=== PATIENT | female | born 1940 | race Caucasian/White ===

== ENCOUNTER 2016-12-11 10:54 | Inpatient (IN) | payer MEDICARE ==
[~2016-12-11] VITALS: Ht 152.4 cm; Wt 74.4 kg
[2016-12-11] VITALS (8 sets, daily range): BP systolic 107–142; BP diastolic 38–112; PULSE 58–72; RESP 15–20; O2SAT 94–97
[~2016-12-11 10:54] MED LIST: ALBU8.5H2 INHALATION; AMLO5TAB2 PO; ATRV10T PO; CLON0.1T14 PO; DONE5TAB30 PO; HYDR-4003 PO; HYG25 PO; LISI-567 PO; MELA5TAB14 PO; MUPI1OIN6 TP; POTA10CA42 PO; QUET25TA73 PO; TORS20TA3 PO; spacer INH
--- NOTE | 2016-12-11 12:03 | ED.REPORT ---
HPI-General Illness Date of Service Dec 11, 2016 ED Provider: Christopher Faye MD Pt is a 76 year old female with a hx of kidney issues, DM and HTN presenting to the ED via EMS complaining of tremors onset in the last couple of days. Associated symptoms include feeling dehydrated, generalized weakness, problems with ambulation, lightheadedness, nausea, and dry heaving. Her symptoms have been constant over the last few days, gradually worsening. Denies SOB, chest pain, fever, abd pain, or urinary decrease or increase. She states that she was constipated for a couple weeks, and then took a supplement and had diarrhea yesterday. She has had changes to her Amitriptyline in the last week. No other known alleviating or exacerbating factors. She denies any seizure-like activity. Family present; no altered mental status. No vertigo, no unilateral weakness, numbness, or tingling, no gait disturbance, no difficulty speaking. Nursing Notes Stated Complaint: Tremors Chief Complaint: General Complaint Nursing Notes Reviewed: Yes Allergies: Coded Allergies: morphine (Verified Allergy, Unknown, 12/11/16) Scheduled Amlodipine (Amlodipine) 5 Mg Tablet 10 MG PO HS Atorvastatin (Lipitor) 10 Mg Tab 10 MG PO DAILY Chlorthalidone (Chlorthalidone) 25 Mg Tablet 25 MG PO DAILY Clonidine (Catapres) 0.1 Mg Tablet 0.1 MG PO BID Donepezil (Donepezil) 5 Mg Tablet 5 MG PO BID Lisinopril (Lisinopril) 20 Mg Tablet 20 MG PO DAILY Lisinopril (Lisinopril) 20 Mg Tablet 20 MG PO DAILY Mupirocin (Mupirocin) 2 % Oin.pf.sandra 1 GM TP 2-3 TIMES PER DAY Potassium Chloride (Potassium Chloride) 10 Meq Capsule.er 10 MEQ PO DAILY TAKE WITH FOOD Torsemide (Torsemide) 20 Mg Tablet 20 MG PO DAILY Scheduled PRN Albuterol HFA (Proair HFA) 8.5 Gm Hfa.aer.ad 2 PUFFS INHALATION Q4H PRN PRN For Shortness of Breath Hydrocodone-Acetaminophen 5-325 mg (Hydrocodone-Acetaminophen 5-325 mg) 1 Each Tablet 1 TABLET PO Q6H PRN PRN For Pain Melatonin (Melatonin) 5 Mg Tablet 5 MG PO HS PRN PRN Insomnia Quetiapine Fumarate (Quetiapine Fumarate) 25 Mg Tablet 25 MG PO HS PRN PRN insomnia, melatonin fail Miscellaneous Medications ([spacer]) 1 UNIT INH General Time Seen by MD: 11:17 Chief Complaint Other (Tremors) Hx Obtained From: Patient Arrived By: Walk-in Sudden in Onset?: No Onset Occurred: 3 days ago Symptom Duration: Constant Severity: Current: No pain currently Recent Healthcare: No recent doctor visit, No recent hospitalization Similar Sx Previous: No Past Medical History Past Medical History Dementia DM 2, hypertension Kidney issues Family History Denies pertinent family history Smoking History Former Smoker Social History Drug Use: Denies drug use Other Social History: Lives alone Ambulatory Status Independent Review of Systems Reports tremors Full Review of Systems Constitutional: Reports: Weakness - generalized, Denies: Fever Eyes: Denies: Diplopia Ears / Nose / Throat: Denies: Nasal congestion Respiratory: Denies: Shortness of breath Cardiovascular: Denies: Chest pain GI: Reports: Constipation, Diarrhea, Nausea, Denies: Abdominal pain Female: Denies: Dysuria, Urination decreased, Urination increased Musculoskeletal: Denies: Back pain Skin: Denies Rash Neurologic: Reports: Lightheaded Psychiatric: Denies: Agitation Complete sys rev & neg: except as marked. Physical Exam Nursing note and vitals reviewed. Constitutional: Well-developed, well-nourished. Not diaphoretic. Head: Normocephalic and atraumatic. Mouth/Throat: Oropharynx is clear and moist. No oropharyngeal exudate. Eyes: EOM are normal. Pupils are equal, round, and reactive to light. Neck: Supple, no tracheal deviation. Cardiovascular: Normal rate, regular rhythm. Equal and intact distal pulses throughout. Pulmonary/Chest: Effort normal and breath sounds normal. No respiratory distress. Abdominal: Soft. No distension. There is no tenderness, rebound, or guarding. Bowel sounds present. Musculoskeletal: Range of motion grossly intact, moving all extremities. No edema or tenderness appreciated. Neurological: AOx3. Grossly nonfocal exam. Strength and sensation intact and equal to bilateral upper and lower extremities. Skin: Warm and dry, no rashes or pallor appreciated. Normal skin turgor. Psychiatric: Appropriate mood and affect. Behavior appears normal. Vital Signs Vital Signs Date Time Temp Pulse Resp B/P Pulse Ox O2 Delivery O2 Flow Rate FiO2 12/11/16 13:13 36.7 72 20 140/38 95 Room Air 12/11/16 11:16 36.4 58 16 138/76 97 Room Air Initial VS: Reviewed Interpretation & Diagnostics Lab Results Interpretation Result Diagram: 12/11/16 1155 12/11/16 1155 Test 12/11/16 11:55 White Blood Count 6.5th/mm3 (3.8-10.1) Red Blood Count 3.39mil/mm3 (3.90-5.20) Hemoglobin 10.2g/dL (12.0-15.6) Hematocrit 28.6% (35.0-46.0) Mean Corpuscular Volume 84.4fL (81-100) Mean Corpuscular Hemoglobin 30.1pg (27.0-35.0) Mean Corpuscular Hemoglobin Concent 35.7% (32.0-37.0) Red Cell Distribution Width 12.2% (12.3-15.4) Platelet Count 199bil/L (150-400) Neutrophils (%) (Auto) 79.8% (40-74) Lymphocytes (%) (Auto) 10.8% (14-46) Monocytes (%) (Auto) 7.2% (4-12) Eosinophils (%) (Auto) 1.8% (0-5) Basophils (%) (Auto) 0.2% (0-3) Sodium Level 120mEq/L (134-144) Potassium Level 4.3mEq/L (3.5-5.2) Chloride Level 80mEq/L (97-108) Carbon Dioxide Level 18mmol/L (18-29) Blood Urea Nitrogen 90mg/dL (8-27) Creatinine 5.31mg/dL (0.57-1.00) Estimat Glomerular Filtration Rate 11mL/min (>59) Glucose Level 154mg/dL (60-99) Lactic Acid Level 0.7mmol/L (0.4-2.0) Calcium Level 7.9mg/dL (8.5-10.1) Magnesium Level 1.6mg/dL (1.6-2.6) Total Bilirubin 0.4mg/dL (0.0-1.2) Aspartate Amino Transf (AST/SGOT) 32U/L (0-50) Alanine Aminotransferase (ALT/SGPT) 19U/L (0-32) Alkaline Phosphatase 141U/L (25-165) Troponin T 0.010ug/L (0.0-0.011) Total Protein 5.9g/dL (6.4-8.4) Albumin 3.6g/dL (3.4-5.0) Alcohols < 10mg/dL (0-10) ECG Interpretation ECG Interpretation: No significant change from previous. Time: 11:43 Interpreted by: ED physician Normal ECG Interpretation: Normal rate (60), Normal sinus rhythm X-Ray Chest Interpretation Chest Xray Interpretation: IMPRESSION: Lordotic positioning, no acute disease considering reduced inspiratory volume. Dictated by: Nitin Rubio M.D. on 12/11/2016 at 13:07 View: Portable, 1 view Interpretation / Wet Read by: Interpret - Radiologist CT Head Interpretation IMPRESSION: 1. No acute intracranial findings. 2. Mild findings likely associated with microvascular ischemia. Dictated by: Cathryn Robles M.D. on 12/11/2016 at 12:58 Study: Head CT no contrast Interpretation / Wet Read by: Interpret - Radiologist Re-Eval/Medical Decision Med Decision/Clinical Course In summary, 76-year-old female with a complex past medical history including diabetes, CKD, and arthritis resigned to the ED for evaluation of a number of different symptoms, most notably some shakiness/tremor, lightheadedness, malaise , generalized weakness, and nausea. She does not have any focal neurologic deficits that would suggest CVA, nor difficulty speaking; acting at baseline per family. No abdominal pain or tenderness. No chest pain or shortness of breath. EKG with no acute ischemic changes. Unclear etiology for the patient' s symptoms at this time, differential is broad. Initial laboratory studies notable for a sodium of 120, BUN of 90, creatinine of 5.31 from 1.77 previously. Anion gap of 22. Lactic acid 0.7. CBC stable from previous. UA, serum osmolarity pending. Chest x-ray and head CT negative for acute abnormality, including no evidence of pneumonia or acute intracranial bleed. She appears to be euvolemic at this time, no history of seizures or altered mental status recently. Made nothing by mouth and fluid restricted here in the ED; discussed with Dr. Cortez as per below. We will hold off on hypertonic saline at this time given stable, however may need this shortly pending results and progression. Given the above, plan admission for further evaluation and management of this critically ill patient. Time of Eval: 13:16 Patient Status: Condition improved Re-Evaluation/Progress Note: Discussed plan for admission. Pt understands and agrees with plan. Consultation #1: Consulted With: Hospitalist Cyber Incident Handler: Will see patient, Agrees with plan, Accepts admit Consultation #2: Referral / Consult Name: Afshin Cortez DO Consulted With: Nephrology Call Returned at: 13:29 Cyber Incident Handler: Will see patient Note: He will come see the patient. Counseled Regarding: Diagnosis, Lab results, Need for admission Discharge & Departure Primary Impression: Hyponatremia Additional Impressions: Azotemia Acute kidney injury Disposition: ADMITTED TO HOSPITAL Discharge Condition All VS Reviewed: Yes Condition: Critical Referrals: Jon Moran DO (PCP) Afshin Cortez DO Crit Care Except Billable Proc Time Spent: 30-74 minutes Services Performed: Patient management by me, Time spent at bedside, Reviewing test results, Reviewing imaging, Discussing patient care, Documentation in record, Time with fam/surrogate Scribe Attestation Portions of this note were transcribed by Savanna Spenec. I, Dr. Faye personally performed the history, physical exam and medical decision-making; I reviewed and confirmed the accuracy of the information in the transcribed note. Signed by: Serg Lopez, 12/11/2016 at [Time]. copies to: Jon Moran DO; Afshin Cortez William B MD Dec 11, 2016 12:03 SAVANNA SPENCE Dec 11, 2016 12:23
[2016-12-11 12:08] LABS: BASOPHILS % (AUTO) 0.2 % (0-3); EOSINOPHILS % (AUTO) 1.8 % (0-5); MONOCYTES % (AUTO) 7.2 % (4-12); Mean Corpuscular Hemoglobin 30.1 pg (27.0-35.0); Mean Corpuscular Volume 84.4 fL (81-100); NEUTROPHILS % (AUTO) 79.8 % (40-74); Platelet Count 199 bil/L (150-400)
[2016-12-11 12:43] LABS: Magnesium 1.6 mg/dL (1.6-2.6)
--- NOTE | 2016-12-11 13:09 | DRSVH ---
PROCEDURE: X-RAY CHEST ONE VIEW, PORTABLE ([id number]) INDICATIONS: dizzy, lightheaded TECHNIQUE: One view of the chest was acquired. COMPARISON: [facility], CR, XR CHEST 1VW (PORTABLE), 11/02/2016, 15:51. [facility], CR, CHEST 1VW (PORTABLE), 01/28/2014, 13:13. FINDINGS: Surgical changes and devices: None. Lungs and pleura: No pleural effusions or pneumothorax. Lungs are clear considering lordotic positi oning and reduced inspiration. Mediastinum: Mediastinal contours appear normal. Heart size is normal. Bones and chest wall: No suspicious bony lesions. Overlying soft tissues appear unremarkable. IMPRESSION: Lordotic positioning, no acute disease considering reduced inspiratory volume. Dictated by: Nitin Rubio M.D. on 12/11/2016 at 13:07 Approved by: Nitin Rubio M.D. on 12/11/2016 at 13:08
--- NOTE | 2016-12-11 13:11 | DRSVH ---
PROCEDURE: CT BRAIN WITHOUT CONTRAST ([id number]) INDICATIONS: dizziness, near syncope TECHNIQUE: Noncontrast 4.5 mm thick angled axial sections acquired from the foramen magnum to the vertex, with c oronal reformats. COMPARISON: [facility], CT, CT BRAIN WO CON, 11/02/2016, 17:06. FINDINGS: Image quality: Excellent. CSF spaces: Basal cisterns are patent. No extra-axial fluid collections. The ventricles are symmet felisha in size and shape. Brain: No intracranial bleeds or masses. There is cerebral volume loss for age, with resultant vent ricular and sulcal prominence. There are periventricular and deep white matter chronic small vessel ischemic changes. There is intracranial internal carotid artery atherosclerosis. Skull and face: Calvarium and visualized facial bones appear intact, without suspicious lesions. Sinuses: Visualized sinuses and mastoids are clear. IMPRESSION: 1. No acute intracranial findings. 2. Mild findings likely associated with microvascular ischemia. Dictated by: Cathryn Robles M.D. on 12/11/2016 at 12:58 Approved by: Cathryn Robles M.D. on 12/11/2016 at 13:09
[2016-12-11] MEDS ORDERED: 0.9% Sodium Chloride 500 ML IV ONE (14:20)
[2016-12-11] MEDS ORDERED: Polyethylene Glycol (PEG) 17 Gm Powder PO PRN (14:55)
[2016-12-11] MEDS ORDERED: Alum-Mag Hydrox-Simeth 30 mL Suspension PO PRN (14:55)
[2016-12-11] MEDS ORDERED: LOPE-147 PO (15:05)
[2016-12-11] MEDS ORDERED: AMIT75TA2 PO (15:05)
[2016-12-11 15:12] LABS: Mean Corpuscular Volume 84.2 fL (81-100)
--- NOTE | 2016-12-11 16:12 | DRSVH ---
PROCEDURE: US RENAL SONOGRAM INDICATIONS: [place], eval for obstruction, hydro etc TECHNIQUE: Real-time scanning was performed of the kidneys and bladder, with image documentation. COMPARISON: [facility], US, US RENAL, 09/28/2016, 10:17. FINDINGS: Kidneys: Kidneys are normal in size. Right kidney measures 9.9 cm long; left kidney measures 9.6 cm long. Right renal cortical thickness is 1.3 cm; left renal cortical thickness is 1.2 cm. Renal cor tical echotexture is normal. No hydronephrosis or nephrolithiasis. No suspicious solid mass lesions . Bladder: Pre-void bladder volume is 83.5 mL. Post-void residual is 118.4 mL. Pre-void images demon strate no intraluminal masses or stones. On pre-void images, neither ureteral jets are noted with co benji Doppler interrogation. (Of note, ureteral jets may not be detectable in up to 25% of cases due t o insufficient differences in specific gravity between ureteral and bladder urine). Patient was unab le to voluntarily void. Miscellaneous: No free pelvic fluid. IMPRESSION: No hydronephrosis or nephrolithiasis found. Bladder volume at beginning of study is 83.5 cc and the patient was unable to void voluntarily. Therefore at the termination of study the bladde r volume was 118.4 cc. Dictated by: Nitin Rubio M.D. on 12/11/2016 at 16:10 Approved by: Nitin Rubio M.D. on 12/11/2016 at 16:11
--- NOTE | 2016-12-11 16:30 | CONS ---
[address] [address] CONSULTATION REPORT PATIENT: MCKENZIE CÁRDENAS : 1940 MR#: [id number] ADMIT: 12/11/2016 JOB ID: [id number] DATE OF SERVICE: 12/11/2016 HISTORY: The patient is a very pleasant, 76-year-old, white female who is well known to me from previous evaluations about a month ago. She was brought into [facility] for tremor, weakness and upon further investigation has developed an acute on chronic kidney injury with a creatinine of 5.31. Renal consultation is being sought for further evaluation of her renal dysfunction. She was admitted to [facility] on November 02 for acute on chronic kidney injury secondary to multiple falls and dehydration. Her renal function improved with hydration. At time of discharge on November 05, her creatinine was back to her baseline of 1.77 mg/dL. For several weeks following discharge, she states that she had been doing well, but for the last week or two has had marked decrease in her oral intake, nausea, and intermittent episodes of diarrhea. About a week ago, she began to have problems with insomnia and problems of resting and intention tremor. She denies any pruritus, chest pain, shortness of breath, rashes, or arthralgias. She has not taken any new medications, [id number] medications, or nonsteroidal anti-inflammatories. She states that she feels generally weak, and this is one of the factors that brought her into the hospital. PAST MEDICAL HISTORY: Significant for mild chronic kidney disease, stage 3, secondary to diabetes and hypertensive renal disease. 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 Although she has a reported history of diabetes, she is currently not taking any medication. There is also a history of hyperlipidemia and migraine cephalgia. PAST SURGICAL HISTORY: Remarkable for hysterectomy, tonsillectomy, cholecystectomy, and cataract excision. ALLERGY: She is allergic to MORPHINE. SOCIAL HISTORY: There is a remote history of alcohol and tobacco use and currently does not use either substance. She lives by herself and has had increasing difficulties in providing for her basic activities of daily living. MEDICATIONS: At time of my evaluation include amlodipine, benazepril, lisinopril, torsemide, and atorvastatin. FAMILY HISTORY: Unremarkable. REVIEW OF SYSTEMS: As detailed above. Otherwise is unremarkable for any fever, chills, cough, wheezing, shortness of breath, or rashes. PHYSICAL EXAMINATION: Revealed a frail, somewhat obese-appearing, 76-year-old, white female, who was alert and oriented x3 and did recognize me from previous consultations. Her blood pressure was 138/76 with a heart rate of 58. HEENT examination is remarkable for pale sclerae and slightly dry mucous membranes. Cornea, conjunctivae, pupils and extraocular muscles were unremarkable. Neck is supple without adenopathy, thyromegaly or jugular venous distention. Lungs are clear to auscultation though somewhat diminished. Heart was regular and rhythmical with a soft systolic murmur. Abdomen is soft, without any tenderness, rebound, guarding, masses or hepatosplenomegaly. There is some mild distention and there was some increased tympany noted throughout the abdomen. Extremities did not show any evidence of any clubbing, cyanosis, edema, or half and half nails. Skin turgor was slightly diminished, and there is no evidence of any rashes. LABORATORY EXAMINATION: As noted above, her sodium is 120, potassium 4.3, chloride of 80, bicarbonate 18, BUN and creatinine were 90 and 5.3. Her glucose is 154. Liver function studies were normal. Alcohol was undetectable. Her white count was 6.5, hemoglobin 10.2 with hematocrit 28.6, red cell indices, platelet count and differential were unremarkable. Her chest x-ray was within normal limits. IMPRESSION: 1. Dehydration secondary to nausea, diarrhea, and decreased oral intake. 2. Acute on chronic kidney injury secondary to #1. 3. Hyponatremia. 4. Increased anion gap metabolic acidosis. 5. Normocytic normochromic anemia. RECOMMENDATION: 1. I would like to get a stat CK level, although I doubt she has rhabdomyolysis. 2. I have discussed the case with Dr. Faye in the emergency department, and I would like to get a stat renal ultrasound to make sure we are not missing an obstructive component. 3. I would like to give her a 500 mL bolus of normal saline and then start her at 125 an hour, and we need to continue to follow her lab and intake and output. 4. Obviously, we need to hold her antihypertensive medications and her diuretics. Once again, I would like to thank you for allowing me to participate in the care of this most pleasant and interesting patient. I will be following her closely with you.
[2016-12-11] MEDS: Heparin 5,000 Unit/mL Inj SUBQ SCH (17:35)
[2016-12-11 17:41] LABS: APPEARANCE,URINE CLEAR (CLEAR,HAZY); COLOR,URINE STRAW (YELLOW); OCCULT BLOOD,URINE NEGATIVE (NEGATIVE); UROBILINOGEN,URINE NORMAL (NORMAL)
--- NOTE | 2016-12-11 18:01 | NUR ---
Admit Pt admitted to [facility] from ER at 1700. A&Ox3, vitals stable, no c/o pain, BG 109. Oriented to room and call light. Admit completed here, med rec completed in ER. All belongings brought with. 's rounding now. Pt resting comfortably in bed. Tele placed, NSR 60's 1st degree.
[2016-12-11 18:12] LABS: OSMOLALITY, URINE 263 mOs/kH2O (250-1200)
[2016-12-11] MEDS: Ondansetron 2 mg/mL 2 mL Inj IVPUSH PRN ×2 (19:49→22:35)
--- NOTE | 2016-12-11 21:04 | PCM.HPMED ---
Subjective Date of Service Dec 11, 2016 Primary Provider: Admitting Physician: Jamil Cobb MD Primary Care Physician: Afshin Cortez DO Attending Physician: Jamil Cobb MD Chief Complaint: Weakness, tremor. History of Present Illness: Ms. Shelbi Claudio is a 76 year old lady with a history Diabetes mellitus, hypertension, and recent kidney injury presenting to the [facility] Emergency Department via EMS with reports of 2 weeks progressive weakness, diarrhea, and muscle cramps 1 week of increased thirst and 3 days of unrelenting intention and resting tremors bilaterally. She states that she was constipated for a couple weeks, and then took a supplement and had diarrhea yesterday. She reports discontinuing her lorazepam 1mg nightly last week and restarted her Amitriptyline for sleep. Associated symptoms include feeling dehydrated, generalized weakness, problems with ambulation, lightheadedness, nausea, and dry heaving. Denies fever, chills, shortness of breath, chest pain, abdominal pain, constipation. She reports mild dry cough, decreased appetite, increased thirst, chills, weakness, nausea, diarrhea, polyuria, mild numbness in her distal upper extremities. She denies Vertigo, change in vision, seizure- like activity, loss of consciousness, asymmetric extreme weakness. Of note; She has a history of falls, dehydration, and kidney injury. In the ED her vitals are as follows: T-36.4, HR-56, RR-16, BP 138/76, 97% on RA. Sodium 120, BUN 90, Cre 5.31, In the ED she received 500 ml bolus NS. Review of Systems: A comprehensive review of systems was conducted with the patient and found to be negative except as above in the History of Present Illness. Allergies Coded Allergies: morphine (Verified Allergy, Unknown, 12/11/16) Uncoded Allergies: unknown sleep medicine (Allergy, Intermediate, "leg cramps", 12/11/16) Home Medications Amitriptyline 150 mg HS Amlodipine 10 mg HS Atorvastatin 10 mg Daily Chlorthalidone 25 mg Daily Clonidine 0.1 MG PO BID Hydrocodone-APAP 5/325 1 tab PO Q6H Lisinopril 20 mg Daily Loperamide 2 MG PO BID Prn Potassium cl 10 Meq po Daily Quetiapine Fumarate 25 mg HS PRN insomnia Torsemide 20 mg Daily PMH Dementia DM 2, hypertension Kidney issues Surgical History None. 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 ) Hx Substance Use: No Hx Tobacco Use: Yes Smoking Status: Former Smoker Living Arrangement: Alone (+[address] apartment ) Exam Vital Signs Vital Sign - Last Date Time Temp Pulse Resp B/P Pulse Ox O2 Delivery O2 Flow Rate FiO2 12/11/16 20:01 36.4 63 16 115/76 95 Room Air Exam General: No acute distress, well-developed, well-nourished, appropriately interactive HEENT: Normocephalic, atraumatic. External ears without defect. Pupils equal, round, and reactive to light and accommodation. Anicteric sclerae, moist conjunctivae, and no lid lag. Oropharynx free of erythema and cobble stoning with moist mucosa. Neck: Supple with full range of motion. No jugular venous distension. No bruits. No lymphadenopathy or thyromegaly. Cardiovascular: Regular rate and rhythm with no murmurs, rubs, or gallops appreciated Pulmonary: Clear to auscultation bilaterally with no crackles, wheezes, or rhonchi. Normal respiratory effort with no use of accessory muscles. Abdomen: Bowel tones present. Soft, nontender, nondistended. No hepatosplenomegaly or masses appreciated. Extremities: No clubbing, cyanosis, edema, or lymphadenopathy appreciated. Skin: Normal temperature, turgor, and texture; no rash, ulcers, or subcutaneous nodules appreciated. Neurological: Cranial nerves grossly intact. Normal muscle strength, tone, and bulk. Reflexes, coordination, and sensory function within normal limits. Patient has a history of falls with front wheeled walker. Tremors of the upper extremities bilaterally with intention and at rest. Psychiatric: Normal mood and affect. Alert and oriented to person, place, and time. Lab and Diagnostics Result Diagram: 12/11/16 1500 12/11/16 1155 X-Rays, CTs and MRIs CT BRAIN WITHOUT CONTRAST IMPRESSION: 1. No acute intracranial findings. 2. Mild findings likely associated with microvascular ischemia. Approved by: Cathryn Robles M.D. on 12/11/2016 at 13:09 Additional Diagnostics: US RENAL SONOGRAM Kidneys: Kidneys are normal in size. Right kidney measures 9.9 cm long; left kidney measures 9.6 cm long. Right renal cortical thickness is 1.3 cm; left renal cortical thickness is 1.2 cm. Renal cortical echotexture is normal. No hydronephrosis or nephrolithiasis. No suspicious solid mass lesions. Bladder: Pre-void bladder volume is 83.5 mL. Post-void residual is 118.4 mL. Pre-void images demonstrate no intraluminal masses or stones. On pre-void images, neither ureteral jets are noted with color Doppler interrogation. (Of note, ureteral jets may not be detectable in up to 25% of cases due to insufficient differences in specific gravity between ureteral and bladder urine) . Patient was unable to voluntarily void. Miscellaneous: No free pelvic fluid. IMPRESSION: No hydronephrosis or nephrolithiasis found. Bladder volume at beginning of study is 83.5 cc and the patient was unable to void voluntarily. Therefore at the termination of study the bladder volume was 118.4 cc. Approved by: Nitin Rubio M.D. on 12/11/2016 at 16:11 Assessment & Plan Ms. Shelbi Claudio is a 76 year old lady here due to 2 weeks progressive weakness , diarrhea, and muscle cramps 1 week of polydipsia and polyuria and 3 days of unrelenting intention and resting tremors bilaterally. She states that she was constipated for a couple weeks, and then took a supplement and had diarrhea yesterday. Being treated for symptomatic hyponatremia and acute renal injury. Acute Symptomatic Hyponatremia, present on admission. Active. - Her story is a bit convoluted; On physical exam she appears euvolemic, she is Normotensive, has moist mucus membranes, and normal jugular venous distention. However, She reports a history of polyuria, diarrhea, decreased intake of solid foods and lightheadedness and presents with acute renal injury. She is also on chlorthalidone and recently restarted her Amitriptyline (has reports of associated hyponatremia). Her labs show Na of 120 (baseline of roughly mid 130's ), - Holding Chlorthalidone, and other anti-hypertensives for now. - Serum osmol 282. Urine osmol 263. - FENa 3.92. leaning more towards renal losses. - 500 ml bolus NS given in the ED, 1L of NS @ 125ml / hour. - Follow BMPs Q6H. - Sodium goal 130 by late afternoon 12/12/16. - Nephrology consulted, recommendations and expertise appreciated. Acute Kidney Injury, present on admission. Active. - Cr 5.31, BUN 90, - Continue IV fluids as above. - RAYMOND - as above. Acute Tremors, resting and intention, acute, Active. - Likely 2nd to hyponatremia, possibly related to kidney injury and uremia or polypharmacy. - Follow treatment as above, monitor for improvement. - ETOH negative. - CT Brain as above. Reported Diarrhea, present on admission. Active. - Stool cx ordered. Chronic conditions HTN - Holding home meds. DM - previously on glipizide, currently not taking meds. Acetaminophen for mild pain when necessary. Bowel regimen Senna and MiraLAX scheduled and PRN. Zofran when necessary for nausea and vomiting. SubQ heparin for now. SCDs in place. DNR/DNI - Will update POLST form. Social: lives at home alone in a senior apartment complex here in [facility]. Patient Status: Patient is admitted under inpatient status with expected length of stay greater than 2 midnights due to severity of presenting symptoms, risk of adverse event, and complexity of treatment plan. Pain Evaluation: Adequate Pain Control Resuscitation Status: DNR/DNI:Do Not Resuscitate/Intubate Time spent 70 minutes Attending Statement I interviewed and examined the patient on admission. Constitutional symptoms due to uremia with symptomatic hyponatremia. I agree with the assessment and plan as stated above. KEO ECHEVERRIA DO Dec 11, 2016 20:32 Jamil Cobb MD Dec 12, 2016 07:19
[2016-12-11] MEDS: 0.9% Sodium Chloride 1,000 ML IV SCH (22:00)
[2016-12-12] VITALS (8 sets, daily range): BP systolic 106–150; BP diastolic 42–76; PULSE 62–79; RESP 15–18; O2SAT 93–97
[2016-12-12] MEDS ORDERED: MetoCLOpramide 5 mg/mL 2 mL Inj IVPUSH PRN (01:00)
[2016-12-12] MEDS: Heparin 5,000 Unit/mL Inj SUBQ SCH ×3 (01:11→16:52)
[2016-12-12] MEDS: 0.9% Sodium Chloride 1,000 ML IV SCH ×4 (03:51→21:35)
[2016-12-12 04:27] LABS: Phosphorus 6.9 mg/dL (2.5-4.9)
[2016-12-12 06:41] LABS: BASOPHILS % (AUTO) 0.2 % (0-3); MONOCYTES % (AUTO) 8.7 % (4-12); Mean Corpuscular Hemoglobin 29.8 pg (27.0-35.0); Mean Corpuscular Volume 86.1 fL (81-100); NEUTROPHILS % (AUTO) 63.7 % (40-74); Platelet Count 195 bil/L (150-400)
--- NOTE | 2016-12-12 06:46 | NUR ---
Nausea/Insomnia Assumed care @ 1930. A/O, receiving IV fluids @ 125 mL/hr. Intermittent nausea throughout night, 8mg Zofran and 5mg Reglan given. Awake and alert most of shift, order for Ambien received and pt. indicated no effect stating inability to rest and headache (650mg Tylenol given). Report given to on coming RN.
--- NOTE | 2016-12-12 10:48 | NUR ---
Palliative Care Palliative Care received verbal order from Dr Cobb 12/12/16 to assist with goals of care. Patient admitted 12/11/16. She lives at home alone. Alexsandra (daughter) [phone] Palliative Care to follow. Mayda Cruz
[2016-12-12] MEDS ORDERED: Lactulose 10 Gm/15 mL 473 mL Solution PO ONE (11:35)
--- NOTE | 2016-12-12 11:35 | PCM.PNNEPH ---
Subjective Date of Service Dec 12, 2016 Subjective Patient's renal function is beginning to improve as is her urine output with IV fluids. Her systolic blood pressures have been in the low 100 range. She denies any headache, chest pain, does have some diminished appetite and abdominal distention. In the last 8 hours she has had 1169 in and 900 out. This morning her hemoglobin is 9.9, sodium 121, potassium 4.7, chloride of 84, bicarbonate 19, BUN and creatinine were 84 and 4.75 which are improved. Renal ultrasound was unremarkable. Exam Vital Signs Vital Sign - Last Date Time Temp Pulse Resp B/P Pulse Ox O2 Delivery O2 Flow Rate FiO2 12/12/16 10:13 70 12/12/16 08:54 36.6 16 128/50 95 Room Air Intake and Output 12/11/16 12/11/16 12/12/16 Cumulative From/Thru 15:00 23:00 07:00 12/11/16 11:16 - 12/12/16 06:49 Intake Total 200 ml 1169 ml 1369 ml Output Total 900 ml 900 ml Balance 200 ml 269 ml 469 ml Intake Oral 200 ml 400 ml 600 ml IV Total 769 ml 769 ml Output Urine Total 900 ml 900 ml Exam Neck is supple without adenopathy, thyromegaly, or jugular venous distention. Lungs are clear to auscultation. Heart is regular and rhythmical with a soft systolic murmur. Abdomen is somewhat distended with diminished bowel sounds noted. There was diffuse tympany to percussion, no tenderness or rebound guarding masses or hepatosplenomegaly. Patient states that she is unsure as to her last bowel movement. Extremities did not show any evidence of any clubbing cyanosis or edema. Skin turgor is fair. Lab and Diagnostics Result Diagram: 12/12/16 0330 12/12/16 0840 X-Rays, CTs and MRIs CT BRAIN WITHOUT CONTRAST IMPRESSION: 1. No acute intracranial findings. 2. Mild findings likely associated with microvascular ischemia. Approved by: Cathryn Robles M.D. on 12/11/2016 at 13:09 Additional Diagnostics US RENAL SONOGRAM Kidneys: Kidneys are normal in size. Right kidney measures 9.9 cm long; left kidney measures 9.6 cm long. Right renal cortical thickness is 1.3 cm; left renal cortical thickness is 1.2 cm. Renal cortical echotexture is normal. No hydronephrosis or nephrolithiasis. No suspicious solid mass lesions. Bladder: Pre-void bladder volume is 83.5 mL. Post-void residual is 118.4 mL. Pre-void images demonstrate no intraluminal masses or stones. On pre-void images, neither ureteral jets are noted with color Doppler interrogation. (Of note, ureteral jets may not be detectable in up to 25% of cases due to insufficient differences in specific gravity between ureteral and bladder urine) . Patient was unable to voluntarily void. Miscellaneous: No free pelvic fluid. IMPRESSION: No hydronephrosis or nephrolithiasis found. Bladder volume at beginning of study is 83.5 cc and the patient was unable to void voluntarily. Therefore at the termination of study the bladder volume was 118.4 cc. Approved by: Nitin Rubio M.D. on 12/11/2016 at 16:11 Plan Impression Impression #1 dehydration which is slowly improving #2 acute kidney injury secondary to #1 which is also improving #3 hyponatremia which is improving number for distended abdomen Recommendations #1 her to continue her IV fluids but I would like to reduce weight 200 now. I would also like to give her a dose of lactulose to see if we can stimulate a bowel movement and reduce the ileus she appears to have. We will continue to follow her lab and intake and output. Afshin Cortez DO Dec 12, 2016 11:35
--- NOTE | 2016-12-12 12:24 | PCM.CONPAL ---
Date of Service Dec 12, 2016 Date of Hospital Admission: Dec 11, 2016 at 15:38 Date of Palliative Consult: Dec 12, 2016 Requesting Provider: KEO ECHEVERRIA DO Reason Palliative Care Consult: Goals of Care Discussion, Other (POLST completion) Hospital Unit @time of consult: Progressive Care Palliative Care Recommendation Ms. Shelbi Claudio is a 76 year old lady with a history Diabetes mellitus, hypertension, and recent kidney injury presenting to the [facility] Emergency Department via EMS with reports of 2 weeks progressive weakness, diarrhea, and muscle cramps 1 week of increased thirst and 3 days of unrelenting intention and resting tremors bilaterally. This is her second admission in 2 months for acute kidney injury, the last was related. perhaps due to dehydration. Palliative Care is asked to assist in confirming her goals of care, completing a POLST form and offering a guided discussion re: her understanding of her illness and the implications for her future care and quality of life. Summary of palliative recommendations: -Symptom management (Pain/other) 1. PAIN: mostly chronic headache pain, using Vicodan at home. Consider this with medical team. 2. Sleep: pt uses amitriptyline 150 mg HS at home; consider reorder this with medical team. -DPOA/Advanced Directives/POLST 1. Pt reports she had one at home but is happy to have an updated version done here --DNR --No Intubation --Yes to antibiotics to prolong life --No to feeding tubes. 2. DPOA-HC: Patient does not have living will or POA completed. Would like to name her daughter as DPOA-HC --will supply information and forms. 3. Future medical decisions: The patient is appreciative of the opportunity to talk about her kidney injury/disease, to better understand how it is related to her diabetes and hypertension. She now understands that the chronic nature of this disease might make her a candidate for dialysis in the future and she has questions about how this will affect her lifestyle. She is undecided about whether this will be something she is interested in but would probably at least "give it a try". -Family/emotional support: Call to daughter Alexsandra Vargas [phone]; patient has ok'd us to update her on POLST and health status. -Spiritual support Patient Goals: 1. Patient wants to be told the truth about his/her illness, even if it is unpleasant. 2. Patient would like to be told prognosis when it can be predicted, to better guide treatment decisions. 3. Patient would choose quality of life over quantity of life, and defines quality as being able to stay as independent as possible. 4. Patient would request that comfort care take priority over cognitive/mental confusion. Additional Medical Diagnoses with primary management by Hospitalist team include : Acute Symptomatic Hyponatremia, present on admission. Active. Hyponatremia. Her labs show Na of 120 (baseline of roughly mid 130's), She is on chlorthalidone and recently restarted her Amitriptyline - Holding Chlorthalidone, and other anti-hypertensives for now. - Serum osmol 282. Urine osmol 263. - FENa 3.92. leaning more towards renal losses. - 500 ml bolus NS given in the ED, 1L of NS @ 125ml / hour. - Follow BMPs Q6H. - Sodium goal 130 by late afternoon 12/12/16. - Nephrology consulted, recommendations and expertise appreciated. Acute Kidney Injury, present on admission. Active. - Cr 5.31, BUN 90, - Continue IV fluids as above. - RAYMOND - as above. Acute Tremors, resting and intention, acute, Active. - Likely 2nd to hyponatremia, possibly related to kidney injury and uremia or polypharmacy. - Follow treatment as above, monitor for improvement. - ETOH negative. - CT Brain as above. Reported Diarrhea, present on admission. Active. - Stool cx ordered. Chronic conditions HTN - Holding home meds. DM - previously on glipizide, currently not taking meds. Acetaminophen for mild pain when necessary. Bowel regimen Senna and MiraLAX scheduled and PRN. Zofran when necessary for nausea and vomiting. SubQ heparin for now. SCDs in place. Problems: (1) Goals of care, counseling/discussion Assessment & Plan: PAtient with limited understanding of acute on chronic kidney disease and implications for future. In need of counseling regarding present and future decisions (eg dialysis) and discussion of what would help her achieve her goals of maintaining independence. Onset Date: ~ 12/12/2016 Status: Acute ICD Code: Z71.89 (2) Palliative care by specialist Assessment & Plan: Discussion of goals with options for medical care in light of progressive illness. Advance Care planning, information about DPOA-HC and risks /benefits of future care decisions. Onset Date: ~ 12/2016 Status: Acute ICD Code: Z51.5 Disposition plans to return to independent living. Resuscitation Status Resuscitation Status: DNR/DNI:Do Not Resuscitate/Intubate POLST Updates/Changes Previous POLST?: Yes Antibiotics: Use ABX if can Prolong Life Artificially Admin Nutrition: No Artifical Nutrition by Tube POLST Discussed with: Patient POLST Review Outcome: New Form Completed . Advanced Care Planning Address: POLST Pain: Moderate Symptom management: Drowsiness/sleepiness, Pain Pt History History of Present Illness Palliative Care is asked to see Ms. Claudio during this second of two hospitalizations this summer for kidney injury. Dr. Cobb feels this is a good time to address the patient's wishes regarding other types of interventions , like dialysis, that may be necessary in the future. She has expressed her wishes to be DNR and have no intubation and PC will assist her in completing a POLST form to this effect. Ms. Claudio is a 76 yr old woman who [facility] [place]. She states she "is doing ok" living on her own, though she admits to increasing falls in the last year and states this has meant that she is no longer allowed to use the [facility] bus for transportation for her shopping and errands. She then adds that she "hasn't been falling as much" since her last discharge in October. As noted in Dr. Echeverria's note, she had increasing thirst and fluid intake but more weakness and bothersome tremors which were causing her to pitch forward with her walker; she had increasing fear of falling. From H&P by Dr. Echeverria: "Ms. Shelbi Claudio is a 76 year old lady with a history Diabetes mellitus, hypertension, and recent kidney injury presenting to the [facility] Emergency Department via EMS with reports of 2 weeks progressive weakness, diarrhea, and muscle cramps 1 week of increased thirst and 3 days of unrelenting intention and resting tremors bilaterally. She states that she was constipated for a couple weeks, and then took a supplement and had diarrhea yesterday. She reports discontinuing her lorazepam 1mg nightly last week and restarted her Amitriptyline for sleep. Associated symptoms include feeling dehydrated, generalized weakness, problems with ambulation, lightheadedness, nausea, and dry heaving. Denies fever, chills, shortness of breath, chest pain, abdominal pain, constipation. She reports mild dry cough, decreased appetite, increased thirst, chills, weakness, nausea, diarrhea, polyuria, mild numbness in her distal upper extremities. She denies Vertigo, change in vision, seizure- like activity, loss of consciousness, asymmetric extreme weakness. Of note; She has a history of falls, dehydration, and kidney injury. In the ED her vitals are as follows: T-36.4, HR-56, RR-16, BP 138/76, 97% on RA. Sodium 120, BUN 90, Cre 5.31, In the ED she received 500 ml bolus NS." Past Medical History Significant PMH Noted: PMH Dementia DM 2, hypertension Kidney issues Surgical History None. 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 Living Situation: senior apartment in [place] close to [facility] Spiritual Support Spiritual Support denies any scientology affiliation Responsive Patient Symptoms Pain (current): Moderate (chronic headaches, rates these 4-6/10) Pain (minimum): Mild Pain (maximium): Moderate (see above) Tiredness/Fatigue: Mild Anorexia: Mild Palliative Performance Scale PPS Patient Status: Baseline PPS Ambulation: Mainly Sit/Lie PPS Activity: Unable to do any work PPS Self-Care: Occasional assistance necessary PPS Intake: Normal or reduced PPS Conscious Level: Full or confusion Performance Scale: 50% ADLs ADL Patient Status: Baseline ADL Ambulation: Mainly Sit/Lie ADL Dressing: Occasional assistance necessary ADL Feeding: Occasional assistance necessary ADL Hygene/bathing: Considerable assistance required ADL Transfers: Occasional assistance necessary POLST at Time of Admission Previous POLST?: Yes Cardiopulmonary Resuscitation: DNR: Do Not Attempt Resuscitation Medical Interventions: Limited Additional Interventions Antibiotics: Use ABX if can Prolong Life Artificially Admin Nutrition: No Artifical Nutrition by Tube POLST Discussed with: Patient POLST Status: See plan Allergy Allergies Reviewed: Yes Medications Current Medications: Current Medications Heparin Sodium (Porcine) 5,000 unit Q8 SUBQ Last administered on 12/12/16 08:50 ; Admin Dose 5,000 UNIT; Start 12/11/16 at 16:30 Al Hydrox/Mg Hydrox/Simethicone 30 ml Q6H PRN PO; Start 12/11/16 at 14:55 Ondansetron HCl 4 to 8 mg Q4H PRN IVPUSH Last administered on 12/11/16 22:35; Admin Dose 4 MG; Start 12/11/16 at 14:55 Senna 17.2 mg BID PRN PO; Start 12/11/16 at 14:55 Polyethylene Glycol 17 gm 17 gm DAILY PRN PO; Start 12/11/16 at 14:55 Sodium Chloride 1,000 ml @ 125 mls/hr Q8H IV Last administered on 12/11/16 22: 00; Admin Dose 125 MLS/HR; Start 12/11/16 at 20:20; Stop 12/12/16 at 04:20; Status DC Melatonin 1 mg HS PRN PO; Start 12/11/16 at 22:40 Metoclopramide HCl 5 mg Q6H PRN IVPUSH Last administered on 12/12/16 01:12; Admin Dose 5 MG; Start 12/12/16 at 01:00 Acetaminophen 650 mg 650 mg Q6H PRN PO; Start 12/12/16 at 06:25 Sodium Chloride 1,000 ml @ 100 mls/hr Q10H IV; Start 12/12/16 at 11:35; Status UNV Scheduled Amitriptyline (Amitriptyline) 75 Mg Tablet 150 MG PO HS Amlodipine (Amlodipine) 5 Mg Tablet 10 MG PO HS Atorvastatin (Lipitor) 10 Mg Tab 10 MG PO DAILY Chlorthalidone (Chlorthalidone) 25 Mg Tablet 25 MG PO DAILY Clonidine (Catapres) 0.1 Mg Tablet 0.1 MG PO BID Donepezil (Donepezil) 5 Mg Tablet 5 MG PO BID Lisinopril (Lisinopril) 20 Mg Tablet 20 MG PO DAILY Potassium Chloride (Potassium Chloride) 10 Meq Capsule.er 10 MEQ PO DAILY TAKE WITH FOOD Torsemide (Torsemide) 20 Mg Tablet 20 MG PO DAILY Scheduled PRN Hydrocodone-Acetaminophen 5-325 mg (Hydrocodone-Acetaminophen 5-325 mg) 1 Each Tablet 1 TABLET PO Q6H PRN PRN For Pain Loperamide HCl (Imodium A-D) 2 Mg Capsule 2 MG PO BID PRN PRN For Diarrhea or Loose Stool Quetiapine Fumarate (Quetiapine Fumarate) 25 Mg Tablet 25 MG PO HS PRN PRN insomnia, melatonin fail Objective Findings Exam Vital Sign - Last Date Time Temp Pulse Resp B/P Pulse Ox O2 Delivery O2 Flow Rate FiO2 12/12/16 10:13 70 12/12/16 08:54 36.6 16 128/50 95 Room Air Intake and Output 12/11/16 12/11/16 12/12/16 Cumulative From/Thru 15:00 23:00 07:00 12/11/16 11:16 - 12/12/16 06:49 Intake Total 200 ml 1169 ml 1369 ml Output Total 900 ml 900 ml Balance 200 ml 269 ml 469 ml Intake Oral 200 ml 400 ml 600 ml IV Total 769 ml 769 ml Output Urine Total 900 ml 900 ml General: Alert/Oriented x3 HEENT: Atraumatic, PERRLA, EOMI, Scleral Anicteric Heart: Exam Unremarkable Lungs: Clear to Auscultation Abdomen: Bowel Tones x4 Neuro: Arousable Extremities: Pulses Palpable x4, Warm Lab/Diagnostics Lab and Imaging results reviewed in detail in EMR. Patient/Family Conference Members Present Family Members Present met with patient in her room in morning, later met with daughter and patient in room Medical Team Members Present? Tomy OVIEDO Discussion/Goals of Care Discussion FAMILY UNDERSTANDING OF DISEASE: Pt asks "why is there trouble with my kidneys? " She does not have any insight about her diabetes and hypertension as health problems. Her answers about her health history are incomplete and inconsistent , reflecting the degree to which her memory loss is making her an unreliable source. DISEASE PROGRESSION/EVIDENCE OF DECLINE/SYMPTOM BURDEN: two hospitalizations for acute kidney injury in 2 months. Significant hyponatremia with tremors. Unknown if patient report of falls, water intake, medications are accurate. Dtr is aware of the increasing problems with memory and how this is leading to increased risk. GOALS: [Pt states goal of remaining independent. Dtr states goal is to increase safety by getting patient into assisted living. She has medicaid and has viewed possible placements in the past; she has "not liked"/refused the options given her so far. HOPES/WORRIES: [Dtr. worries that patient will fall and have no help, that hospitalizations will increase, that the burden of care will increase to unsafe levels. Pt worries she won't be allowed to go home. FAMILY WISHES/VALUES: Family wants help getting patient to accept more care. Patient wants to maintain her current situation but is likely already unable to fully grasp her situation. She does report that she wants minimal machine-based intervention but is not ready to say that she would not do dialysis. Daughter feels HD would be too rough on her. Palliative Care counselled: information given to patient and daughter re DPOA and living will, POLST completed. Time spent Total time 40 minutes; >50% face to face with patient and/or family, providing counselling regarding plans and recommendations, and in care coordination with his/her medical teams. I also spent an additional 30 minutes counseling for advanced care planning with the patient/the patients family/the surrogate decision maker. copies to: Jon Moran DO; Afshin Cortez DO; Afshin Clark DO; KEO ECHEVERRIA DO; Jamil Cobb MD, Sharmon M. ARNP Dec 12, 2016 12:24
[2016-12-12] MEDS ORDERED: Lactulose 20 Gm/30 mL 30 mL Syrup PO ONE (12:25)
--- NOTE | 2016-12-12 12:57 | NUR ---
Headache Pt c/o of headache for 2 days now. Tylenol did not seem to help last night. Tramadol given now. Pt stated she usually takes Vicodin but willing to give Tramadol a try. Will continue to monitor.
[2016-12-12] MEDS ORDERED: Ondansetron 2 mg/mL 2 mL Inj IVPUSH PRN (14:30)
[2016-12-12] MEDS ORDERED: 0.9% Sodium Chloride 1,000 ML IV SCH (15:30)
--- NOTE | 2016-12-12 18:04 | PCM.PNMED ---
Subjective Date of Service Dec 12, 2016 Subjective Ms. Shelbi Claudio is a 76 year old lady with a history Diabetes mellitus, hypertension, and recent kidney injury presenting to the [facility] Emergency Department via EMS with reports of 2 weeks progressive weakness, diarrhea, and muscle cramps 1 week of increased thirst and 3 days of unrelenting intention and resting tremors bilaterally. She states that she was constipated for a couple weeks, and then took a supplement and had diarrhea yesterday. She reports discontinuing her lorazepam 1mg nightly last week and restarted her Amitriptyline for sleep. Associated symptoms include feeling dehydrated, generalized weakness, problems with ambulation, lightheadedness, nausea, and dry heaving. Denies fever, chills, shortness of breath, chest pain, abdominal pain, constipation. She reports mild dry cough, decreased appetite, increased thirst, chills, weakness, nausea, diarrhea, polyuria, mild numbness in her distal upper extremities. She denies Vertigo, change in vision, seizure- like activity, loss of consciousness, asymmetric extreme weakness. Of note; She has a history of falls, dehydration, and kidney injury. Overnight events: None. Today she is feeling much better. She reports less tremors. she is tolerating PO intake and passing bowels and emptying bladder without difficulty. She is no longer experiencing chills. We discussed Home health today with the patient and the patients daughter Liya. Ms. Claudio did not wish to have help at home and we would think about it for now. Exam Vital Signs Vital Sign - Last Date Time Temp Pulse Resp B/P Pulse Ox O2 Delivery O2 Flow Rate FiO2 12/12/16 03:35 36.8 66 16 106/62 94 Room Air Intake and Output 12/11/16 12/11/16 12/12/16 Cumulative From/Thru 15:00 23:00 07:00 12/11/16 11:16 - 12/12/16 06:49 Intake Total 200 ml 1169 ml 1369 ml Output Total 900 ml 900 ml Balance 200 ml 269 ml 469 ml Intake Oral 200 ml 400 ml 600 ml IV Total 769 ml 769 ml Output Urine Total 900 ml 900 ml Exam General: No acute distress, well-developed, well-nourished, appropriately interactive HEENT: Normocephalic, atraumatic. External ears without defect. Pupils equal, round, and reactive to light and accommodation. Anicteric sclerae, moist conjunctivae, and no lid lag. Oropharynx free of erythema and cobble stoning with moist mucosa. Neck: Supple with full range of motion. No jugular venous distension. No bruits. No lymphadenopathy or thyromegaly. Cardiovascular: Regular rate and rhythm with no murmurs, rubs, or gallops appreciated Pulmonary: Clear to auscultation bilaterally with no crackles, wheezes, or rhonchi. Normal respiratory effort with no use of accessory muscles. Abdomen: Bowel tones present. Soft, nontender, nondistended. No hepatosplenomegaly or masses appreciated. Extremities: No clubbing, cyanosis, edema, or lymphadenopathy appreciated. Skin: Normal temperature, turgor, and texture; no rash, ulcers, or subcutaneous nodules appreciated. Neurological: Cranial nerves grossly intact. Normal muscle strength, tone, and bulk. Reflexes, coordination, and sensory function within normal limits. Patient has a history of falls with front wheeled walker. Tremors of the upper extremities bilaterally with intention and at rest much improved from day before. Psychiatric: Normal mood and affect. Alert and oriented to person, place, and time. IVs and Medications Medications Reviewed: Medications were reviewed in detail Lab and Diagnostics Result Diagram: 12/12/16 03312/12/16 033 X-Rays, CTs and MRIs CT BRAIN WITHOUT CONTRAST IMPRESSION: 1. No acute intracranial findings. 2. Mild findings likely associated with microvascular ischemia. Approved by: Cathryn Robles M.D. on 12/11/2016 at 13:09 Additional Diagnostics US RENAL SONOGRAM Kidneys: Kidneys are normal in size. Right kidney measures 9.9 cm long; left kidney measures 9.6 cm long. Right renal cortical thickness is 1.3 cm; left renal cortical thickness is 1.2 cm. Renal cortical echotexture is normal. No hydronephrosis or nephrolithiasis. No suspicious solid mass lesions. Bladder: Pre-void bladder volume is 83.5 mL. Post-void residual is 118.4 mL. Pre-void images demonstrate no intraluminal masses or stones. On pre-void images, neither ureteral jets are noted with color Doppler interrogation. (Of note, ureteral jets may not be detectable in up to 25% of cases due to insufficient differences in specific gravity between ureteral and bladder urine) . Patient was unable to voluntarily void. Miscellaneous: No free pelvic fluid. IMPRESSION: No hydronephrosis or nephrolithiasis found. Bladder volume at beginning of study is 83.5 cc and the patient was unable to void voluntarily. Therefore at the termination of study the bladder volume was 118.4 cc. Approved by: Nitin Rubio M.D. on 12/11/2016 at 16:11 Assessment & Plan Ms. Shelbi Claudio is a 76 year old lady here due to 2 weeks progressive weakness , diarrhea, and muscle cramps 1 week of polydipsia and polyuria and 3 days of unrelenting intention and resting tremors bilaterally. She states that she was constipated for a couple weeks, and then took a supplement and had diarrhea yesterday. Being treated for symptomatic hyponatremia and acute renal injury. Acute Symptomatic Hyponatremia, present on admission. Improving and Active. - Her story is a bit convoluted; On physical exam she appears euvolemic, she is Normotensive, has moist mucus membranes, and normal jugular venous distention. However, She reports a history of polyuria, diarrhea, decreased intake of solid foods and lightheadedness and presents with acute renal injury. She is also on chlorthalidone and recently restarted her Amitriptyline (has reports of associated hyponatremia). Her labs showed Na of 120 (baseline of roughly mid 130 's), - Holding Chlorthalidone, and other anti-hypertensives for now. - Serum osmol today 296 Urine osmol 263. - FENa 3.92. on admission, leaning more towards renal losses. - 500 ml bolus NS given in the ED, 1L of NS @ 125ml / hour. - Follow BMPs Q6H. - Sodium goal 130 by late afternoon 12/12/16. Currently 126. - Nephrology consulted, recommendations and expertise appreciated. Acute Kidney Injury, present on admission. Improving Active. - Cr 5.31, BUN 90 on admission. Currently Cr 4.91. with good Urine output - Continue IV fluids as above. - RAYMOND - as above. Acute Tremors, resting and intention, acute, Improving and active. - Likely 2nd to hyponatremia, possibly related to kidney injury and uremia or polypharmacy. - Follow treatment as above, monitor for improvement. - ETOH negative. - CT Brain as above. Reported Diarrhea, present on admission. Active. - Stool cx ordered. Chronic conditions HTN - Holding home meds. DM - previously on glipizide, currently not taking meds. Acetaminophen for mild pain when necessary. Bowel regimen Senna and MiraLAX scheduled and PRN. Zofran when necessary for nausea and vomiting. SubQ heparin for now. SCDs in place. DNR/DNI - Will update POLST form. Discussion/Goals of Care Discussion FAMILY UNDERSTANDING OF DISEASE: Pt asks "why is there trouble with my kidneys? " She does not have any insight about her diabetes and hypertension as health problems. Her answers about her health history are incomplete and inconsistent , reflecting the degree to which her memory loss is making her an unreliable source. DISEASE PROGRESSION/EVIDENCE OF DECLINE/SYMPTOM BURDEN: two hospitalizations for acute kidney injury in 2 months. Significant hyponatremia with tremors. Unknown if patient report of falls, water intake, medications are accurate. Dtr is aware of the increasing problems with memory and how this is leading to increased risk. GOALS: [Pt states goal of remaining independent. Dtr states goal is to increase safety by getting patient into assisted living. She has medicaid and has viewed possible placements in the past; she has "not liked"/refused the options given her so far. HOPES/WORRIES: [Dtr. worries that patient will fall and have no help, that hospitalizations will increase, that the burden of care will increase to unsafe levels. Pt worries she won't be allowed to go home. FAMILY WISHES/VALUES: Family wants help getting patient to accept more care. Patient wants to maintain her current situation but is likely already unable to fully grasp her situation. She does report that she wants minimal machine-based intervention but is not ready to say that she would not do dialysis. Daughter feels HD would be too rough on her. Palliative Care counselled: information given to patient and daughter re DPOA and living will, POLST completed. Social: lives at home alone in a senior apartment complex here in [facility]. Patient Status: Patient is admitted under inpatient status with expected length of stay greater than 2 midnights due to severity of presenting symptoms, risk of adverse event, and complexity of treatment plan. Pain Evaluation: Adequate Pain Control Resuscitation Status: DNR/DNI:Do Not Resuscitate/Intubate Time spent 35 minutes Attending Statement I interviewed and examined the patient on rounds today. Plan for free water restriction and supplement sodium. I agree with the assessment and plan as stated above. KEO ECHEVERRIA DO Dec 12, 2016 08:23 Jamil Cobb MD Dec 13, 2016 07:11
[2016-12-12 20:13] LABS: OSMOLALITY, URINE 304 mOs/kH2O (250-1200)
[2016-12-13] VITALS (7 sets, daily range): BP systolic 117–157; BP diastolic 53–77; PULSE 64–80; RESP 16–20; O2SAT 94–95
[2016-12-13] MEDS: Heparin 5,000 Unit/mL Inj SUBQ SCH ×3 (00:39→17:52)
--- NOTE | 2016-12-13 01:07 | NUR ---
Insomnia Pt upset because she cannot have her Amitriptyline. However, when spoken with provider, provider stated that she cannot have her medication d/t her sodium levels. Pt upset, stating that the one time dose of Ambien is not effective. She states she has been on Amitriptyline for 20 years and is dependent on it for sleep. This is her second night awake.
[2016-12-13] MEDS: 0.9% Sodium Chloride 1,000 ML IV SCH ×2 (07:35→20:26)
--- NOTE | 2016-12-13 10:52 | NUR ---
Palliative care note D/A: Case discussed this am in PC rounds. Provider spoke to pt dtr yesterday in regards to her function. It is noted that pt has some cognitive decline that is impacting her ability to functions. There have been concerns about her ability to manage her meds, PCP aware. Mediset was ordered, dtr set up and went over with pt. Pt later could not figure out what device was and returned it. She is also not able to keep track of her diet/fluid intake as well as medications which is thought to be a component in her readmission. Phone call to izabella Hanks who is covering [facility] and [facility]. She will alert [facility] STUDENT SERVICES REPRESENTATIVE as well. P: Palliative care to follow. Christy MÉNDEZ, CCM
--- NOTE | 2016-12-13 12:27 | DRSVH ---
PROCEDURE: X-RAY CHEST, TWO VIEWS ([id number]) INDICATIONS: wheezing TECHNIQUE: 2 views of the chest were acquired. COMPARISON: [facility], CR, XR CHEST 1VW (PORTABLE), 11/02/2016, 15:51. [facility], CR, XR CHEST 1VW (PORTABLE), 12/11/2016, 12:18. [facility], CR, CHEST 2VW, 2013, 14:48. FINDINGS: Surgical changes and devices: Cholecystectomy clips. Lungs and pleura: No pleural effusions or pneumothorax. Lungs are clear. Mediastinum: Mediastinal contours are normal. Heart size is enlarged. Bones and chest wall: No suspicious bony abnormalities. Soft tissues appear unremarkable. IMPRESSION: Cardiomegaly and no definite acute cardiopulmonary process identified. Dictated by: Hal ARANA Interpreted: Bear Walker MD on 12/13/2016 at 11:51 Approved by: Shaquille Walker M.D. on 12/13/2016 at 12:22
--- NOTE | 2016-12-13 13:27 | PCM.PNNEPH ---
ELO HERNÁNDEZ DO 12/13/16 1327: Subjective Date of Service Dec 13, 2016 Subjective Miss Claudio is a 76-year-old female admitted for worsening tremors in her upper extremity's bilaterally, weakness, nausea and intermittent diarrhea for one week. Overnight she reports having a good night's sleep. She requested an inhaler for her new onset of wheezing. Yesterday had 1 loose bowel movement after 1 dose of lactulose. Vital signs remained also stable throughout the night with one episode of hypertension. Today she denies any headache, chest pain, shortness of breath or abdominal pain. Urinary output approximately 1700 mL in the last 24 hours. Sodium continues to trend up today's value 129, BUN and creatinine trending down 69/ 4.25 from 73/4.64. Chest x-ray today showed cardiomegaly with no acute artery upon her process identified Exam Vital Signs Vital Sign - Last Date Time Temp Pulse Resp B/P Pulse Ox O2 Delivery O2 Flow Rate FiO2 12/13/16 08:21 36.7 78 20 117/55 94 Room Air Intake and Output 12/12/16 12/12/16 12/13/16 Cumulative From/Thru 15:00 23:00 07:00 12/11/16 11:16 - 12/13/16 06:39 Intake Total 1179 ml 1577 ml 4125 ml Output Total 800 ml 1700 ml Balance 379 ml 1577 ml 2425 ml Intake Oral 550 ml 550 ml 1700 ml IV Total 629 ml 1027 ml 2425 ml Output Urine Total 800 ml 1700 ml # Voids 2 2 4 # Bowel Movements 1 1 Exam General: Awake and alert laying in hospital bed in no acute distress, well- developed, well-nourished, appropriately interactive HEENT: Normocephalic, atraumatic. External ears without defect. Moist mucosa Neck: Supple with full range of motion. No jugular venous distension. Cardiovascular: Regular rate and rhythm with no murmurs Pulmonary: Bilateral expiratory wheezes heard best in the upper anterior lung gonzalez. Abdomen: Bowel tones present. Soft, nontender, decrease in distention from yesterday Extremities: No clubbing, cyanosis, edema, resting tremor improved from yesterday Skin: Normal temperature, turgor, and texture Neurological: Cranial nerves grossly intact. Psychiatric: Normal mood and affect. Alert and oriented to person, place, and time. Lab and Diagnostics Result Diagram: 12/12/1632912/13/16 8968 X-Rays, CTs and MRIs CT BRAIN WITHOUT CONTRAST IMPRESSION: 1. No acute intracranial findings. 2. Mild findings likely associated with microvascular ischemia. Approved by: Cathryn Robles M.D. on 12/11/2016 at 13:09 Additional Diagnostics US RENAL SONOGRAM Kidneys: Kidneys are normal in size. Right kidney measures 9.9 cm long; left kidney measures 9.6 cm long. Right renal cortical thickness is 1.3 cm; left renal cortical thickness is 1.2 cm. Renal cortical echotexture is normal. No hydronephrosis or nephrolithiasis. No suspicious solid mass lesions. Bladder: Pre-void bladder volume is 83.5 mL. Post-void residual is 118.4 mL. Pre-void images demonstrate no intraluminal masses or stones. On pre-void images, neither ureteral jets are noted with color Doppler interrogation. (Of note, ureteral jets may not be detectable in up to 25% of cases due to insufficient differences in specific gravity between ureteral and bladder urine) . Patient was unable to voluntarily void. Miscellaneous: No free pelvic fluid. IMPRESSION: No hydronephrosis or nephrolithiasis found. Bladder volume at beginning of study is 83.5 cc and the patient was unable to void voluntarily. Therefore at the termination of study the bladder volume was 118.4 cc. Approved by: Nitin Rubio M.D. on 12/11/2016 at 16:11 Plan Impression Assessment and plan: 1. Dehydration secondary to diarrhea and decreased oral intake - Continue IV normal saline, decrease rate to 60 mL per hour - Continue to monitor I's and O's, CBC and BMP 2. Acute kidney injury, improving -BUN and creatinine continues to trend down -Urinary output 1.7 L continue monitor -Continue to monitor 3. Hyponatremia - Serum sodium continues to trend upward - Continue to monitor 4. Respiratory distress -Symptoms include new onset of wheezing -chest x-ray shows no acute cardiopulmonary process -DuoNeb when necessary Afshin Cortez DO 12/13/16 6065: Exam Lab and Diagnostics Result Diagram: 12/12/16 03312/13/16 5557 Plan Plan: Nephrology attending: Patient was seen and examined along with Dr. Hernández and I agree with the above findings. I would like to start her on DuoNeb therapy every 6 hours and I also feel we need to get the patient more mobilized and enhance the patient's pulmonary toilet. We will also start to cut back on her IV fluids. ELO HERNÁNDEZ DO Dec 13, 2016 13:27 Afshin Cortez DO Dec 13, 2016 13:45
[2016-12-13] MEDS: Albuterol-Ipratropium 3 mL Inhalation Solution NEB SCH ×2 (14:43→21:11)
--- NOTE | 2016-12-13 14:57 | NUR ---
spiritual care: palliative referral Visited with pt and oriented her to the presence of spiritual care. Spiritual care will continue to follow as needed.
--- NOTE | 2016-12-13 15:31 | PCM.PALLBR ---
Palliative Care Recommendation Date of Service: Dec 13, 2016: Ms. Shelbi Claudio is a 76 year old lady with a history Diabetes mellitus, hypertension, and recent kidney injury presenting to the [facility] Emergency Department via EMS with reports of 2 weeks progressive weakness, diarrhea, and muscle cramps 1 week of increased thirst and 3 days of unrelenting intention and resting tremors bilaterally. This is her second admission in 2 months for acute kidney injury, the last was related. perhaps due to dehydration. Palliative Care is asked to assist in confirming her goals of care, completing a POLST form and offering a guided discussion re: her understanding of her illness and the implications for her future care and quality of life. Summary of palliative recommendations: -Symptom management (Pain/other) 1. PAIN: mostly chronic headache pain, tramadol effective. 2. Sleep: Ambien effective. -DPOA/Advanced Directives/POLST 1. Pt reports she had one at home but is happy to have an updated version done here --DNR --No Intubation --Yes to antibiotics to prolong life --No to feeding tubes. 2. DPOA-HC: Living will DPOA completed. Has named daughter as DPOA-HC --copies made 3. Future medical decisions: The patient is appreciative of the opportunity to talk about her kidney injury/disease, to better understand how it is related to her diabetes and hypertension. She now understands that the chronic nature of this disease might make her a candidate for dialysis in the future and she has questions about how this will affect her lifestyle. She is undecided about whether this will be something she is interested in but would probably at least "give it a try". -Family/emotional support: Offer support to daughter Alexsandra Vargas [phone]; patient has ok' d us to update her on POLST and health status. -Disposition: independent living no longer safe, her senior center has advised that she not return to her apt. Family agrees to pursuing alternate setting with increased assist. Patient Goals: 1. Patient wants to be told the truth about his/her illness, even if it is unpleasant. 2. Patient would like to be told prognosis when it can be predicted, to better guide treatment decisions. 3. Patient would choose quality of life over quantity of life, and defines quality as being able to stay as independent as possible. 4. Patient would request that comfort care take priority over cognitive/mental confusion. Additional Medical Diagnoses with primary management by Hospitalist team include : Acute Symptomatic Hyponatremia, present on admission. Active. Hyponatremia. Her labs show Na of 120 (baseline of roughly mid 130's), She is on chlorthalidone and recently restarted her Amitriptyline - Holding Chlorthalidone, and other anti-hypertensives for now. - Serum osmol 282. Urine osmol 263. - FENa 3.92. leaning more towards renal losses. - 500 ml bolus NS given in the ED, 1L of NS @ 125ml / hour. - Follow BMPs Q6H. - Sodium goal 130 by late afternoon 12/12/16. - Nephrology consulted, recommendations and expertise appreciated. Acute Kidney Injury, present on admission. Active. - Cr 5.31, BUN 90, - Continue IV fluids as above. - RAYMOND - as above. Acute Tremors, resting and intention, acute, Active. - Likely 2nd to hyponatremia, possibly related to kidney injury and uremia or polypharmacy. - Follow treatment as above, monitor for improvement. - ETOH negative. - CT Brain as above. Reported Diarrhea, present on admission. Active. - Stool cx ordered. Chronic conditions HTN - Holding home meds. DM - previously on glipizide, currently not taking meds. Acetaminophen for mild pain when necessary. Bowel regimen Senna and MiraLAX scheduled and PRN. Zofran when necessary for nausea and vomiting. SubQ heparin for now. SCDs in place. Problems: (1) Goals of care, counseling/discussion Assessment & Plan: PAtient with limited understanding of acute on chronic kidney disease and implications for future. In need of counseling regarding present and future decisions (eg dialysis) and discussion of what would help her achieve her goals of maintaining independence. Onset Date: ~ 12/12/2016 Status: Acute ICD Code: Z71.89 (2) Palliative care by specialist Assessment & Plan: Discussion of goals with options for medical care in light of progressive illness. Advance Care planning, information about DPOA-HC and risks /benefits of future care decisions. Onset Date: ~ 12/13/2016 Status: Acute ICD Code: Z51.5 End of Life Preferences not ready to talk about this today. Goals of Care not sure as pt is not fully accepting of how her disease is likely to affect her life; she would like to continue living pretty much as she has been, as independently as possible. Disposition plans to return to independent living. Resuscitation Status Resuscitation Status: DNR/DNI:Do Not Resuscitate/Intubate POLST Updates/Changes Previous POLST?: Yes Antibiotics: Use ABX if can Prolong Life Artificially Admin Nutrition: No Artifical Nutrition by Tube POLST Discussed with: Patient POLST Review Outcome: New Form Completed . Advanced Care Planning Address: POLST Pain: Mild Symptom management: Anxiety, Drowsiness/sleepiness, Dyspnea Total time 30 minutes; >50% face to face with patient and/or family, providing counselling regarding plans and recommendations, and in care coordination with his/her medical teams. I also spent an additional 30 minutes counseling for advanced care planning with the patient/the patients family/the surrogate decision maker. copies to: Jon Moran DO; Afshin Cortez DO; Afshin Clark DO Palliative Brief Note Date of Service Dec 13, 2016 . Pt reports she slept better last night on Ambien. She is also having good relief of headaches on tramadol. Plan per medical team is 1-2 more days in hospital. Her confusion and memory loss continue TC from director of her senior residential setting--they can no longer have her living there on her own due to increased falling and memory loss issues. Medical team and CM informed. Dtr is aware and the director of the complex plans to call the patient later today to inform her. The daughter reports that the patient had previously been at [facility] [place] and they would like her to go back there, for rehab initially if she qualifies, and then to stay for assisted/long-term care. HC directive and DPOA-HC completed/notarized; copies made and added to PC chart. Tomy Dixon Dec 13, 2016 11:40
--- NOTE | 2016-12-13 18:21 | NUR ---
BP/Insomnia meds Denies CP/pressure/discomfort. Tele DC'd this AM, HR 78, distal pulses strong and palpable. BP within normal limits this AM, 150s systolic this afternoon. Reports mild SOB at rest, worsens with activity. SPO2 on RA 94%. Reports rare non productive cough. No reports of n/v/d/c or abdominal pain. Tolerating PO intake well. Voiding without complication. Alert and oriented x3, [place], reports full sensation. Patient reports frequent falls, somewhat unsteady gait, mild/moderate decrease r/t fatigue. Showered this afternoon and tolerated well. Discussed insomnia issues with MD, amitriptyline restarted for HS.
--- NOTE | 2016-12-13 19:41 | PCM.PNMED ---
Subjective Date of Service Dec 13, 2016 Subjective Ms. Shelbi Claudio is a 76 year old lady with a history Diabetes mellitus, hypertension, and recent kidney injury presenting to the [facility] Emergency Department via EMS with reports of 2 weeks progressive weakness, diarrhea, and muscle cramps 1 week of increased thirst and 3 days of unrelenting intention and resting tremors bilaterally. She states that she was constipated for a couple weeks, and then took a supplement and had diarrhea yesterday. She reports discontinuing her lorazepam 1mg nightly last week and restarted her Amitriptyline for sleep. Associated symptoms include feeling dehydrated, generalized weakness, problems with ambulation, lightheadedness, nausea, and dry heaving. Denies fever, chills, shortness of breath, chest pain, abdominal pain, constipation. She reports mild dry cough, decreased appetite, increased thirst, chills, weakness, nausea, diarrhea, polyuria, mild numbness in her distal upper extremities. She denies Vertigo, change in vision, seizure- like activity, loss of consciousness, asymmetric extreme weakness. Of note; She has a history of falls, dehydration, and kidney injury. Overnight events: NONE. Today she feels well. She reports less tremors. She is tolerating PO intake and passing bowels and emptying bladder without difficulty. She is no longer experiencing chills. We discussed Home health today with the patient and the patients daughter Liya. Ms. Claudio did not wish to have help at home and we would think about it for now. Patient requesting Duo-neb treatments. Exam Vital Signs Vital Sign - Last Date Time Temp Pulse Resp B/P Pulse Ox O2 Delivery O2 Flow Rate FiO2 12/13/16 08:21 36.7 78 20 117/55 94 Room Air Intake and Output 12/12/16 12/12/16 12/13/16 Cumulative From/Thru 15:00 23:00 07:00 12/11/16 11:16 - 12/13/16 06:39 Intake Total 1179 ml 1577 ml 4125 ml Output Total 800 ml 1700 ml Balance 379 ml 1577 ml 2425 ml Intake Oral 550 ml 550 ml 1700 ml IV Total 629 ml 1027 ml 2425 ml Output Urine Total 800 ml 1700 ml # Voids 2 2 4 # Bowel Movements 1 1 Exam General: No acute distress, well-developed, well-nourished, appropriately interactive HEENT: Normocephalic, atraumatic. External ears without defect. Pupils equal, round, and reactive to light and accommodation. Anicteric sclerae, moist conjunctivae, and no lid lag. Oropharynx free of erythema and cobble stoning with moist mucosa. Neck: Supple with full range of motion. No jugular venous distension. No bruits. No lymphadenopathy or thyromegaly. Cardiovascular: Regular rate and rhythm with no murmurs, rubs, or gallops appreciated Pulmonary: Clear to auscultation bilaterally with no crackles, wheezes, or rhonchi. Normal respiratory effort with no use of accessory muscles. Abdomen: Bowel tones present. Soft, nontender, nondistended. No hepatosplenomegaly or masses appreciated. Extremities: No clubbing, cyanosis, edema, or lymphadenopathy appreciated. Skin: Normal temperature, turgor, and texture; no rash, ulcers, or subcutaneous nodules appreciated. Neurological: Cranial nerves grossly intact. Normal muscle strength, tone, and bulk. Reflexes, coordination, and sensory function within normal limits. Patient has a history of falls with front wheeled walker. Tremors of the upper extremities bilaterally with intention and at rest much improved from day before. Psychiatric: Normal mood and affect. Alert and oriented to person, place, and time. IVs and Medications Medications Reviewed: Medications were reviewed in detail Lab and Diagnostics Result Diagram: 12/12/16 0330 12/13/16 0415 X-Rays, CTs and MRIs CT BRAIN WITHOUT CONTRAST IMPRESSION: 1. No acute intracranial findings. 2. Mild findings likely associated with microvascular ischemia. Approved by: Cathryn Robles M.D. on 12/11/2016 at 13:09 Additional Diagnostics US RENAL SONOGRAM Kidneys: Kidneys are normal in size. Right kidney measures 9.9 cm long; left kidney measures 9.6 cm long. Right renal cortical thickness is 1.3 cm; left renal cortical thickness is 1.2 cm. Renal cortical echotexture is normal. No hydronephrosis or nephrolithiasis. No suspicious solid mass lesions. Bladder: Pre-void bladder volume is 83.5 mL. Post-void residual is 118.4 mL. Pre-void images demonstrate no intraluminal masses or stones. On pre-void images, neither ureteral jets are noted with color Doppler interrogation. (Of note, ureteral jets may not be detectable in up to 25% of cases due to insufficient differences in specific gravity between ureteral and bladder urine) . Patient was unable to voluntarily void. Miscellaneous: No free pelvic fluid. IMPRESSION: No hydronephrosis or nephrolithiasis found. Bladder volume at beginning of study is 83.5 cc and the patient was unable to void voluntarily. Therefore at the termination of study the bladder volume was 118.4 cc. Approved by: Nitin Rubio M.D. on 12/11/2016 at 16:11 Assessment & Plan Ms. Shelbi Claudio is a 76 year old lady here due to 2 weeks progressive weakness , diarrhea, and muscle cramps 1 week of polydipsia and polyuria and 3 days of unrelenting intention and resting tremors bilaterally. She states that she was constipated for a couple weeks, and then took a supplement and had diarrhea yesterday. Being treated for symptomatic hyponatremia and acute renal injury. Acute Symptomatic Hyponatremia, present on admission. Resolved. - Her story is a bit convoluted; On physical exam she appears euvolemic, she is Normotensive, has moist mucus membranes, and normal jugular venous distention. However, She reports a history of polyuria, diarrhea, decreased intake of solid foods and lightheadedness and presents with acute renal injury. She is also on chlorthalidone and recently restarted her Amitriptyline (has reports of associated hyponatremia). Her labs showed Na of 120 (baseline of roughly mid 130 's), - Holding Chlorthalidone, and other anti-hypertensives for now. - Serum osmol today 296 Urine osmol 263. - FENa 3.92. on admission, leaning more towards renal losses. - 500 ml bolus NS given in the ED, 1L of NS @ 125ml / hour. - Follow BMPs Q6H. - Nephrology consulted, recommendations and expertise appreciated. Acute Kidney Injury, present on admission. Improving Active. - Cr 5.31, BUN 90 on admission. Currently Cr 4.91. with good Urine output - Continue IV fluids as above. - RAYMOND - as above. Acute Tremors, resting and intention, acute, Improving and active. - Likely 2nd to hyponatremia, possibly related to kidney injury and uremia or polypharmacy. - Follow treatment as above, monitor for improvement. - ETOH negative. - CT Brain as above. Reported Diarrhea, present on admission. Active. - Stool cx ordered. Chronic conditions HTN - Holding home meds. DM - previously on glipizide, currently not taking meds. Acetaminophen for mild pain when necessary. Bowel regimen Senna and MiraLAX scheduled and PRN. Zofran when necessary for nausea and vomiting. SubQ heparin for now. SCDs in place. DNR/DNI - Will update POLST form. Discussion/Goals of Care FAMILY UNDERSTANDING OF DISEASE: Pt asks "why is there trouble with my kidneys? " She does not have any insight about her diabetes and hypertension as health problems. Her answers about her health history are incomplete and inconsistent , reflecting the degree to which her memory loss is making her an unreliable source. DISEASE PROGRESSION/EVIDENCE OF DECLINE/SYMPTOM BURDEN: two hospitalizations for acute kidney injury in 2 months. Significant hyponatremia with tremors. Unknown if patient report of falls, water intake, medications are accurate. Dtr is aware of the increasing problems with memory and how this is leading to increased risk. GOALS: [Pt states goal of remaining independent. Dtr states goal is to increase safety by getting patient into assisted living. She has medicaid and has viewed possible placements in the past; she has "not liked"/refused the options given her so far. HOPES/WORRIES: [Dtr. worries that patient will fall and have no help, that hospitalizations will increase, that the burden of care will increase to unsafe levels. Pt worries she won't be allowed to go home. FAMILY WISHES/VALUES: Family wants help getting patient to accept more care. Patient wants to maintain her current situation but is likely already unable to fully grasp her situation. She does report that she wants minimal machine-based intervention but is not ready to say that she would not do dialysis. Daughter feels HD would be too rough on her. Palliative Care counselled: information given to patient and daughter re DPOA and living will, POLST completed. Social: lives at home alone in a senior apartment complex here in [facility], who recently contacted social work and stated they no longer feel she can live at this particular complex. Will need placement to SNF or assisted living facility. Patient Status: Patient is admitted under inpatient status with expected length of stay greater than 2 midnights due to severity of presenting symptoms, risk of adverse event, and complexity of treatment plan. Pain Evaluation: Adequate Pain Control Resuscitation Status: DNR/DNI:Do Not Resuscitate/Intubate Attending Statement I interviewed and examined the patient at the time of admission. I agree with the assessment and plan as stated above. KEO ECHEVERRIA DO Dec 13, 2016 11:50 Jamil Cobb MD Dec 21, 2016 07:08
[2016-12-13] MEDS ORDERED: LORazepam 0.5 mg Tablet PO ONE (21:55)
--- NOTE | 2016-12-13 22:05 | NUR ---
ANXIETY Pt received news over the phone that she was not allowed back at her assisted center due to her falls. Pt was understandably extremely distraught. Pt was reassured and educated on what assisted living was. Pt received PO ativan for her acute anxiety.
[2016-12-14] VITALS (8 sets, daily range): BP systolic 138–162; BP diastolic 50–67; PULSE 65–82; RESP 16–20; O2SAT 92–96
[2016-12-14] MEDS: Heparin 5,000 Unit/mL Inj SUBQ SCH ×3 (00:04→16:21)
[2016-12-14] MEDS: Albuterol-Ipratropium 3 mL Inhalation Solution NEB SCH ×5 (03:42→22:08)
[2016-12-14 03:47] LABS: BASOPHILS % (AUTO) 0.4 % (0-3); EOSINOPHILS % (AUTO) 3.7 % (0-5); MONOCYTES % (AUTO) 11.4 % (4-12); Mean Corpuscular Hemoglobin 29.6 pg (27.0-35.0); Mean Corpuscular Volume 89.1 fL (81-100); NEUTROPHILS % (AUTO) 60.8 % (40-74); Platelet Count 162 bil/L (150-400)
--- NOTE | 2016-12-14 10:31 | PCM.PALLBR ---
Palliative Care Recommendation Ms. Shelbi Claudio is a 76 year old lady with a history Diabetes mellitus, hypertension, and recent kidney injury presenting to the [facility] Emergency Department via EMS with reports of 2 weeks progressive weakness, diarrhea, and muscle cramps 1 week of increased thirst and 3 days of unrelenting intention and resting tremors bilaterally. This is her second admission in 2 months for acute kidney injury, the last was related. perhaps due to dehydration. Palliative Care is asked to assist in confirming her goals of care, completing a POLST form and offering a guided discussion re: her understanding of her illness and the implications for her future care and quality of life. Today the patient expresses her disappointment in being told she cannot return to her independent living status. She does state she "understands where they are coming from, with all my falls and such". She knows that efforts are being made to see if it is possible for her to go to [facility] where she has been before. Summary of palliative recommendations: -Symptom management (Pain/other) 1. PAIN: mostly chronic headache pain, tramadol effective. 2. Sleep: Ambien effective. 3. Anxiety: Lorazepam 0.25-0.5mg PO q6hrs PRN for Anxiety. Hold for somnolence, respiratory depression. -DPOA/Advanced Directives/POLST 1. Pt reports she had one at home but is happy to have an updated version done here --DNR --No Intubation --Yes to antibiotics to prolong life --No to feeding tubes. 2. DPOA-HC: Living will DPOA completed. Has named daughter as DPOA-HC --copies made 3. Future medical decisions: The patient is appreciative of the opportunity to talk about her kidney injury/disease, to better understand how it is related to her diabetes and hypertension. She now understands that the chronic nature of this disease might make her a candidate for dialysis in the future and she has questions about how this will affect her lifestyle. She is undecided about whether this will be something she is interested in but would probably at least "give it a try". -Mental Status: Today the patient underwent a Mini-mental status exam, performed by Dr. Mickey Braxton, in which she scored 28/30 points. Her memory loss does not appear to be so severe that it would account for the inconsistencies encountered here. --Pt mental capacity is sufficient to allow her to benefit from rehab for strengthening, diet training, safety. -Family/emotional support: Offer support to daughter Alexsandra Vargas [phone]; patient has ok' d us to update her on POLST and health status. Liya is a proponent of the plan for patient to transfer to higher level of care. Liya agrees to duties of DPOA as indicated by patient. -Disposition: independent living no longer safe, her senior center has advised that she not return to her apt. Family agrees to pursuing alternate setting with increased assist. Patient to be assessed if appropriate for Group Home Care at [facility] for rehabilitation to address her recurring falls, and additional assistance in being reminded to take her medications on time. Patient Goals: 1. Patient wants to be told the truth about his/her illness, even if it is unpleasant. 2. Patient would like to be told prognosis when it can be predicted, to better guide treatment decisions. 3. Patient would choose quality of life over quantity of life, and defines quality as being able to stay as independent as possible. 4. Patient would request that comfort care take priority over cognitive/mental confusion. Additional Medical Diagnoses with primary management by Hospitalist team include : Acute Symptomatic Hyponatremia, present on admission. Active. Hyponatremia. Her labs show Na of 120 (baseline of roughly mid 130's), She is on chlorthalidone and recently restarted her Amitriptyline - Holding Chlorthalidone, and other anti-hypertensives for now. - Serum osmol 282. Urine osmol 263. - FENa 3.92. leaning more towards renal losses. - 500 ml bolus NS given in the ED, 1L of NS @ 125ml / hour. - Follow BMPs Q6H. - Sodium goal 130 by late afternoon 12/12/16. - Nephrology consulted, recommendations and expertise appreciated. Acute Kidney Injury, present on admission. Active. - Cr 5.31, BUN 90, - Continue IV fluids as above. - RAYMOND - as above. Acute Tremors, resting and intention, acute, Active. - Likely 2nd to hyponatremia, possibly related to kidney injury and uremia or polypharmacy. - Follow treatment as above, monitor for improvement. - ETOH negative. - CT Brain as above. Reported Diarrhea, present on admission. Active. - Stool cx ordered. Chronic conditions HTN - Holding home meds. DM - previously on glipizide, currently not taking meds. Acetaminophen for mild pain when necessary. Bowel regimen Senna and MiraLAX scheduled and PRN. Zofran when necessary for nausea and vomiting. SubQ heparin for now. SCDs in place. Problems: (1) Goals of care, counseling/discussion Assessment & Plan: PAtient with limited understanding of acute on chronic kidney disease and implications for future. In need of counseling regarding present and future decisions (eg dialysis) and discussion of what would help her achieve her goals of maintaining independence. Onset Date: ~ 12/12/2016 Status: Acute ICD Code: Z71.89 (2) Palliative care by specialist Assessment & Plan: Discussion of goals with options for medical care in light of progressive illness. Advance Care planning, information about DPOA-HC and risks /benefits of future care decisions. Onset Date: ~ 12/13/2016 Status: Acute ICD Code: Z51.5 Disposition plans to return to independent living. Resuscitation Status Resuscitation Status: DNR/DNI:Do Not Resuscitate/Intubate POLST Updates/Changes Previous POLST?: Yes Antibiotics: Use ABX if can Prolong Life Artificially Admin Nutrition: No Artifical Nutrition by Tube POLST Discussed with: Patient POLST Review Outcome: New Form Completed . Pain: Mild Symptom management: Anxiety Total time 40 minutes; >50% face to face with patient and/or family, providing counselling regarding plans and recommendations, and in care coordination with his/her medical teams. I Attending Statement The patient was seen and examined together with Dr. Braxton on December 14, 2016 and I agree with the history, exam and plan as outlined in the note above. Added information about MMSE into plan. copies to: Jon Moran DO; Afshin Cortez DO; Afshin Clark DO Palliative Brief Note Date of Service Dec 14, 2016 . Dec 14, 2016 Pt reports having a difficult time over night after receiving the news that she would not be able to return to her assisted living facility. She needed Ativan after staff described her as tremulous and unable to sleep. She reports adequate relief from Ativan. Support given Plan per medical team is 1-2 more days in hospital, with anticipated discharge to [facility] for rehabilitative therapy to address her recurrent falls. PATENT CLERK to evaluate what patient qualifies for. MMSE was performed today, scored 28/30. This was done to assess patient's cognition with concern for beginnings of dementia. She denies any somatic complaints. Mickey Braxton DO Dec 14, 2016 10:31 Tomy Dixon Dec 14, 2016 15:29
--- NOTE | 2016-12-14 12:12 | NUR ---
Social Work: Initial Assessment Data: Pt is a 76 y/o female admitted for hyponatremia, [place], azotermia. Pt's PCP is Dr Cortez, pt's insurance is [facility] Medicare Complete HMO. EMR reviewed. Readmit score is 4, high. MOLD STAMPER AND REPAIRER spoke with pt's daughter regarding pt as MOLD STAMPER AND REPAIRER had attempted to speak with pt and some of the information was not correct in relation to the record. Role explained. Pt's daughter states that pt lives in [place] at the [facility] independently. There are no stairs, pt does not drive, pt has no hx of HH, hx at SNF at [facility], pt does not have LTC or VA benefits, and is not a caregiver. SNF has been ordered by . MOLD STAMPER AND REPAIRER discussed options for SNF with pt's daughter. First choice is [facility], second choice is [facility]. UR specialist requested to refer pt to these locations. MOLD STAMPER AND REPAIRER will continue to follow, PT assessment is pending. Assessment: Pt who is independent at baseline, falls risk, likely not capable of all self care at this time. Plan: Pt will possibly d/c to SNF pending referral to [facility] and [facility]. MOLD STAMPER AND REPAIRER will continue to follow, PT assessment pending. GALINA Grant Addendum: 12/14/16 at 1221 by MANUELA WEEKS Amended: Links added.
--- NOTE | 2016-12-14 12:19 | NUR ---
Gave access and faxed facesheet to Darlin garg MSW
--- NOTE | 2016-12-14 13:45 | NUR ---
Evaluation completed. Please go to "Notes" then click on "Assessments and Notes" (bottom left corner of screen). Then select appropriate discipline tab on top of screen.
--- NOTE | 2016-12-14 16:04 | PCM.PNNEPH ---
Subjective Date of Service Dec 14, 2016 Subjective Patient's renal function continues to improve. The last 24 hours she has had 2044 in and 1500 out with an additional 800 mL solid since midnight. She denies any headache, chest pain, nausea or vomiting. This morning her sodium is 134, potassium 4.9, chloride of 99, bicarbonate 20, BUN and creatinine were 55 and 3.46. Exam Vital Signs Vital Sign - Last Date Time Temp Pulse Resp B/P Pulse Ox O2 Delivery O2 Flow Rate FiO2 12/14/16 08:58 36.7 72 20 143/51 95 Room Air Intake and Output 12/13/16 12/13/16 12/14/16 Cumulative From/Thru 15:00 23:00 07:00 12/11/16 11:16 - 12/14/16 06:22 Intake Total 467 ml 640 ml 5232 ml Output Total 1525 ml 800 ml 4025 ml Balance -1058 ml -160 ml 1207 ml Intake Oral 467 ml 400 ml 2567 ml IV Total 240 ml 2665 ml Output Urine Total 1525 ml 800 ml 4025 ml # Voids 4 # Bowel Movements 1 Exam Neck is supple without adenopathy, thyromegaly, or jugular venous distention. Lungs are clear but breath sounds are diminished. Heart was regular and rhythmical/systolic murmur. Abdomen soft without any tenderness rebound guarding masses or hepatosplenomegaly. Extremities do not show any evidence of any clubbing, cyanosis, but some very slight edema is noted.. Turgor is good. Lab and Diagnostics Result Diagram: 12/14/16 0330 12/14/16 0330 X-Rays, CTs and MRIs CT BRAIN WITHOUT CONTRAST IMPRESSION: 1. No acute intracranial findings. 2. Mild findings likely associated with microvascular ischemia. Approved by: Cathryn Robles M.D. on 12/11/2016 at 13:09 Additional Diagnostics US RENAL SONOGRAM Kidneys: Kidneys are normal in size. Right kidney measures 9.9 cm long; left kidney measures 9.6 cm long. Right renal cortical thickness is 1.3 cm; left renal cortical thickness is 1.2 cm. Renal cortical echotexture is normal. No hydronephrosis or nephrolithiasis. No suspicious solid mass lesions. Bladder: Pre-void bladder volume is 83.5 mL. Post-void residual is 118.4 mL. Pre-void images demonstrate no intraluminal masses or stones. On pre-void images, neither ureteral jets are noted with color Doppler interrogation. (Of note, ureteral jets may not be detectable in up to 25% of cases due to insufficient differences in specific gravity between ureteral and bladder urine) . Patient was unable to voluntarily void. Miscellaneous: No free pelvic fluid. IMPRESSION: No hydronephrosis or nephrolithiasis found. Bladder volume at beginning of study is 83.5 cc and the patient was unable to void voluntarily. Therefore at the termination of study the bladder volume was 118.4 cc. Approved by: Nitin Rubio M.D. on 12/11/2016 at 16:11 Plan Impression Impression #1 resolving acute kidney injury secondary to dehydration Recommendations #1 tablet to continue her cautious hydration and continue to closely follow her lab, intake and output. Afshin Cortez DO Dec 14, 2016 16:04
--- NOTE | 2016-12-14 16:06 | PCM.PNNEPH ---
Subjective Date of Service Dec 14, 2016 Subjective Miss Claudio is a 76-year-old female admitted for worsening tremors in her upper extremity's bilaterally, weakness, nausea and intermittent diarrhea for one week. Overnight: Patient received a phone call from her SNF informing her she was no longer able to be resident there secondary to frequent falls, this caused her anxiety for which she was given Ativan with effect. She had a restless night's sleep was given amitriptyline with effect . Today: Patient states headache was given tramadol just prior to interview. Still feels anxious and requesting more Ativan. She feels her tremors have worsened from yesterday which she attributes to her recent anxiety. Urine creatinine continue to trend down, sodium normalized at 134. Exam Vital Signs Vital Sign - Last Date Time Temp Pulse Resp B/P Pulse Ox O2 Delivery O2 Flow Rate FiO2 12/14/16 08:58 36.7 72 20 143/51 95 Room Air Intake and Output 12/13/16 12/13/16 12/14/16 Cumulative From/Thru 15:00 23:00 07:00 12/11/16 11:16 - 12/14/16 06:22 Intake Total 467 ml 640 ml 5232 ml Output Total 1525 ml 800 ml 4025 ml Balance -1058 ml -160 ml 1207 ml Intake Oral 467 ml 400 ml 2567 ml IV Total 240 ml 2665 ml Output Urine Total 1525 ml 800 ml 4025 ml # Voids 4 # Bowel Movements 1 Exam General: Awake and alert laying in hospital bed in mild distress. Tremulous upper extremity HEENT: Normocephalic, atraumatic. External ears without defect. Moist mucosa Neck: Supple with full range of motion. No jugular venous distension. Cardiovascular: Regular rate and rhythm with no murmurs Pulmonary: Clear to auscultation bilaterally upper anterior lung gonzalez no evidence of wheezing heard yesterday Abdomen: Soft, nontender, remains distended Extremities: No clubbing, cyanosis, no pitting edema edema, resting tremor continues. Right foot appears slightly swollen when compared to the left, no pain to palpation to the area as nonerythematous not warm to palpation Skin: Normal temperature, turgor, and texture Neurological: Cranial nerves grossly intact. Psychiatric: Normal mood and affect. Alert and oriented to person, place, and time. IVs and Medications Medications Reviewed: Medications were reviewed in detail Lab and Diagnostics Result Diagram: 12/14/16 0330 12/14/16 0330 X-Rays, CTs and MRIs CT BRAIN WITHOUT CONTRAST IMPRESSION: 1. No acute intracranial findings. 2. Mild findings likely associated with microvascular ischemia. Approved by: Cathryn Robles M.D. on 12/11/2016 at 13:09 Additional Diagnostics US RENAL SONOGRAM Kidneys: Kidneys are normal in size. Right kidney measures 9.9 cm long; left kidney measures 9.6 cm long. Right renal cortical thickness is 1.3 cm; left renal cortical thickness is 1.2 cm. Renal cortical echotexture is normal. No hydronephrosis or nephrolithiasis. No suspicious solid mass lesions. Bladder: Pre-void bladder volume is 83.5 mL. Post-void residual is 118.4 mL. Pre-void images demonstrate no intraluminal masses or stones. On pre-void images, neither ureteral jets are noted with color Doppler interrogation. (Of note, ureteral jets may not be detectable in up to 25% of cases due to insufficient differences in specific gravity between ureteral and bladder urine) . Patient was unable to voluntarily void. Miscellaneous: No free pelvic fluid. IMPRESSION: No hydronephrosis or nephrolithiasis found. Bladder volume at beginning of study is 83.5 cc and the patient was unable to void voluntarily. Therefore at the termination of study the bladder volume was 118.4 cc. Approved by: Nitin Rubio M.D. on 12/11/2016 at 16:11 X-RAY CHEST, TWO VIEWS IMPRESSION: Cardiomegaly and no definite acute cardiopulmonary process identified. Dictated by: Hal Pierson [facility] Interpreted: Bear Walker MD Additional Diagnostics US RENAL SONOGRAM Kidneys: Kidneys are normal in size. Right kidney measures 9.9 cm long; left kidney measures 9.6 cm long. Right renal cortical thickness is 1.3 cm; left renal cortical thickness is 1.2 cm. Renal cortical echotexture is normal. No hydronephrosis or nephrolithiasis. No suspicious solid mass lesions. Bladder: Pre-void bladder volume is 83.5 mL. Post-void residual is 118.4 mL. Pre-void images demonstrate no intraluminal masses or stones. On pre-void images, neither ureteral jets are noted with color Doppler interrogation. (Of note, ureteral jets may not be detectable in up to 25% of cases due to insufficient differences in specific gravity between ureteral and bladder urine) . Patient was unable to voluntarily void. Miscellaneous: No free pelvic fluid. IMPRESSION: No hydronephrosis or nephrolithiasis found. Bladder volume at beginning of study is 83.5 cc and the patient was unable to void voluntarily. Therefore at the termination of study the bladder volume was 118.4 cc. Approved by: Nitin Rubio M.D. on 12/11/2016 at 16:11 Plan Impression Assessment and plan: 1. Dehydration secondary to diarrhea and decreased oral intake - Continue IV normal saline, continue rate of 60 mL per hour - Continue to monitor I's and O's, CBC and BMP 2. Acute kidney injury, improving -BUN and creatinine continues to trend down -Urinary output 1.5 L over the last 24 hours, continue monitor -Continue to monitor 3. Hyponatremia - Serum sodium has normalized - Continue to monitor 4. Respiratory distress -Symptoms include new onset of wheezing -chest x-ray shows no acute cardiopulmonary process -DuoNeb every 6 ELO CHEUNG DO Dec 14, 2016 16:06
[2016-12-14] MEDS: LORazepam 0.5 mg Tablet PO PRN ×2 (16:21→22:55)
[2016-12-14] MEDS: 0.9% Sodium Chloride 1,000 ML IV SCH ×2 (16:21→22:05)
--- NOTE | 2016-12-14 18:02 | PCM.PNMED ---
Subjective Date of Service Dec 14, 2016 Subjective Ms. Shelbi Claudio is a 76 year old lady with a history Diabetes mellitus, hypertension, and recent kidney injury presenting to the [facility] Emergency Department via EMS with reports of 2 weeks progressive weakness, diarrhea, and muscle cramps 1 week of increased thirst and 3 days of unrelenting intention and resting tremors bilaterally. She states that she was constipated for a couple weeks, and then took a supplement and had diarrhea yesterday. She reports discontinuing her lorazepam 1mg nightly last week and restarted her Amitriptyline for sleep. Associated symptoms include feeling dehydrated, generalized weakness, problems with ambulation, lightheadedness, nausea, and dry heaving. Denies fever, chills, shortness of breath, chest pain, abdominal pain, constipation. She reports mild dry cough, decreased appetite, increased thirst, chills, weakness, nausea, diarrhea, polyuria, mild numbness in her distal upper extremities. She denies Vertigo, change in vision, seizure- like activity, loss of consciousness, asymmetric extreme weakness. Of note; She has a history of falls, dehydration, and kidney injury. Overnight events: NONE. Today patient was upset regarding the news that she may not be allowed back to her senior apartment building. She is in no acute distress. The patient reports feeling better than the day prior. She denies headache, dizziness, sore throat, cough, chest pain, shortness of breath, abdominal pain, nausea, vomiting, constipation, and diarrhea. The patient is voiding and eliminating without difficulty and ambulating without difficulty. Exam Vital Signs Vital Sign - Last Date Time Temp Pulse Resp B/P Pulse Ox O2 Delivery O2 Flow Rate FiO2 12/14/16 03:42 65 16 92 Room Air 12/13/16 23:30 36.9 131/77 Intake and Output 12/13/16 12/13/16 12/14/16 Cumulative From/Thru 15:00 23:00 07:00 12/11/16 11:16 - 12/14/16 06:22 Intake Total 467 ml 640 ml 5232 ml Output Total 1525 ml 800 ml 4025 ml Balance -1058 ml -160 ml 1207 ml Intake Oral 467 ml 400 ml 2567 ml IV Total 240 ml 2665 ml Output Urine Total 1525 ml 800 ml 4025 ml # Voids 4 # Bowel Movements 1 Exam General: No acute distress, well-developed, well-nourished, appropriately interactive HEENT: Normocephalic, atraumatic. External ears without defect. Pupils equal, round, and reactive to light and accommodation. Anicteric sclerae, moist conjunctivae, and no lid lag. Oropharynx free of erythema and cobble stoning with moist mucosa. Neck: Supple with full range of motion. No jugular venous distension. No bruits. No lymphadenopathy or thyromegaly. Cardiovascular: Regular rate and rhythm with no murmurs, rubs, or gallops appreciated Pulmonary: Clear to auscultation bilaterally with no crackles, wheezes, or rhonchi. Normal respiratory effort with no use of accessory muscles. Abdomen: Bowel tones present. Soft, nontender, nondistended. No hepatosplenomegaly or masses appreciated. Extremities: No clubbing, cyanosis, with trace lower extremity edema, or lymphadenopathy appreciated. Skin: Normal temperature, turgor, and texture; no rash, ulcers, or subcutaneous nodules appreciated. Neurological: Cranial nerves grossly intact. Normal muscle strength, tone, and bulk. Reflexes, coordination, and sensory function within normal limits. Patient has a history of falls with front wheeled walker. Tremors of the upper extremities bilaterally with intention and at rest much improved from day before. Psychiatric: Normal mood and affect. Alert and oriented to person, place, and time. IVs and Medications Medications Reviewed: Medications were reviewed in detail Lab and Diagnostics Result Diagram: 12/14/16 0330 12/14/16 0330 X-Rays, CTs and MRIs CT BRAIN WITHOUT CONTRAST IMPRESSION: 1. No acute intracranial findings. 2. Mild findings likely associated with microvascular ischemia. Approved by: Cathryn Robles M.D. on 12/11/2016 at 13:09 Additional Diagnostics US RENAL SONOGRAM Kidneys: Kidneys are normal in size. Right kidney measures 9.9 cm long; left kidney measures 9.6 cm long. Right renal cortical thickness is 1.3 cm; left renal cortical thickness is 1.2 cm. Renal cortical echotexture is normal. No hydronephrosis or nephrolithiasis. No suspicious solid mass lesions. Bladder: Pre-void bladder volume is 83.5 mL. Post-void residual is 118.4 mL. Pre-void images demonstrate no intraluminal masses or stones. On pre-void images, neither ureteral jets are noted with color Doppler interrogation. (Of note, ureteral jets may not be detectable in up to 25% of cases due to insufficient differences in specific gravity between ureteral and bladder urine) . Patient was unable to voluntarily void. Miscellaneous: No free pelvic fluid. IMPRESSION: No hydronephrosis or nephrolithiasis found. Bladder volume at beginning of study is 83.5 cc and the patient was unable to void voluntarily. Therefore at the termination of study the bladder volume was 118.4 cc. Approved by: Nitin Rubio M.D. on 12/11/2016 at 16:11 Assessment & Plan Ms. Shelbi Claudio is a 76 year old lady here due to 2 weeks progressive weakness , diarrhea, and muscle cramps 1 week of polydipsia and polyuria and 3 days of unrelenting intention and resting tremors bilaterally. She states that she was constipated for a couple weeks, and then took a supplement and had diarrhea yesterday. Being treated for symptomatic hyponatremia and acute renal injury. Acute Kidney Injury, present on admission. Improving Active. - Cr 5.31, BUN 90 on admission. Currently Cr 3.46. with good Urine output. Likely pre-renal intravascular depletion. - Continue IV fluids as above. - RAYMOND - as above. Acute Tremors, resting and intention, acute, Resolved. - Likely 2nd to hyponatremia, possibly related to kidney injury and uremia or polypharmacy. - Follow treatment as above, monitor for improvement. - ETOH negative. - CT Brain as above. Acute Symptomatic Hyponatremia, present on admission. Resolved. - Her story is a bit convoluted; On physical exam she appears euvolemic, she is Normotensive, has moist mucus membranes, and normal jugular venous distention. However, She reports a history of polyuria, diarrhea, decreased intake of solid foods and lightheadedness and presents with acute renal injury. She is also on chlorthalidone and recently restarted her Amitriptyline (has reports of associated hyponatremia). Her labs showed Na of 120 (baseline of roughly mid 130 's), - Holding Chlorthalidone, and other anti-hypertensives for now. - Nephrology consulted, recommendations and expertise appreciated. Reported Diarrhea, present on admission. Active. - Stool cx ordered. Chronic conditions HTN - Holding home meds. DM - previously on glipizide, currently not taking meds. Acetaminophen for mild pain when necessary. Bowel regimen Senna and MiraLAX scheduled and PRN. Zofran when necessary for nausea and vomiting. SubQ heparin for now. SCDs in place. DNR/DNI - Will update POLST form. Discussion/Goals of Care FAMILY UNDERSTANDING OF DISEASE: Pt asks "why is there trouble with my kidneys? " She does not have any insight about her diabetes and hypertension as health problems. Her answers about her health history are incomplete and inconsistent , reflecting the degree to which her memory loss is making her an unreliable source. DISEASE PROGRESSION/EVIDENCE OF DECLINE/SYMPTOM BURDEN: two hospitalizations for acute kidney injury in 2 months. Significant hyponatremia with tremors. Unknown if patient report of falls, water intake, medications are accurate. Dtr is aware of the increasing problems with memory and how this is leading to increased risk. GOALS: [Pt states goal of remaining independent. Dtr states goal is to increase safety by getting patient into assisted living. She has medicaid and has viewed possible placements in the past; she has "not liked"/refused the options given her so far. HOPES/WORRIES: [Dtr. worries that patient will fall and have no help, that hospitalizations will increase, that the burden of care will increase to unsafe levels. Pt worries she won't be allowed to go home. FAMILY WISHES/VALUES: Family wants help getting patient to accept more care. Patient wants to maintain her current situation but is likely already unable to fully grasp her situation. She does report that she wants minimal machine-based intervention but is not ready to say that she would not do dialysis. Daughter feels HD would be too rough on her. Palliative Care counselled: information given to patient and daughter re DPOA and living will, POLST completed. Social: lives at home alone in a senior apartment complex here in [facility], who recently contacted social work and stated they no longer feel she can live at this particular complex. Will need placement to SNF or assisted living facility. Patient Status: Patient is admitted under inpatient status with expected length of stay greater than 2 midnights due to severity of presenting symptoms, risk of adverse event, and complexity of treatment plan. Pain Evaluation: Adequate Pain Control Resuscitation Status: DNR/DNI:Do Not Resuscitate/Intubate Attending Statement The patient was seen and examined together with Dr. Echeverria on 12/14/2016 and I agree with the history, exam findings, and plan as outlined in the note above. I did participate in all aspects of the services provided today, including documentation and the plan of care. The patient will continue to have gentle fluid repletion with normal saline and will follow as her renal function continues to improve. Discharge planning will continue which will likely involve custodial facility placement for rehabilitation stay. KEO ECHEVERRIA DO Dec 14, 2016 08:23 Charlie Anderson MD Dec 17, 2016 15:19
--- NOTE | 2016-12-14 18:39 | NUR ---
Headache/Anxiety Denies CP/pressure/discomfort. No tele HR 70s-80s, distal pulses strong and palpable. Systolic BP 140s this AM. Reports mild SOB at rest, worsens with activity. SPO2 on RA 95%. Reports rare non productive cough. Scheduled nebs ordered. No reports of n/v/d/c or abdominal pain. Tolerating PO intake well. Voiding without complication via BR. Alert and oriented x3, S[place], reports full sensation. Patient reports frequent falls, somewhat unsteady gait, mild/moderate decrease r/t fatigue. Anxious and very upset last night, somewhat ongoing this afternoon over living situation. Discussed with MD who ordered PO Ativan Q6, administered once in addition to Ultram x2 for SCHMITT, patient reported relief.
[2016-12-15] MEDS: Heparin 5,000 Unit/mL Inj SUBQ SCH ×2 (00:06→08:45)
[2016-12-15 00:07] VITALS: BP 148/63; PULSE 83; RESP 22; O2SAT 93
[2016-12-15 04:19] LABS: BASOPHILS % (AUTO) 0.4 % (0-3); EOSINOPHILS % (AUTO) 5.2 % (0-5); MONOCYTES % (AUTO) 9.2 % (4-12); Mean Corpuscular Hemoglobin 29.6 pg (27.0-35.0); Mean Corpuscular Volume 89.8 fL (81-100); NEUTROPHILS % (AUTO) 57.9 % (40-74); Platelet Count 167 bil/L (150-400)
[2016-12-15 05:02] VITALS: BP 152/66; PULSE 79; RESP 18; O2SAT 96
--- NOTE | 2016-12-15 05:36 | NUR ---
Pain Pt reported 8/ SCHMITT at [facility], states "I've had headaches my whole life, this is a normal thing for me." Tylenol administered with relief in pain to 09/20. No further c/o pain this shift. Nebulizers administered as per patient request. No acute anxiety noted this shift, though pt requested sleep aids to get some rest. Refused melatonin, and stated "Melatonin gives me nightmares, I can't take that." Ativan administered without effect; Seroquel administered after Ativan and patient able to rest throughout rest of shift. VSS with some hypertension. No telemetry.
[2016-12-15 05:46] VITALS: PULSE 82; RESP 16; O2SAT 96
[2016-12-15] MEDS: Albuterol-Ipratropium 3 mL Inhalation Solution NEB SCH ×2 (05:46→09:45)
[2016-12-15 08:00] VITALS: BP 165/65; PULSE 88; RESP 18; O2SAT 92
[2016-12-15 09:47] VITALS: PULSE 85; RESP 16; O2SAT 92
--- NOTE | 2016-12-15 11:04 | NUR ---
LONG TERM TRANSFER: Spoke with Filomena at [facility] and let her know patient will be ready for transfer today.
--- NOTE | 2016-12-15 11:55 | PCM.PNNEPH ---
Subjective Date of Service Dec 15, 2016 Subjective Miss Claudio is a 76-year-old female admitted for worsening tremors in her upper extremity's bilaterally, weakness, nausea and intermittent diarrhea for one week. Overnight: Patient complaining of 10 headache that was relieved with Tylenol. She also requested a sleep aid was able to rest after 1 dose of Seroquel. Scheduled nebs were ordered which provided relief for her shortness of breath. Ativan given for acute anxiety due to recent news about not being able to return to her assisted living facility. Today: She still feels a bit anxious. States increase in her lower extremity swelling. She still reports no bowel movement 3 days. Denies headache, shortness breath, chest pain, abdominal pain. Sodium level has normalized and her creatinine continues to trend down. Urinary output approximately 2 L over the last 24 hours, 1.7 L so far today Exam Vital Signs Vital Sign - Last Date Time Temp Pulse Resp B/P Pulse Ox O2 Delivery O2 Flow Rate FiO2 12/15/16 09:47 85 16 92 Room Air 12/15/16 05:02 36.7 152/66 Intake and Output 12/14/16 12/14/16 12/15/16 Cumulative From/Thru 15:00 23:00 07:00 12/11/16 11:16 - 12/15/16 05:43 Intake Total 990 ml 556 ml 6778 ml Output Total 1275 ml 5300 ml Balance -285 ml 556 ml 1478 ml Intake Oral 487 ml 3054 ml IV Total 503 ml 556 ml 3724 ml Output Urine Total 1275 ml 5300 ml # Voids 4 # Bowel Movements 1 Exam General: Awake and alert laying in hospital bed eating breakfast in no acute distress. Tremulous upper extremity HEENT: Normocephalic, atraumatic. External ears without defect. Moist mucosa Neck: Supple with full range of motion. No jugular venous distension. Cardiovascular: Regular rate and rhythm with no murmurs Pulmonary: Clear to auscultation bilaterally upper anterior lung gonzalez Abdomen: Soft, nontender, remains distended. Bowel sounds present Extremities: Bilateral pitting edema 1+ in lower extremities extending to ankles. Upper extremity tremors bilaterally Skin: Normal temperature, turgor, and texture Neurological: Cranial nerves grossly intact. Psychiatric: Anxious Lab and Diagnostics Result Diagram: 8/4/17 0400 8/4/17 0400 X-Rays, CTs and MRIs CT BRAIN WITHOUT CONTRAST IMPRESSION: 1. No acute intracranial findings. 2. Mild findings likely associated with microvascular ischemia. Approved by: Cathryn Robles M.D. on 12/11/2016 at 13:09 Additional Diagnostics US RENAL SONOGRAM Kidneys: Kidneys are normal in size. Right kidney measures 9.9 cm long; left kidney measures 9.6 cm long. Right renal cortical thickness is 1.3 cm; left renal cortical thickness is 1.2 cm. Renal cortical echotexture is normal. No hydronephrosis or nephrolithiasis. No suspicious solid mass lesions. Bladder: Pre-void bladder volume is 83.5 mL. Post-void residual is 118.4 mL. Pre-void images demonstrate no intraluminal masses or stones. On pre-void images, neither ureteral jets are noted with color Doppler interrogation. (Of note, ureteral jets may not be detectable in up to 25% of cases due to insufficient differences in specific gravity between ureteral and bladder urine) . Patient was unable to voluntarily void. Miscellaneous: No free pelvic fluid. IMPRESSION: No hydronephrosis or nephrolithiasis found. Bladder volume at beginning of study is 83.5 cc and the patient was unable to void voluntarily. Therefore at the termination of study the bladder volume was 118.4 cc. Approved by: Nitin Rubio M.D. on 12/11/2016 at 16:11 Plan Impression Assessment and plan: 1. Dehydration secondary to diarrhea and decreased oral intake - Stop IV fluids - Encourage oral intake - Continue to monitor I's and O's, CBC and BMP 2. Acute kidney injury, improving -BUN and creatinine continues to trend down -Urinary output ~ 2 L over the last 24 hours, continue monitor -Continue to monitor 3. Hyponatremia. Resolved - Serum sodium remains within normal limits today 136 - Continue to monitor 4. Respiratory distress. Improvement -Symptoms include new onset of wheezing -chest x-ray shows no acute cardiopulmonary process -DuoNeb every 6 Nephrology will most likely sign off pending continuation of lab values returned to baseline ELO CHEUNG DO Dec 15, 2016 11:55
[2016-12-15 12:00] VITALS: BP 158/67; PULSE 86; RESP 18; O2SAT 94
--- NOTE | 2016-12-15 13:43 | PCM.DIMED ---
KEO ECHEVERRIA DO 12/15/16 1338: Discharge Instructions Date of Service Dec 15, 2016 Dates of Hospitalization Dec 11, 2016 at 15:38 Discharge Diagnosis Discharge Diagnosis Acute Kidney Injury, present on admission. Resolved. Acute Tremors, resting and intention, acute, Greatly improved. Acute Symptomatic Hyponatremia, present on admission. Resolved. Reported Diarrhea, present on admission. Resolved. Diet Discharge Diet: Heart Healthy Activity Discharge Activity: Home Health Phyical Therapy, Outpatient Physical Therapy Call your provider Call your provider for: Fever or Chills, Shortness of breath, Bleeding, Vomitting, Excessive diarrhea Patient Instructions Follow-up plan Follow up with the physicians at [facility] regarding acute kidney injury 2nd to intervascular depletion, new onset tremors, and weakness. Provider: Afshin Cortez DO Follow-up in: 2 weeks (2-3 weeks. ) Charlie Anderson MD 12/17/16 0754: Discharge Instructions Attending's Statement The patient was seen and examined together with on 12/15/2016 and I agree with the history, exam findings, and plan as outlined in the note above. I did participate in all aspects of the services provided today, including documentation and the plan of care. The patient will be discharged to [facility]. We will continue to monitor her closely for volume status including adequate by mouth intake with close follow-up and reevaluation of creatinine and electrolytes. KEO ECHEVERRIA DO Dec 15, 2016 13:38 Charlie Anderson MD Dec 17, 2016 07:54
--- NOTE | 2016-12-15 13:54 | PCM.DC.MED ---
Discharge Summary Date of Service Dec 15, 2016 Dates of Hospitalization Date of Hospital Admission Dec 11, 2016 at 15:38 Date of Discharge: Dec 15, 2016 Providers: Admitting Physician: Jamil Cobb MD Primary Care Physician: Afshin Cortez DO Attending Physician: Charlie Anderson MD Diagnosis at Time of Discharge Diagnosis at Time of Discharge Acute Kidney Injury, present on admission. Resolved. Acute Tremors, resting and intention, acute, Greatly improved. Acute Symptomatic Hyponatremia, present on admission. Resolved. Reported Diarrhea, present on admission. Resolved. Procedures XRay, CTs & MRIs CT BRAIN WITHOUT CONTRAST IMPRESSION: 1. No acute intracranial findings. 2. Mild findings likely associated with microvascular ischemia. Approved by: Cathryn Robles M.D. on 12/11/2016 at 13:09 Other Diagnostics US RENAL SONOGRAM Kidneys: Kidneys are normal in size. Right kidney measures 9.9 cm long; left kidney measures 9.6 cm long. Right renal cortical thickness is 1.3 cm; left renal cortical thickness is 1.2 cm. Renal cortical echotexture is normal. No hydronephrosis or nephrolithiasis. No suspicious solid mass lesions. Bladder: Pre-void bladder volume is 83.5 mL. Post-void residual is 118.4 mL. Pre-void images demonstrate no intraluminal masses or stones. On pre-void images, neither ureteral jets are noted with color Doppler interrogation. (Of note, ureteral jets may not be detectable in up to 25% of cases due to insufficient differences in specific gravity between ureteral and bladder urine) . Patient was unable to voluntarily void. Miscellaneous: No free pelvic fluid. IMPRESSION: No hydronephrosis or nephrolithiasis found. Bladder volume at beginning of study is 83.5 cc and the patient was unable to void voluntarily. Therefore at the termination of study the bladder volume was 118.4 cc. Approved by: Nitin Rubio M.D. on 12/11/2016 at 16:11 Brief History Ms. Shelbi Claudio is a 76 year old lady with a history Diabetes mellitus, hypertension, and recent kidney injury presenting to the [facility] Emergency Department via EMS with reports of 2 weeks progressive weakness, diarrhea, and muscle cramps 1 week of increased thirst and 3 days of unrelenting intention and resting tremors bilaterally. She states that she was constipated for a couple weeks, and then took a supplement and had diarrhea yesterday. She reports discontinuing her lorazepam 1mg nightly last week and restarted her Amitriptyline for sleep. Associated symptoms include feeling dehydrated, generalized weakness, problems with ambulation, lightheadedness, nausea, and dry heaving. Denies fever, chills, shortness of breath, chest pain, abdominal pain, constipation. She reports mild dry cough, decreased appetite, increased thirst, chills, weakness, nausea, diarrhea, polyuria, mild numbness in her distal upper extremities. She denies Vertigo, change in vision, seizure- like activity, loss of consciousness, asymmetric extreme weakness. Of note; She has a history of falls, dehydration, and kidney injury. Palliative Care was asked to see Ms. Claudio during this second of two hospitalizations this summer for kidney injury. Dr. Cobb feels this is a good time to address the patient's wishes regarding other types of interventions , like dialysis, that may be necessary in the future. She has expressed her wishes to be DNR and have no intubation and PC will assist her in completing a POLST form to this effect. Ms. Claudio is a 76 yr old woman who lives independently in a senior apartment complex in [place]. She states she "is doing ok" living on her own, though she admits to increasing falls in the last year and states this has meant that she is no longer allowed to use the [facility] bus for transportation for her shopping and errands. She then adds that she "hasn't been falling as much" since her last discharge in October. She had increasing thirst and fluid intake but more weakness and bothersome tremors which were causing her to pitch forward with her walker; she had increasing fear of falling. Her [facility] apartment has expressed concern that she is no longer safe at their complex and requests that she live elsewhere. During her hospital stay Her medical conditions have nearly all resolved with careful IV fluid resuscitation and medication management. This includes somnolence, altered mental status, hyponatremia, acute kidney injury and severe tremors. The tremors are still present however they are down to roughly 5-10 % from admission, that is that they've improved 90-95%. She has been accepted to [facility]. Hospital Course Ms. Shelbi Claudio is a 76 year old lady here due to 2 weeks progressive weakness , diarrhea, and muscle cramps 1 week of polydipsia and polyuria and 3 days of unrelenting intention and resting tremors bilaterally. She states that she was constipated for a couple weeks, and then took a supplement and had diarrhea yesterday. Being treated for symptomatic hyponatremia and acute renal injury. Acute Kidney Injury, present on admission. Resolved. Acute Tremors, resting and intention, acute, Resolved. Acute Symptomatic Hyponatremia, present on admission. Resolved. Reported Diarrhea, present on admission. Resolved. Discussion/Goals of Care FAMILY UNDERSTANDING OF DISEASE: Pt asks "why is there trouble with my kidneys? " She does not have any insight about her diabetes and hypertension as health problems. Her answers about her health history are incomplete and inconsistent , reflecting the degree to which her memory loss is making her an unreliable source. DISEASE PROGRESSION/EVIDENCE OF DECLINE/SYMPTOM BURDEN: two hospitalizations for acute kidney injury in 2 months. Significant hyponatremia with tremors. Unknown if patient report of falls, water intake, medications are accurate. Dtr is aware of the increasing problems with memory and how this is leading to increased risk. GOALS: [Pt states goal of remaining independent. Dtr states goal is to increase safety by getting patient into assisted living. She has medicaid and has viewed possible placements in the past; she has "not liked"/refused the options given her so far. HOPES/WORRIES: [Dtr. worries that patient will fall and have no help, that hospitalizations will increase, that the burden of care will increase to unsafe levels. Pt worries she won't be allowed to go home. FAMILY WISHES/VALUES: Family wants help getting patient to accept more care. Patient wants to maintain her current situation but is likely already unable to fully grasp her situation. She does report that she wants minimal machine-based intervention but is not ready to say that she would not do dialysis. Daughter feels HD would be too rough on her. Palliative Care counselled: information given to patient and daughter re DPOA and living will, POLST completed. Social: lives at home alone in a senior apartment complex here in [facility], who recently contacted social work and stated they no longer feel she can live at this particular complex. Will need placement to SNF or assisted living facility. Patient Status: Patient is admitted under inpatient status with expected length of stay greater than 2 midnights due to severity of presenting symptoms, risk of adverse event, and complexity of treatment plan. Exam Vital Signs (Last) Date Time Temp Pulse Resp B/P Pulse Ox O2 Delivery O2 Flow Rate FiO2 12/15/16 12:00 36.8 86 18 158/67 94 Room Air Exam General: No acute distress, well-developed, well-nourished, appropriately interactive HEENT: Normocephalic, atraumatic. External ears without defect. Pupils equal, round, and reactive to light and accommodation. Anicteric sclerae, moist conjunctivae, and no lid lag. Oropharynx free of erythema and cobble stoning with moist mucosa. Neck: Supple with full range of motion. No jugular venous distension. No bruits. No lymphadenopathy or thyromegaly. Cardiovascular: Regular rate and rhythm with no murmurs, rubs, or gallops appreciated Pulmonary: Clear to auscultation bilaterally with no crackles, wheezes, or rhonchi. Normal respiratory effort with no use of accessory muscles. Abdomen: Bowel tones present. Soft, nontender, nondistended. No hepatosplenomegaly or masses appreciated. Extremities: No clubbing, cyanosis, with trace lower extremity edema, or lymphadenopathy appreciated. Skin: Normal temperature, turgor, and texture; no rash, ulcers, or subcutaneous nodules appreciated. Neurological: Cranial nerves grossly intact. Normal muscle strength, tone, and bulk. Reflexes, coordination, and sensory function within normal limits. Patient has a history of falls with front wheeled walker. Tremors of the upper extremities bilaterally with intention and at rest much improved since admission. . Psychiatric: Normal mood and affect. Alert and oriented to person, place, and time. Test 12/11/16 11:55 12/11/16 17:25 12/11/16 23:13 12/11/16 23:49 Lactic Acid Level 0.7mmol/L (0.4-2.0) Magnesium Level 1.6mg/dL (1.6-2.6) Total Creatine Kinase 200U/L (21-215) Troponin T 0.010ug/L (0.0-0.011) Alcohols < 10mg/dL (0-10) Urine Color Straw (YELLOW) Urine Appearance Clear (CLEAR,HAZY) Urine pH 5.0 (5.0-8.0) Urine Specific [place] 1.015 (1.003-1.035) Urine Protein Negativemg/dL (NEG,TRACE) Urine Glucose (UA) Negativemg/dL (NEGATIVE) Urine Ketones Negativemg/dL (NEGATIVE) Urine Occult Blood Negative (NEGATIVE) Urine Nitrite Negative (NEGATIVE) Urine Bilirubin Negative (NEGATIVE) Urine Urobilinogen Normalmg/dL (NORMAL) Urine Leukocyte Esterase Negative (NEGATIVE) Urine RBC 0-2/hpf (0-2) Urine WBC 0-5/hpf (0-5) Urine Epithelial Cells None/hpf (NONE-MOD) Urine Crystals None seen (NONE SEEN) Urine Bacteria Few/hpf (NONE-FEW) Urine Hyaline Casts None/lpf (NONE) Urine Granular Casts None seen (NONE SEEN) Urine Waxy Casts None seen (NONE SEEN) Urine Red Blood Cell Casts None seen (NONE SEEN) Urine White Blood Cell Casts None seen (NONE SEEN) Urine Mucus None seen (None Seen) Urine Trichomonas None seen (NONE SEEN) Urine Yeast None (NONE SEEN) Urinalysis Comment None Urine Culture Reflexed Not indicated Urine Random Creatinine 52mg/dL (15-278) Uric Acid 14.2mg/dL (2.6-7.2) Hold Urine Received (Received) Test 12/12/16 03:30 12/12/16 19:50 12/15/16 04:00 Osmolality 296 (275-300) Phosphorus Level 6.9mg/dL (2.5-4.9) Urine Osmolality 304mOs/kH2O (250-1200) Urine Random Sodium 34mEq/L White Blood Count 5.6th/mm3 (3.8-10.1) Red Blood Count 3.14mil/mm3 (3.90-5.20) Hemoglobin 9.3g/dL (12.0-15.6) Hematocrit 28.2% (35.0-46.0) Mean Corpuscular Volume 89.8fL (81-100) Mean Corpuscular Hemoglobin 29.6pg (27.0-35.0) Mean Corpuscular Hemoglobin Concent 33.0% (32.0-37.0) Red Cell Distribution Width 13.6% (12.3-15.4) Platelet Count 167bil/L (150-400) Neutrophils (%) (Auto) 57.9% (40-74) Lymphocytes (%) (Auto) 26.8% (14-46) Monocytes (%) (Auto) 9.2% (4-12) Eosinophils (%) (Auto) 5.2% (0-5) Basophils (%) (Auto) 0.4% (0-3) Sodium Level 136mEq/L (134-144) Potassium Level 5.0mEq/L (3.5-5.2) Chloride Level 101mEq/L (97-108) Carbon Dioxide Level 21mmol/L (18-29) Blood Urea Nitrogen 43mg/dL (8-27) Creatinine 2.65mg/dL (0.57-1.00) Estimat Glomerular Filtration Rate 25mL/min (>59) Glucose Level 126mg/dL (60-99) Calcium Level 8.8mg/dL (8.5-10.1) Total Bilirubin 0.2mg/dL (0.0-1.2) Aspartate Amino Transf (AST/SGOT) 21U/L (0-50) Alanine Aminotransferase (ALT/SGPT) 13U/L (0-32) Alkaline Phosphatase 118U/L (25-165) Total Protein 6.1g/dL (6.4-8.4) Albumin 3.6g/dL (3.4-5.0) Discharge Medications Discharge Medications Amitriptyline (Amitriptyline) 75 Mg Tablet 150 MG PO HS Prescribed by: KEO ECHEVERRIA DO Amlodipine (Amlodipine) 5 Mg Tablet 10 MG PO HS Prescribed by: NIK LUDWIG MD Atorvastatin (Lipitor) 10 Mg Tab 10 MG PO DAILY (Reported) Chlorthalidone (Chlorthalidone) 25 Mg Tablet 25 MG PO DAILY Prescribed by: NIK LUDWIG MD Donepezil (Donepezil) 5 Mg Tablet 5 MG PO BID (Reported) Lisinopril (Lisinopril) 20 Mg Tablet 20 MG PO DAILY (Reported) Potassium Chloride (Potassium Chloride) 10 Meq Capsule.er 10 MEQ PO DAILY TAKE WITH FOOD Prescribed by: NIK LUDWIG MD Torsemide (Torsemide) 20 Mg Tablet 20 MG PO DAILY Prescribed by: NIK LUDWIG MD As needed Hydrocodone-Acetaminophen 5-325 mg (Hydrocodone-Acetaminophen 5-325 mg) 1 Each Tablet 1 TABLET PO Q6H PRN PRN For Pain Prescribed by: KEO ECHEVERRIA DO Loperamide HCl (Imodium A-D) 2 Mg Capsule 2 MG PO BID PRN PRN For Diarrhea or Loose Stool (Reported) Quetiapine Fumarate (Quetiapine Fumarate) 25 Mg Tablet 25 MG PO HS PRN PRN insomnia, melatonin fail Prescribed by: KEO ECHEVERRIA DO Followup Plan Disposition: [facility] for physical rehab. Follow-up plan Follow up with the physicians at [facility] regarding acute kidney injury 2nd to intervascular depletion, new onset tremors, and weakness. Discharge Diet: Heart Healthy Discharge Activity: Other ([facility] physical therapy and RN) Provider: Afshin Cortez DO Follow-up in: 2 weeks (2-3 weeks. ) Time spent >35 mins. Attending Statement The patient was seen and examined together with Dr. Dr. Echeverria on [December 15] and I agree with the history, exam findings, and plan as outlined in the note above. I did participate in all aspects of the services provided today, including documentation and the plan of care. She will be discharged to [facility]. She will have close medical management there and scrutiny of her volume balance. copies to: Afshin Cortez COREY P DO Dec 15, 2016 13:53 Charlie Anderson MD Dec 16, 2016 17:03 Quetiapine Fumarate (Quetiapine Fumarate) 25 Mg Tablet 25 MG PO HS PRN PRN insomnia, melatonin fail Prescribed by: NIK LUDWIG MD Followup Plan Follow-up plan Follow up with the physicians at [facility] regarding acute kidney injury 2nd to intervascular depletion, new onset tremors, and weakness. Discharge Diet: Heart Healthy Discharge Activity: Home Health Phyical Therapy, Outpatient Physical Therapy Provider: Afshin Cortez DO Follow-up in: 2 weeks (2-3 weeks. ) KEO ECHEVERRIA DO Dec 15, 2016 13:53
[2016-12-15] MEDS ORDERED: AMIT75TA2 PO (15:17)
[2016-12-15] MEDS ORDERED: HYDR-4003 PO (15:17)
[2016-12-15] MEDS ORDERED: QUET25TA73 PO (15:17)
--- NOTE | 2016-12-15 15:20 | NUR ---
Discharge note Patient a/o x 4, c/o pain x 1, Ultram given with good effect. Patient oob amb and showered indep in room, steady gait. Right LE drsg changed post shower. Patient sob with activity, lungs with wheezes bilat. Patient taking diet well. IV SL removed intact. POLST form returned to patient. Patient states she has meds here at hosp. no paperwork in chart, pharmacist called and checked and no meds in pharmacy. Patient called and left message with daughter to see if she took her meds home. Patient transported via cabulance with all belongings. Report called to [facility], message left for admit RN to call [facility] for report.
--- NOTE | 2016-12-15 16:15 | NUR ---
Social Work Note: Discharge Data& Assessment: EMR reviewed. Per MD pt is medically ready to discharge to [facility] ([facility]) via wheelchair van provided by [facility]. Shelbi Claudio is a 76 year old female admitted on 12/11/2016 for hyponatremia, [place] and azotermia. Per MD pt is medically stable and ready to discharge to [facility] to begin rehab stay. Insurance authorization obtained. Packet faxed to [facility], original sent with pt, copy placed on chart. RN updated and agreeable to plan. Pt updated and agreeable to plan. Pt denies any other needs. No other discharge needs identified. No other MD orders identified. All updated and agreeable to plan. Plan: Per pt is medically ready to discharge to [facility] ([facility]) via wheelchair van provided by [facility]. No other MD orders identified. No other pt needs identified. All updated and agreeable to plan. GALINA Owen
== END 2016-12-15 15:26 | DRG 683 ==
LOC: SED 10:54 → EDBD 10:54 → PCC 15:38
PROVIDERS: ADMIT Internal Medicine; ATTEND Hospitalist
DX: N17.9 Acute kidney failure, unspecified (principal); E87.1 Hypo-osmolality and hyponatremia; E87.2 Acidosis; E86.0 Dehydration; E11.22 Type 2 diabetes mellitus with diabetic chronic kidney disease; I12.9 Hypertensive chronic kidney disease with stage 1 through stage 4 chronic kidney disease, or unspecified chronic kidney disease; N18.3 Chronic kidney disease, stage 3 (moderate); F01.50 Vascular dementia, unspecified severity, without behavioral disturbance, psychotic disturbance, mood disturbance, and anxiety; E66.9 Obesity, unspecified; R63.1 Polydipsia; R35.8 Other polyuria; Z66 Do not resuscitate; D64.9 Anemia, unspecified; R19.7 Diarrhea, unspecified; R06.00 Dyspnea, unspecified; Z79.51 Long term (current) use of inhaled steroids; Z91.81 History of falling; Z68.31 Body mass index [BMI] 31.0-31.9, adult

== ENCOUNTER 2016-12-30 02:09 | Inpatient (IN) | payer MEDICARE ==
[~2016-12-30] VITALS: Ht 152.4 cm; Wt 81.6 kg
[2016-12-30] VITALS (22 sets, daily range): BP systolic 50–150; BP diastolic 24–98; PULSE 68–105; RESP 18–28; O2SAT 89–99
[~2016-12-30 02:09] MED LIST changes: -ALBU8.5H2 INHALATION; +AMIT75TA2 PO; -CLON0.1T14 PO; +LOPE-147 PO; -MELA5TAB14 PO; -MUPI1OIN6 TP; -spacer INH
--- NOTE | 2016-12-30 02:13 | ED.REPORT ---
HPI-Fever Date of Service Dec 30, 2016 ED Provider: Jerome Abdulalhi MD The pt is a 76 y/o female w/ a hx of dementia, type 2 diabetes, chronic kidney disease, and HTN presenting to the ED via EMS due to a fever. She also reports back pain, and SOB. Denies dysuria. The pt was transported from [facility]. EMS reports the pt having a recent UTI and being on antibiotics, and giving 500 ml NS en route. The pt was last hospitalized 20 days ago for hyponatremia. Nursing Notes Stated Complaint: ALTERED LOC, FEVER Chief Complaint: Fever Nursing Notes Reviewed: Yes Allergies: Coded Allergies: morphine (Verified Allergy, Unknown, 12/30/16) pentazocine (Verified Allergy, Unknown, 12/30/16) Uncoded Allergies: unknown sleep medicine (Allergy, Intermediate, "leg cramps", 12/11/16) Scheduled Amitriptyline (Amitriptyline) 75 Mg Tablet 150 MG PO HS Amlodipine (Amlodipine) 5 Mg Tablet 10 MG PO HS Atorvastatin (Lipitor) 10 Mg Tab 10 MG PO DAILY Chlorthalidone (Chlorthalidone) 25 Mg Tablet 25 MG PO DAILY Donepezil (Donepezil) 5 Mg Tablet 5 MG PO BID Lisinopril (Lisinopril) 20 Mg Tablet 20 MG PO DAILY Potassium Chloride (Potassium Chloride) 10 Meq Capsule.er 10 MEQ PO DAILY TAKE WITH FOOD Torsemide (Torsemide) 20 Mg Tablet 20 MG PO DAILY Scheduled PRN Hydrocodone-Acetaminophen 5-325 mg (Hydrocodone-Acetaminophen 5-325 mg) 1 Each Tablet 1 TABLET PO Q6H PRN PRN For Pain Loperamide HCl (Imodium A-D) 2 Mg Capsule 2 MG PO BID PRN PRN For Diarrhea or Loose Stool Quetiapine Fumarate (Quetiapine Fumarate) 25 Mg Tablet 25 MG PO HS PRN PRN insomnia, melatonin fail General Time Seen by MD: 02:13 [facility] Chief Complaint Fever currently Hx Obtained From: Patient, EMS Arrived By: Ambulance Onset Occurred: Just prior to arrival Symptom Duration: Since onset Recent Healthcare: Recent doctor visit, Recent hospitalization Past Medical History Past Medical History Dementia DM 2, hypertension Chronic kidney disease Family History Denies pertinent family history Smoking History Former Smoker Social History Drug Use: Denies drug use Other Social History: Lives in senior living Ambulatory Status Independent Review of Systems Constitutional: Reports: Fever Respiratory: Reports: Shortness of breath Female: Denies: Dysuria Complete sys rev & neg: except as marked. Musculoskeletal: Reports: Back pain Physical Exam Initial Vital Signs Vital Signs (First) Date Time Temp Pulse Resp B/P Pulse Ox O2 Delivery O2 Flow Rate FiO2 12/30/16 02:13 39.5 97 28 150/35 95 Nasal Cannula 3 Initial VS: Reviewed, Vital signs abnormal Head / Eyes: Atraumatic, Normocephalic, PERRL ENT: Mucous membranes moist, Conjunctiva normal, No scleral icterus Extremities: Vascular intact, Neuro intact, No swelling, No tenderness General/Constitutional: Awake, Alert Neck: Atraumatic, Supple, Full range of motion Respiratory / Chest: Atraumatic, Breath sounds NL, Breath sounds = bilat Cardiovascular: Regular rhythm, Heart sounds NL Heart Rate / Rhythm: Positive: Tachycardia Skin: Color NL, No rash, Warm, Dry, Intact Neurologic: No motor deficits Interpretation & Diagnostics Lab Results Interpretation Result Diagram: 12/30/16 0220 12/30/16 0220 Test 12/30/16 02:20 12/30/16 02:40 White Blood Count 16.8th/mm3 (3.8-10.1) Red Blood Count 3.41mil/mm3 (3.90-5.20) Hemoglobin 10.2g/dL (12.0-15.6) Hematocrit 30.5% (35.0-46.0) Mean Corpuscular Volume 89.4fL (81-100) Mean Corpuscular Hemoglobin 29.9pg (27.0-35.0) Mean Corpuscular Hemoglobin Concent 33.4% (32.0-37.0) Red Cell Distribution Width 13.7% (12.3-15.4) Platelet Count 284bil/L (150-400) Neutrophils (%) (Auto) 83.9% (40-74) Lymphocytes (%) (Auto) 6.0% (14-46) Monocytes (%) (Auto) 9.1% (4-12) Eosinophils (%) (Auto) 0.1% (0-5) Basophils (%) (Auto) 0.1% (0-3) Sodium Level 127mEq/L (134-144) Potassium Level 5.7mEq/L (3.5-5.2) Chloride Level 89mEq/L (97-108) Carbon Dioxide Level 20mmol/L (18-29) Blood Urea Nitrogen 45mg/dL (8-27) Creatinine 2.77mg/dL (0.57-1.00) Estimat Glomerular Filtration Rate 24mL/min (>59) Glucose Level 166mg/dL (60-99) Lactic Acid Level 1.6mmol/L (0.4-2.0) Calcium Level 9.1mg/dL (8.5-10.1) Magnesium Level 1.6mg/dL (1.6-2.6) Total Bilirubin 0.6mg/dL (0.0-1.2) Aspartate Amino Transf (AST/SGOT) 30U/L (0-50) Alanine Aminotransferase (ALT/SGPT) 16U/L (0-32) Alkaline Phosphatase 123U/L (25-165) Troponin T < 0.010ug/L (0.0-0.011) Total Protein 7.3g/dL (6.4-8.4) Albumin 3.7g/dL (3.4-5.0) Procalcitonin 1.67ng/mL (0.00-0.08) Urine Color Yellow (YELLOW) Urine Appearance Clear (CLEAR,HAZY) Urine pH 7.0 (5.0-8.0) Urine Specific [place] 1.010 (1.003-1.035) Urine Protein Tracemg/dL (NEG,TRACE) Urine Glucose (UA) Negativemg/dL (NEGATIVE) Urine Ketones Negativemg/dL (NEGATIVE) Urine Occult Blood Negative (NEGATIVE) Urine Nitrite Negative (NEGATIVE) Urine Bilirubin Negative (NEGATIVE) Urine Urobilinogen Normalmg/dL (NORMAL) Urine Leukocyte Esterase Negative (NEGATIVE) Urine RBC 0-2/hpf (0-2) Urine WBC 0-5/hpf (0-5) Urine Epithelial Cells Occasional/hpf (NONE-MOD) Urine Crystals None seen (NONE SEEN) Urine Bacteria Few/hpf (NONE-FEW) Urine Hyaline Casts None/lpf (NONE) Urine Granular Casts None seen (NONE SEEN) Urine Waxy Casts None seen (NONE SEEN) Urine Red Blood Cell Casts None seen (NONE SEEN) Urine White Blood Cell Casts None seen (NONE SEEN) Urine Mucus None seen (None Seen) Urine Trichomonas None seen (NONE SEEN) Urine Yeast None (NONE SEEN) Urinalysis Comment None Urine Culture Reflexed Not indicated Lab Results Interpretation: Elderly white blood count, hyponatremia, hyperkalemia, CKI ECG Interpretation ECG Interpretation: Rate 96 NSR Nonspecific intraventricular conduction delay Time: 02:25 Interpreted by: ED physician X-Ray Chest Interpretation Chest Xray Interpretation: Impression: No acute findings View: Portable, 1 view Interpretation / Wet Read by: Interpret - Radiologist Re-Eval/Medical Decision Med Decision/Clinical Course 36-year-old female with a recent urinary tract infection presents with fever, sepsis, hyponatremia, hyperkalemia but no obvious source. She was cultured and treated with antibiotics, and admitted to the hospitalist service. Source of Hx: Old records Re-Evaluation/Progress : Time of Eval: 04:08 Re-Evaluation/Progress Note: Pt rechecked. Informed pt of need for admission. Pt understands and agrees with plan for admission. All questions addressed. Consultation : Referral / Consult Name: Michelle Osei DO Consulted With: Hospitalist Call Returned at: 04:15 Substance Abuse Clinician: Will see patient, Agrees with eval, Agrees with plan, Accepts admit Counseled Regarding: Diagnosis, Lab results, Need for admission Discharge & Departure Impression: Primary Impression: Fever Fever type: unspecified Qualified Code: R50.9 - Fever, unspecified Additional Impression: Hyponatremia Disposition: ADMITTED TO HOSPITAL Discharge Condition All VS Reviewed: Yes Condition: Stable Referrals: Afshin Cortez DO (PCP) Scribe Attestation Portions of this note were transcribed by Sharath Gomez. I, Dr. Cano personally performed the history, physical exam and medical decision-making; I reviewed and confirmed the accuracy of the information in the transcribed note. copies to: Afshin Cortez Howard L MD Dec 30, 2016 02:13 Sharath Gomez Dec 30, 2016 03:12
[2016-12-30] MEDS ORDERED: 0.9% Sodium Chloride 1,000 ML IV ONE (02:14)
[2016-12-30] MEDS ORDERED: cefTRIAXone Inj 2,000 MG in Dextrose 5% Minibag Plus 50 ML IV ONE (02:15)
[2016-12-30 02:28] LABS: BASOPHILS % (AUTO) 0.1 % (0-3); EOSINOPHILS % (AUTO) 0.1 % (0-5); MONOCYTES % (AUTO) 9.1 % (4-12); Mean Corpuscular Hemoglobin 29.9 pg (27.0-35.0); Mean Corpuscular Volume 89.4 fL (81-100); NEUTROPHILS % (AUTO) 83.9 % (40-74); Platelet Count 284 bil/L (150-400)
[2016-12-30 02:56] LABS: APPEARANCE,URINE CLEAR (CLEAR,HAZY); COLOR,URINE YELLOW (YELLOW); OCCULT BLOOD,URINE NEGATIVE (NEGATIVE); UROBILINOGEN,URINE NORMAL (NORMAL)
[2016-12-30 03:12] LABS: Magnesium 1.6 mg/dL (1.6-2.6)
[2016-12-30 03:13] LABS: TROPONIN T < 0.010 ug/L (0.0-0.011)
[2016-12-30] MEDS ORDERED: 0.9% Sodium Chloride 500 ML IV ONE (04:45)
[2016-12-30] MEDS ORDERED: Piperacillin-Tazo 3.375 Gm Inj 3.375 GM in Dextrose 5% Minibag Plus 50 ML IV ONE (04:45)
[2016-12-30] MEDS ORDERED: Vancomycin Inj 1,000 MG in IV Premix 1 EACH IV ONE (05:10)
[2016-12-30] MEDS ORDERED: Polyethylene Glycol (PEG) 17 Gm Powder PO PRN (05:25)
[2016-12-30] MEDS ORDERED: Ondansetron 2 mg/mL 2 mL Inj IVPUSH PRN (05:25)
[2016-12-30] MEDS ORDERED: Alum-Mag Hydrox-Simeth 30 mL Suspension PO PRN (05:25)
--- NOTE | 2016-12-30 07:11 | NUR ---
Admit to CCU Pt admitted to CCU from ED in stable condition. A&O x 3 most of times but very forgetful and repeats requests and questions despite them being answered several times. Impulsive. Reports severe 8/10 back pain and moves around in bed. Only pain med ordered is morphone, but pt does have allergy. Moderate temp. Tele SR 90s. Difficult to get O2 sat d/t restlessness. Attempted to get pt on bedpan, but pt was so fidgety she climbed correction out of bed while still on bedpan screaming out in pain and also for a glass of water. Also difficult to get BP d/t pt hyperactivity and BP cuff falling off arm. paged. Orders for placement of Anaya received and implememted. Attempted IV start x 1, but pt was restless and fidgety and IV infiltrated. Denies CP, worsening SOB, n/v/d or diarrhea. Oriented pt to room, floor, and call light. Bed alarm placed on pt Care ongoing
[2016-12-30] MEDS ORDERED: HYDR-4003 PO (07:31)
[2016-12-30] MEDS ORDERED: ACET325T51 PO (07:31)
[2016-12-30] MEDS ORDERED: nortriptyline PO (07:31)
[2016-12-30] MEDS ORDERED: GLIP2.5T2 PO (07:31)
[2016-12-30] MEDS ORDERED: Vancomycin Dose per Pharmacist XX ONE (08:30)
--- NOTE | 2016-12-30 08:46 | DRSVH ---
PROCEDURE: X-RAY CHEST ONE VIEW, PORTABLE ([id number]) INDICATIONS: sepsis TECHNIQUE: One view of the chest was acquired. COMPARISON: [facility], CR, XR CHEST 2VW, 12/13/2016, 11:50. [facility], CR, XR CHEST 1VW (PORTABLE), 12/11/2016, 12:18. FINDINGS: Surgical changes and devices: None. Lungs and pleura: No pleural effusions or pneumothorax. Lungs are clear. Mediastinum: Mediastinal contours appear normal. Heart size is normal. Bones and chest wall: No suspicious bony lesions. Overlying soft tissues appear unremarkable. IMPRESSION: Normal for age, no sign of pneumonia or ARDS. Dictated by: Nitin Rubio M.D. on 12/30/2016 at 8:45 Approved by: Nitin Rubio M.D. on 12/30/2016 at 8:45
[2016-12-30] MEDS: HYDROcodone-APAP 5-325 mg Tablet PO PRN (09:12)
[2016-12-30 09:40] LABS: Mean Corpuscular Hemoglobin 29.6 pg (27.0-35.0); Mean Corpuscular Volume 91.2 fL (81-100)
--- NOTE | 2016-12-30 10:40 | ABG ---
DateTimeAnalyzed 10:31:56 -_ pH ____7.337 - 7.350 7.450 pCO2 ___31.1__ -mmHg 35.0 45.0 pO2 ___50.0__ -mmHg 69.0 116 HCO3- ___16.6__ -mmol/L 22.0 26.0 ABE ___-8.4__ -mmol/L -2.0 2.0 tHb ____9.2__ -g/dL 12.0 18.0 O2Hb ___84.6__ -% COHb ____1.9__ -% 0.0 1.5 MetHb ____0.0__ -% 0.4 1.5 sO2 ___86.2__ -% FIO2 ___28.0__ -% Drawn By as - Date/Time Notified____ 10:40:00 -_ Liter_Flow ____2.00_ -L/min Oxygen Device 1 __CANNULA - Notified By ams - Notified Whom dr hermila - K+ ____5.0__ -mmol/L 3.5 5.0 tO2 ___11.0__ -Vol% Charlie test _Positive -
[2016-12-30] MEDS: SODIUM CHLORIDE 0.9% IV SCH ×2 (11:58→20:06)
[2016-12-30] MEDS: SODIUM ACETATE IV SCH ×2 (11:58→20:06)
--- NOTE | 2016-12-30 12:56 | CONS ---
[address] [address] CONSULTATION REPORT PATIENT: MCKENZIE CÁRDENAS : 1940 MR#: [id number] ADMIT: 12/30/2016 JOB ID: [id number] DATE OF SERVICE: 12/30/2016 REQUESTING PHYSICIAN: Chandler Blank MD REASON FOR CONSULTATION: Management of acute kidney injury and hyperkalemia. CHIEF COMPLAINT: Fever. HISTORY OF PRESENT ILLNESS: This is a 76-year-old lady with a history of chronic kidney disease, type 2 diabetes, hypertension, dementia who was brought to the emergency department via the ambulance due to fever. The patient was recently admitted to [facility] between December 11 and December 15 due to acute kidney injury, hyponatremia and acute tremors. She is a patient of Dr. Afshin Cortez. Her baseline serum creatinine has ranged between 1.7-1.8. Last hospitalization she was found to have [place] with a BUN and creatinine of 90 and 5.31, respectively. She was also found to have hyponatremia. On the day of discharge her BUN and creatinine were 43 and 2.65, respectively. During my visit the patient seems to be very drowsy. I cannot obtain a meaningful history from her. Moreover this morning the patient was found unresponsive, with hypotensive episode. She received IV fluid bolus. Her current blood pressure is 79/39. The patient became awake after IV fluid given. The patient is able to answer simple questions including time, place, and person. At the moment she has no chest pain, no shortness of breath, no abdominal pain. According to the nurse she pulled out her Anaya catheter. Per nurse the patient consumed at least 1.5 L of water overnight. Her initial BMP showed sodium of 137, potassium of 5.7, chloride of 89, BUN of 45, and creatinine 2.77. A repeat BMP today showed sodium of 125, potassium of 5.4, BUN of 44, creatinine of 3.07. Chest x-ray did not show any acute infiltrates. Her urine was clean; no pyuria or hematuria. Blood culture is pending. Her temperature T-max last night was 39.5 degrees Celsius. PAST MEDICAL HISTORY: 1. Chronic kidney disease stage 3. 2. Type 2 diabetes with renal manifestation. 3. Hypertension with hypertensive nephrosclerosis. 4. Dementia. 5. Dyslipidemia. PAST SURGICAL HISTORY: 1. Status post hysterectomy. 2. Tonsillectomy. 3. Cholecystectomy. 4. Cataract surgery. [facility] HISTORY[facility] is a former smoker. Denies current use of alcohol, tobacco, or illicit drugs. FAMILY HISTORY: Noncontributory. ALLERGIES: 1. MORPHINE. 2. PENTAZOCINE. 3. UNKNOWN SLEEPING MEDICATION. MEDICATIONS: 1. Amitriptyline. 2. Norvasc. 3. Lipitor. 4. Chlorthalidone. 5. Donepezil. 6. Glipizide ER. 7. Hydrocodone as needed. 8. Lisinopril. 9. Imodium. 10. Potassium chloride. 11. Torsemide. 12. Quetiapine. PHYSICAL EXAMINATION: Vitals: T-max 39.5, pulse 76, respiratory 22, blood pressure 79/39. General appearance: Drowsy but oriented x3 to time, place, and person. In Trendelenburg position. HEENT: Atraumatic. Dry mucous membranes. Mild pallor. No JVD. No lymphadenopathy. No thyroid enlargement. Heart: Regular rhythm. Normal S1, S2. No murmurs, rubs, or gallops. Lungs: Clear to auscultation bilaterally. No wheezing. No rhonchi. Abdomen: Soft, nontender, nondistended. No hepatosplenomegaly. Extremities: Trace edema in the lower extremity. Scab noted on the lower extremity. LABORATORY: WBC 12.9, hemoglobin 9.8. Sodium 125, potassium 5.4, chloride 88, bicarb 16, BUN 44, creatinine 3.07. Serum osmolality 277. Calcium 8.6. UA: Specific gravity 1.010, RBCs 0-2, WBCs 0-5. Urine osmolality 321. IMPRESSION: 1. Acute kidney injury superimposed chronic kidney disease: The etiology of acute kidney injury is rather multifactorial including sepsis, acute tubular necrosis, and RAST blockade that can interfere with renal auto regulation. 2. Hyperkalemia secondary to acute kidney injury, CIPRIANO blockade, metabolic acidosis, and poor renal perfusion. 3. Hyponatremia secondary to chlorthalidone and increased free water consumption. 4. Sepsis, unclear source. 5. Hypotension secondary to sepsis and intravascular volume depletion. 6. History of type 2 diabetes. PLAN: 1. Per renal standpoint the patient will receive broad-spectrum IV antibiotics. I will recommend to avoid vancomycin since it is a nephrotoxin. 2. Pending for finalized culture. 3. Recommend to start sodium acetate drip. 4. Repeat the BMP within 4-6 hours. 5. Continue to monitor for now. No urgent dialysis indicated. 6. Renally dose medication and avoid nephrotoxins. 7. Repeat postvoid residual. May need to reinsert a Anaya catheter if urine volume over 400 mL. Thank you, Dr. Blank, for allowing me to participate in the care of your patient.
[2016-12-30] MEDS: Norepineph 8,000 mCg/250 mL NS 8,000 MCG in IV Premix 1 EACH IV SCH (14:30)
--- NOTE | 2016-12-30 16:05 | NUR ---
Hypotension/Transfer to CCU Patient a/o x 3, c/o right lower back pain 7-9/10 and urinary urgency. paged and up to assess pt. Patient oob to chair with sba, kraig fair. Cantu cath d/c'd per MD orders. Bladder scan 0 ml approx 2 hrs post cantu removal. Patient HNV since cantu d/c'd. Pain meds given at approx 0915, patient dozing in chair and pain 0/10 at 1000. 1015 paged RN to room, because patient unresponsive. Patient placed back in bed. SBP 50-70's DBP 20-40's. NS 1 Liter given and ABG'S drawn. Patient slowly became more responsive but remained drowsy. Post fluid bolus patient nuero's returned to baseline, a/o x 3, c/o back pain, but B/P remains low (see VS). notified and pt transferred to CCU. Report given to Jenni VICTORIA.
--- NOTE | 2016-12-30 16:45 | DRSVH ---
PROCEDURE: X-RAY PICC LINE PLACEMENT BY NURSE ([id number]) INDICATIONS: need for norepi COMPARISON: None. FINDINGS: PICC was placed by the intravenous therapy team from the left side. Fluoroscopic spot keenan m demonstrates tip of PICC in the distal SVC. IMPRESSION: Tip of PICC lies within the distal SVC. Dictated by: Nitin Rubio M.D. on 12/30/2016 at 16:42 Approved by: Nitin Rubio M.D. on 12/30/2016 at 16:43
[2016-12-30] MEDS ORDERED: Lidocaine Topical 5% Patch TOPICAL PRN (17:05)
--- NOTE | 2016-12-30 17:19 | NUR ---
Cardiac/pain/respiratory Pressure stable, MAP > 65. Sodium acetate gtt infusing per orders. PICC line placed. Pt restless, complaining of lower back discomfort and headache. Rating pain 8/10. Ice pack in place to aid in comfort. PRN tylenol refused when offered. Incontinent of stool, sample sent to lab for analysis. Anaya removed earlier in shift, no urine output since removal. Bladder scan showing 0cc in bladder. Lungs diminished with audible wheezes. Sp02 >92% on 2.5L [address] Duff contacted and updated on pt status, awaiting new orders.
[2016-12-30] MEDS ORDERED: Albuterol 1.25 mg/3 mL Inhalation Solution NEB ONE (17:25)
--- NOTE | 2016-12-30 18:17 | PCM.HPMED ---
Subjective Date of Service Dec 30, 2016 Primary Provider: Admitting Physician: Michelle Osei DO Primary Care Physician: Afshin Cortez DO Attending Physician: Chandler Blank MD Admit Status: From the Emergency Department Chief Complaint: Fever with associated back pain and shortness of breath History of Present Illness: 76-year-old female with past medical history of minor dementia, type II diabetes , chronic kidney disease, hypertension who presents emergency department via EMS from [facility] for fever with associated back pain and shortness of breath. Patient describes 12 hour history of increased back pain associated with fever, shortness of breath, and diarrhea without abdominal pain. Patient describes pain in the right lower back dull 10/10 which does not radiate. Pain is relieved with [place]. Pain is aggravated by lying flat. She states that the pain woke her up from sleep. She reports previous episodes of chronic back pain however has not experienced these symptoms previously. Patient was breathing fast and states that she feels thirsty. Patient denies headache, chest pain, nausea, vomiting, dysuria, urinary frequency, increased swelling in arms or legs, constipation. Patient was admitted recently to the hospital on December 11 for [place] and hyponatremia, creatinine upon leaving the hospital at that time was 2.6. On arrival to the emergency department the patient appeared septic, but with no obvious source. The patient received 500 mL bolus NS in route to the hospital and received another 1.5 L in the emergency room. Urinalysis was negative for infection, troponins negative, chest x-ray negative, stool cultures and PCR obtained (pending), blood cultures 2 obtained (pending). BMP showed sodium 125 , potassium 5.7, chloride 89, carbon dioxide 20, BUN 45, creatinine 2.77, glucose 166, pro calcitonin 1.6. White blood cells 16.8, hemoglobin 10.2. Patient had a temperature of 39.5 on arrival which slowly resolved with Tylenol use, blood pressures initially 109/36 (60) with respiratory rate of 24, pulse 88 , pO2 99 on 2 L nasal cannula Patient was stabilized and brought up to the medical floor where she continued to have rigors not associated with chills or cold intolerance, and continued to have increased thirst. She consumed approximately 1 L of water by mouth. Pressures were seen to be normal at this time however the patient was still complaining of increased back pain. Her home dose of [place] was given, and the patient's blood pressures dropped into the low 70s with patient showing an altered level of consciousness. At this point she was given another liter of IV normal saline and regained her previous alertness. Nephrology was consulted and is following this patient. Review of Systems: Negative except as mentioned in history of present illness Allergies Coded Allergies: morphine (Verified Allergy, Unknown, 12/30/16) pentazocine (Verified Allergy, Unknown, 12/30/16) Uncoded Allergies: unknown sleep medicine (Allergy, Intermediate, "leg cramps", 12/11/16) Home Medications Tylenol 395 mg when necessary Amitriptyline 150 mg at bedtime Amlodipine 10 mg at bedtime Atorvastatin 10 mg daily Chlorthalidone 25 mg daily Donepezil 5 mg twice a day Glipizide 2.5 mg daily Hydrocodone 5-325 every 24 when necessary Lisinopril 20 mg daily Loperamide 2 mg twice a day when necessary Potassium chloride 10 mEq daily Type pain 25 mg at bedtime when necessary Torsemide 20 mg daily PMH Dementia DM 2, hypertension Chronic kidney disease Family History Denies pertinent family history Social History Hx Alcohol Use: Yes (she is an ex alcoholic, 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 ) Hx Substance Use: No Hx Tobacco Use: Yes Smoking Status: Former Smoker Exam Vital Signs Vital Sign - Last Date Time Temp Pulse Resp B/P Pulse Ox O2 Delivery O2 Flow Rate FiO2 12/30/16 17:12 92 21 102/64 91 Nasal Cannula 2.50 12/30/16 15:17 37.1 Intake and Output 12/29/16 12/29/16 12/30/16 Cumulative From/Thru 15:00 23:00 07:00 12/30/16 02:13 - 12/30/16 06:06 Intake Total 1000 ml 1000 ml Balance 1000 ml 1000 ml Intake IV Total 1000 ml 1000 ml Exam General: Moderate distress, high amplitude rigors, well-developed, well- nourished Head: Normocephalic, atraumatic. External ears without defect. Eyes: Pupils equal, round, and reactive to light and accommodation. Anicteric sclerae, moist conjunctivae. Neck: Normal range of motion, no lymphadenopathy noted Cardiovascular: Regular rate and rhythm with no murmurs, rubs, or gallops appreciated Pulmonary: Clear to auscultation bilaterally with no crackles, wheezes, or rhonchi. Normal respiratory effort with no use of accessory muscles. Abdomen: Bowel tones present. Soft, nontender, nondistended. Extremities: No clubbing, cyanosis, edema Skin: Normal temperature, turgor, and texture; no rash, ulcers, or subcutaneous nodules appreciated. Neurological: Cranial nerves grossly intact. Reflexes, coordination, and sensory function within normal limits. Normal muscle strength, tone, and bulk. Psychiatric: Decreased affect. Alert and oriented to person, place, and time Lab and Diagnostics Result Diagram: 12/30/16 1648 12/30/16 0911 Microbiology Blood cultures 2 pending X-Rays, CTs and MRIs X-RAY CHEST ONE VIEW, PORTABLE IMPRESSION: Normal for age, no sign of pneumonia or ARDS. Dictated by: Nitin Rubio M.D. on 12/30/2016 at 8:45 Approved by: Nitin Rubio M.D. on 12/30/2016 at 8:45 X-RAY PICC LINE PLACEMENT BY NURSE IMPRESSION: Tip of PICC lies within the distal SVC. Dictated by: Nitin Rubio M.D. on 12/30/2016 at 16:42 Approved by: Nitin Rubio M.D. on 12/30/2016 at 16:43 Assessment & Plan 76-year-old female with past medical history of minor dementia, type II diabetes , chronic kidney disease, hypertension who presents emergency department via EMS from [facility] for fever with associated back pain and shortness of breath. Septic shock, present on admission, active Increased WBC, borderline tachycardia, hyperventilation, hypotension, increased temp, no lactic acidosis, other than increased creatinine no evidence of end organ damage. Currently no known source of infection, UA negative, chest x-ray negative -Patient ICU status, PICC line placed norepi on hold as patient is currently perfusing well, continue to monitor closely -Blood cultures pending 2 -Stool PCR pending -Patient received a one-time dose of vancomycin, Zosyn, ceftriaxone in the emergency department. -Patient started on ceftriaxone 1 g twice a day - MRSA screen pending - Lactic acid initially negative continue to monitor Acute Respiratory distress, present on admission, active Increased respirations, wheezing -Patient states that she was previously on albuterol however after her previous admission her inhalers were never reordered. -Dual nebs ordered every 4 when necessary Increased anion gap metabolic acidosis, present on admission, active -Likely secondary to infection possibly in addition to uremia secondary to [place] -Nephrology consulted -Continue to monitor Acute on chronic kidney injury, present on admission, worsening Patient of Dr. Cortez, baseline creatinine 1.7-1.8, last admission on discharge patient's creatinine was 2.6. On admission creatinine 2.7 -Despite increased IV fluids and oral intake patient's creatinine continues to climb. 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 -Nephrology consulting, recommendations appreciated -Serum osmolality within normal limits Electrolyte imbalance, present on admission, active -Likely due to ongoing metabolic acidosis, possibly secondary to [place] -No interventions necessary at this time -Continue to monitor Leukocytosis, present on admission, active -Unclear etiology at this point -Trending down since admission to the ED -Continue to monitor Hypertension, present on admission, active -All home antihypertensive medications held at this time due to low blood pressure Normocytic anemia, present on admission, active Likely dilutional due to increased fluid on board in combination with polydipsia - Hemoglobin 10.2 on admission, slowly downtrending since that time - Consider transfusion if hemoglobin <7.0 - Continue to monitor Hyperlipidemia, chronic -Continue home atorvastatin Type II diabetes, active - Glucose 166 on arrival - Hemoglobin A1c 6.2 on 11/02/16 - Medium dose correctional - Home glipizide held Dementia, stable - Continue home Quetiapine . Disposition: Patient admitted under inpatient status with expected length of stay > 2 midnights for severity of present symptoms, complexities of treatment plan and risk for adverse event VTE Prophylaxis: Sub-Q Heparin (Unfractionated) Resuscitation Status: DNR/DNI:Do Not Resuscitate/Intubate Attending Statement The patient was seen and examined together with Dr. Duff on 12/30/2016 and I agree with the history, exam and plan as outlined in the note above. . Rai Duff DO Dec 30, 2016 18:17 Chandler Blank MD Dec 31, 2016 07:31
[2016-12-30] MEDS: Albuterol-Ipratropium 3 mL Inhalation Solution NEB SCH (18:24)
[2016-12-30] MEDS ORDERED: Glucose 40% Oral Gel 15 Gm Tube PO PRN (19:20)
[2016-12-30] MEDS ORDERED: Dextrose 10% 250 ML IV PRN (19:30)
[2016-12-30] MEDS: Heparin 5,000 Unit/mL Inj SUBQ SCH (20:06)
[2016-12-30] MEDS: cefTRIAXone Inj 1,000 MG in Dextrose 5% Minibag Plus 50 ML IV SCH (20:07)
[2016-12-30] MEDS: Insulin LISPRO 300 Unit/3 mL Inj SUBQ SCH (20:10)
--- NOTE | 2016-12-30 21:30 | NUR ---
Agitation/Restlessness/Cantu Pt has excessive thirst for water/ice. Gets extremely upset when nursing staff tries to limit PO water/ice intake d/t hyponatremia. Pt has also not voided since removal of cantu despite multiple bowel movements and being 3L positive. Bladder scanner shows 145, but pt feels extreme urge to void. Attempted to get pt up to BSC to void but nothing came out. She got severely SOB with RR in 30s and in obvious distress. After getting pt back in bed she immediately felt like she had to pee again and became distressed. Placed on bedpan and unable to void once again. Pt was unable to hold still on bedpan as she felt incredible pain in back and lower pelvis. Convinced pt to allow cantu catheter placement. Cantu placed using sterile technique.
[2016-12-30 21:52] LABS: Mean Corpuscular Hemoglobin 29.5 pg (27.0-35.0); Mean Corpuscular Volume 91.3 fL (81-100)
[2016-12-30 22:08] LABS: APPEARANCE,URINE CLOUDY (CLEAR,HAZY); COLOR,URINE YELLOW (YELLOW); OCCULT BLOOD,URINE SMALL (NEGATIVE); UROBILINOGEN,URINE NORMAL (NORMAL)
--- NOTE | 2016-12-30 22:10 | DRSVH ---
PROCEDURE: CT ABDOMEN AND PELVIS WITHOUT CONTRAST ([id number]) INDICATIONS: ABDOMINAL PAIN TECHNIQUE: Noncontrast 5 mm thick sections acquired from the diaphragms to the symphysis. 5 mm coronal and sagi ttal reformats were then performed. For radiation dose reduction, the following was used: automated exposure control, adjustment of mA and/or kV according to patient size. COMPARISON: None. FINDINGS: Image quality: Limited evaluation due to absence of both oral and intravenous contrast. ABDOMEN: Lung bases: Lung bases are clear on the left but there is dense pneumonia at the posterior right low er lobe. Heart size is normal. Solid organs: Liver and spleen are normal in size. Gallbladder has been previously resected. Pancr eas is normal in contours. No adrenal nodules. Kidneys are normal in size, without hydronephrosis o r nephrolithiasis. Peritoneum and bowel: Unenhanced bowel loops demonstrate normal wall thickness and caliber. No free fluid or air. Nodes and vessels: No retroperitoneal or mesenteric adenopathy by size criteria. Aorta and inferior vena cava are normal in caliber. Miscellaneous: No ventral hernias. PELVIS: Genitourinary: Bladder wall thickness is normal. Miscellaneous: No inguinal hernias or adenopathy. Subcutaneous edema is present focally on the left at the anterior inferior iliac spine axial level, seen on series 2 image 59, likely an injection sit e. Bones: No suspicious bony lesions. No vertebral body compression fractures. IMPRESSION: Dense pneumonia right lower lobe posteriorly, quality of visualization through the abdom en and pelvis is limited by absence of both oral and intravenous contrast. Prior cholecystectomy. N o definite additional acute disease. Dictated by: Nitin Rubio M.D. on 12/30/2016 at 22:07 Approved by: Nitin Rubio M.D. on 12/30/2016 at 22:09
[2016-12-30 22:25] LABS: TROPONIN T 0.01 ug/L (0.0-0.011)
--- NOTE | 2016-12-30 23:36 | NUR ---
Abdomen/Pain/Agitation Upon assessment, pt abdomen appears distended and slightly tender to touch. Pt also reporting severe pain in back. MD notified. Labs ordered and stat CT ordered and charisma back negative. Labs show increasing WBC, UA that inicated cx, and xtremely high LA at 4.9. MD notified again. Order to give NS 250 bolus x 1 and recheck LA at midnight. Care ongoing
[2016-12-31] VITALS (11 sets, daily range): BP systolic 112–157; BP diastolic 52–92; PULSE 97–108; RESP 20–33; O2SAT 90–97
[2016-12-31] MEDS: Albuterol-Ipratropium 3 mL Inhalation Solution NEB SCH ×6 (00:31→19:51)
[2016-12-31 04:03] LABS: Mean Corpuscular Hemoglobin 29.8 pg (27.0-35.0); Mean Corpuscular Volume 89.5 fL (81-100); Platelet Count 249 bil/L (150-400)
[2016-12-31 04:19] LABS: INR 1.19 ratio
[2016-12-31 04:25] LABS: BASOPHILS % (AUTO) 0 % (0-3); EOSINOPHILS % (AUTO) 0 % (0-5); MONOCYTES % (AUTO) 6 % (4-12); NEUTROPHILS % (AUTO) 88 % (40-74)
[2016-12-31] MEDS: Heparin 5,000 Unit/mL Inj SUBQ SCH ×3 (04:39→20:23)
[2016-12-31 05:38] LABS: TROPONIN T 0.01 ug/L (0.0-0.011)
[2016-12-31 05:49] LABS: Magnesium 1.4 mg/dL (1.6-2.6); Phosphorus 4.4 mg/dL (2.5-4.9)
[2016-12-31] MEDS: SODIUM ACETATE IV SCH (06:43)
[2016-12-31] MEDS: cefTRIAXone Inj 1,000 MG in Dextrose 5% Minibag Plus 50 ML IV SCH (06:43)
[2016-12-31] MEDS: SODIUM CHLORIDE 0.9% IV SCH (06:43)
[2016-12-31] MEDS ORDERED: Mag Sulf 2 Gm/50mL IV Premix(Mag < 1.6 & Creat > 2) IV ONE (07:10)
[2016-12-31] MEDS: Insulin LISPRO 300 Unit/3 mL Inj SUBQ SCH ×4 (08:00→20:35)
[2016-12-31] MEDS ORDERED: levoFLOXacin Inj 750 MG in IV Premix 1 EACH IV ONE (08:30)
[2016-12-31] MEDS ORDERED: Vancomycin Dose per Pharmacist XX SCH (08:30)
--- NOTE | 2016-12-31 12:46 | PCM.PNNEPH ---
Subjective Date of Service Dec 31, 2016 Subjective Pt responded well with IVF. Vasopressors was not started. Na,K and cr have improved. CT showed PNA. She is more awake and alert, stated that she has been coughing for a while. She c/o wheezing and SOB. Exam Vital Signs Vital Sign - Last Date Time Temp Pulse Resp B/P Pulse Ox O2 Delivery O2 Flow Rate FiO2 12/31/16 08:30 Supplement Oxygen 12/31/16 08:30 37.0 101 20 140/65 90 3.00 Intake and Output 12/30/16 12/30/16 12/31/16 Cumulative From/Thru 15:00 23:00 07:00 12/30/16 02:13 - 12/31/16 06:36 Intake Total 3547 ml 2156 ml 6703 ml Output Total 400 ml 650 ml 1050 ml Balance 3147 ml 1506 ml 5653 ml Intake Oral 1600 ml 550 ml 2150 ml IV Total 1947 ml 1606 ml 4553 ml Output Urine Total 400 ml 650 ml 1050 ml # Bowel Movements 7 1 8 Exam General appearance: AAOX3, tachypnic, HEENT: Atraumatic. Dry mucous membranes. Mild pallor. No JVD. No lymphadenopathy. No thyroid enlargement. Heart: Regular rhythm. Normal S1, S2. No murmurs, rubs, or gallops. Lungs: wheezing B/L. Abdomen: Soft, nontender, nondistended. No hepatosplenomegaly. Extremities: Trace edema in the lower extremity. Scab noted on the lower extremity. Lab and Diagnostics Result Diagram: 12/31/16 0345 12/31/16 0345 Microbiology Blood cultures 2 pending X-Rays, CTs and MRIs X-RAY CHEST ONE VIEW, PORTABLE IMPRESSION: Normal for age, no sign of pneumonia or ARDS. Dictated by: Nitin Rubio M.D. on 12/30/2016 at 8:45 Approved by: Nitin Rubio M.D. on 12/30/2016 at 8:45 X-RAY PICC LINE PLACEMENT BY NURSE IMPRESSION: Tip of PICC lies within the distal SVC. Dictated by: Nitin Rubio M.D. on 12/30/2016 at 16:42 Approved by: Nitin Rubio M.D. on 12/30/2016 at 16:43 Plan Impression IMPRESSION: 1. Acute kidney injury superimposed chronic kidney disease: The etiology of acute kidney injury is rather multifactorial including sepsis, acute tubular necrosis, and CIPRIANO blockade that can interfere with renal auto regulation. 2. Hyperkalemia secondary to acute kidney injury, CIPRIANO blockade, metabolic acidosis, and poor renal perfusion. 3. Hyponatremia secondary to chlorthalidone and increased free water consumption. 4. Sepsis secondary to healthcare associated pneumonia. 5. Hypotension secondary to sepsis and intravascular volume depletion, resolved. 6. History of type 2 diabetes. PLAN: 1. d/c sodium acetate. 2. Give IV lasix 40 mg x 1. 3. Continue to monitor for now. No urgent dialysis indicated. 4. Renally dose medication and avoid nephrotoxins. Clarke Pickens MD Dec 31, 2016 12:46
[2016-12-31] MEDS ORDERED: Furosemide 10 mg/mL 4 mL Inj IVPUSH ONE (12:50)
--- NOTE | 2016-12-31 13:36 | DRSVH ---
PROCEDURE: X-RAY CHEST ONE VIEW, PORTABLE ([id number]) INDICATIONS: Pneumonia TECHNIQUE: One view of the chest was acquired. COMPARISON: [facility], CT, CT ABD PELVIS WO CON, 12/30/2016, 21:47. [facility], CR, XR CHEST 1VW (PORTABLE), 12/30/2016, 2:13. [facility], CR, XR CHEST 2VW, 12/14/19 17, 11:50. FINDINGS: Surgical changes and devices: None. Lungs and pleura: Lung volumes are low. Streaky opacities are present at the bilateral lung bases. No focal consolidation is present. Mediastinum: Mediastinal contours appear normal. Heart size is normal. Bones and chest wall: No suspicious bony lesions. Overlying soft tissues appear unremarkable. IMPRESSION: 1. No focal consolidation is visualized at the right lung base to correspond with the dense radiopaci ties visualized on the CT dated 12/30/16. Lateral view may be helpful to further characterize findings . 2. Low lung volumes and basilar atelectasis. Dictated by: Cathryn Robles M.D. on 12/31/2016 at 13:31 Approved by: Cathryn Robles M.D. on 12/31/2016 at 13:34
--- NOTE | 2016-12-31 13:43 | NUR ---
SOB Pt having increased SOB with wheezing. Lasix ordered. Neb treatment providing less discomfort.
[2016-12-31] MEDS: Norepineph 8,000 mCg/250 mL NS 8,000 MCG in IV Premix 1 EACH IV SCH (14:06)
--- NOTE | 2016-12-31 15:00 | PCM.PNMED ---
Subjective Date of Service Dec 31, 2016 Subjective Patient was awake and alert and shivering with no blankets upon examination, states she was hot and did not want blankets. She does not recall the events leading to admission very well, but states that she is feeling ill without any specific complaints. Was quite surprised when informed that she had pneumonia. Overnight the patient had acute abdominal pain and a lactic acid of 4.9, both resolved with IVF. Comprehensive ROS negative except as listed above. Exam Vital Signs Vital Sign - Last Date Time Temp Pulse Resp B/P Pulse Ox O2 Delivery O2 Flow Rate FiO2 12/31/16 13:28 100 12/31/16 12:30 37.0 20 117/92 90 Nasal Cannula 3.00 Intake and Output 12/30/16 12/30/16 12/31/16 Cumulative From/Thru 15:00 23:00 07:00 12/30/16 02:13 - 12/31/16 06:36 Intake Total 3547 ml 2156 ml 6703 ml Output Total 400 ml 650 ml 1050 ml Balance 3147 ml 1506 ml 5653 ml Intake Oral 1600 ml 550 ml 2150 ml IV Total 1947 ml 1606 ml 4553 ml Output Urine Total 400 ml 650 ml 1050 ml # Bowel Movements 7 1 8 Exam Gen: A/O x3 pleasant elderly woman with fine tremor resting in bed, mild acute distress secondary to feeling hot and confused about the events leading to admission Neck: Supple, non tender, no JVD HEENT: PERRL, EOMI, no scleral icterus, no conjunctival pallor CV: RRR, no murmurs rubs or gallops Resp: Lungs with coarse rhonchi in right base, otherwise diffuse expiratory wheezing Abd: Soft, no rebound masses guarding or tenderness Extr: no clubbing cyanosis or edema Neuro: CN 2-12 grossly intact, no focal neurologic deficit Psych: Somewhat confused about recent events, pleasant and appropriate mood and affect. IVs and Medications Medications Reviewed: Medications were reviewed in detail Lab and Diagnostics Item Value Date Time Red Blood Count 2.75 mil/mm3 L 12/31/16344 Mean Corpuscular Volume 89.5 fL 12/31/16344 Mean Corpuscular Hemoglobin 29.8 pg 12/31/16344 Mean Corpuscular Hemoglobin Concent 33.3 % 12/31/16344 Red Cell Distribution Width 13.9 % 12/31/16344 Neutrophils (%) (Auto) 88 % H 12/31/16344 Lymphocytes (%) (Auto) 1 % L 12/31/16344 Monocytes (%) (Auto) 6 % 12/31/16344 Eosinophils (%) (Auto) 0 % 12/31/16344 Basophils (%) (Auto) 0 % 12/31/16344 Band Neutrophils % 5 % 12/31/16344 Estimat Glomerular Filtration Rate 24 mL/min 12/31/16344 Calcium Level 7.7 mg/dL L 12/31/16344 Phosphorus Level 4.4 mg/dL 12/31/16344 Magnesium Level 1.4 mg/dL L 12/31/16344 Total Bilirubin 0.3 mg/dL 12/31/16344 Aspartate Amino Transf (AST/SGOT) 54 U/L H 12/31/16344 Alkaline Phosphatase 62 U/L 12/31/16344 Alanine Aminotransferase (ALT/SGPT) 17 U/L 12/31/16344 Troponin T 0.010 ug/L 12/31/16344 Total Protein 5.6 g/dL L 12/31/16344 Albumin 2.9 g/dL L 12/31/16344 Procalcitonin 38.34 ng/mL H 12/31/16344 Thyroid Stimulating Hormone (TSH) 0.970 uIU/mL 12/31/16344 Result Diagram: 12/31/1634412/31/16344 Microbiology Blood cultures 2 pending X-Rays, CTs and MRIs X-RAY CHEST ONE VIEW, PORTABLE 1. No focal consolidation is visualized at the right lung base to correspond with the dense radiopacities visualized on the CT dated 12/30/16. Lateral view may be helpful to further characterize findings. 2. Low lung volumes and basilar atelectasis. Dictated by: Cathryn Robles M.D. on 12/31/2016 at 13:31 Approved by: Cathryn Robles M.D. on 12/31/2016 at 13:34 CT ABDOMEN AND PELVIS WITHOUT CONTRAST IMPRESSION: Dense pneumonia right lower lobe posteriorly, quality of visualization through the abdomen and pelvis is limited by absence of both oral and intravenous contrast. Prior cholecystectomy. No definite additional acute disease. Dictated by: Nitin Rubio M.D. on 12/30/2016 at 22:07 Approved by: Nitin Rubio M.D. on 12/30/2016 at 22:09 . Assessment & Plan 76-year-old female with past medical history of minor dementia, type II diabetes , chronic kidney disease, hypertension who presents emergency department via EMS from [facility] for fever with associated back pain and shortness of breath. Septic shock, present on admission, active Increased WBC, borderline tachycardia, hyperventilation, hypotension, increased temp,lactic acidosis, other than increased creatinine no evidence of end organ damage. -Likely secondary to RLL pneumonia -Blood cultures x2 negative to date -Stool PCR negative -Patient received a one-time dose of vancomycin, Zosyn, ceftriaxone in the emergency department. -Started Zosyn and Levo for severe pneumonia - MRSA screen pending -Lactic acid peaked and then resolved overnight -Procalc increased markedly from presentation to repeat value Acute Respiratory distress, present on admission, Improving Increased respirations, wheezing -Patient states that she was previously on albuterol however after her previous admission her inhalers were never reordered. -Duo nebs ordered every 4 when necessary Increased anion gap metabolic acidosis, present on admission, Improving -Likely secondary to infection possibly in addition to uremia secondary to [place] -Nephrology consulted -Continue to monitor Acute on chronic kidney injury, present on admission, worsening Patient of Dr. Cortez, baseline creatinine 1.7-1.8, last admission on discharge patient's creatinine was 2.6. On admission creatinine 2.7 -Despite increased IV fluids and oral intake patient's creatinine continues to climb. 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 -Nephrology consulting, recommendations appreciated -Serum osmolality within normal limits Electrolyte imbalance, present on admission, active -Likely due to ongoing metabolic acidosis, possibly secondary to [place] -No interventions necessary at this time -Continue to monitor Leukocytosis, present on admission, active -Likely secondary to RLL pneumonia -Trending down since admission -Continue to monitor Hypertension, present on admission, active -All home antihypertensive medications held at this time due to low blood pressure Normocytic anemia, present on admission, active Likely dilutional due to increased fluid on board in combination with polydipsia - Hemoglobin 10.2 on admission, slowly downtrending since that time - Consider transfusion if hemoglobin <7.0 - Continue to monitor Hyperlipidemia, chronic -Continue home atorvastatin Type II diabetes, active - Glucose 166 on arrival - Hemoglobin A1c 6.2 on 11/02/16 - Medium dose correctional - Home glipizide held Dementia, stable - Continue home Quetiapine . Disposition: Patient will likely require 2-3 more days of IV antibiotics with further course and DC to be determined by clinical course, likely 3-5 more days. Pain Evaluation: Adequate Pain Control VTE Prophylaxis: Sub-Q Heparin (Unfractionated) Resuscitation Status: DNR/DNI:Do Not Resuscitate/Intubate Attending Statement The patient was seen and examined together with Dr. Javed on 12/31/2016 and I agree with the history, exam and plan as outlined in the note above. . Quincy Javed DO Dec 31, 2016 15:00 Chandler Blank MD Dec 31, 2016 15:34
--- NOTE | 2016-12-31 15:22 | NUR ---
Social Work- Initial Assessment Data: See Initial Assessment for additional information. Pt is a 76 year old female admitted for 12/30/16 for fever, hyponatremia per H&P. Pt's insurance is [employer] by [facility] [employer]. Pt's PCP is Jon Moran, but pt is working to find a new PCP. Pt's readmit risk score is 4. Pt is a readmit, d/c to [facility] last admission. Pt discussed in multidisciplinary rounds. Pt is not medically ready for d/c, anticipate 2-3 more days. Pt is likely to return to [facility] to complete rehab stay, then transition to LTC. SW met with pt at bedside regarding d/c planning. Pt alert and oriented x3. Pt was admitted from [facility] where she was a rehab patient. Pt resides in [place] at [facility], but pt reports that she is not able to return as she is unsafe there and is a fall risk. Pt reports that Stacy Espinoza, director, has informed her of this. Pt reports that her daughter and [facility] have been working to transition her to an assisted living facility. Could not provide any more information. Pt has no HH history. Pt has history of [facility]. Pt has no LTC or VA benefits. Pt uses a walker at baseline. Pt does not drive. Discharge planning checklist provided to pt at bedside, phone number and plan written on whiteboard. Pt is likely to return to [facility] to complete rehab stay after this admission. T/C to Darius, weekend admissions at [facility], who confirms that pt has been at [facility] for PT. [facility] is agreeable to pt's return after this admission. Darius also states that pt is BRENDA status now and [facility] d/c planners are working to assist pt with the transition to assisted living. T/C to pt's daughter Alexsandra regarding d/c planning, left message requesting return call. Assessment: Pt for whom SNF is medically necessary Plan: Pt to return to [facility] to complete rehab stay, then transition to assisted living with the assistance of [facility] d/c planners. SW will continue to follow. GALINA Sepulveda Addendum: 12/31/16 at 1529 by JUAN A CASTILLO SS Amended: Links added.
[2016-12-31] MEDS: Piperacillin-Tazo 3.375 Gm Inj 3.375 GM in Dextrose 5% Minibag Plus 50 ML IV SCH (16:38)
[2017-01-01] VITALS (16 sets, daily range): BP systolic 118–146; BP diastolic 41–70; PULSE 90–102; RESP 12–21; O2SAT 90–97
[2017-01-01] MEDS: Albuterol-Ipratropium 3 mL Inhalation Solution NEB SCH ×6 (00:23→20:13)
[2017-01-01] MEDS: Heparin 5,000 Unit/mL Inj SUBQ SCH ×3 (04:12→20:48)
[2017-01-01] MEDS: Piperacillin-Tazo 3.375 Gm Inj 3.375 GM in Dextrose 5% Minibag Plus 50 ML IV SCH ×2 (04:37→17:27)
[2017-01-01] MEDS: Sodium Chloride LOK Flush 10 mL Syringe IVFLUSH PRN (04:38)
[2017-01-01] MEDS ORDERED: 0.9% Sodium Chloride 100 ML ONE (04:50)
[2017-01-01 05:56] LABS: BASOPHILS % (AUTO) 0.1 % (0-3); EOSINOPHILS % (AUTO) 0.5 % (0-5); Mean Corpuscular Hemoglobin 29.4 pg (27.0-35.0); Mean Corpuscular Volume 88.6 fL (81-100); NEUTROPHILS % (AUTO) 87.3 % (40-74); Platelet Count 262 bil/L (150-400)
[2017-01-01 06:08] LABS: INR 1.04 ratio
[2017-01-01 06:08] LABS: Hemoglobin A1C 7.1 % (4.8-5.6)
[2017-01-01 06:23] LABS: Phosphorus 4.6 mg/dL (2.5-4.9)
[2017-01-01] MEDS: Insulin LISPRO 300 Unit/3 mL Inj SUBQ SCH ×4 (08:00→20:50)
[2017-01-01] MEDS: Norepineph 8,000 mCg/250 mL NS 8,000 MCG in IV Premix 1 EACH IV SCH (09:04)
--- NOTE | 2017-01-01 11:26 | PCM.PNNEPH ---
Subjective Date of Service Jan 01, 2017 Subjective She has finished her breakfast. Her BP has been stable. Serum creatinine trended. Increased UOP. Exam Vital Signs Vital Sign - Last Date Time Temp Pulse Resp B/P Pulse Ox O2 Delivery O2 Flow Rate FiO2 01/01/17 10:29 102 01/01/17 09:14 21 94 Nasal Cannula 5.00 01/01/17 08:24 37.4 137/42 Intake and Output 12/31/16 12/31/16 01/01/17 Cumulative From/Thru 15:00 23:00 07:00 12/30/16 02:13 - 01/01/17 05:41 Intake Total 953 ml 411 ml 8067 ml Output Total 750 ml 800 ml 2600 ml Balance 203 ml -389 ml 5467 ml Intake Oral 940 ml 300 ml 3390 ml IV Total 13 ml 111 ml 4677 ml Output Urine Total 750 ml 800 ml 2600 ml # Bowel Movements 8 Exam General appearance: AAOX3, lying in bed comfortably. HEENT: Atraumatic. mild pallor, no icteric sclerae. No JVD. No lymphadenopathy. No thyroid enlargement. Heart: Regular rhythm. Normal S1, S2. No murmurs, rubs, or gallops. Lungs: wheezing B/L. no rhonchi. Abdomen: Soft, nontender, nondistended. No hepatosplenomegaly. Extremities: Trace edema in the lower extremity. Lab and Diagnostics Result Diagram: 01/01/17 1005 01/01/17 0537 Microbiology Blood cultures 2 pending X-Rays, CTs and MRIs X-RAY CHEST ONE VIEW, PORTABLE 1. No focal consolidation is visualized at the right lung base to correspond with the dense radiopacities visualized on the CT dated 12/30/16. Lateral view may be helpful to further characterize findings. 2. Low lung volumes and basilar atelectasis. Dictated by: Cathryn Robles M.D. on 12/31/2016 at 13:31 Approved by: Cathryn Robles M.D. on 12/31/2016 at 13:34 CT ABDOMEN AND PELVIS WITHOUT CONTRAST IMPRESSION: Dense pneumonia right lower lobe posteriorly, quality of visualization through the abdomen and pelvis is limited by absence of both oral and intravenous contrast. Prior cholecystectomy. No definite additional acute disease. Dictated by: Nitin Rubio M.D. on 12/30/2016 at 22:07 Approved by: Nitin Rubio M.D. on 12/30/2016 at 22:09 . Plan Impression 1. Acute kidney injury superimposed chronic kidney disease: The etiology of acute kidney injury is rather multifactorial including sepsis, acute tubular necrosis, and CIPRIANO blockade that can interfere with renal auto regulation. 2. Hyperkalemia, resolved. 3. Hyponatremia secondary to chlorthalidone and increased free water consumption. 4. Sepsis secondary to healthcare associated pneumonia. 5. Hypotension secondary to sepsis and intravascular volume depletion, resolved. 6. History of type 2 diabetes. PLAN: 1. Supportive treatment, hold IVF and diuretic. Monitor I&O, monitor daily BMP. 2. Renally dose medication and avoid nephrotoxins. Clarke Pickens MD Jan 01, 2017 11:26
--- NOTE | 2017-01-01 11:28 | NUR ---
Took over patient care from Emily Buchanan 1045 am
--- NOTE | 2017-01-01 14:39 | PCM.PNMED ---
Subjective Date of Service Jan 01, 2017 Subjective Subjective: Patient was sitting up and eating in her bed on exam she states that she feels much improved however continues to have minimal back pain and minor shakes. Back pain considerably improved with lidocaine patch. Events Overnight: No acute events overnight. ROS: Shortness of breath. Denies fever/chills, nausea/vomiting, headache, weakness, abdominal pain, chest pain, increased swelling in hands or feet. Exam Vital Signs Vital Sign - Last Date Time Temp Pulse Resp B/P Pulse Ox O2 Delivery O2 Flow Rate FiO2 01/01/17 13:03 93 17 94 Nasal Cannula 5.00 01/01/17 12:27 146/47 01/01/17 08:24 37.4 Intake and Output 12/31/16 12/31/16 01/01/17 Cumulative From/Thru 15:00 23:00 07:00 12/30/16 02:13 - 01/01/17 05:41 Intake Total 953 ml 411 ml 8067 ml Output Total 750 ml 800 ml 2600 ml Balance 203 ml -389 ml 5467 ml Intake Oral 940 ml 300 ml 3390 ml IV Total 13 ml 111 ml 4677 ml Output Urine Total 750 ml 800 ml 2600 ml # Bowel Movements 8 Exam General: No acute distress, well-developed, well-nourished Head: Normocephalic, atraumatic. External ears without defect. Eyes: Pupils equal, round, and reactive to light and accommodation. Anicteric sclerae, moist conjunctivae. Neck: Normal range of motion, no lymphadenopathy noted Cardiovascular: Regular rate and rhythm with no murmurs, rubs, or gallops appreciated Pulmonary: Clear to auscultation bilaterally with no crackles, wheezes, or rhonchi. Normal respiratory effort with no use of accessory muscles. Abdomen: Bowel tones present. Soft, nontender, nondistended. Extremities: No clubbing, cyanosis, edema Skin: Normal temperature, turgor, and texture; no rash, ulcers, or subcutaneous nodules appreciated. Neurological: Cranial nerves grossly intact. Reflexes, coordination, and sensory function within normal limits. Normal muscle strength, tone, and bulk. Psychiatric: Normal mood and affect. Alert and oriented to person, place, and time IVs and Medications IV Fluids 50 mL normal saline delivered with IV medications. Medications Reviewed: Medications were reviewed in detail Medications High-risk medications include: Oxycodone Lab and Diagnostics Result Diagram: 01/01/17 1005 01/01/17 0537 Microbiology Blood cultures 2 pending X-Rays, CTs and MRIs X-RAY CHEST ONE VIEW, PORTABLE 1. No focal consolidation is visualized at the right lung base to correspond with the dense radiopacities visualized on the CT dated 12/30/16. Lateral view may be helpful to further characterize findings. 2. Low lung volumes and basilar atelectasis. Dictated by: Cathryn Robles M.D. on 12/31/2016 at 13:31 Approved by: Cathryn Robles M.D. on 12/31/2016 at 13:34 CT ABDOMEN AND PELVIS WITHOUT CONTRAST IMPRESSION: Dense pneumonia right lower lobe posteriorly, quality of visualization through the abdomen and pelvis is limited by absence of both oral and intravenous contrast. Prior cholecystectomy. No definite additional acute disease. Dictated by: Nitin Rubio M.D. on 12/30/2016 at 22:07 Approved by: Nitin Rubio M.D. on 12/30/2016 at 22:09 X-RAY CHEST ONE VIEW, PORTABLE IMPRESSION: 1. No focal consolidation is visualized at the right lung base to correspond with the dense radiopacities visualized on the CT dated 12/30/16. Lateral view may be helpful to further characterize findings. 2. Low lung volumes and basilar atelectasis. Dictated by: Cathryn Robles M.D. on 12/31/2016 at 13:31 Approved by: Cathryn Robles M.D. on 12/31/2016 at 13:34 . Assessment & Plan 76-year-old female with past medical history of minor dementia, type II diabetes , chronic kidney disease, hypertension who presents emergency department via EMS from [facility] for fever with associated back pain and shortness of breath. Septic shock, present on admission, active Increased WBC, borderline tachycardia, hyperventilation, hypotension, increased temp,lactic acidosis, other than increased creatinine no evidence of end organ damage. -Likely secondary to RLL pneumonia -Blood cultures x2 negative to date -Stool PCR negative -Patient received a one-time dose of vancomycin, Zosyn, ceftriaxone in the emergency department. -Continue Zosyn and Levo for severe pneumonia -Procalc trending down Acute Respiratory distress, present on admission, Improving Increased respirations, wheezing -Currently in 4-5 L nasal cannula, at baseline she does not use oxygen -Patient states that she was previously on albuterol however after her previous admission her inhalers were never reordered. -Duo nebs ordered every 4 when necessary Increased anion gap metabolic acidosis, present on admission, Improving -Likely secondary to infection possibly in addition to uremia secondary to [place] -Nephrology consulted -Continue to monitor Acute on chronic kidney injury, present on admission, resolving Patient of Dr. Cortez, baseline creatinine 1.7-1.8, last admission on discharge patient's creatinine was 2.6. On admission creatinine 2.7 -Creatinine resolving. 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 -Nephrology consulting, recommendations appreciated -Serum osmolality within normal limits Electrolyte imbalance, present on admission, active -Likely due to ongoing metabolic acidosis, possibly secondary to [place] -No interventions necessary at this time -Continue to monitor Leukocytosis, present on admission, active -Likely secondary to RLL pneumonia -Trending down since admission -Continue to monitor Hypertension, present on admission, active -All home antihypertensive medications held at this time due to low blood pressure Normocytic anemia, present on admission, active Likely dilutional due to increased fluid on board in combination with polydipsia - Hemoglobin 10.2 on admission, slowly downtrending, stable at this time - Consider transfusion if hemoglobin <7.0 - Continue to monitor Hyperlipidemia, chronic -Continue home atorvastatin Type II diabetes, active - Glucose 166 on arrival - Hemoglobin A1c 6.2 on 11/02/16 - Medium dose correctional - Home glipizide held Dementia, stable - Continue home Quetiapine . Disposition: Patient will likely require 2-3 more days of IV antibiotics with further course and DC to be determined by clinical course, likely 3-5 more days. VTE Prophylaxis: Sub-Q Heparin (Unfractionated) VTE Mechanical Devices: Intermittant Pneumatic CD Resuscitation Status: DNR/DNI:Do Not Resuscitate/Intubate Time spent 30 minutes Attending Statement I have seen and evaluated patient at bedside in addition to directly supervising care provided by resident physician. Pneumonia continues to appear most likley DX given procalcitonin, increased oxygen demand and radiologic findings. Continue treatment course. I agree with above documentation. Appreciating Nephrology consultation. Rai Duff DO Jan 01, 2017 14:04 Blayne Mccracken DO Jan 01, 2017 15:17
--- NOTE | 2017-01-01 19:11 | NUR ---
Resp/Activity/Anaya Patient a/o x 3, c/o chest and back pain x 2, meds given with good effect. Lungs course bilat with wheezes, neb tx given q 4hr per RTC. Patient having intermittent cough, Tessalon harleen given x 1. Patient oob for all meals kraig well. Héctor discontinued this a.m. patient voided x 1 cloudy angel uop. VSS, tele SR
[2017-01-02] VITALS (15 sets, daily range): BP systolic 103–159; BP diastolic 54–86; PULSE 88–96; RESP 14–24; O2SAT 90–97
[2017-01-02] MEDS: Albuterol-Ipratropium 3 mL Inhalation Solution NEB SCH ×7 (00:21→23:52)
[2017-01-02] MEDS: HYDROmorphone 1 mg/mL Inj IVPUSH PRN ×2 (03:24→03:55)
[2017-01-02] MEDS: Piperacillin-Tazo 3.375 Gm Inj 3.375 GM in Dextrose 5% Minibag Plus 50 ML IV SCH ×2 (04:24→17:45)
[2017-01-02] MEDS: Heparin 5,000 Unit/mL Inj SUBQ SCH ×3 (04:24→20:49)
[2017-01-02 04:57] LABS: Mean Corpuscular Hemoglobin 29.8 pg (27.0-35.0); Mean Corpuscular Volume 89.3 fL (81-100)
[2017-01-02 05:07] LABS: INR 0.95 ratio
[2017-01-02 05:22] LABS: Magnesium 2.1 mg/dL (1.6-2.6); Phosphorus 4.9 mg/dL (2.5-4.9)
--- NOTE | 2017-01-02 06:06 | NUR ---
Pain / Resp Patient began to complain of pain, 10/10 on her right side, moaning, taking shallow breaths and holding her breath intermittently. Patient is restless. O2 needs increase to 15L. Patient given her PO PRN pain medications which are not effective. MD notified, orders received for Dilaudid. Patient continues to rate her pain at 10/10. 0.5mg more is administered to bring pain to 6/10. RT in to give neb. MD updated. CXR ordered. Patient currently on 10L OM with SpO2 of 92%. MD updated.
--- NOTE | 2017-01-02 06:15 | NUR ---
Code status, daughter During shift patient states she wanted everything done for her "to bring her back". I asked patient if she wanted intubation or CPR if needed and she said yes. MD notified and code status is change. Per MD this is to be reviewed again on day shift. Patient also said she did not want any information on her status given to her daughter Liya. Patient stated Liya was currently her DPOA but she had been thinking about changing that.
[2017-01-02] MEDS: Insulin LISPRO 300 Unit/3 mL Inj SUBQ SCH ×4 (08:00→21:36)
[2017-01-02] MEDS ORDERED: Levofloxacin 500 mg/100 mL D5W IV SCH (08:30)
[2017-01-02] MEDS: Lidocaine Topical 5% Patch TOPICAL SCH (09:05)
--- NOTE | 2017-01-02 10:53 | DRSVH ---
PROCEDURE: X-RAY CHEST ONE VIEW, PORTABLE ([id number]) INDICATIONS: increasing o2 needs TECHNIQUE: One view of the chest was acquired. COMPARISON: [facility], CR, XR CHEST 1VW (PORTABLE), 12/30/2016, 2:13. [facility], CR, XR CHEST 1VW (PORTABLE), 12/31/2016, 12:37. FINDINGS: Surgical changes and devices: Stable position right PICC. Cholecystectomy clips. Lungs and pleura: Right hemidiaphragm is elevated. Persistent mid right lung and bibasilar airspace opacities not significantly changed. No pneumothorax. Mediastinum: Mediastinal contours appear normal. Heart size is enlarged. Bones and chest wall: No suspicious bony lesions. Overlying soft tissues appear unremarkable. IMPRESSION: Persistent mid right and bibasilar air space opacities suspicious for aspiration or pneum onia. Dictated by: Hal Pierson A Interpreted: Joel Rinaldi MD on 01/02/2017 at 9:15 Approved by: Joel Rinaldi M.D. on 01/02/2017 at 10:51
[2017-01-02] MEDS ORDERED: MethylprednisoLONE Sodium Succinate 62.5 mg/mL 2 mL Inj IVPUSH ONE (11:55)
--- NOTE | 2017-01-02 12:05 | CONS ---
[address] [address] CONSULTATION REPORT PATIENT: MCKENZIE CÁRDENAS : 1940 MR#: [id number] ADMIT: 12/30/2016 JOB ID: [id number] DATE OF SERVICE: 01/02/[address] Mccracken for this timely consult. REASON FOR CONSULTATION: Extensive right-sided pneumonia in a patient with pleuritic chest pain and multiple underlying medical problems. HISTORY OF PRESENT ILLNESS: The patient is an unfortunate 76-year-old woman with multiple problems including worsening renal insufficiency, diabetes, lwsd-sv-hyyurftl dementia, and chronic back pain. She has had a couple recent admissions to this facility related to hyponatremia, renal dysfunction, and back pain. On this occasion she was admitted on December [address] [facility] because of what was reported to be fever, possible chills, frequent small volume stools, and shortness of breath. She also complained at that time of worsening of her back pain. When interviewed again about this morning. The patient says she cannot remember anything about her transfer here from [place] so she is not of much value as a historian related to what happened back on December 29 and . This morning the patient tells us she no longer has fever or chills. She does report she is somewhat short of breath with a nonproductive cough and severe right pleuritic chest pain which radiates to the back. She denies ongoing diarrhea or abdominal symptomatology at this point. Otherwise her history of present illness is fairly limited, partly by her memory issues. This case was discussed with Dr. Mccracken in person as well as at the bedside with the nursing team. PAST MEDICAL HISTORY: 1. Chronic renal insufficiency. 2. Mild to moderate dementia. 3. Type 2 diabetes. 4. History of intermittent AFib. 5. Chronic low back pain. 6. Hypertension. SOCIAL HISTORY: The patient was a heavy smoker as well as heavy drinker until about 30 years ago when she quit both. She has lived in many areas in the country, having started out in [place] and subsequently lived an [place], [place], [place], and finally [place]. She has been in this area though for about four years straight and [place]. FAMILY HISTORY: Negative for tuberculosis in first degree relatives. REVIEW OF SYSTEMS: Was done. Today, the patient has no headache or acute visual change. She denies sore throat. She says she is wheezing, and she volunteers that herself. She notes she is moderately short of breath and has right pleuritic chest pain, which is quite severe at this point, and was so severe that a cardiac evaluation has been undertaken including an EKG. She did have some degree of substernal chest pain in addition to the primary right pleuritic chest pain as well. No nausea, vomiting at this point. She did have diarrhea when she came in, both by her report as well as our accounting of her stools, but that is completely resolved. She does not have nausea or vomiting at this point. She complains of back pain which seems to be in some way related to right pleuritic chest pain. Her Anaya has been removed. She is not having dysuria or urgency. She has no focal complaints in the extremities. Remainder of the review of systems negative. PHYSICAL EXAMINATION: Reveals an afebrile woman. Temp 37.4, pulse 96, respiratory rate 16, blood pressure 159/57. She is saturating well, but using the OxyMask to do that. She is awake, alert, able to give us some history though as mentioned, she has no recollection of events related to her transfer from [place]. Head is without trauma. No conjunctivitis or scleral icterus. Nose normal. Oral cavity, no thrush or hairy leukoplakia. Mild JVD especially on the left side, no adenopathy in the neck. The patient's lungs are notable for diffuse wheezing and poor air flow throughout. There are rales at both bases, but especially at the right. I do not hear a rub. Cardiac tones are regular with mild tachycardia. The EKG was just done and we reviewed that. It also shows a mild sinus tach. The abdomen is somewhat distended and difficult to examine as she is having some respiratory difficulties. The liver does feel as if it extends below the right costal margin 3 or 4 cm, however this area is nontender. Splenomegaly is not appreciated. There is no evident ascites. She no longer has a Anaya, nor does she have suprapubic fullness. Her extremities are without evidence of krista synovitis. Mild 1 to 2+ peripheral edema is noted on the lower extremities. The extremities are well perfused. There is no evidence of skin rash nor is the synovitis. She can move all of her extremities. LABORATORIES: Include white count which started off at 17,000, it has not really changed. It is currently 15,000 which is not significant. Her diff is relatively normal. There is no significant eosinophilia. She does have low platelets 266,000. Her hematocrit in the mid 20s. Creatinine is 2.5. On prior admissions her creatinine has tended to be around 2 so this is not especially poor renal function for her. LFTs normal except for a slightly increased AST at 65. ALT and alk phos are normal. Procalcitonin 38 at about the time of admission, now down to 21, two days later. Lactic acids negative. Rheumatoid factor, ELTON negative. Micro studies include negative blood cultures from admission. Negative urine. Negative stool PCR including negative PCR for C. diff. Urine culture negative. Studies we have ordered today which are pending include a MRSA PCR of the nose, respiratory viral PCR panel, Legionella and pneumococcal urine antigen, and serum cryptococcal antigen. IMAGING: Includes today's chest x-ray which we reviewed and compared to prior films. It shows right-sided infiltrate that infiltrate on the right base is much more impressive on the CT scan of three days ago, which was actually done to look at her abdomen and pelvis, but ended up showing quite a large right lower lobe infiltrate. IMPRESSION: This is an unfortunate woman with many medical problems which has led to her semi-permanent residence at the [facility] in [place]. She is readmitted on this occasion with fever, diarrhea, shortness of breath, and quite an extensive right-sided pneumonia. Her ongoing right-sided chest pain I think is completely secondary to this extensive pneumonia. The microbiology of this nosocomial or hospital associated pneumonia is not yet understood, and we have ordered additional studies including the viral PCR, crypto antigen, and urine antigen studies to try and elucidate this. In the meantime, I agree with broad-spectrum coverage to cover atypicals as well as more likely aspiration type causes of pneumonia given her right-sided, right lower lobe infiltrate. RECOMMENDATIONS: 1. We have added a respiratory viral PCR as well as MRSA PCR of the nares to her labs. 2. We will go ahead and check urine Legionella and pneumococcal antigens. 3. We are going to add a cryptococcal antigen to her serum studies. 4. I agree with the Zosyn and levofloxacin as dual coverage for what is almost certainly an aspiration type pneumonia acquired at [place]. Note that the patient is not a candidate for intubation at this point and bronchoscopy would likely not be feasible given her mild to moderate respiratory difficulties at this point, so we will treat empirically with broad-spectrum antibiotics while we await additional data.
--- NOTE | 2017-01-02 15:49 | PCM.PNMED ---
Subjective Date of Service Jan 02, 2017 Subjective Subjective: Patient continues to complain of shortness of breath and mild back pain decreased from last night. She was on 11 L of oxygen this morning and still feeling short of breath. Later in the morning she developed chest pain and was given nitroglycerin and worked up for possible cardiac pathology, however EKG was negative and initial troponins were also negative. The patient was started on Solu-Medrol with the idea that this may be related to COPD exacerbation. Hours after the Solu-Medrol patient states that she is feeling much better and oxygen consumption was reduced to 5 L. Events Overnight: Patient experiencing increasing back pain overnight associated with shortness of breath her oxygen requirement increased to 5 L up to 15 L. ROS: Chest pain, shortness of breath. Denies fever/chills, nausea/vomiting, headache, weakness, abdominal pain, increased swelling in hands or feet. Exam Vital Signs Vital Sign - Last Date Time Temp Pulse Resp B/P Pulse Ox O2 Delivery O2 Flow Rate FiO2 01/02/17 12:31 37.0 92 20 103/86 91 Nasal Cannula 6.00 Intake and Output 01/01/17 01/01/17 01/02/17 Cumulative From/Thru 15:00 23:00 07:00 12/30/16 02:13 - 01/02/17 06:25 Intake Total 472 ml 736 ml 9275 ml Output Total 400 ml 600 ml 3600 ml Balance 72 ml 136 ml 5675 ml Intake Oral 336 ml 600 ml 4326 ml IV Total 136 ml 136 ml 4949 ml Output Urine Total 400 ml 600 ml 3600 ml # Voids 0 2 2 # Bowel Movements 8 Exam General: No acute distress, well-developed, well-nourished Head: Normocephalic, atraumatic. External ears without defect. Eyes: Pupils equal, round, and reactive to light and accommodation. Anicteric sclerae, moist conjunctivae. Neck: Normal range of motion, no lymphadenopathy noted MSK: Right lower thoracic spine tender to palpation Cardiovascular: Regular rate and rhythm with no murmurs, rubs, or gallops appreciated Pulmonary: Decreased breath sounds with moderate wheezing, no rhonchi. Abdomen: Bowel tones present. Soft, nontender, nondistended. Extremities: No clubbing, cyanosis, edema Skin: Normal temperature, turgor, and texture; no rash, ulcers, or subcutaneous nodules appreciated. Neurological: Cranial nerves grossly intact. Reflexes, coordination, and sensory function within normal limits. Normal muscle strength, tone, and bulk. Psychiatric: Normal mood and affect. Alert and oriented to person, place, and time IVs and Medications IV Fluids 150 mL normal saline delivered his IV medications Medications Reviewed: Medications were reviewed in detail Medications High-risk medications include: Hydromorphone Lab and Diagnostics Result Diagram: 01/02/17 04201/02/17 042 Microbiology Blood cultures 2 pending X-Rays, CTs and MRIs X-RAY CHEST ONE VIEW, PORTABLE 1. No focal consolidation is visualized at the right lung base to correspond with the dense radiopacities visualized on the CT dated 12/30/16. Lateral view may be helpful to further characterize findings. 2. Low lung volumes and basilar atelectasis. Dictated by: Cathryn Robles M.D. on 12/31/2016 at 13:31 Approved by: Cathryn Robles M.D. on 12/31/2016 at 13:34 CT ABDOMEN AND PELVIS WITHOUT CONTRAST IMPRESSION: Dense pneumonia right lower lobe posteriorly, quality of visualization through the abdomen and pelvis is limited by absence of both oral and intravenous contrast. Prior cholecystectomy. No definite additional acute disease. Dictated by: Nitin Rubio M.D. on 12/30/2016 at 22:07 Approved by: Nitin Rubio M.D. on 12/30/2016 at 22:09 X-RAY CHEST ONE VIEW, PORTABLE IMPRESSION: 1. No focal consolidation is visualized at the right lung base to correspond with the dense radiopacities visualized on the CT dated 12/30/16. Lateral view may be helpful to further characterize findings. 2. Low lung volumes and basilar atelectasis. Dictated by: Cathryn Robles M.D. on 12/31/2016 at 13:31 Approved by: Cathryn Robles M.D. on 12/31/2016 at 13:34 X-RAY CHEST ONE VIEW, PORTABLE IMPRESSION: Persistent mid right and bibasilar air space opacities suspicious for aspiration or pneumonia. Dictated by: Hal Pierson [facility] Interpreted: Joel Rinaldi MD on 01/02/2017 at 9:15 Approved by: Joel Rinaldi M.D. on 01/02/2017 at 10:51 . Assessment & Plan 76-year-old female with past medical history of minor dementia, type II diabetes , chronic kidney disease, hypertension who presents emergency department via EMS from [facility] for fever with associated back pain and shortness of breath. Septic shock, present on admission, Resolved Initially increased WBC, borderline tachycardia, hyperventilation, hypotension, increased temp,lactic acidosis, other than increased creatinine no evidence of end organ damage. -Likely secondary to RLL pneumonia -Blood cultures x2 negative to date -Stool PCR negative -Patient received a one-time dose of vancomycin, Zosyn, ceftriaxone in the emergency department. -Continue Zosyn and Levo for severe pneumonia -Procalc trending down -Blood pressures now appropriate, antihypertensive medications resumed Right lower lobe pneumonia likely bacterial vs possible aspiration, present on admission, active Seen on CT, patients cough is nonproductive and we are unable to obtain culture to differentiate between bacterial versus aspiration pneumonia. Patient has very minor dementia, however this is her only risk factor for aspiration pneumonia. - Continue Zosyn and Levo - Strep urine antigen negative - MRSA PCR screen negative - Viral PCR screen negative Acute onset chest pain, not present on admission, active 01/02 patient began experiencing acute onset chest pain likely associated with respiratory distress however cardiac pathology cannot be ruled out at that time. - Serial troponins are pending - EKG no changes from previous - Nitroglycerin given, patient reports mild improvement in symptoms - Solu-Medrol given IV which appears to have had the greatest impact on her chest pain. Acute Respiratory distress, present on admission, active Increased respirations, wheezing -Required 15 L of oxygen overnight, however she is currently on 4-5 L nasal cannula, at baseline she does not use oxygen -Patient states that she was previously on albuterol however after her previous admission her inhalers were never reordered. -Duo nebs ordered every 4 when necessary Possible COPD exacerbation, not present on admission, active -Duo nebs ordered every 4 when necessary -125 mg Solu-Medrol given today showed great improvement -Initiate 40 mg prednisone PO daily starting 01/03 Increased anion gap metabolic acidosis, present on admission, Improving -Likely secondary to infection possibly in addition to uremia secondary to [place] -Kidney function improving -Nephrology consulted -Continue to monitor Acute on chronic kidney injury, present on admission, resolving Patient of Dr. Cortez, baseline creatinine 1.7-1.8, last admission on discharge patient's creatinine was 2.6. On admission creatinine 2.7 -Creatinine resolving. 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 -Nephrology consulting, recommendations appreciated -Serum osmolality within normal limits Electrolyte imbalance, present on admission, active -Likely due to ongoing metabolic acidosis, possibly secondary to [place] -No interventions necessary at this time -Continue to monitor Leukocytosis, present on admission, active -Likely secondary to RLL pneumonia -Trending down since admission -Continue to monitor Hypertension, present on admission, active -All home antihypertensive medications resumed Normocytic anemia, present on admission, active Likely dilutional due to increased fluid on board in combination with polydipsia - Hemoglobin 10.2 on admission, stable at this time - Consider transfusion if hemoglobin <7.0 - Continue to monitor Hyperlipidemia, chronic -Continue home atorvastatin Type II diabetes, active - Glucose 166 on arrival - Hemoglobin A1c 6.2 on 11/02/16 - Medium dose correctional - Home glipizide held Dementia, stable - Continue home Quetiapine . Disposition: Patient will likely require 2-3 more days of IV antibiotics with further course and DC to be determined by clinical course, likely 3-5 more days. VTE Prophylaxis: Sub-Q Heparin (Unfractionated) VTE Mechanical Devices: Intermittant Pneumatic CD Resuscitation Status: DNR/DNI:Do Not Resuscitate/Intubate Time spent 30 minutes Attending Statement I have seen and evaluated patient at bedside in addition to directly supervising care provided by resident physician Dr Duff on 01/02/2017. I agree with above documentation. Rai Duff DO Jan 02, 2017 15:48 Blayne Mccracken DO Jan 03, 2017 07:37
--- NOTE | 2017-01-02 17:25 | PCM.PNNEPH ---
Subjective Date of Service Jan 02, 2017 Subjective Her creatinine continues to improve tp 2.53 today and her sodium is 129. Mrs. Claudio is well known to me from many previous similar visits. she was admitted for A/CKI and hyponatremia. Today her Hb is 8.1 and she has been chronically anemic and intermittantly on Aranesp. she denies and CP, SOB, N, V, or diarrhea Exam Vital Signs Vital Sign - Last Date Time Temp Pulse Resp B/P Pulse Ox O2 Delivery O2 Flow Rate FiO2 01/02/17 16:29 36.7 91 143/54 97 Nasal Cannula 6.00 01/02/17 16:12 16 Intake and Output 01/01/17 01/01/17 01/02/17 Cumulative From/Thru 15:00 23:00 07:00 12/30/16 02:13 - 01/02/17 06:25 Intake Total 472 ml 736 ml 9275 ml Output Total 400 ml 600 ml 3600 ml Balance 72 ml 136 ml 5675 ml Intake Oral 336 ml 600 ml 4326 ml IV Total 136 ml 136 ml 4949 ml Output Urine Total 400 ml 600 ml 3600 ml # Voids 0 2 2 # Bowel Movements 8 Exam HEENT pale sclera, mosit mucous membranes NEck supple, no nodes, thyromegaly, or JVD Lung clear but diminshed BP in both bases HEart RR w/ INEZ Abdomen soft, decreased BS, no tenderness, rebound or guarding or HSM, Ext no clubbing or cyanosis +half and half nails skin sl decreased turgor no rashes Lab and Diagnostics Result Diagram: 01/02/17 0420 01/02/17 0420 Microbiology Blood cultures 2 pending X-Rays, CTs and MRIs X-RAY CHEST ONE VIEW, PORTABLE 1. No focal consolidation is visualized at the right lung base to correspond with the dense radiopacities visualized on the CT dated 12/30/16. Lateral view may be helpful to further characterize findings. 2. Low lung volumes and basilar atelectasis. Dictated by: Cathryn Robles M.D. on 12/31/2016 at 13:31 Approved by: Cathryn Robles M.D. on 12/31/2016 at 13:34 CT ABDOMEN AND PELVIS WITHOUT CONTRAST IMPRESSION: Dense pneumonia right lower lobe posteriorly, quality of visualization through the abdomen and pelvis is limited by absence of both oral and intravenous contrast. Prior cholecystectomy. No definite additional acute disease. Dictated by: Nitin Rubio M.D. on 12/30/2016 at 22:07 Approved by: Nitin Rubio M.D. on 12/30/2016 at 22:09 X-RAY CHEST ONE VIEW, PORTABLE IMPRESSION: 1. No focal consolidation is visualized at the right lung base to correspond with the dense radiopacities visualized on the CT dated 12/30/16. Lateral view may be helpful to further characterize findings. 2. Low lung volumes and basilar atelectasis. Dictated by: Cathryn Robles M.D. on 12/31/2016 at 13:31 Approved by: Cathryn Robles M.D. on 12/31/2016 at 13:34 X-RAY CHEST ONE VIEW, PORTABLE IMPRESSION: Persistent mid right and bibasilar air space opacities suspicious for aspiration or pneumonia. Dictated by: Hal Pierson RRA Interpreted: Joel Rinaldi MD on 01/02/2017 at 9:15 Approved by: Joel Rinaldi M.D. on 01/02/2017 at 10:51 . Plan Impression 1.A/CKI secondary to dehydration 2. Hyponatremia secondary to #1 3. Anemia, multifactorial 4. HTN with HTN CV disease and HTN nephrosclerosis Rec. Rechekc iron and continue to monitor i7o, BP and lab Afshin Cortez DO Jan 02, 2017 17:25
--- NOTE | 2017-01-02 17:57 | NUR ---
Pain/Resp/Activity Patient a/o x 3, c/o abd tenderness with palpation and right lower back pain, meds given x 1 with good effect. Abd distended semi firm with positive bowel tones, no BM this shift. Lungs course bilat with wheezes, neb tx given q 4hr per RTC. O2 decreased to 6 L nc sat 93-95%. Patient oob for all meals kraig well. Patient only voided x1 cloudy angel uop, sample sent. VSS, tele SR-ST 70-100's.
[2017-01-03] VITALS (11 sets, daily range): BP systolic 105–161; BP diastolic 46–71; PULSE 78–109; RESP 15–24; O2SAT 90–96
[2017-01-03 03:47] LABS: Mean Corpuscular Hemoglobin 29.1 pg (27.0-35.0); Mean Corpuscular Volume 88.5 fL (81-100)
[2017-01-03 03:49] LABS: INR 0.93 ratio
[2017-01-03 04:07] LABS: TROPONIN T 0.01 ug/L (0.0-0.011)
[2017-01-03] MEDS: Heparin 5,000 Unit/mL Inj SUBQ SCH ×3 (05:17→21:43)
[2017-01-03] MEDS: Piperacillin-Tazo 3.375 Gm Inj 3.375 GM in Dextrose 5% Minibag Plus 50 ML IV SCH ×2 (05:17→17:36)
--- NOTE | 2017-01-03 05:38 | NUR ---
Pain/respiratory Patient alert and oriented to self, and place but disoriented to situation and time. She c/o abdominal pain which she reported relief after getting Oxycodone 2.5mg. She remains on 6L O2 via oxy mask, SPO2 89-94%. Pt denies SOB at rest but appears to work harder to breath with activities. HR 80's-110 SR-ST with frequent PAC's and some runs of PSVT. Pt voided 3 times, urine concentrated but not cloudy. She remained awake all shift.
[2017-01-03] MEDS: Albuterol-Ipratropium 3 mL Inhalation Solution NEB SCH ×5 (07:39→19:35)
--- NOTE | 2017-01-03 08:17 | PROG NOTE ---
[address] [address] PROGRESS NOTE PATIENT: MCKENZIE CÁRDENAS : 1940 MR#: [id number] ADMIT: 12/30/2016 JOB ID: [id number] DATE: 01/03/2017 REASON FOR FOLLOWUP: Right lower lobe pneumonia in a intermediate resident. INTERVAL HISTORY: Overnight, the patient has felt improved. She has no fevers, no chills, and diminished or almost completely resolved right pleuritic chest pain. She has a nonproductive cough and is mildly short of breath. She does report some diffuse dysphoria and perhaps myalgias, but it is fairly nonspecific. PHYSICAL EXAMINATION: Reveals a reasonably comfortable woman using face mask oxygen. She has been afebrile now for almost four days. Her temp now 36.8, pulse 99, respiratory rate 16, blood pressure 151/71. She is saturating 91% on a 4 L mask. She is in no acute distress. She looks better than yesterday overall. Oral cavity negative. Lungs posteriorly with decreased breath sounds at the right base and some scattered wheezes. Cardiac tones without new murmur. Abdomen benign. No skin rash noted. LABORATORIES: Include white count dropping to 12,000 at this point. Creatinine 2.77. Procalcitonin has dropped from 22 to 12. Urinalysis without pyuria. Cryptococcal antigen is pending. Urine pneumococcal and Legionella antigens are negative. Respiratory viral PCR panel negative. MRSA screen of the nares negative. Urine culture and C. diff negative and blood cultures negative. IMAGING: From yesterday has previously been reviewed. It shows bibasilar infiltrates as well as a more significant right mid lung infiltrate. IMPRESSION: This elderly woman who resides in a intermediate who was admitted with classic right-sided pneumonia associated with fevers, chills, and shortness of breath. Despite our full use of diagnostic tools, we have no microbiologic etiology at this point. RECOMMENDATIONS: 1. Will continue with Zosyn for at least one to three more days. 2. I will continue levofloxacin for a total course of seven days. 3. Will continue to follow this patient with you.
[2017-01-03] MEDS: predniSONE 20 mg Tablet PO SCH (09:03)
[2017-01-03] MEDS: Lidocaine Topical 5% Patch TOPICAL SCH (09:05)
[2017-01-03] MEDS: Insulin LISPRO 300 Unit/3 mL Inj SUBQ SCH ×4 (09:07→22:00)
[2017-01-03 09:12] LABS: Cryptococcal Ag Negative (Negative)
--- NOTE | 2017-01-03 11:45 | PCM.PNNEPH ---
Subjective Date of Service Jan 03, 2017 Subjective Patient continues to slowly improve. Her blood pressures have been in the 150s and she was less short of breath however she still has some cough. Intake and output last 24 hours shows 1628 and 900 50 on the first 24 hours. This morning her sodium is 127, potassium 3.6, chloride 85, bicarbonate 21, BUN and creatinine were 59 and 2.77 which is improvement. Her hemoglobin today is 8.1. Pro-calcitonin remains elevated at 12 point this is a considerable improvement. Exam Vital Signs Vital Sign - Last Date Time Temp Pulse Resp B/P Pulse Ox O2 Delivery O2 Flow Rate FiO2 01/03/17 09:57 104 01/03/17 08:33 Supplement Oxygen 01/03/17 08:33 36.8 15 144/66 90 6.00 Intake and Output 01/02/17 01/02/17 01/03/17 Cumulative From/Thru 15:00 23:00 07:00 12/30/16 02:13 - 01/03/17 06:51 Intake Total 892 ml 142 ml 02583 ml Output Total 300 ml 3900 ml Balance 592 ml 142 ml 6409 ml Intake Oral 680 ml 5006 ml IV Total 212 ml 142 ml 5303 ml Output Urine Total 300 ml 3900 ml # Voids 2 # Bowel Movements 8 Exam HEENT examination remains consistently. They will sclera. Neck is supple without adenopathy, thyromegaly, or true ileus distention. Lungs showed some right sided posterior basilar rales. She will return rhythm with a soft systolic murmur. Abdomen is soft somewhat diminished bowel sounds. There is no tenderness rebound guarding or masses noted. Extremities did not show any evidence of any clubbing, cyanosis, or edema. Skin turgor remains slightly diminished evidence of any rashes. Lab and Diagnostics Result Diagram: 01/03/17 0243 01/03/17 0243 Microbiology Blood cultures 2 pending X-Rays, CTs and MRIs X-RAY CHEST ONE VIEW, PORTABLE 1. No focal consolidation is visualized at the right lung base to correspond with the dense radiopacities visualized on the CT dated 12/30/16. Lateral view may be helpful to further characterize findings. 2. Low lung volumes and basilar atelectasis. Dictated by: Cathryn Robles M.D. on 12/31/2016 at 13:31 Approved by: Cathryn Robles M.D. on 12/31/2016 at 13:34 CT ABDOMEN AND PELVIS WITHOUT CONTRAST IMPRESSION: Dense pneumonia right lower lobe posteriorly, quality of visualization through the abdomen and pelvis is limited by absence of both oral and intravenous contrast. Prior cholecystectomy. No definite additional acute disease. Dictated by: Nitin Rubio M.D. on 12/30/2016 at 22:07 Approved by: Nitin Rubio M.D. on 12/30/2016 at 22:09 X-RAY CHEST ONE VIEW, PORTABLE IMPRESSION: 1. No focal consolidation is visualized at the right lung base to correspond with the dense radiopacities visualized on the CT dated 12/30/16. Lateral view may be helpful to further characterize findings. 2. Low lung volumes and basilar atelectasis. Dictated by: Cathryn Robles M.D. on 12/31/2016 at 13:31 Approved by: Cathryn Robles M.D. on 12/31/2016 at 13:34 X-RAY CHEST ONE VIEW, PORTABLE IMPRESSION: Persistent mid right and bibasilar air space opacities suspicious for aspiration or pneumonia. Dictated by: Hal Pierson [facility] Interpreted: Joel Rinaldi MD on 01/02/2017 at 9:15 Approved by: Joel Rinaldi M.D. on 01/02/2017 at 10:51 . Plan Impression Impression #1 acute on chronic kidney injury which is resolving #2 hypertension with hypertensive heart disease and hypertensive nephrosclerosis #3 anemia secondary to chronic kidney disease Recommendations #1 I would like to continue her cautious hydration and I would like to add labetalol 100 mg 3 times a day. Afshin Cortez DO Jan 03, 2017 11:45
--- NOTE | 2017-01-03 14:14 | NUR ---
NUTRITION ASSESSMENT: ASSESS: Pt is a 76yo F admitted for fever with associated back pain and shortness of breath. Found to have pneumonia. Nephrology is following for CAROLINA which continues to slowly improve. PO intake has been fair at 25-75% of meals. Last recorded BM was 12/31. She does complain of some abdomen pain. PMHX: Dementia, T2DM, CKD, HTN LABS: Reviewed. 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 Prednisone, insulin GI: BMx1 12/31 SKIN: no major issues CURRENT WTS: 78.1kg, BMI 33.6kg/m2, admit wt 71.8kg IBW: 45.5kg DIET: HH/CC, PO 25-75% EST. NEEDS: BMI/CAROLINA Kcals: 1560-1720kcal/day (20-22kcal/kg) Pro: 55-70g/day (1.2-1.5g/kg IBW) NUTRITION DIAGNOSIS: 1.) Variable PO intake related to age/mentation as evidence by PO 25-75% and pt with history of dementia NUTRITION INTERVENTION: 1.) Will add Glucerna on L tray to help encourage PO intake MONITOR / EVAL: PO, wt, BM, labs, POC, nutrition status. Will continue to monitor per moderate nutrition risk guidelines.
--- NOTE | 2017-01-03 16:40 | NUR ---
Social Work: Continued Discharge Planning/Multidisciplinary rounds D: Pt discussed in multidisciplinary rounds; the patient is not yet medically stable and will likely require several more days of hospitalization. Pt has been accepted at [facility] for rehab once medically stable. Pt states to case management staff that she wishes to return to this facility at discharge. A: pt who will likely require skilled rehab before her transfer to [facility]. P: Anticipate pt to discharge back to [facility] for Skilled rehab pending clinical course; QUALITY ASSURANCE MONITOR CHASSIS to continue to follow to assess for d/c needs. GALINA Cevallos
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
--- NOTE | 2017-01-03 19:44 | PCM.PNMED ---
Subjective Date of Service Jan 03, 2017 Subjective Subjective: Patient states that she is feeling approximately the same as yesterday but much better from the day previous. She continues to be mildly short of breath with minimal back pain well controlled on current medications. States that she has no complaints at this time. Events Overnight: No acute events overnight. ROS: Mild shortness of breath, mild back pain. Denies fever/chills, nausea/ vomiting, headache, weakness, abdominal pain, chest pain, increased swelling in hands or feet. Exam Vital Signs Vital Sign - Last Date Time Temp Pulse Resp B/P Pulse Ox O2 Delivery O2 Flow Rate FiO2 01/03/17 17:16 36.8 99 18 105/68 96 Nasal Cannula 4.50 Intake and Output 01/02/17 01/02/17 01/03/17 Cumulative From/Thru 15:00 23:00 07:00 12/30/16 02:13 - 01/03/17 06:51 Intake Total 892 ml 142 ml 15165 ml Output Total 300 ml 3900 ml Balance 592 ml 142 ml 6409 ml Intake Oral 680 ml 5006 ml IV Total 212 ml 142 ml 5303 ml Output Urine Total 300 ml 3900 ml # Voids 2 # Bowel Movements 8 Exam General: No acute distress, well-developed, well-nourished Head: Normocephalic, atraumatic. External ears without defect. Eyes: Pupils equal, round, and reactive to light and accommodation. Anicteric sclerae, moist conjunctivae. Neck: Normal range of motion, no lymphadenopathy noted MSK: Right lower thoracic spine tender to palpation Cardiovascular: Regular rate and rhythm with no murmurs, rubs, or gallops appreciated Pulmonary: Decreased breath sounds with moderate wheezing, no rhonchi. Abdomen: Bowel tones present. Soft, nontender, nondistended. Extremities: No clubbing, cyanosis, edema Skin: Normal temperature, turgor, and texture; no rash, ulcers, or subcutaneous nodules appreciated. Neurological: Cranial nerves grossly intact. Reflexes, coordination, and sensory function within normal limits. Normal muscle strength, tone, and bulk. Psychiatric: Normal mood and affect. Alert and oriented to person, place, and time IVs and Medications IV Fluids 150 mL normal saline delivered IV medications. Medications Reviewed: Medications were reviewed in detail Lab and Diagnostics Result Diagram: 01/03/17 0243 01/03/17 0243 Microbiology Blood cultures 2 pending X-Rays, CTs and MRIs X-RAY CHEST ONE VIEW, PORTABLE 1. No focal consolidation is visualized at the right lung base to correspond with the dense radiopacities visualized on the CT dated 12/30/16. Lateral view may be helpful to further characterize findings. 2. Low lung volumes and basilar atelectasis. Dictated by: Cathryn Robles M.D. on 12/31/2016 at 13:31 Approved by: Cathryn Robles M.D. on 12/31/2016 at 13:34 CT ABDOMEN AND PELVIS WITHOUT CONTRAST IMPRESSION: Dense pneumonia right lower lobe posteriorly, quality of visualization through the abdomen and pelvis is limited by absence of both oral and intravenous contrast. Prior cholecystectomy. No definite additional acute disease. Dictated by: Nitin Rubio M.D. on 12/30/2016 at 22:07 Approved by: Nitin Rubio M.D. on 12/30/2016 at 22:09 X-RAY CHEST ONE VIEW, PORTABLE IMPRESSION: 1. No focal consolidation is visualized at the right lung base to correspond with the dense radiopacities visualized on the CT dated 12/30/16. Lateral view may be helpful to further characterize findings. 2. Low lung volumes and basilar atelectasis. Dictated by: Cathryn Robles M.D. on 12/31/2016 at 13:31 Approved by: Cathryn Robles M.D. on 12/31/2016 at 13:34 X-RAY CHEST ONE VIEW, PORTABLE IMPRESSION: Persistent mid right and bibasilar air space opacities suspicious for aspiration or pneumonia. Dictated by: Hal Pierson [facility] Interpreted: Joel Rinaldi MD on 01/02/2017 at 9:15 Approved by: Joel Rinaldi M.D. on 01/02/2017 at 10:51 . Assessment & Plan 76-year-old female with past medical history of minor dementia, type II diabetes , chronic kidney disease, hypertension who presents emergency department via EMS from [facility] for fever with associated back pain and shortness of breath. Septic shock, present on admission, Resolved Initially increased WBC, borderline tachycardia, hyperventilation, hypotension, increased temp,lactic acidosis, other than increased creatinine no evidence of end organ damage. -Likely secondary to RLL pneumonia -Blood cultures x2 negative to date -Stool PCR negative -Patient received a one-time dose of vancomycin, Zosyn, ceftriaxone in the emergency department. -Continue Zosyn and Levo for severe pneumonia, ID following -Procalc trending down -Blood pressures now appropriate, antihypertensive medications resumed Right lower lobe pneumonia likely bacterial vs possible aspiration, present on admission, active Seen on CT, patients cough is nonproductive and we are unable to obtain culture to differentiate between bacterial versus aspiration pneumonia. Patient has very minor dementia, however this is her only risk factor for aspiration pneumonia. - Continue Zosyn and Levo - Strep urine antigen negative - MRSA PCR screen negative - Viral PCR screen negative Acute onset chest pain, not present on admission, resolved 01/02 patient began experiencing acute onset chest pain likely associated with respiratory distress however cardiac pathology cannot be ruled out at that time. - Serial troponins negative - EKG no changes from previous - Solu-Medrol given IV on 01/02 appears to have had the greatest impact on her chest pain. Acute Respiratory distress, present on admission, active Increased respirations, wheezing -Required 15 L of oxygen overnight on 01/01, however she is currently on 4-5 L nasal cannula, at baseline she does not use oxygen -Patient states that she was previously on albuterol however after her previous admission her inhalers were never reordered. -Duo nebs ordered every 4 when necessary -Continue prednisone 40 mg daily Possible COPD exacerbation, not present on admission, active -Duo nebs ordered every 4 when necessary -Continue 40 mg prednisone PO daily High anion gap metabolic acidosis, present on admission, Improving -Likely secondary to infection possibly in addition to uremia secondary to CAROLINA -Kidney function improving -Nephrology consulted -Continue to monitor Acute on chronic kidney injury, present on admission, resolving Patient of Dr. Cortez, baseline creatinine 1.7-1.8, last admission on discharge patient's creatinine was 2.6. On admission creatinine 2.7 -Creatinine resolving. 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 Cortez Normocytic anemia, present on admission, active Secondary to chronic kidney disease - Hemoglobin 10.2 on admission, stable at this time - Consider transfusion if hemoglobin <7.0 - Continue to monitor Hyperlipidemia, chronic -Continue home atorvastatin Type II diabetes, active - Glucose 166 on arrival - Hemoglobin A1c 6.2 on 11/02/16 - Medium dose correctional - Home glipizide held Dementia, stable - Continue home Quetiapine . Disposition: Patient will likely require 1-2 more days of IV antibiotics and DC to be determined by clinical course, likely 2-4 more days. Patient to return to long term facility upon discharge. VTE Prophylaxis: Sub-Q Heparin (Unfractionated) VTE Mechanical Devices: Intermittant Pneumatic CD Resuscitation Status: DNR/DNI:Do Not Resuscitate/Intubate Time spent 30 minutes Attending Statement I have seen and evaluated patient at bedside in addition to directly supervising care provided by resident physician Dr Duff on 01/03/2017. I agree with above documentation Rai Duff DO Jan 03, 2017 19:44 Blayne Mccracken DO Jan 04, 2017 07:51
[2017-01-04] VITALS (16 sets, daily range): BP systolic 113–132; BP diastolic 37–59; PULSE 65–95; RESP 12–26; O2SAT 90–97
[2017-01-04] MEDS: Albuterol-Ipratropium 3 mL Inhalation Solution NEB SCH ×6 (00:30→20:41)
[2017-01-04] MEDS: Heparin 5,000 Unit/mL Inj SUBQ SCH ×3 (03:56→19:50)
[2017-01-04 03:59] LABS: Mean Corpuscular Hemoglobin 29.3 pg (27.0-35.0); Mean Corpuscular Volume 87.9 fL (81-100)
[2017-01-04] MEDS: Piperacillin-Tazo 3.375 Gm Inj 3.375 GM in Dextrose 5% Minibag Plus 50 ML IV SCH ×2 (04:01→16:54)
[2017-01-04] MEDS ORDERED: 0.9% Sodium Chloride 100 ML ONE (04:06)
[2017-01-04 04:20] LABS: INR 0.95 ratio
--- NOTE | 2017-01-04 06:22 | NUR ---
Neuro Pt alert and oriented first part of shift, around 0300 UA called per MD's request, pt was taking off mask and moving around the bed. On arrival pt was moving around in bed, unable to state where she was, kept repeating words over . MD assessed eyes and arms movement. Per MD, not concern for stroke since patient was able to speak and move all extremities. Pt continued to repeat words she heard staff mention. She was able to open her eyes and follow commands when asked to keep mask on. Pt remained restless until she fell asleep. All vital signs remained within her baseline and BG 154 at the time. HR 70's to low 100 SR-ST most of the shift. SPO2 drops to mid 80's when she takes of O2 mask but goes back up to 90's when mask is on. She remains on 5-6L O2 through the night.
[2017-01-04] MEDS: Insulin LISPRO 300 Unit/3 mL Inj SUBQ SCH ×4 (08:00→20:54)
[2017-01-04] MEDS ORDERED: diphenhydrAMINE 25 mg Capsule PO ONE (08:10)
[2017-01-04] MEDS: Levofloxacin 500 mg/100 mL D5W IV SCH (08:21)
[2017-01-04] MEDS: predniSONE 20 mg Tablet PO SCH (08:21)
[2017-01-04] MEDS: Lidocaine Topical 5% Patch TOPICAL SCH (08:22)
[2017-01-04] MEDS: 0.9% Sodium Chloride 250 ML IV SCH (08:52)
--- NOTE | 2017-01-04 08:54 | PROG NOTE ---
[address] [address] PROGRESS NOTE PATIENT: MCKENZIE CÁRDENAS : 1940 MR#: [id number] ADMIT: 12/30/2016 JOB ID: [id number] DATE: 01/04/2017 REASON FOR FOLLOWUP: Extensive right lower lobe pneumonia in a fragile host. INTERVAL HISTORY: The patient continues to be somewhat withdrawn and not fully interactive with her care. She works with the incentive spirometer, but does not make a great effort and is also not getting out of bed much or performing much in the way of deep breathing or any activity. She continues to feel sometimes subtly warm and sometimes subtly chilled, which she states as a reason not to fully engage in the respiratory therapy. She continues to have intermittent cough. No nausea, vomiting, diarrhea, and tolerating her antibiotics quite well. PHYSICAL EXAMINATION: Reveals a woman who is afebrile and has been now for five days. Her temp 37.1, her pulse 83, respiratory rate in the teens, blood pressure 124/89. She is saturating well, but still requiring 4-6 L. She is awake, alert. She appears depressed. Oral cavity unremarkable. Lungs with decreased breath sounds right base and a few expiratory wheezes, but overall her lungs are much better than they were yesterday for example. Abdomen slightly distended, soft, nontender. No skin rash. LABORATORIES: Include white count stable at 12,000 with relatively normal diff. Creatinine 2.97 which translates to a creatinine clearance in the low 20s. Liver function tests basically normal except an AST 65. Procalcitonin is coming down smartly it was 38, 29, 21, 13, and today 7. Urinalysis was without pyuria. Urine Legionella and pneumococcal antigens negative. Serum cryptococcal antigen negative. Blood cultures remain negative. Respiratory viral PCR negative and the sputum is growing normal conner. No recent imaging is available. The last chest x-ray showed right-sided infiltrate and that was two days ago. IMPRESSION: This patient is making slow, but steady progress in terms of management of her right-sided pneumonia. Recall this woman who resides in a custodial, and we do not have any positive cultures or serologies and for that reason we are forced to use very broad-spectrum antibiotics. We can see by her reduction by the resolution of her fever as well as the steady drop in her procalcitonin that we are having an effective antibiotic regimen. RECOMMENDATIONS: 1. Will continue with Zosyn at least through tomorrow. 2. Will continue with levofloxacin to complete at least a seven day course. 3. Will continue to follow with you. 4. This case was discussed with Respiratory Therapy, nursing, and the patient at the bedside. We encouraged the patient to be more aggressive in terms of her incentive spirometry and getting out of bed.
[2017-01-04 11:41] LABS: Unsaturated Iron Binding 114.2 ug/dL
--- NOTE | 2017-01-04 14:24 | PCM.PNMED ---
Subjective Date of Service Jan 04, 2017 Subjective Subjective: Patient complains of weakness as well as shortness of breath. Blood counts were low this morning patient was counseled regarding possible transfusion and was agreeable to proceeding. Events Overnight: No acute events overnight. ROS: Weakness, Shortness of breath. Denies fever/chills, nausea/vomiting, headache, weakness, abdominal pain, chest pain, increased swelling in hands or feet. Exam Vital Signs Vital Sign - Last Date Time Temp Pulse Resp B/P Pulse Ox O2 Delivery O2 Flow Rate FiO2 01/04/17 13:13 74 17 93 Nasal Cannula 5.00 01/04/17 12:30 36.9 122/48 Intake and Output 01/03/17 01/03/17 01/04/17 Cumulative From/Thru 15:00 23:00 07:00 12/30/16 02:13 - 01/04/17 06:45 Intake Total 200 ml 480 ml 250 ml 05698 ml Output Total 450 ml 650 ml 300 ml 5300 ml Balance -250 ml -170 ml -50 ml 5939 ml Intake Oral 200 ml 480 ml 100 ml 5786 ml IV Total 150 ml 5453 ml Output Urine Total 450 ml 650 ml 300 ml 5300 ml # Voids 2 # Bowel Movements 8 Exam General: No acute distress, well-developed, well-nourished Head: Normocephalic, atraumatic. External ears without defect. Eyes: Pupils equal, round, and reactive to light and accommodation. Anicteric sclerae, moist conjunctivae. Neck: Normal range of motion, no lymphadenopathy noted MSK: Right lower thoracic spine tender to palpation Cardiovascular: Regular rate and rhythm with no murmurs, rubs, or gallops appreciated Pulmonary: Mild rales best auscultated over the right lower lung gonzalez, moderate wheezing mild rhonchi, . Abdomen: Bowel tones present. Soft, nontender, nondistended. Extremities: No clubbing, cyanosis, edema Skin: Normal temperature, turgor, and texture; no rash, ulcers, or subcutaneous nodules appreciated. Neurological: Cranial nerves grossly intact. Reflexes, coordination, and sensory function within normal limits. Normal muscle strength, tone, and bulk. Psychiatric: Normal mood and affect. Alert and oriented to person, place, and time IVs and Medications IV Fluids 250 mL normal saline delivered with IV medications. Medications Reviewed: Medications were reviewed in detail Lab and Diagnostics Result Diagram: 01/04/17 0330 01/04/17 0330 Microbiology Blood cultures 2 pending X-Rays, CTs and MRIs X-RAY CHEST ONE VIEW, PORTABLE 1. No focal consolidation is visualized at the right lung base to correspond with the dense radiopacities visualized on the CT dated 12/30/16. Lateral view may be helpful to further characterize findings. 2. Low lung volumes and basilar atelectasis. Dictated by: Cathryn Robles M.D. on 12/31/2016 at 13:31 Approved by: Cathryn Robles M.D. on 12/31/2016 at 13:34 CT ABDOMEN AND PELVIS WITHOUT CONTRAST IMPRESSION: Dense pneumonia right lower lobe posteriorly, quality of visualization through the abdomen and pelvis is limited by absence of both oral and intravenous contrast. Prior cholecystectomy. No definite additional acute disease. Dictated by: Nitin Rubio M.D. on 12/30/2016 at 22:07 Approved by: Nitin Rubio M.D. on 12/30/2016 at 22:09 X-RAY CHEST ONE VIEW, PORTABLE IMPRESSION: 1. No focal consolidation is visualized at the right lung base to correspond with the dense radiopacities visualized on the CT dated 12/30/16. Lateral view may be helpful to further characterize findings. 2. Low lung volumes and basilar atelectasis. Dictated by: Cathryn Robles M.D. on 12/31/2016 at 13:31 Approved by: Cathryn Robles M.D. on 12/31/2016 at 13:34 X-RAY CHEST ONE VIEW, PORTABLE IMPRESSION: Persistent mid right and bibasilar air space opacities suspicious for aspiration or pneumonia. Dictated by: Hal Pierson [facility] Interpreted: Joel Rinaldi MD on 01/02/2017 at 9:15 Approved by: Joel Rinaldi M.D. on 01/02/2017 at 10:51 . Assessment & Plan 76-year-old female with past medical history of minor dementia, type II diabetes , chronic kidney disease, hypertension who presents emergency department via EMS from [facility] for fever with associated back pain and shortness of breath. Right lower lobe pneumonia likely bacterial vs possible aspiration, present on admission, active Seen on CT, patients cough is nonproductive and we are unable to obtain culture to differentiate between bacterial versus aspiration pneumonia. Patient has very minor dementia, however this is her only risk factor for aspiration pneumonia. - Per ID recommendations, continue Zosyn and Levo - Strep urine antigen negative - MRSA PCR screen negative - Viral PCR screen negative Acute Respiratory distress, present on admission, active Increased respirations, wheezing, likely due to COPD exacerbation vs acute pneumonia -On 01/01 pt required 15 L of oxygen overnight, however she is currently on 4-5 L nasal cannula, at baseline she does not use oxygen -Per ID recommendations, continue Zosyn and Levo -Duo nebs ordered Q4 -Continue prednisone 40 mg daily Possible COPD exacerbation, not present on admission, active -Duo nebs ordered Q4 -Continue 40 mg prednisone PO daily Normocytic anemia, present on admission, active Secondary to chronic kidney disease - Hemoglobin 10.2 on admission. - 7.5 on 01/04, Patient transfused 1 unit of blood, post-transfusion 8.4 - Continue to monitor High anion gap metabolic acidosis, present on admission, Improving Likely secondary to acute on chronic kidney injury -Kidney function improving -Nephrology consulted -Continue to monitor Chronic Hyponatremia, present on admission, active Patient has a chronic history of hyponatremia, at least in part due to polydipsia -Nephrology consulting, recommendations appreciated -Serum osmolality within normal limits Septic shock, present on admission, Resolved Initially increased WBC, borderline tachycardia, hyperventilation, hypotension, increased temp,lactic acidosis, other than increased creatinine no evidence of end organ damage. -Likely secondary to RLL pneumonia -Blood cultures x2 negative to date -Stool PCR negative -Patient received a one-time dose of vancomycin, Zosyn, ceftriaxone in the emergency department. -Continue Zosyn and Levo for severe pneumonia, ID following -Procalc trending down -Blood pressures now appropriate, antihypertensive medications resumed Acute onset chest pain, not present on admission, resolved 01/02 patient began experiencing acute onset chest pain likely associated with respiratory distress however cardiac pathology cannot be ruled out at that time. - Serial troponins negative - EKG no changes from previous - Solu-Medrol given IV on 01/02 appears to have had the greatest impact on her chest pain. - Continue prednisone 40 mg daily Acute on chronic kidney injury, present on admission, resolving Patient of Dr. Cortez, baseline creatinine 1.7-1.8, last admission on discharge patient's creatinine was 2.6. On admission creatinine 2.7 -Creatinine resolving. -Continue to monitor Electrolyte imbalance, present on admission, active -Likely secondary to acute on chronic kidney injury -No interventions necessary at this time -Continue to monitor Leukocytosis, present on admission, active -Likely secondary to RLL pneumonia -Continue to monitor Chronic Hypertension, present on admission, active -All home antihypertensive medications resumed -100 mg labetalol 3 times a day initiated per recommendations of Dr. Cortez Hyperlipidemia, chronic -Continue home atorvastatin Type II diabetes, active - Glucose 166 on arrival - Hemoglobin A1c 6.2 on 11/02/16 - Medium dose correctional - Home glipizide held Dementia, stable - Continue home Quetiapine . Disposition: Patient will likely require 1-2 more days of IV antibiotics and DC to be determined by clinical course, likely 2-4 more days. [facility]. VTE Prophylaxis: Sub-Q Heparin (Unfractionated) VTE Mechanical Devices: Intermittant Pneumatic CD Resuscitation Status: DNR/DNI:Do Not Resuscitate/Intubate Time spent 30 minutes Attending Statement I have seen and evaluated the patient at bedside in addition to directly supervising care provided by Dr Duff on 01/04/2017. I agree with above documentation. Rai Duff DO Jan 04, 2017 14:23 Blayne Mccracken DO Jan 05, 2017 07:34
--- NOTE | 2017-01-04 14:28 | NUR ---
P: Respiratory Distress I: Alert and oriented. Occasionally asks some odd questions or comments. Taking diet and fluids well. IVF TKO. one unit PRBC's infused without difficulty. SR/ST. Up with PT and ambulated in the barragan and is up in chair. 5L/NC with sats stable. Left PICC patent. VSS. Afebrile. Denies pain or SOB. Productive cough and is using acepella pt refuses to use IS. E: Stable S: Uses call light appropriately. Frequent rounding.
--- NOTE | 2017-01-04 15:25 | PCM.PNNEPH ---
Subjective Date of Service Jan 04, 2017 Subjective Patient continues to slowly improve. She denies any chest pain, shortness of breath, cough or wheezing. Exam Vital Signs Vital Sign - Last Date Time Temp Pulse Resp B/P Pulse Ox O2 Delivery O2 Flow Rate FiO2 01/04/17 13:13 74 17 93 Nasal Cannula 5.00 01/04/17 12:30 36.9 122/48 Intake and Output 01/03/17 01/03/17 01/04/17 Cumulative From/Thru 15:00 23:00 07:00 12/30/16 02:13 - 01/04/17 06:45 Intake Total 200 ml 480 ml 250 ml 92127 ml Output Total 450 ml 650 ml 300 ml 5300 ml Balance -250 ml -170 ml -50 ml 5939 ml Intake Oral 200 ml 480 ml 100 ml 5786 ml IV Total 150 ml 5453 ml Output Urine Total 450 ml 650 ml 300 ml 5300 ml # Voids 2 # Bowel Movements 8 Exam Neck is supple without adenopathy, thyromegaly, or jugular venous distention. Lungs showed some scattered rhonchi and diminished breath sounds. Heart is regular and rhythmical with a soft systolic murmur. Abdomen soft without any tenderness rebound or guarding masses or hepatosplenomegaly. Extremities show any evidence of any clubbing, cyanosis, or edema. Lab and Diagnostics Result Diagram: 01/04/17 1426 01/04/17 0330 Microbiology Blood cultures 2 pending X-Rays, CTs and MRIs X-RAY CHEST ONE VIEW, PORTABLE 1. No focal consolidation is visualized at the right lung base to correspond with the dense radiopacities visualized on the CT dated 12/30/16. Lateral view may be helpful to further characterize findings. 2. Low lung volumes and basilar atelectasis. Dictated by: Cathryn Robles M.D. on 12/31/2016 at 13:31 Approved by: Cathryn Robles M.D. on 12/31/2016 at 13:34 CT ABDOMEN AND PELVIS WITHOUT CONTRAST IMPRESSION: Dense pneumonia right lower lobe posteriorly, quality of visualization through the abdomen and pelvis is limited by absence of both oral and intravenous contrast. Prior cholecystectomy. No definite additional acute disease. Dictated by: Nitin Rubio M.D. on 12/30/2016 at 22:07 Approved by: Nitin Rubio M.D. on 12/30/2016 at 22:09 X-RAY CHEST ONE VIEW, PORTABLE IMPRESSION: 1. No focal consolidation is visualized at the right lung base to correspond with the dense radiopacities visualized on the CT dated 12/30/16. Lateral view may be helpful to further characterize findings. 2. Low lung volumes and basilar atelectasis. Dictated by: Cathryn Robles M.D. on 12/31/2016 at 13:31 Approved by: Cathryn Robles M.D. on 12/31/2016 at 13:34 X-RAY CHEST ONE VIEW, PORTABLE IMPRESSION: Persistent mid right and bibasilar air space opacities suspicious for aspiration or pneumonia. Dictated by: Hal Pierson [facility] Interpreted: Joel Rinaldi MD on 01/02/2017 at 9:15 Approved by: Joel Rinaldi M.D. on 01/02/2017 at 10:51 . Plan Impression Impression #1 acute on chronic kidney injury which is a number to hyponatremia which is resolving #3 anemia which is multifactorial Recommendations #1 with continue to monitor her lab and intake and output. Afshin Cortez DO Jan 04, 2017 15:25
--- NOTE | 2017-01-04 16:47 | NUR ---
Social Work-continued d/c planning: Data:EMR Reviewed. Pt is on day 5 of hospitalization for fever per H&P. Pt is not medically stable anticipate several more days. PT evaluation is pending. Pt came to the hospital from [facility] . SW updated by RN that pt may not want to return to [facility] at discharge. SW attempted to follow up with pt today, but RT in the room. SW to follow up with pt tomorrow. Pt has been accepted to return to [facility]. SW will continue to follow. Assessment:Pt who came from SNF. Plan:SW to follow up with pt tomorrow regarding SNF. Pt came to hospital from [facility], but per RN may not want to return. SW will continue to follow. GALINA Cornelius
[2017-01-05] VITALS (13 sets, daily range): BP systolic 116–142; BP diastolic 38–56; PULSE 66–77; RESP 16–20; O2SAT 93–99
[2017-01-05] MEDS: Albuterol-Ipratropium 3 mL Inhalation Solution NEB SCH ×6 (00:30→20:30)
[2017-01-05] MEDS: Heparin 5,000 Unit/mL Inj SUBQ SCH ×3 (03:53→19:47)
[2017-01-05] MEDS: Piperacillin-Tazo 3.375 Gm Inj 3.375 GM in Dextrose 5% Minibag Plus 50 ML IV SCH (03:53)
[2017-01-05 04:22] LABS: BASOPHILS % (AUTO) 0.2 % (0-3); EOSINOPHILS % (AUTO) 0 % (0-5); Mean Corpuscular Hemoglobin 29.6 pg (27.0-35.0); Mean Corpuscular Volume 86.2 fL (81-100); NEUTROPHILS % (AUTO) 75.5 % (40-74); Platelet Count 242 bil/L (150-400)
[2017-01-05 04:42] LABS: INR 1.01 ratio
--- NOTE | 2017-01-05 06:31 | NUR ---
NOC: Pt A/ox3- occasional forgetful- using call light appropriately. Sp02 maintained 90s on 4-5 L NC- wet non productinve cough noted. Tele SR 60s. Pt denies any pain- sleeping intermittently overnight. care ongoing.
[2017-01-05] MEDS: Insulin LISPRO 300 Unit/3 mL Inj SUBQ SCH ×4 (08:00→22:23)
[2017-01-05] MEDS: 0.9% Sodium Chloride 250 ML IV SCH (08:10)
[2017-01-05] MEDS: predniSONE 20 mg Tablet PO SCH (08:59)
[2017-01-05] MEDS: Lidocaine Topical 5% Patch TOPICAL SCH (09:00)
[2017-01-05] MEDS: HYDROcodone-APAP 5-325 mg Tablet PO PRN (09:00)
--- NOTE | 2017-01-05 09:19 | PROG NOTE ---
[address] [address] PROGRESS NOTE PATIENT: MCKENZIE CÁRDENAS : 1940 MR#: [id number] ADMIT: 12/30/2016 JOB ID: [id number] DATE: 01/05/2017 INFECTIOUS DISEASE FOLLOW UP NOTE: REASON FOR FOLLOWUP: Right-sided pneumonia in a [place] [facility] resident. INTERVAL HISTORY: Overnight, the patient has felt relatively well. Yesterday she was able to get up and walk and this morning she is enjoying a hearty breakfast. She denies fevers, chills or sweats. Still has a bit of productive cough, and perhaps some mild shortness of breath without pleuritic chest pain. No nausea or vomiting. Recall that she did have some significant diarrhea when she came in the hospital and studies were done at that time, including stool PCR that were negative. Her diarrhea then completely resolved and now it started to come back with two loose stools yesterday and that should be followed into the future to make sure there is not a recurrence of her diarrhea. PHYSICAL EXAMINATION: Reveals a comfortable woman sitting up and having breakfast. She has been afebrile now for 5-1/2 days. Temperature 36.6, pulse 72, respiratory rate 17, blood pressure 116/56. She is no distress as mentioned. Oral cavity negative. Lungs: Crackles right greater than left base. Also note some left-sided wheezing. Cardiac tones without new murmur. Abdomen benign. No skin rash. LABORATORIES: Include white count down to 10,000 today essentially normal with a normal differential. Her creatinine 3.63. It has been bouncing around 3, but this is one of the higher measurements in the past days. Her LFTs are normal. Albumin 2.9. Procalcitonin yesterday was 7.[address] down from a peak of 38. Today's value is pending. Serologic studies include the negative cryptoantigen. Micro studies have been entirely negative including sputum culture, nasopharyngeal PCR panel, nasal MRSA screen and the stool studies previously mentioned. Blood cultures also negative. IMAGING: Our last imaging is now three days ago. It shows persistent right bibasilar airspace opacities. IMPRESSION: This patient was admitted with pneumonia which has started in the [facility] facility. We do not have any diagnostic cultures and, therefore, treated very broadly with Zosyn and levofloxacin. At this point, she seems much better as she has been consistently afebrile with a normalizing white count and a dropping procalcitonin. RECOMMENDATIONS: 1. Will continue Zosyn through today and stop. 2. Will continue levo for a couple more days to complete a seven day course on a q.48 hour schedule. 3. Given the absence of any acute ID issues, will go ahead and sign off. Please do not hesitate to call if there are additional questions or problems.
--- NOTE | 2017-01-05 10:38 | NUR ---
DETENTION FOLLOW UP: Patient is still not medically stable for discharge today, updated Filomena Treat logistics operations director at [facility].
[2017-01-05] MEDS: 0.9% Sodium Chloride 1,000 ML IV SCH (11:51)
--- NOTE | 2017-01-05 12:36 | NUR ---
Social Work-Continued D/C Planning Data: EMR Reviewed. Pt is on day 6 of hospitalization for fever per H&P. Pt discussed in multidisciplinary rounds. Pt's kidney function has decreased. Pt is not medically stable at this time. PT evaluated pt, pt was able to ambulate 125 feet, PT still recommending SNF. SW met with pt at bedside regarding discharge plan and pt's concerns related to discharge to assisted living after SNF. Pt's concerns for [facility] were related to lack of air conditioning, uncertainty related to her status on the waiting list, and desire to have a private bathroom at [facility]. Pt denied that she has the funds for a private room at [facility]. Pt acknowledged that she has nowhere else to go after SNF if she does not go to [facility]. Pt was agreeable to d/c to SNF then [facility] by the end of the conversation. Pt agreed to have SW update her daughter by phone. T/T pt's daughter by phone-Pt's forgetfulness is a concern for pt's daughter as pt is not able to explain her plan of care over the phone. SW updated daughter and pt's daughter is on her way to hospital to see pt. Pt has been accepted to return to [facility] updated of discharge timeline. SW will continue to follow. Assessment: Pt who came from SNF. Plan: After conversation at bedside today, pt agreeable to d/c to [facility] rehab and then transition to [facility]. [facility] is following pt. SW will continue to follow. GALINA Sepulveda
--- NOTE | 2017-01-05 13:51 | PCM.PNNEPH ---
Subjective Date of Service Jan 05, 2017 Subjective Some increase in creatinine today, she complains of some diarrhea which may contribute to this. In the past 24 hours her I&O are 970/650 w/700 out in the first 8 hours of today. She has also had some lower BP readings in the past few days which I feel is also aggravating her increased creatinine. Exam Vital Signs Vital Sign - Last Date Time Temp Pulse Resp B/P Pulse Ox O2 Delivery O2 Flow Rate FiO2 01/05/17 12:52 73 17 94 Nasal Cannula 5.00 01/05/17 11:55 37.9 129/52 Intake and Output 01/04/17 01/04/17 01/05/17 Cumulative From/Thru 15:00 23:00 07:00 12/30/16 02:13 - 01/05/17 06:32 Intake Total 380 ml 340 ml 700 ml 12674 ml Output Total 350 ml 700 ml 6350 ml Balance 380 ml -10 ml 0 ml 6309 ml Intake Oral 340 ml 600 ml 6726 ml IV Total 80 ml 100 ml 5633 ml Packed Cells 300 ml 300 ml Output Urine Total 350 ml 300 ml 5950 ml Urine/Stool Mix 400 ml 400 ml # Voids 2 4 # Bowel Movements 1 9 Exam Neck is supple without adenopathy or thyromegaly. There was no JVD noted. Lungs were clear but somewhat diminished and some scattered end expiratory wheezes noted. Heart was regular and rhythmical with a soft systolic murmur. Abdomen soft without any tenderness rebound guarding masses or hepatosplenomegaly. Extremities do not show any evidence of any edema. Skin turgor was slightly diminished. Lab and Diagnostics Result Diagram: 01/05/17 04101/05/17 0410 Microbiology Blood cultures 2 pending X-Rays, CTs and MRIs X-RAY CHEST ONE VIEW, PORTABLE 1. No focal consolidation is visualized at the right lung base to correspond with the dense radiopacities visualized on the CT dated 12/30/16. Lateral view may be helpful to further characterize findings. 2. Low lung volumes and basilar atelectasis. Dictated by: Cathryn Robles M.D. on 12/31/2016 at 13:31 Approved by: Cathryn Robles M.D. on 12/31/2016 at 13:34 CT ABDOMEN AND PELVIS WITHOUT CONTRAST IMPRESSION: Dense pneumonia right lower lobe posteriorly, quality of visualization through the abdomen and pelvis is limited by absence of both oral and intravenous contrast. Prior cholecystectomy. No definite additional acute disease. Dictated by: Nitin Rubio M.D. on 12/30/2016 at 22:07 Approved by: Nitin Rubio M.D. on 12/30/2016 at 22:09 X-RAY CHEST ONE VIEW, PORTABLE IMPRESSION: 1. No focal consolidation is visualized at the right lung base to correspond with the dense radiopacities visualized on the CT dated 12/30/16. Lateral view may be helpful to further characterize findings. 2. Low lung volumes and basilar atelectasis. Dictated by: Cathryn Robles M.D. on 12/31/2016 at 13:31 Approved by: Cathryn Robles M.D. on 12/31/2016 at 13:34 X-RAY CHEST ONE VIEW, PORTABLE IMPRESSION: Persistent mid right and bibasilar air space opacities suspicious for aspiration or pneumonia. Dictated by: Hal Pierson [facility] Interpreted: Joel Rinaldi MD on 01/02/2017 at 9:15 Approved by: Joel Rinaldi M.D. on 01/02/2017 at 10:51 . Plan Impression Impression #1 acute on chronic kidney injury which appears to be worsening. I feel this is probably due to shortness of her blood pressure, stool losses, and mild intravascular volume depletion. #2 hyponatremia which is resolving Recommendations #1 I would like to do some cautious hydration with normal saline at 60 an hour for the next 24 hours. I would also like to start her on DuoNeb treatment and increased pulmonary toilet. We need to continue to follow her intake and output along with her lab. Afshin Cortez DO Jan 05, 2017 13:51
[2017-01-05] MEDS ORDERED: Alteplase (Cathflo) 1 mg/mL 2 mL Inj IVPUSH ONE ×3 (14:05)
--- NOTE | 2017-01-05 17:38 | PCM.PNMED ---
Subjective Date of Service Jan 05, 2017 Subjective Subjective: Patient states feeling better today, states that she continues to have lower back pain which she expects will resolve with oxycodone to be given this morning. She remains optimistic that things are going in the right direction. Events Overnight: No acute events overnight. ROS: Denies fever/chills, nausea/vomiting, headache, weakness, abdominal pain, chest pain, shortness of breath, increased swelling in hands or feet. Exam Vital Signs Vital Sign - Last Date Time Temp Pulse Resp B/P Pulse Ox O2 Delivery O2 Flow Rate FiO2 01/05/17 16:55 36.4 75 20 130/52 99 OxyMask 5.50 Intake and Output 01/04/17 01/04/17 01/05/17 Cumulative From/Thru 15:00 23:00 07:00 12/30/16 02:13 - 01/05/17 06:32 Intake Total 380 ml 340 ml 700 ml 97313 ml Output Total 350 ml 700 ml 6350 ml Balance 380 ml -10 ml 0 ml 6309 ml Intake Oral 340 ml 600 ml 6726 ml IV Total 80 ml 100 ml 5633 ml Packed Cells 300 ml 300 ml Output Urine Total 350 ml 300 ml 5950 ml Urine/Stool Mix 400 ml 400 ml # Voids 2 4 # Bowel Movements 1 9 Exam General: No acute distress, well-developed, well-nourished Head: Normocephalic, atraumatic. External ears without defect. Eyes: Pupils equal, round, and reactive to light and accommodation. Anicteric sclerae, moist conjunctivae. Neck: Normal range of motion, no lymphadenopathy noted MSK: Right lower thoracic spine tender to palpation Cardiovascular: Regular rate and rhythm with no murmurs, rubs, or gallops appreciated Pulmonary: Mild rales best auscultated over the right lower lung gonzalez, mild wheezing no rhonchi, . Abdomen: Bowel tones present. Soft, nontender, nondistended. Extremities: No clubbing, cyanosis, edema Skin: Normal temperature, turgor, and texture; no rash, ulcers, or subcutaneous nodules appreciated. Neurological: Cranial nerves grossly intact. Reflexes, coordination, and sensory function within normal limits. Normal muscle strength, tone, and bulk. Psychiatric: Normal mood and affect. Alert and oriented to person, place, and time IVs and Medications IV Fluids 250 mL normal saline delivered with IV medications. Medications Reviewed: Medications were reviewed in detail Medications High-risk medications include: [place] [facility] Result Diagram: 01/05/1740901/05/17409 Microbiology Blood cultures 2 no growth to date X-Rays, CTs and MRIs X-RAY CHEST ONE VIEW, PORTABLE 1. No focal consolidation is visualized at the right lung base to correspond with the dense radiopacities visualized on the CT dated 12/30/16. Lateral view may be helpful to further characterize findings. 2. Low lung volumes and basilar atelectasis. Dictated by: Cathryn Robles M.D. on 12/31/2016 at 13:31 Approved by: Cathryn Robles M.D. on 12/31/2016 at 13:34 CT ABDOMEN AND PELVIS WITHOUT CONTRAST IMPRESSION: Dense pneumonia right lower lobe posteriorly, quality of visualization through the abdomen and pelvis is limited by absence of both oral and intravenous contrast. Prior cholecystectomy. No definite additional acute disease. Dictated by: Nitin Rubio M.D. on 12/30/2016 at 22:07 Approved by: Nitin Rubio M.D. on 12/30/2016 at 22:09 X-RAY CHEST ONE VIEW, PORTABLE IMPRESSION: 1. No focal consolidation is visualized at the right lung base to correspond with the dense radiopacities visualized on the CT dated 12/30/16. Lateral view may be helpful to further characterize findings. 2. Low lung volumes and basilar atelectasis. Dictated by: Cathryn Robles M.D. on 12/31/2016 at 13:31 Approved by: Cathryn Robles M.D. on 12/31/2016 at 13:34 X-RAY CHEST ONE VIEW, PORTABLE IMPRESSION: Persistent mid right and bibasilar air space opacities suspicious for aspiration or pneumonia. Dictated by: Hal Pierson [facility] Interpreted: Joel Rinaldi MD on 01/02/2017 at 9:15 Approved by: Joel Rinaldi M.D. on 01/02/2017 at 10:51 . Assessment & Plan 76-year-old female with past medical history of minor dementia, type II diabetes , chronic kidney disease, hypertension who presents emergency department via EMS from [facility] for fever with associated back pain and shortness of breath. Right lower lobe pneumonia likely bacterial vs possible aspiration, present on admission, improving Seen on CT, patients cough is nonproductive and we are unable to obtain culture to differentiate between bacterial versus aspiration pneumonia. Patient has very minor dementia, however this is her only risk factor for aspiration pneumonia. - Per ID recommendations, Zosyn discontinued, continue Levo for 48 hours - ID signed off on 01/05 - Strep urine antigen negative - MRSA PCR screen negative - Viral PCR screen negative Acute Respiratory distress, present on admission, stable Increased respirations, wheezing, likely due to COPD exacerbation vs acute pneumonia -Patient is currently tolerating 4-5 L nasal cannula, at baseline she does not use oxygen -Per ID recommendations, continue Levo -Duo nebs ordered Q4 -Continue prednisone 40 mg daily Possible COPD exacerbation, not present on admission, stable -Duo nebs ordered Q4 -Continue 40 mg prednisone PO daily Acute on chronic kidney injury, present on admission, worsening Patient of Dr. Cortez, baseline creatinine 1.7-1.8, last admission on discharge patient's creatinine was 2.6. On admission creatinine 2.7 -Large increasing creatinine 01/05 - IV normal saline initiated at 60 mL/hr - New-onset systolic murmur likely flow murmur due to hydration status, limited echo ordered to rule out CHF, results pending -Continue to monitor Normocytic anemia, present on admission, stable Secondary to chronic kidney disease - Hemoglobin 10.2 on admission. - 7.5 on 01/04, Patient transfused 1 unit of blood, post-transfusion 8.4 - H&H currently stable - Continue to monitor Chronic Hypertension, present on admission, active -All home antihypertensive medications resumed -100 mg labetalol 3 times a day initiated per recommendations of Dr. Cortez - Labetalol held 01/05 due to decreased MAP High anion gap metabolic acidosis, present on admission, Improving Likely secondary to acute on chronic kidney injury -Kidney function worsening 01/05, normal saline initiated at 60 mL/hr -Nephrology consulted, appreciate recommendations -Continue to monitor Chronic Hyponatremia, present on admission, active Patient has a chronic history of hyponatremia, at least in part due to polydipsia -Nephrology consulting, recommendations appreciated -Serum osmolality within normal limits Septic shock, present on admission, Resolved Initially increased WBC, borderline tachycardia, hyperventilation, hypotension, increased temp,lactic acidosis, other than increased creatinine no evidence of end organ damage. -Likely secondary to RLL pneumonia -Blood cultures x2 negative to date -Stool PCR negative -Patient received a one-time dose of vancomycin, Zosyn, ceftriaxone in the emergency department. -Continue Zosyn and Levo for severe pneumonia, ID following -Procalc trending down -Blood pressures now appropriate, antihypertensive medications resumed Acute onset chest pain, not present on admission, resolved 01/02 patient began experiencing acute onset chest pain likely associated with respiratory distress however cardiac pathology cannot be ruled out at that time. - Serial troponins negative - EKG no changes from previous - Solu-Medrol given IV on 01/02 appears to have had the greatest impact on her chest pain. - Continue prednisone 40 mg daily Electrolyte imbalance, present on admission, active -Likely secondary to acute on chronic kidney injury -No interventions necessary at this time -Continue to monitor Leukocytosis, present on admission, active -Likely secondary to RLL pneumonia -White count continues to trend down -Continue to monitor Hyperlipidemia, chronic -Continue home atorvastatin Type II diabetes, active - Glucose 166 on arrival - Hemoglobin A1c 6.2 on 11/02/16 - Medium dose correctional - Home glipizide held Dementia, stable - Continue home Quetiapine . Disposition: DC to be determined by clinical course, likely 2-3 more days. [facility]. VTE Prophylaxis: Sub-Q Heparin (Unfractionated) VTE Mechanical Devices: Intermittant Pneumatic CD Resuscitation Status: DNR/DNI:Do Not Resuscitate/Intubate Time spent 30 minutes Attending Statement I have seen and evaluated the patient at bedside in addition to directly supervising care provided by resident physician. I agree with above documentation. Rai Duff DO Jan 05, 2017 17:38 Blayne Mccracken DO Jan 06, 2017 07:55
[2017-01-05] MEDS: HYDROmorphone 1 mg/mL Inj IVPUSH PRN (17:43)
--- NOTE | 2017-01-05 17:55 | DRSVH ---
[facility] [address] [place] [address] Echocardiogram Report Name: MCKENZIE CÁRDENAS EStshyanney Date : 01/05/2017 Height: 60 in Hospital Exam Location: [facility] Weight: 172 lb Gender: Female BSA: 1.8 m2 : 1940 Age: 76 yrs BP: 129/52 mmHg Reason For Study: Murmur Ordering Physician: Performed By: Remberto Cuevas Referring Physician: ALICIA LOPEZ Interpretation Summary The ejection fraction is estimated to be 60-65%. There is mild mitral regurgitation. Compared to the prior echo study, there has been a decrease in the severity of mitral regurgitation. There is mild aortic regurgitation. Compared to the prior echo study, there has been no change in the severity of aortic regurgitation. There is no other significant valvular heart disease. Procedure: A two-dimensional transthoracic echocardiogram with color flow and Doppler was performed in limited views only. The study quality was technically adequate. Comparison is made with the echocardiogram of 09/28/16. The patient was in normal sinus rhythm during the exam. Left Ventricle: The left ventricle is normal in size, wall thickness, and systolic function without any focal wall motion abnormalities. The ejection fraction is estimated to be 60-65%. Mitral Valve: The mitral valve leaflets are slightly calcified. There is mild mitral annular calcification. There is mild mitral regurgitation. Compared to the prior echo study, there has been a decrease in the severity of mitral regurgitation. Aortic Valve: The aortic valve is trileaflet. The aortic valve opens well. There is mild aortic regurgitation. Compared to the prior echo study, there has been no change in the severity of aortic regurgitation. Tricuspid Valve: The tricuspid valve is not well visualized, but is grossly normal. There is mild tricuspid regurgitation. Pulmonic Valve: The pulmonic valve is not well visualized. There is trace pulmonic regurgitation. There is no other significant valvular heart disease. Doppler Measurements & Calculations Ao V2 max MV E max pierce MV E/A: 1.1 TR max pierce : 189.3 cm/sec : 134.1 cm/sec : 250.1 cm/sec Ao max P.3 mmHgMV A max pierce TR max PG Ao mean P.7 mmH.1 cm/sec : 25.0 mmHg LVOT Max Pierce : 160.2 cm/sec sev ratio: 0.78 MV V2 mean Ao V2 mean LV V1 max PG : 90.9 cm/sec : 130.4 cm/sec MV mean P.7 mmHgAo V2 VTI: 44.2 cm LV V1 VTI MV V2 VTI: 40.3 cm : 34.4 cm MV dec time : 0.19 sec Reading Physician:NIKKY
[2017-01-06] VITALS (13 sets, daily range): BP systolic 121–139; BP diastolic 44–67; PULSE 59–75; RESP 16–20; O2SAT 93–97
[2017-01-06] MEDS: Albuterol-Ipratropium 3 mL Inhalation Solution NEB SCH ×6 (00:06→19:49)
[2017-01-06] MEDS: 0.9% Sodium Chloride 1,000 ML IV SCH ×2 (04:03→23:14)
[2017-01-06] MEDS: Heparin 5,000 Unit/mL Inj SUBQ SCH ×3 (04:03→21:29)
[2017-01-06 04:06] LABS: EOSINOPHILS % (AUTO) 0 % (0-5); Mean Corpuscular Hemoglobin 29.9 pg (27.0-35.0); Mean Corpuscular Volume 85.6 fL (81-100); Platelet Count 255 bil/L (150-400)
[2017-01-06 04:22] LABS: BASOPHILS % (AUTO) 0 % (0-3); MONOCYTES % (AUTO) 2 % (4-12); NEUTROPHILS % (AUTO) 84 % (40-74)
[2017-01-06 04:25] LABS: INR 1.07 ratio
[2017-01-06 05:08] LABS: Vitamin B12 >1999 pg/mL (211-946)
--- NOTE | 2017-01-06 05:54 | NUR ---
pain pt c/o pain in her lower abd and upper legs, a cramping feeling, PO pain medications helping and warm blankets, pt denies any nausea.
[2017-01-06] MEDS: Levofloxacin 500 mg/100 mL D5W IV SCH (08:43)
[2017-01-06] MEDS: HYDROcodone-APAP 5-325 mg Tablet PO PRN ×2 (08:44→13:52)
[2017-01-06] MEDS: Lidocaine Topical 5% Patch TOPICAL SCH (08:44)
[2017-01-06] MEDS: Insulin LISPRO 300 Unit/3 mL Inj SUBQ SCH ×4 (08:45→21:44)
[2017-01-06] MEDS: predniSONE 20 mg Tablet PO SCH (08:45)
--- NOTE | 2017-01-06 11:00 | PCM.PNMED ---
Subjective Date of Service Jan 06, 2017 Subjective Subjective: Patient states that she is feeling fine today, her oxygen requirements have decreased. Today she states that she has begun coughing up minimal amounts blood mixed with mucus. This is been ongoing for approximately the last 24-48 hours although she has not previously mentioned it to nurses or staff. This does not appear to be progressive at this time. Events Overnight: No acute events overnight. ROS: Denies fever/chills, nausea/vomiting, headache, weakness, abdominal pain, chest pain, shortness of breath, increased swelling in hands or feet. Exam Vital Signs Vital Sign - Last Date Time Temp Pulse Resp B/P Pulse Ox O2 Delivery O2 Flow Rate FiO2 01/06/17 10:15 Supplement Oxygen 01/06/17 08:55 65 01/06/17 08:41 36.8 17 126/44 95 4.00 Intake and Output 01/05/17 01/05/17 01/06/17 Cumulative From/Thru 15:00 23:00 07:00 12/30/16 02:13 - 01/06/17 06:23 Intake Total 800 ml 2070 ml 52444 ml Output Total 150 ml 250 ml 6750 ml Balance 650 ml 1820 ml 8779 ml Intake Oral 800 ml 690 ml 8216 ml IV Total 1380 ml 7013 ml Packed Cells 300 ml Output Urine Total 150 ml 250 ml 6350 ml Urine/Stool Mix 400 ml # Voids 1 5 # Bowel Movements 1 1 11 Exam General: No acute distress, well-developed, well-nourished Head: Normocephalic, atraumatic. External ears without defect. Eyes: Pupils equal, round, and reactive to light and accommodation. Anicteric sclerae, moist conjunctivae. Neck: Normal range of motion, no lymphadenopathy noted MSK: Right lower thoracic spine tender to palpation Cardiovascular: Regular rate and rhythm with no murmurs, rubs, or gallops appreciated Pulmonary: Lungs clear to auscultation except for mild rhonchi Abdomen: Bowel tones present. Soft, nontender, nondistended. Extremities: No clubbing, cyanosis, edema Skin: Normal temperature, turgor, and texture; no rash, ulcers, or subcutaneous nodules appreciated. Neurological: Cranial nerves grossly intact. Reflexes, coordination, and sensory function within normal limits. Normal muscle strength, tone, and bulk. Psychiatric: Normal mood and affect. Alert and oriented to person, place, and time IVs and Medications IV Fluids 1300 mL normal saline delivered IV medications. Medications Reviewed: Medications were reviewed in detail Lab and Diagnostics Result Diagram: 01/06/17 0400 01/06/17 0400 Microbiology Blood cultures 2 no growth to date X-Rays, CTs and MRIs X-RAY CHEST ONE VIEW, PORTABLE 1. No focal consolidation is visualized at the right lung base to correspond with the dense radiopacities visualized on the CT dated 12/30/16. Lateral view may be helpful to further characterize findings. 2. Low lung volumes and basilar atelectasis. Dictated by: Cathryn Robles M.D. on 12/31/2016 at 13:31 Approved by: Cathryn Robles M.D. on 12/31/2016 at 13:34 CT ABDOMEN AND PELVIS WITHOUT CONTRAST IMPRESSION: Dense pneumonia right lower lobe posteriorly, quality of visualization through the abdomen and pelvis is limited by absence of both oral and intravenous contrast. Prior cholecystectomy. No definite additional acute disease. Dictated by: Nitin Rubio M.D. on 12/30/2016 at 22:07 Approved by: Nitin Rubio M.D. on 12/30/2016 at 22:09 X-RAY CHEST ONE VIEW, PORTABLE IMPRESSION: 1. No focal consolidation is visualized at the right lung base to correspond with the dense radiopacities visualized on the CT dated 12/30/16. Lateral view may be helpful to further characterize findings. 2. Low lung volumes and basilar atelectasis. Dictated by: Cathryn Robles M.D. on 12/31/2016 at 13:31 Approved by: Cathryn Robles M.D. on 12/31/2016 at 13:34 X-RAY CHEST ONE VIEW, PORTABLE IMPRESSION: Persistent mid right and bibasilar air space opacities suspicious for aspiration or pneumonia. Dictated by: Hal Pierson [facility] Interpreted: Joel Rinaldi MD on 01/02/2017 at 9:15 Approved by: Joel Rinaldi M.D. on 01/02/2017 at 10:51 . Cardiac Echo Impressions Echocardiogram Interpretation Summary The ejection fraction is estimated to be 60-65%. There is mild mitral regurgitation. Compared to the prior echo study, there has been a decrease in the severity of mitral regurgitation. There is mild aortic regurgitation. Compared to the prior echo study, there has been no change in the severity of aortic regurgitation. There is no other significant valvular heart disease. Reading Physician:PM Assessment & Plan 76-year-old female with past medical history of minor dementia, type II diabetes , chronic kidney disease, hypertension who presents emergency department via EMS from [facility] for fever with associated back pain and shortness of breath. Continue to watch blood pressure today hold labetalol unless SBP greater than 140. Continue IV fluids, consider dialysis if BUN/creatinine continues to trend up. Follow-up on stool PCR for possible C. difficile. Continue levo for pneumonia Right lower lobe pneumonia likely bacterial vs possible aspiration, present on admission, improving Seen on CT, patients cough is nonproductive and we are unable to obtain culture to differentiate between bacterial versus aspiration pneumonia. - Per ID recommendations, Zosyn discontinued, continue Levo for 48 hours - ID signed off on 01/05 - Strep urine antigen negative - MRSA PCR screen negative - Viral PCR screen negative - Patient began coughing up blood on 01/06 but in light of recent CT scan I don' t believe further interventions are necessary at this time. We will continue to monitor. Acute Respiratory distress, present on admission, stable Increased respirations, wheezing, likely due to COPD exacerbation vs acute pneumonia -Oxygen requirements slowly decreasing, continue to monitor -Patient is currently tolerating 3-4 L nasal cannula, titrate down when possible. at baseline she does not use oxygen -Per ID recommendations, continue Levo -Duo nebs ordered TID with Q4 PRN -Continue prednisone 40 mg daily Possible COPD exacerbation, not present on admission, stable -Duo nebs ordered TID with Q4 PRN -Continue 40 mg prednisone PO daily Acute on chronic kidney injury, present on admission, worsening Patient of Dr. Cortez, baseline creatinine 1.7-1.8, last admission on discharge patient's creatinine was 2.6. On admission creatinine 2.7 - Increasing creatinine since 01/05, Dr. Cortez aware and following - Continue IV normal saline initiated at 60 mL/hr - Limited echo shows no findings consistant with CHF - Consider dialysis if continues to worsen - Continue to monitor Normocytic anemia, present on admission, stable Secondary to chronic kidney disease - Hemoglobin 10.2 on admission. - 7.5 on 01/04, Patient transfused 1 unit of blood, post-transfusion 8.4 - H&H currently stable - Continue to monitor Chronic Hypertension, present on admission, active -All home antihypertensive medications resumed -100 mg labetalol 3 times a day initiated per recommendations of Dr. Cortez - Labetalol held 01/05 due to decreased MAP, continue to hold unless pressures are above 140 systolic. 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 -Likely secondary to RLL pneumonia -Blood cultures x2 negative to date -Stool PCR negative -Patient received a one-time dose of vancomycin, Zosyn, ceftriaxone in the emergency department. -Continue Zosyn and Levo for severe pneumonia, ID following -Procalc trending down -Blood pressures now appropriate, antihypertensive medications resumed Acute onset chest pain, not present on admission, resolved 01/02 patient began experiencing acute onset chest pain likely associated with respiratory distress however cardiac pathology cannot be ruled out at that time. - Serial troponins negative - EKG no changes from previous - Solu-Medrol given IV on 01/02 appears to have had the greatest impact on her chest pain. - Continue prednisone 40 mg daily Electrolyte imbalance, present on admission, active -Likely secondary to acute on chronic kidney injury -No interventions necessary at this time -Continue to monitor Leukocytosis, present on admission, active -Likely secondary to RLL pneumonia -White count continues to trend down -Continue to monitor Hyperlipidemia, chronic -Continue home atorvastatin Type II diabetes, active - Glucose 166 on arrival - Hemoglobin A1c 6.2 on 11/02/16 - Medium dose correctional - Home glipizide held Dementia, stable - Continue home Quetiapine . Disposition: DC to be determined by clinical course, likely 2-3 more days. Patient to return to [facility] facility upon discharge. VTE Prophylaxis: Sub-Q Heparin (Unfractionated) VTE Mechanical Devices: Intermittant Pneumatic CD Resuscitation Status: DNR/DNI:Do Not Resuscitate/Intubate Time spent 25 minutes Attending Statement I have seen and evaluated patient at bedside in addition to directly supervising care provided by resident physician Dr Duff for care provided on . I agree with above documentation Rai Duff DO Jan 06, 2017 11:00 Blayne Mccracken DO Jan 07, 2017 07:32
--- NOTE | 2017-01-06 11:12 | PCM.PNNEPH ---
Subjective Date of Service Jan 06, 2017 Subjective Patient's renal function continues to worsen. She states that she is having ongoing diarrhea but denies any chest pain or shortness of breath. She denies any nausea or vomiting. As a case at length with the international marketing intern Dr. Duff and I am concerned that she may have C. difficile colitis. Although her initial screening for this was negative for new onset diarrhea and multiple admissions along with multiple antibiotics I feel she is at extremely high risk. Her intake and output for the last 24 hours shows 1500 in and 850 out. This morning her sodium is 131, potassium 4.3, bicarbonate 22, chloride 91, BUN and creatinine were 98 and 4.8 respectively. Exam Vital Signs Vital Sign - Last Date Time Temp Pulse Resp B/P Pulse Ox O2 Delivery O2 Flow Rate FiO2 01/06/17 10:15 Supplement Oxygen 01/06/17 08:55 65 01/06/17 08:41 36.8 17 126/44 95 4.00 Intake and Output 01/05/17 01/05/17 01/06/17 Cumulative From/Thru 15:00 23:00 07:00 12/30/16 02:13 - 01/06/17 06:23 Intake Total 800 ml 2070 ml 18635 ml Output Total 150 ml 250 ml 6750 ml Balance 650 ml 1820 ml 8779 ml Intake Oral 800 ml 690 ml 8216 ml IV Total 1380 ml 7013 ml Packed Cells 300 ml Output Urine Total 150 ml 250 ml 6350 ml Urine/Stool Mix 400 ml # Voids 1 5 # Bowel Movements 1 1 11 Exam Neck is supple without adenopathy, thyromegaly, or jugular venous distention. Lungs are clear to auscultation though somewhat diminished in both spaces. Heart was regular in rhythm with a soft systolic murmur. Abdomen soft without any tenderness rebound or guarding masses or hepatosplenomegaly. Extremities show any evidence of any clubbing, cyanosis, or edema. Skin turgor is slightly diminished. Lab and Diagnostics Result Diagram: 01/06/1739901/06/17 040 Microbiology Blood cultures 2 no growth to date X-Rays, CTs and MRIs X-RAY CHEST ONE VIEW, PORTABLE 1. No focal consolidation is visualized at the right lung base to correspond with the dense radiopacities visualized on the CT dated 12/30/16. Lateral view may be helpful to further characterize findings. 2. Low lung volumes and basilar atelectasis. Dictated by: Cathryn Robles M.D. on 12/31/2016 at 13:31 Approved by: Cathryn Robles M.D. on 12/31/2016 at 13:34 CT ABDOMEN AND PELVIS WITHOUT CONTRAST IMPRESSION: Dense pneumonia right lower lobe posteriorly, quality of visualization through the abdomen and pelvis is limited by absence of both oral and intravenous contrast. Prior cholecystectomy. No definite additional acute disease. Dictated by: Nitin Rubio M.D. on 12/30/2016 at 22:07 Approved by: Nitin Rubio M.D. on 12/30/2016 at 22:09 X-RAY CHEST ONE VIEW, PORTABLE IMPRESSION: 1. No focal consolidation is visualized at the right lung base to correspond with the dense radiopacities visualized on the CT dated 12/30/16. Lateral view may be helpful to further characterize findings. 2. Low lung volumes and basilar atelectasis. Dictated by: Cathryn Robles M.D. on 12/31/2016 at 13:31 Approved by: Cathryn Robles M.D. on 12/31/2016 at 13:34 X-RAY CHEST ONE VIEW, PORTABLE IMPRESSION: Persistent mid right and bibasilar air space opacities suspicious for aspiration or pneumonia. Dictated by: Hal Pierson [facility] Interpreted: Joel Rinaldi MD on 01/02/2017 at 9:15 Approved by: Joel Rinaldi M.D. on 01/02/2017 at 10:51 . Cardiac Echo Impressions Echocardiogram Interpretation Summary The ejection fraction is estimated to be 60-65%. There is mild mitral regurgitation. Compared to the prior echo study, there has been a decrease in the severity of mitral regurgitation. There is mild aortic regurgitation. Compared to the prior echo study, there has been no change in the severity of aortic regurgitation. There is no other significant valvular heart disease. Reading Physician:PM Plan Impression Impression #1 new acute on chronic kidney injury secondary to dehydration from diarrhea and in this in light of her multiple hospitalizations and antibiotics and be concerned about C. difficile colitis. I am also concerned about possibility of acute interstitial nephritis will go ahead and order a urine for eosinophils. Recommendation number 1C above. Afshin Cortez DO Jan 06, 2017 11:12
[2017-01-06] MEDS ORDERED: Albuterol-Ipratropium 3 mL Inhalation Solution NEB SCH (16:30)
--- NOTE | 2017-01-06 17:41 | NUR ---
Pain/O2/Mobility The pt continues to experience lower abdominal pain - MD aware - Q6 Vicodin is adequate with IVP for breakthrough. The pt remains on 4L NC, and is currently unable to go lower than the 4L. The pt was up to a chair twice during the shift with good results, and the pt states "I'm starting to feel stronger". A&Ox3 with VSS. Labetalol held 2x today secondary to lower than parameters.
[2017-01-07] VITALS (12 sets, daily range): BP systolic 98–135; BP diastolic 43–87; PULSE 54–75; RESP 16–20; O2SAT 92–97
[2017-01-07] MEDS: Heparin 5,000 Unit/mL Inj SUBQ SCH ×3 (03:47→22:01)
[2017-01-07] MEDS: HYDROcodone-APAP 5-325 mg Tablet PO PRN ×2 (03:47→13:42)
--- NOTE | 2017-01-07 04:00 | NUR ---
MENTATION/PAIN Pt was shaking and visibly upset upon entering room. Pt was given 1 tab Decker and 1 tab Seroquel with good results. No other issues noted
[2017-01-07 04:02] LABS: Mean Corpuscular Volume 86.9 fL (81-100)
[2017-01-07] MEDS: Albuterol-Ipratropium 3 mL Inhalation Solution NEB SCH ×3 (07:55→19:56)
--- NOTE | 2017-01-07 07:56 | NUR ---
pt continues to have hemoptysis with every cough, 3 to 5 cc each time, red not brown
[2017-01-07] MEDS: predniSONE 20 mg Tablet PO SCH (08:42)
[2017-01-07] MEDS: Lidocaine Topical 5% Patch TOPICAL SCH (08:43)
[2017-01-07] MEDS: Insulin LISPRO 300 Unit/3 mL Inj SUBQ SCH ×4 (08:55→22:00)
--- NOTE | 2017-01-07 11:48 | DRSVH ---
PROCEDURE: US RENAL SONOGRAM INDICATIONS: Increasing Creat TECHNIQUE: Real-time scanning was performed of the kidneys and bladder, with image documentation. COMPARISON: [facility], US, US RENAL, 12/11/2016, 14:32. [facility], US, US RENAL, 09/28/2016, 10:17. Abdomen pelvis CT from 12/30/2016. FINDINGS: Kidneys: Kidneys are normal in size. Right kidney measures 10.5 cm long; left kidney measures 11.1 cm long. Right renal cortical thickness is 1.2 cm; left renal cortical thickness is 1.1 cm. Renal c ortical echotexture is normal. No hydronephrosis or nephrolithiasis. No suspicious solid mass lesio ns. Bladder: The bladder is decompressed. Miscellaneous: No free pelvic fluid. IMPRESSION: 1. The kidneys are sonographically normal. 2. The patient is incontinent which precludes pre-and post void bladder measurements. 3. Small amount of left upper quadrant fluid incidentally noted. This finding was not present on the 12/30/2016 CT Dictated by: Corby Lopez M.D. on 01/07/2017 at 11:44 Approved by: Corby Lopez M.D. on 01/07/2017 at 11:46
--- NOTE | 2017-01-07 12:17 | PCM.PNNEPH ---
Subjective Date of Service Jan 07, 2017 Subjective The patient's renal function continues to worsen. Because of incontinence we really cannot get a good handle on her exact intake and output. She continues to have loose stools. She also complains of some progressive increase in difficulty in breathing, cough productive of mucopurulent points in sputum. She denies any nausea or vomiting. This morning her intake and output was 3289 in and 250+ out. Her sodium is 133, potassium 4.4, chloride 93, bicarbonate 21 , BUN and creatinine are 1055. Ultrasound does not show any acute obstruction. Exam Vital Signs Vital Sign - Last Date Time Temp Pulse Resp B/P Pulse Ox O2 Delivery O2 Flow Rate FiO2 01/07/17 10:32 60 01/07/17 08:34 36.2 16 132/66 95 Nasal Cannula 4.00 Intake and Output 01/06/17 01/06/17 01/07/17 Cumulative From/Thru 15:00 23:00 07:00 12/30/16 02:13 - 01/07/17 06:12 Intake Total 1219 ml 1080 ml 50663 ml Output Total 300 ml 7050 ml Balance 1219 ml 780 ml 16761 ml Intake Oral 500 ml 400 ml 9116 ml IV Total 719 ml 680 ml 8412 ml Packed Cells 300 ml Output Urine Total 300 ml 6650 ml Urine/Stool Mix 400 ml # Voids 2 3 10 # Bowel Movements 2 1 14 Exam Neck is supple without adenopathy, thyromegaly, or jugular venous distention. Lungs show rales about [facility] up bilaterally, end expiratory wheezes, and scattered rhonchi. Heart sounds are distant. Abdomen is somewhat distended without any tenderness or rebound guarding or masses. Extremities show any evidence of any edema. Lab and Diagnostics Result Diagram: 01/07/17 0358 01/07/17 0358 Microbiology Blood cultures 2 no growth to date X-Rays, CTs and MRIs X-RAY CHEST ONE VIEW, PORTABLE 1. No focal consolidation is visualized at the right lung base to correspond with the dense radiopacities visualized on the CT dated 12/30/16. Lateral view may be helpful to further characterize findings. 2. Low lung volumes and basilar atelectasis. Dictated by: Cathryn Robles M.D. on 12/31/2016 at 13:31 Approved by: Cathryn Robles M.D. on 12/31/2016 at 13:34 CT ABDOMEN AND PELVIS WITHOUT CONTRAST IMPRESSION: Dense pneumonia right lower lobe posteriorly, quality of visualization through the abdomen and pelvis is limited by absence of both oral and intravenous contrast. Prior cholecystectomy. No definite additional acute disease. Dictated by: Nitin Rubio M.D. on 12/30/2016 at 22:07 Approved by: Nitin Rubio M.D. on 12/30/2016 at 22:09 X-RAY CHEST ONE VIEW, PORTABLE IMPRESSION: 1. No focal consolidation is visualized at the right lung base to correspond with the dense radiopacities visualized on the CT dated 12/30/16. Lateral view may be helpful to further characterize findings. 2. Low lung volumes and basilar atelectasis. Dictated by: Cathryn Robles M.D. on 12/31/2016 at 13:31 Approved by: Cathryn Robles M.D. on 12/31/2016 at 13:34 X-RAY CHEST ONE VIEW, PORTABLE IMPRESSION: Persistent mid right and bibasilar air space opacities suspicious for aspiration or pneumonia. Dictated by: Hal Pierson [facility] Interpreted: Joel Rinaldi MD on 01/02/2017 at 9:15 Approved by: Joel Rinaldi M.D. on 01/02/2017 at 10:51 . Cardiac Echo Impressions Echocardiogram Interpretation Summary The ejection fraction is estimated to be 60-65%. There is mild mitral regurgitation. Compared to the prior echo study, there has been a decrease in the severity of mitral regurgitation. There is mild aortic regurgitation. Compared to the prior echo study, there has been no change in the severity of aortic regurgitation. There is no other significant valvular heart disease. Reading Physician:PM Plan Impression Impression #1 acute on chronic kidney injury which is worsening number hyponatremia which is resolving pneumonia versus congestive heart failure Recommendations #1 over let us stop IV fluids and give her some large doses of IV diuretics. We also need to aggressively manage her pulmonary toilet. I discussed with both patient and her daughter is not possibility of temporary dialysis in the next few days if we cannot turn her medical condition around. Afshin Cortez DO Jan 07, 2017 12:16
[2017-01-07] MEDS: 0.9% Sodium Chloride 1,000 ML IV SCH (13:10)
[2017-01-07] MEDS: Furosemide 10 mg/mL 10 mL Inj IVPUSH SCH ×2 (13:27→17:32)
--- NOTE | 2017-01-07 15:36 | DRSVH ---
PROCEDURE: CT CHEST WITHOUT CONTRAST ([id number]) INDICATIONS: hemoptysis with rising WBC TECHNIQUE: Noncontrast 5 mm thick sections acquired from the pulmonary apices to the posterior costophrenic angl es. 7 mm thick coronal and sagittal MIP reformats were then acquired. For radiation dose reduction, the following was used: automated exposure control, adjustment of mA and/or kV according to patient size. COMPARISON: None. FINDINGS: Image quality: Excellent. Lungs and pleura: Moderate right pleural effusion with dense right lower lobe consolidation and centr al cavitation. Small left pleural effusion with left basilar atelectasis or infiltrate. Emphysema. Mediastinum: Heart size is enlarged. No pericardial effusion. No mediastinal adenopathy by size cr iteria. Thoracic aorta and central pulmonary arteries are normal in size. Esophagus is normal in ca liber. No hiatal hernia. Left-sided venous catheter with tip in the upper SVC. Bones and chest wall: No suspicious bony lesions. No vertebral body compression fractures. No axil kaela or supraclavicular adenopathy by size criteria. Thyroid gland is present. Abdomen: Visualized upper abdominal solid organs and bowel loops appear normal in the absence of con trast. IMPRESSION: 1. Cavitating right lower lobe infection with moderate associated pleural effusion. 2. Tiny left pleural effusion. 3. Left sided venous catheter tip in the upper SVC. 4. Cardiomegaly. Dictated by: Corby Lopez M.D. on 01/07/2017 at 15:31 Approved by: Corby Lopez M.D. on 01/07/2017 at 15:35
[2017-01-07] MEDS ORDERED: cefTRIAXone Inj 2,000 MG in Dextrose 5% Minibag Plus 50 ML IV SCH (16:35)
--- NOTE | 2017-01-07 18:18 | NUR ---
Pain/Oxygen /Activity: c/o 6/10 lower abdominal pain, [place] 5-325 and Roxycodone 2.5mg PO given this shift. Patient continues to report 6/10 pain. MD notified. No further orders at this time. Oxygen demand has increased to 6N NC with SpO2 low 90's and desats to mid 80's with increased activity and takes about 2-3 minutes to recover. Patient denies SOB at rest. Ambulating to [facility] to void several times a shift. Up to chair for every meal and encouraged to use acapella every hour while awake. Uses call light for needs and assistance getting out of bed. Frequent rounding in place.
--- NOTE | 2017-01-07 18:31 | NUR ---
Urine output/Lasix: Bun 104, creat 5.08. Order for 100mg IV Lasix q8h received this afternoon. Order discussed with Dr Pizano. Administered Lasix 100mg IV at 1330 patient voided 300cc after administration and was bladder scanned post void. Bladder scan = 0. Scheduled dose of Lasix 100mg IVP @ 1430. Discussed second dose of Lasix with Dr Pizano. Second dose of Lasix given as ordered. VSS.
--- NOTE | 2017-01-07 18:32 | CONS ---
[address] [address] CONSULTATION REPORT PATIENT: MCKENZIE CÁRDENAS : 1940 MR#: [id number] ADMIT: 12/30/2016 JOB ID: [id number] REQUESTING CLINICIAN: Estevan Pizano MD DATE OF SERVICE: 01/07/2017 REASON FOR CONSULTATION: Abnormal chest imaging and dyspnea. HISTORY OF ILLNESS: The patient is a very pleasant, morbidly obese, 76-year-old former smoker. She is admitted to this facility on December 30, 2016 from her assisted living facility after complaining of back pain. Initial concern focused on a retroperitoneal or intra-abdominal process. Abdominal imaging in the form of a CT of abdomen and pelvis revealed a possible right lower lobe pneumonia. She was treated with Rocephin, vancomycin, levofloxacin and piperacillin/tazobactam sequentially with each drug being given for anywhere from 1-3 days. She had recently been afebrile and had a substantial decrease in her procalcitonin level from a high of nearly 40 to a recent low of 2.23. Unfortunately, her course has been complicated with acute kidney injury on top of her significant baseline chronic kidney disease. While she has remained afebrile, her white count has risen again today and her creatinine is now at 5.0, the highest since her original admission. Pulmonary critical care consultation is now requested to assist in her evaluation and management. I find the patient lying fully supine in bed. She speaks in full sentences and does not appear to be in any distress. It should be noted that she has a diagnosis of multi-infarct dementia, although she is able to furnish some history and her speech is fluent and her mood seems appropriate. She is cooperative. She continues to complain of some low back pain centered over her right posterior chest. This is worse with deep inspiration and cough. Cough is productive of purulent and bloody sputum which has been present for the last week. She is a former smoker with a greater than 83-[id number]-thoc history who quit approximately six years ago. She has a history of at least one prior pneumonia requiring hospitalization many years ago. She has no prior history of deep vein thrombosis, pulmonary embolism, myocardial infarction. Recent transthoracic echocardiogram documents preserved left ventricular systolic function. She notes a recent change in her voice. Her appetite has been poor. She denies vomiting, aspiration and loss of consciousness. She has been eating in bed recently. PAST MEDICAL HISTORY: 1. Dementia. 2. Type 2 diabetes mellitus. 3. CKD stage IIIB. 4. Hypertension. 5. Morbid obesity. OUTPATIENT MEDICATIONS: 1. Amitriptyline. 2. Amlodipine. 3. Atorvastatin. 4. Chlorthalidone. 5. Donepezil. 6. Glipizide. 7. Hydrocodone. 8. Lisinopril. 9. Loperamide. 10. Potassium. 11. Torsemide. DRUG ALLERGIES: 1. MORPHINE. 2. PENTAZOCINE. 3. LORAZEPAM. SOCIAL HISTORY: She is unmarried. She is a former alcoholic, quitting more than 30 years ago. She no longer drinks or uses recreational drugs. She quit smoking six years ago. She recently relocated from independent living to a senior center where she has received some assistance with meals and other activities. FAMILY HISTORY: Noncontributory. REVIEW OF SYSTEMS: She denies prior history of malignancy, stroke, myocardial infarction, liver disease. Her chronic kidney disease was recently discovered just this year. She denies a history of heart failure, heart murmur, rheumatic fever, PND orthopnea. She does report back pain, dyspnea and hemoptysis with purulent sputum at times. She had rigors and chills upon admission, but these have resolved. She further denies nausea, vomiting, abdominal pain. She has chronic diarrhea that she manages with p.r.n. antimotility agents. She denies any recent weight loss. A 12 system review complete and positives as noted above. PHYSICAL EXAMINATION: This is a somewhat pale, morbidly obese woman who appears comfortable lying fully supine in bed. Her O2 saturation at rest on 4 L is 92% to 94% and she has been afebrile today with a most recent temperature of 36.8, blood pressure is 120/80, heart rate is 60 and regular, respirations are 18, O2 saturation given above. HEENT exam: The visible oropharynx is quite dry without exudate or ulceration. Conjunctivae are pale, noninjected, sclerae anicteric. Gaze is conjugate. Pupils are equal at 5 mm. The trachea is midline. Neck veins are flat. There is no cervical or supraclavicular lymphadenopathy. The chest shows symmetric expansion to inspection and palpation. On auscultation, she has good air movement anteriorly with decreased breath sounds and coarse bronchial breath sounds and crackles are particularly prominent over the right posterior chest extending at least 1/3 to [address] from the diaphragm cephalad. Her abdomen is soft, nontender. Bowel tones are present. There is no mass or organomegaly. I do not appreciate any bruits. Extremities are free of synovitis, clubbing, cyanosis, lower extremities show only trace edema bilaterally. Skin: No purpura, ulcerations, petechiae. DATABASE: Per her electronic medical record. Her CBC shows a hemoglobin of 8.9, hematocrit 25.8, WBC of 16,000 and she has 258,000 platelets. Her noncontrast chest CT from today demonstrates a complex consolidation in the right lower lobe with multiple small cavities which do not contain air-fluid levels. In addition, there are bilateral pleural effusions, right greater than left. Her EKG showed nonspecific intraventricular conduction delay but is otherwise normal. An echocardiogram reportedly showed preserved systolic function with an estimated ejection fraction of 60%. An arterial blood gas obtained on admission, December 30, 2016, showed a pH of 7.33, pCO2 of 31, and a pO2 of 50. This has not been repeated. IMPRESSION: 1. Necrotizing pneumonia, right lower lobe. Given the radiographic appearance and anatomical location, this is likely to represent an aspiration event. Her significant back pain may be referred pleuritic pain suggesting some risk for bacterial translocation into the right pleural effusion. A complicated parapneumonic effusion should be excluded with a diagnostic thoracentesis. Empiric antibiotics should be targeted towards oral anaerobes, ceftriaxone and metronidazole are usually quite effective for this. Cultures are of little value in these situations as results are typically "normal oral conner." Given the clinical impression of aspiration, she should have a formal swallow evaluation with cine esophagography if needed. Pulmonary toilet will be important. While her airway appears to be patent on CT, with her smoking history and hemoptysis, she may come to need bronchoscopy to exclude an obstructing airway lesion causing an obstructive pneumonia which could also explain her necrotizing process. This can be deferred for now as we observe her response to treatment of her infection. 2. Acute kidney injury. She has had progressive acute renal insufficiency since admission. I would estimate her volume status to be slightly hypovolemic given her poor skin turgor, absence of edema and dry mucosa. Despite that she continues to receive high doses of loop diuretic and thiazide while IV fluids have been stopped. Monitoring her fluid balance has been difficult and placement of a Anaya catheter seems reasonable. She is chronically anemic with normal indices and RDW and at this age one should consider a paraproteinemia. If she has not already had a serum protein electrophoresis, one should be submitted along with a urine protein electrophoresis as well. In summary, this is a 76-year-old woman who is admitted with back pain, appears to have a right lower lobe pneumonia and her pain appears to represent referred pain from her right pleural surface. She has a significant right-sided effusion which may represent a complicated parapneumonic process and this needs to have a diagnostic thoracentesis. Empiric antibiotics have been prescribed and she should have a definitive swallow study to exclude chronic aspiration while we take measures to prevent aspiration. Discontinuing her benzonatate is important as this is a topical airway anesthetic which predisposes even completely neurologically intact individuals to aspiration. If her right basilar process does not resolve radiographically she should have bronchoscopy to exclude an obstructing lesion. She appears to be volume depleted at present. I would cautiously hydrate her, hold diuretics and after off antibiotics for 12-24 hours, consider sending urine for routine indices. Serum protein electrophoresis and urine protein electrophoresis should be sent to exclude unrecognized paraproteinemia as a cause for her anemia and chronic kidney disease. RECOMMENDATIONS: 1. Ceftriaxone 2 g IV daily. 2. Metronidazole 500 mg IV q.8 h. 3. Speech therapy eval in a.m. for formal swallowing study with video or cine esophagography. 4. All meals to be taken out of bed and sitting upright. 5. Pulmonary toilet with acapella valve, incentive spirometer and encourage cough and deep breathing. 6. Diagnostic thoracentesis with pleural fluid for pH, cell count, aerobic and anaerobic cultures and routine chemistries. 7. Consider cautious hydration, holding diuretics and checking for paraproteinemia. Anaya catheter placement. 8. Serial metabolics 9. ABG Thank you for requesting pulmonary critical care consultation. We will continue to follow with you while she remains seriously ill. LORENZO
[2017-01-07] MEDS ORDERED: metroNIDAZOLE Inj 500 MG in IV Premix 1 EACH IV SCH (20:30)
--- NOTE | 2017-01-07 21:11 | PCM.PNMED ---
Subjective Date of Service Jan 07, 2017 Subjective overnight: No acute events noted Today: The patient states that she feels like she is getting better. The patient admits to right-sided chest pain and shortness of breath with chest pain being worse with deep inspiration at this time. The patient continues to cough up some blood. The patient states that she has been incontinent but does feel that she is emptying her bladder fully. Exam Vital Signs Vital Sign - Last Date Time Temp Pulse Resp B/P Pulse Ox O2 Delivery O2 Flow Rate FiO2 01/07/17 08:34 36.2 75 16 132/66 95 Nasal Cannula 4.00 Intake and Output 01/06/17 01/06/17 01/07/17 Cumulative From/Thru 15:00 23:00 07:00 12/30/16 02:13 - 01/07/17 06:12 Intake Total 1219 ml 1080 ml 99317 ml Output Total 300 ml 7050 ml Balance 1219 ml 780 ml 93225 ml Intake Oral 500 ml 400 ml 9116 ml IV Total 719 ml 680 ml 8412 ml Packed Cells 300 ml Output Urine Total 300 ml 6650 ml Urine/Stool Mix 400 ml # Voids 2 3 10 # Bowel Movements 2 1 14 Exam General: Senior female lying in no acute distress in bed Eyes: Pupils equal round and reactive to light, extraocular motion intact, anicteric sclera, noninjected conjunctiva HENT: Normocephalic atraumatic, moist mucous membranes without central cyanosis , oropharynx clear without purulent exudate or cobblestoning mucosa Neck: Supple, trachea midline, without thyromegaly, mild JVD Cardiovascular: Regular rate and regular rhythm, S1-S2 present, no S3-S4, without murmurs rubs or gallops noted Lungs: Decreased breath sounds with coarse breath sounds noted in the right lower lung gonzalez, mild wheezing noted globally Abdomen: Soft, nontender, nondistended, tympanic to percussion, normal active bowel sounds, without organomegaly Extremities: No cyanosis clubbing or edema noted, pulses intact bilaterally at dorsalis pedis and radial : No Anaya catheter in place Skin: Warm and dry, mildly diffuse decreased skin turgor noted sternoclavicular junction Neuro: Nonfocal neurologic exam Psych: Normal mood and affect Lab and Diagnostics Result Diagram: 01/07/17 0358 01/07/17 0358 Microbiology Blood cultures 2 no growth to date X-Rays, CTs and MRIs X-RAY CHEST ONE VIEW, PORTABLE 1. No focal consolidation is visualized at the right lung base to correspond with the dense radiopacities visualized on the CT dated 12/30/16. Lateral view may be helpful to further characterize findings. 2. Low lung volumes and basilar atelectasis. Dictated by: Cathryn Robles M.D. on 12/31/2016 at 13:31 Approved by: Cathryn Robles M.D. on 12/31/2016 at 13:34 CT ABDOMEN AND PELVIS WITHOUT CONTRAST IMPRESSION: Dense pneumonia right lower lobe posteriorly, quality of visualization through the abdomen and pelvis is limited by absence of both oral and intravenous contrast. Prior cholecystectomy. No definite additional acute disease. Dictated by: Nitin Rubio M.D. on 12/30/2016 at 22:07 Approved by: Nitin Rubio M.D. on 12/30/2016 at 22:09 X-RAY CHEST ONE VIEW, PORTABLE IMPRESSION: 1. No focal consolidation is visualized at the right lung base to correspond with the dense radiopacities visualized on the CT dated 12/30/16. Lateral view may be helpful to further characterize findings. 2. Low lung volumes and basilar atelectasis. Dictated by: Cathryn Robles M.D. on 12/31/2016 at 13:31 Approved by: Cathryn Robles M.D. on 12/31/2016 at 13:34 X-RAY CHEST ONE VIEW, PORTABLE IMPRESSION: Persistent mid right and bibasilar air space opacities suspicious for aspiration or pneumonia. Dictated by: Hal Pierson RR Interpreted: Joel Rinaldi MD on 01/02/2017 at 9:15 Approved by: Joel Rinaldi M.D. on 01/02/2017 at 10:51 . Cardiac Echo Impressions Echocardiogram Interpretation Summary The ejection fraction is estimated to be 60-65%. There is mild mitral regurgitation. Compared to the prior echo study, there has been a decrease in the severity of mitral regurgitation. There is mild aortic regurgitation. Compared to the prior echo study, there has been no change in the severity of aortic regurgitation. There is no other significant valvular heart disease. Reading Physician:PM Assessment & Plan 76-year-old female with past medical history of minor dementia, type II diabetes , chronic kidney disease, hypertension who presents emergency department via EMS from [facility] for fever with associated back pain and shortness of breath. Right lower lobe necrotic cavitary pneumonia secondary to possible aspiration, present on admission, improving - Seen on CT on 827, patients cough is productive with both hemoptysis and sputum however we have been unable to obtain culture to differentiate between bacterial versus aspiration pneumonia. Strep urine antigen, Legionella urine antigen and MRSA PCR negative. - Per pulmonary recommendations and restart cefepime and metronidazole, patient received Zosyn from January 02 to January 07 as well as Levaquin, increasing white blood cell count is likely secondary to steroid use - Patient began coughing up blood on 01/06 but in light of recent CT scan I don' t believe further interventions are necessary at this time. We will continue to monitor. - Pulmonary toilet with Acapella and incentive spirometry - Swallow study with nursing to insist patient takes meals and chair - Swallow evaluation scheduled for tomorrow - Diagnostic ultrasound-guided thoracentesis to be performed on 01/08/2017 Acute hypoxic Respiratory distress, present on admission, stable Increased respirations, wheezing, likely due to previously undiagnosed COPD vs acute pneumonia -Oxygen requirements slowly decreasing, continue to monitor -Patient is currently tolerating 3-4 L nasal cannula, titrate down when possible. at baseline she does not use oxygen -Treat underlying pneumonia with cefepime and metronidazole -Duo nebs ordered TID with Q4 PRN -Continue prednisone 40 mg daily Possible COPD exacerbation, not present on admission, stable -Duo nebs ordered 4 times a day while awake -Albuterol nebs when necessary -Continue 40 mg prednisone PO daily Acute on chronic kidney injury, present on admission, worsening Patient of Dr. Cortez, baseline creatinine 1.7-1.8, last admission on discharge patient's creatinine was 2.6. On admission creatinine 2.7 - Increasing creatinine since 01/05, nephrology aware and following -Discontinued IV normal saline initiated at 60 mL/hr, initiated high-dose Lasix therapy every 8 - Limited echo shows no findings consistant with CHF, renal ultrasound shows normal-sized kidneys and given patient's incontinence unable to perform postvoid residual volumes - Nephrology may consider dialysis if kidney function continues to worsen - Continue to monitor Normocytic anemia, present on admission, stable Secondary to chronic kidney disease - Hemoglobin 10.2 on admission. - 7.5 on 01/04, Patient transfused 1 unit of blood, post-transfusion 8.4 - H&H currently stable - Continue to monitor Chronic Hypertension, present on admission, active -All home antihypertensive medications resumed -100 mg labetalol 3 times a day initiated per recommendations of Dr. Cortez - Labetalol held 01/05 due to decreased MAP, continue to hold unless pressures are above 140 systolic. 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 -Likely secondary to RLL pneumonia -Blood cultures x2 negative to date -Stool PCR negative -Patient received a one-time dose of vancomycin, Zosyn, ceftriaxone in the emergency department Continue Zosyn for 5 days ending on January 07 and Levo for severe pneumonia, converted to cefepime and metronidazole after repeat CT shows cavitary pneumonia -Procalc trending down -Blood pressures now appropriate, antihypertensive medications resumed Acute onset chest pain, not present on admission, resolved 01/02 patient began experiencing acute onset chest pain likely associated with respiratory distress however cardiac pathology cannot be ruled out at that time. - Serial troponins negative - EKG no changes from previous - Solu-Medrol given IV on 01/02 appears to have had the greatest impact on her chest pain. - Continue prednisone 40 mg daily Electrolyte imbalance, present on admission, active -Likely secondary to acute on chronic kidney injury -No interventions necessary at this time -Continue to monitor Hyperlipidemia, chronic -Continue home atorvastatin Type II diabetes, active - Glucose 166 on arrival - Hemoglobin A1c 6.2 on 11/02/16 - Medium dose correctional - Home glipizide held Dementia, stable - Continue home Quetiapine . Disposition: DC to be determined by clinical course, likely 2-3 more days. [facility]. VTE Prophylaxis: Sub-Q Heparin (Unfractionated) VTE Mechanical Devices: Intermittant Pneumatic CD Resuscitation Status: DNR/DNI:Do Not Resuscitate/Intubate Time spent 25 minutes Attending Statement I have seen and evaluated patient at bedside in addition to directly supervising care provided by resident physician Dr Pizano on 01/07/2017. I agree with above documentation. Progressive renal failure remains significant concern. Additional finding of lung abscess on CT does at least clarify recent hemoptysis and will require extended course of antibiotic to completely address. Luke Pizano DO Jan 07, 2017 10:08 Blayne Mccracken DO Jan 08, 2017 07:39
[2017-01-07] MEDS: Insulin GLARgine 100 Unit/mL Syringe SUBQ SCH (22:23)
[2017-01-08] VITALS (11 sets, daily range): BP systolic 108–181; BP diastolic 42–165; PULSE 58–67; RESP 17–23; O2SAT 85–96
[2017-01-08] MEDS: Sodium Chloride LOK Flush 10 mL Syringe IVFLUSH PRN ×5 (01:07→20:27)
[2017-01-08] MEDS: Furosemide 10 mg/mL 10 mL Inj IVPUSH SCH ×3 (01:07→18:19)
[2017-01-08] MEDS: metroNIDAZOLE Inj 500 MG in IV Premix 1 EACH IV SCH ×3 (01:08→17:01)
[2017-01-08] MEDS ORDERED: 0.9% Sodium Chloride 250 ML ONE (01:09)
[2017-01-08 03:33] LABS: BASOPHILS % (AUTO) 0.1 % (0-3); EOSINOPHILS % (AUTO) 0 % (0-5); MONOCYTES % (AUTO) 4.6 % (4-12); Mean Corpuscular Hemoglobin 29.4 pg (27.0-35.0); Mean Corpuscular Volume 87.8 fL (81-100); NEUTROPHILS % (AUTO) 86.2 % (40-74); Platelet Count 229 bil/L (150-400)
[2017-01-08] MEDS: Heparin 5,000 Unit/mL Inj SUBQ SCH ×3 (04:00→20:27)
[2017-01-08 04:04] LABS: INR 1.1 ratio
[2017-01-08] MEDS: Albuterol-Ipratropium 3 mL Inhalation Solution NEB SCH ×2 (05:14→20:37)
--- NOTE | 2017-01-08 06:03 | NUR ---
SOB At approximately 0530 this morning the patient called staff into the room because she was feeling SOB. RT called to administer a breathing treatment and assess patient. ABG was drawn resulting in pH of 7.185, Co2 60, pO2 76, and HCO3 21.7 Dr. Alcala paged without success, additional numbers dialed and number was not in service. Dr. Camacho informed of patient's condition and she deferred to Dr. Alcala. Fredrick returned call at [phone] and informed of critical abg values. Dr. Alcala aware and wants to address this when he arrives this morning. No new orders at this time.
[2017-01-08] MEDS: Insulin LISPRO 300 Unit/3 mL Inj SUBQ SCH ×4 (08:00→20:31)
--- NOTE | 2017-01-08 10:24 | PROG NOTE ---
[address] [address] PROGRESS NOTE PATIENT: MCKENZIE CÁRDENAS : 1940 MR#: [id number] ADMIT: 12/30/2016 JOB ID: [id number] DATE: 01/08/2017 REASON FOR FOLLOWUP: Right-sided pneumonia with associated pleural effusion. INTERVAL HISTORY: Recall this is a patient we had seen last week for a half-way associated right-sided pneumonia with pleuritic chest pain. She was treated with a combination of Zosyn and levofloxacin for approximately one week and that therapy was discontinued over the weekend. Unfortunately following this antibiotic course she developed hemoptysis over the weekend which led to noncontrast CT scan of the chest, which revealed a cavitating or necrotizing type right-sided pneumonia with pleural effusion. At that point, antibiotics were restarted with ceftriaxone and Flagyl. Also over the weekend, it was noted that the patient's MRSA screen was positive from admission breaking into play the question of a possible MRSA related infection. This morning the patient says she is mildly short of breath and that has not changed since admission. She also says she is having subjective fevers and chills, but denies right pleuritic chest pain today. She said she is not having GI symptoms and she complains bitterly of a insomnia not made better with Seroquel. PHYSICAL EXAMINATION: Reveals an afebrile woman. Temp 36.7, pulse in the 50s, respiratory rate 18 to 20, blood pressure 113/47 without vasopressor agents. She is saturating well, but requiring 6 L. She does not appear any different than she did three days ago when I last saw her. Mental status is clear. Mood appears quite depressed. Oral cavity negative. Lungs with decreased breath sounds and a few crackles at the right base. Cardiac tone without new murmur. Abdomen soft and nontender. No skin rashes noted. LABORATORY STUDIES: White count consistently around 14,000. Note that the patient has been on steroids for COPD making the white count difficult to ensure, but there are no bands present however. Creatinine remains elevated at 5.2. LFTs are normal. Procalcitonin continues its steady decline. It was as high as 38 and that was nine days ago. It is now down to 1.46 and showing a linear decline. Urinalysis has not been repeated. Serologic studies include negative crypto antigen, negative pneumococcal, and Legionella urine antigens. The MRSA screen from admission was positive. Blood cultures were negative. Stool PCR panel negative. Respiratory viral PCR panel was also negative. We reviewed the imaging on the computer. The CT scan that was obtained yesterday shows cavitating right lower lobe pneumonia with associated effusion. IMPRESSION: This is a complicated case of a woman who was admitted from a local half-way with right-sided pneumonia which was felt to be an aspiration pneumonia. This was treated for about one week and according to the recently published guidelines this should be an adequate therapy for aspiration pneumonia. Unfortunately, the patient then developed a worsening hemoptysis, though she has not had any significant recrudescent fevers, nor increased pleuritic chest pain. Also notable is the fact her procalcitonin has been going down in a very linear fashion since admission suggesting that the Zosyn and levo were having a salutary effect. This is a confusing sequence of events and leads me to wonder about noninfectious causes such as pulmonary embolism and infarct or Glenn's or some noninfectious etiology. In terms of infection it is possible this could represent a MRSA necrotizing type pneumonia, but it is hard to explain why the procalcitonin would have got better without any specific MRSA therapy. Likewise Pseudomonas could produce such an effect and certainly that could have been treated partially by the Zosyn and levo. Other possibilities here might include more esoteric possibilities such as Nocardia or actinomycosis. RECOMMENDATIONS: 1. We have ordered a QuantiFERON Gold as well as an ANCA. 2. We agree with the plans for thoracentesis with appropriate cultures and studies today. 3. Nasal Bactroban will be added. 4. I note that the patient was started on ceftriaxone and Flagyl over the weekend. I agree with this, but I would switch the ceftriaxone to ceftaroline which is a fairly small change, but in terms of spectrum will package pick up the MRSA. 5. If possible we should collect additional sputum for Gram stain and culture, though it is unclear to me if the patient can produce any sputum. 6. The patient may require bronchoscopy, but of course, this decision is deferred to the pulmonary information consultant. 7. This case discussed with the renal information consultant as the patient's renal failure continues to slowly worsen.
--- NOTE | 2017-01-08 10:38 | ABG ---
DateTimeAnalyzed 10:30:00 -_ pH ____7.204 - pCO2 ___58.8__ -mmHg pO2 ___90.7__ -mmHg HCO3- ___22.3__ -mmol/L ABE ___-3.5__ -mmol/L -2.0 2.0 tHb ____0.03_ -g/dL FIO2 ___28.0__ -% Drawn By jmw - Date/Time Notified____ 10:37:00 -_ Notified By JMW - Notified Whom DR LLANOS - B 756 -mmHg tO2 ____0.3__ -Vol% Charlie test N/A -
[2017-01-08] MEDS: Lidocaine Topical 5% Patch TOPICAL SCH (10:51)
[2017-01-08] MEDS: predniSONE 20 mg Tablet PO SCH (10:52)
--- NOTE | 2017-01-08 11:33 | NUR ---
NUTRITION FOLLOW UP: ASSESS: 76 yo F admitted for fever, hyponatremia, and pneumonia. Nephrology is following for CAROLINA which appears to be worsening per notes, may require dialysis. PO intake has been fair but variable at 10-100% of meals. Speech therapy eval pending. PMHX: Dementia, T2DM, CKD, HTN LABS: Reviewed. Na 132, BUN 112, Cr 5.21, Glu 154, Ca 8.1 MEDS: Reviewed. Prednisone, insulin, Lasix, Florastor. GI: BM x 4 (01/07) SKIN: no major issues. CURRENT WT: 80.6 kg, BMI 35.1 kg/m2, Admit wt 71.8 kg, IBW: 45.5 kg DIET: Heart Healthy/Consistent Carb, PO intake 10-100% ESTIMATED NEEDS: BMI/CAROLINA Calories: 5412-3946 kcal/day (20-25 kcal/kg BW) Protein: 45-55 g/day (1.0-1.2 g/kg IBW) NUTRITION DIAGNOSIS: 1.) Altered nutrition related lab values related to CAROLINA as evidenced by Cr 5.21, BUN 112. 2.) Chew/swallow difficulty related to unknown etiology as evidenced by need for pending ST eval. NUTRITION INTERVENTION: 1.) Diet advancement per speech therapy. MONITOR/EVALUATE: PO intake, diet tolerance, wt, BM, labs, POC, nutrition status. Follow per moderate nutrition risk guidelines.
[2017-01-08] MEDS: Mupirocin 2% 22 Gm Ointment TOPICAL SCH ×2 (12:01→20:28)
--- NOTE | 2017-01-08 12:09 | DRSVH ---
PROCEDURE: X-RAY CHEST, TWO VIEWS ([id number]) INDICATIONS: ACUTE KIDNEY INJURY TECHNIQUE: 2 views of the chest were acquired. COMPARISON: [facility], CR, XR CHEST 1VW (PORTABLE), 01/02/2017, 5:14. [facility] pital, CT, CT CHEST WO CON, 01/07/2017, 14:27. [facility], CR, XR CHEST 2VW, 12/13/2016, 1 1:50. FINDINGS: Surgical changes and devices: Left PICC present with tube tip projects over the mid superior vena cav a Lungs and pleura: Moderate right pleural effusion present with mid/basilar airspace opacity similar t o prior CT scan. Retrocardiac airspace opacity redemonstrated also similar to prior CT. No pneumoth orax. Mediastinum: Mediastinal contours are normal. Heart size is enlarged. Bones and chest wall: No suspicious bony abnormalities. Soft tissues appear unremarkable. IMPRESSION: 1. Moderate right pleural effusion with mid/basal air space opacity consistent with compressive atele ctasis versus pneumonia. 2. Persistent retrocardiac airspace opacity consistent with atelectasis versus pneumonia. Dictated by: Hal Pierson RRA Interpreted: Micah Shepard MD on 01/08/2017 at 8:51 Approved by: Micah Shepard M.D. on 01/08/2017 at 12:07
[2017-01-08 13:04] LABS: TOTAL PROTEIN,PLEURAL FLUID 2.7 g/dL
[2017-01-08 13:07] LABS: BFWBC 475 /mm3
[2017-01-08 13:08] LABS: MONOCYTES,BODY FLUID 2 %; OTHER CELLS,BODY FLUID 0
--- NOTE | 2017-01-08 16:15 | PCM.PNNEPH ---
Subjective Date of Service Jan 08, 2017 Subjective Patient's renal function is about the same. She has had some mild increase in urine output with aggressive intravenous diuretics. She also underwent a thoracentesis for necrotizing pneumonia and pleural effusion. She does appear to be breathing a bit easier. Exam Vital Signs Vital Sign - Last Date Time Temp Pulse Resp B/P Pulse Ox O2 Delivery O2 Flow Rate FiO2 01/08/17 15:34 36.9 61 18 115/42 95 Nasal Cannula 4.00 01/07/17 20:15 96 Intake and Output 01/07/17 01/07/17 01/08/17 Cumulative From/Thru 15:00 23:00 07:00 12/30/16 02:13 - 01/08/17 06:33 Intake Total 2850 ml 736 ml 12044 ml Output Total 500 ml 700 ml 8250 ml Balance 2350 ml 36 ml 83497 ml Intake Oral 2350 ml 600 ml 45093 ml IV Total 500 ml 136 ml 9048 ml Packed Cells 300 ml Output Urine Total 500 ml 700 ml 7850 ml Urine/Stool Mix 400 ml # Voids 3 3 16 # Bowel Movements 3 17 Exam Neck is supple without adenopathy or thyromegaly there is some jugular venous distention noted. Lungs showed diffuse scattered rhonchi and diminished breath sounds in both bases. Heart was regular and rhythmical with a soft systolic murmur. Abdomen is soft without tenderness rebound guarding masses or hepatosplenomegaly. Extremities do not show any evidence of any clubbing or cyanosis neuro some mild pitting edema. Lab and Diagnostics Result Diagram: 01/08/17 0320 01/08/17 0320 Microbiology Blood cultures 2 no growth to date X-Rays, CTs and MRIs X-RAY CHEST ONE VIEW, PORTABLE 1. No focal consolidation is visualized at the right lung base to correspond with the dense radiopacities visualized on the CT dated 12/30/16. Lateral view may be helpful to further characterize findings. 2. Low lung volumes and basilar atelectasis. Dictated by: Cathryn Robles M.D. on 12/31/2016 at 13:31 Approved by: Cathryn Robles M.D. on 12/31/2016 at 13:34 CT ABDOMEN AND PELVIS WITHOUT CONTRAST IMPRESSION: Dense pneumonia right lower lobe posteriorly, quality of visualization through the abdomen and pelvis is limited by absence of both oral and intravenous contrast. Prior cholecystectomy. No definite additional acute disease. Dictated by: Nitin Rubio M.D. on 12/30/2016 at 22:07 Approved by: Nitin Rubio M.D. on 12/30/2016 at 22:09 X-RAY CHEST ONE VIEW, PORTABLE IMPRESSION: 1. No focal consolidation is visualized at the right lung base to correspond with the dense radiopacities visualized on the CT dated 12/30/16. Lateral view may be helpful to further characterize findings. 2. Low lung volumes and basilar atelectasis. Dictated by: Cathryn Robles M.D. on 12/31/2016 at 13:31 Approved by: Cathryn Robles M.D. on 12/31/2016 at 13:34 X-RAY CHEST ONE VIEW, PORTABLE IMPRESSION: Persistent mid right and bibasilar air space opacities suspicious for aspiration or pneumonia. Dictated by: Hal Pierson RRA Interpreted: Joel Rinaldi MD on 01/02/2017 at 9:15 Approved by: Joel Rinaldi M.D. on 01/02/2017 at 10:51 . Cardiac Echo Impressions Echocardiogram Interpretation Summary The ejection fraction is estimated to be 60-65%. There is mild mitral regurgitation. Compared to the prior echo study, there has been a decrease in the severity of mitral regurgitation. There is mild aortic regurgitation. Compared to the prior echo study, there has been no change in the severity of aortic regurgitation. There is no other significant valvular heart disease. Reading Physician:PM Plan Impression Impression #1 acute on chronic kidney injury which appears to be multifactorial #2 hyponatremia #3 anemia which appears to be multifactorial Recommendations #1 I would like to continue her diuretic therapy. I would like to give her a dose of IV chlorothiazide and attempt to maximize her diuresis. The fact that her renal function has only increased slightly may be limiting the rate of rise and she I hope will start to improve in the next several days. I do not feel she is a good candidate for long-term dialysis. Afshin Cortez DO Jan 08, 2017 16:15
--- NOTE | 2017-01-08 17:37 | NUR ---
Evaluation completed. Please go to "Notes" then click on "Assessments and Notes" (bottom left corner of screen). Then select appropriate discipline tab on top of screen.
--- NOTE | 2017-01-08 18:17 | PCM.PNMED ---
Subjective Date of Service Jan 08, 2017 Subjective Subjective: Patient states that she is feeling relatively well this morning, although she experiences increased shortness of breath. Discussed with the patient's daughter current ongoing care. The daughter states that she feels that her mother exhibits waxing and waning confusion. Events Overnight: No acute events overnight. ROS: Shortness of breath . Denies fever/chills, nausea/vomiting, headache, weakness, abdominal pain, chest pain, increased swelling in hands or feet. Exam Vital Signs Vital Sign - Last Date Time Temp Pulse Resp B/P Pulse Ox O2 Delivery O2 Flow Rate FiO2 01/08/17 15:34 36.9 61 18 115/42 95 Nasal Cannula 4.00 01/07/17 20:15 96 Intake and Output 01/07/17 01/07/17 01/08/17 Cumulative From/Thru 15:00 23:00 07:00 12/30/16 02:13 - 01/08/17 06:33 Intake Total 2850 ml 736 ml 98397 ml Output Total 500 ml 700 ml 8250 ml Balance 2350 ml 36 ml 23718 ml Intake Oral 2350 ml 600 ml 84289 ml IV Total 500 ml 136 ml 9048 ml Packed Cells 300 ml Output Urine Total 500 ml 700 ml 7850 ml Urine/Stool Mix 400 ml # Voids 3 3 16 # Bowel Movements 3 17 Exam General: No acute distress, well-developed, well-nourished Head: Normocephalic, atraumatic. External ears without defect. Eyes: Pupils equal, round, and reactive to light and accommodation. Anicteric sclerae, moist conjunctivae. Neck: Normal range of motion, no lymphadenopathy noted MSK: Right lower thoracic spine tender to palpation Cardiovascular: Regular rate and rhythm with no murmurs, rubs, or gallops appreciated Pulmonary: Lungs clear to auscultation except for mild rhonchi Abdomen: Bowel tones present. Soft, nontender, nondistended. Extremities: No clubbing, cyanosis, trace edema in the lower legs bilaterally Skin: Normal temperature, turgor, and texture; no rash, ulcers, or subcutaneous nodules appreciated. Neurological: Cranial nerves grossly intact. Reflexes, coordination, and sensory function within normal limits. Normal muscle strength, tone, and bulk. Psychiatric: Normal mood and affect. Alert and oriented to person, place, and time IVs and Medications IV Fluids 130 mL normal saline delivered with IV medications. Medications Reviewed: Medications were reviewed in detail Lab and Diagnostics Result Diagram: 01/08/17 0320 01/08/17 0320 Microbiology Blood cultures 2 no growth to date X-Rays, CTs and MRIs X-RAY CHEST ONE VIEW, PORTABLE 1. No focal consolidation is visualized at the right lung base to correspond with the dense radiopacities visualized on the CT dated 12/30/16. Lateral view may be helpful to further characterize findings. 2. Low lung volumes and basilar atelectasis. Dictated by: Cathryn Robles M.D. on 12/31/2016 at 13:31 Approved by: Cathryn Robles M.D. on 12/31/2016 at 13:34 CT ABDOMEN AND PELVIS WITHOUT CONTRAST IMPRESSION: Dense pneumonia right lower lobe posteriorly, quality of visualization through the abdomen and pelvis is limited by absence of both oral and intravenous contrast. Prior cholecystectomy. No definite additional acute disease. Dictated by: Nitin Rubio M.D. on 12/30/2016 at 22:07 Approved by: Nitin Rubio M.D. on 12/30/2016 at 22:09 X-RAY CHEST ONE VIEW, PORTABLE IMPRESSION: 1. No focal consolidation is visualized at the right lung base to correspond with the dense radiopacities visualized on the CT dated 12/30/16. Lateral view may be helpful to further characterize findings. 2. Low lung volumes and basilar atelectasis. Dictated by: Cathryn Robles M.D. on 12/31/2016 at 13:31 Approved by: Catrhyn Robles M.D. on 12/31/2016 at 13:34 X-RAY CHEST ONE VIEW, PORTABLE IMPRESSION: Persistent mid right and bibasilar air space opacities suspicious for aspiration or pneumonia. Dictated by: Hal Pierson [facility] Interpreted: Joel Rinaldi MD on 01/02/2017 at 9:15 Approved by: Joel Rinaldi M.D. on 01/02/2017 at 10:51 . Cardiac Echo Impressions Echocardiogram Interpretation Summary The ejection fraction is estimated to be 60-65%. There is mild mitral regurgitation. Compared to the prior echo study, there has been a decrease in the severity of mitral regurgitation. There is mild aortic regurgitation. Compared to the prior echo study, there has been no change in the severity of aortic regurgitation. There is no other significant valvular heart disease. Reading Physician:PM Assessment & Plan 76-year-old female with past medical history of minor dementia, type II diabetes , chronic kidney disease, hypertension who presents emergency department via EMS from [facility] for fever with associated back pain and shortness of breath. Right lower lobe necrotic cavitary pneumonia secondary to possible aspiration, present on admission, improving - Seen on CT on 01/07, patients cough is productive with both hemoptysis and sputum however we have been unable to obtain culture to differentiate between bacterial versus aspiration pneumonia. Strep urine antigen, Legionella urine antigen and MRSA PCR negative. - Per pulmonary recommendations and restart cefepime and metronidazole, patient received Zosyn from January 02 to January 07 as well as Levaquin, increasing white blood cell count is likely secondary to steroid use - Patient began coughing up blood on 01/06 but in light of recent CT scan I don' t believe further interventions are necessary at this time. We will continue to monitor. - Pulmonary toilet with Acapella and incentive spirometry - Swallow study with nursing to insist patient takes meals in a chair - Swallow eval recommends barium swallow to rule out silent aspiration - Diagnostic ultrasound-guided diagnostic thoracentesis completed on 01/08 cultures pending - ID again following - Pulmonology following Acute hypoxic Respiratory distress, present on admission, stable Increased respirations, wheezing, likely due to previously undiagnosed COPD vs acute pneumonia -Oxygen requirements stable, continue to monitor -Patient is currently tolerating 4-5 L nasal cannula, titrate down when possible. at baseline she does not use oxygen -Treat underlying pneumonia with cefepime and metronidazole -Duo nebs ordered TID with Q4 PRN -Continue prednisone 40 mg daily -Pulmonology following Possible COPD exacerbation, not present on admission, stable -Duo nebs ordered TID with Q4 PRN -Continue 40 mg prednisone PO daily Acute on chronic kidney injury, present on admission, worsening Patient of Dr. Cortez, baseline creatinine 1.7-1.8, last admission on discharge patient's creatinine was 2.6. On admission creatinine 2.7 - Increasing creatinine since 01/05, nephrology aware and following - Discontinued IV normal saline initiated at 60 mL/hr, initiated high-dose Lasix therapy Q8 - Limited echo shows no findings consistant with CHF, renal ultrasound shows normal-sized kidneys and given patient's incontinence unable to perform postvoid residual volumes - Nephrology may consider dialysis if kidney function continues to worsen - Continue to monitor Normocytic anemia, present on admission, stable Secondary to chronic kidney disease - Hemoglobin 10.2 on admission. - 7.5 on 01/04, Patient transfused 1 unit of blood, post-transfusion 8.4 - H&H currently stable - Continue to monitor Chronic Hypertension, present on admission, active -All home antihypertensive medications resumed -100 mg labetalol 3 times a day initiated per recommendations of Dr. Cortez - Labetalol held 01/05 due to decreased MAP, continue to hold unless pressures are above 140 systolic. 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 -Likely secondary to RLL pneumonia -Blood cultures x2 negative to date -Stool PCR negative 2 -Patient received a one-time dose of vancomycin, Zosyn, ceftriaxone in the emergency department Continue Zosyn for 5 days ending on January 07 and Levo for severe pneumonia, converted to cefepime and metronidazole after repeat CT shows cavitary pneumonia - Diagnostic ultrasound-guided diagnostic thoracentesis completed on 01/08 cultures pending -Procalc trending down -Blood pressures now appropriate, antihypertensive medications resumed Acute onset chest pain, not present on admission, resolved 01/02 patient began experiencing acute onset chest pain likely associated with respiratory distress - Serial troponins negative - EKG no changes from previous - Solu-Medrol given IV on 01/02 appears to have had the greatest impact on her chest pain. - Continue prednisone 40 mg daily Electrolyte imbalance, present on admission, active -Likely secondary to acute on chronic kidney injury -No interventions necessary at this time -Continue to monitor Hyperlipidemia, chronic -Continue home atorvastatin Type II diabetes, active - Glucose 166 on arrival - Hemoglobin A1c 6.2 on 11/02/16 - Medium dose correctional - Home glipizide held Dementia, stable - Continue home Quetiapine . Disposition: DC to be determined by clinical course, likely 3-4 more days. Patient to return to retirement facility upon discharge. VTE Prophylaxis: Sub-Q Heparin (Unfractionated) VTE Mechanical Devices: Intermittant Pneumatic CD Resuscitation Status: DNR/DNI:Do Not Resuscitate/Intubate Attending Statement The patient was seen and examined together with Dr. Duff on 01/08/2017 and I agree with the history, exam and plan as outlined in the note above. . Rai Duff DO Jan 08, 2017 18:17 Chandler Blank MD Jan 10, 2017 07:55
--- NOTE | 2017-01-08 18:30 | NUR ---
SOBOE Pt. still has SOBOE. She reported that she didn't think she couldn't walk from bed to door because of her SOB. Continue 4L/min NC O2 for now. No SOB noted while she was at rest.
[2017-01-08] MEDS: Ceftaroline Inj 400 MG in Dextrose 5% 250 ML IV SCH (20:28)
[2017-01-08] MEDS: Insulin GLARgine 100 Unit/mL Syringe SUBQ SCH (20:31)
[2017-01-09] VITALS (11 sets, daily range): BP systolic 84–124; BP diastolic 39–61; PULSE 49–73; RESP 12–22; O2SAT 92–97
[2017-01-09] MEDS: Furosemide 10 mg/mL 10 mL Inj IVPUSH SCH ×3 (00:38→16:46)
[2017-01-09] MEDS: metroNIDAZOLE Inj 500 MG in IV Premix 1 EACH IV SCH ×3 (00:38→16:42)
[2017-01-09] MEDS: Albuterol-Ipratropium 3 mL Inhalation Solution NEB PRN (02:23)
[2017-01-09] MEDS: Heparin 5,000 Unit/mL Inj SUBQ SCH ×3 (04:22→20:14)
[2017-01-09 05:05] LABS: INR 1.14 ratio
--- NOTE | 2017-01-09 05:37 | NUR ---
Insomnia Pt has not been able to sleep for the past two nights for more than a few hours at a time. Pt has transient periods of SOB. Pt irregular with accepting nebulizer treatments. Order obtained for Amitriptaline 150mg PO HS. Pt requested this med, stated that she currently is taking it and it helps her to sleep. Pt also requested Vicodin to help her sleep. Education done regarding the proper use of pain medication. Pt denies pain at this time. No [place] administered.
[2017-01-09 06:49] LABS: BASOPHILS % (AUTO) 0.1 % (0-3); EOSINOPHILS % (AUTO) 0 % (0-5); MONOCYTES % (AUTO) 4.2 % (4-12); Mean Corpuscular Hemoglobin 28.8 pg (27.0-35.0); Mean Corpuscular Volume 86.8 fL (81-100); NEUTROPHILS % (AUTO) 88.3 % (40-74); Platelet Count 223 bil/L (150-400)
[2017-01-09] MEDS: Albuterol-Ipratropium 3 mL Inhalation Solution NEB SCH ×3 (08:25→20:18)
--- NOTE | 2017-01-09 08:47 | DRSVH ---
PROCEDURE: X-RAY CHEST ONE VIEW, PORTABLE ([id number]) INDICATIONS: RLL atelectasis and effusion TECHNIQUE: One view of the chest was acquired. COMPARISON: [facility], CR, XR CHEST 2VW, 01/08/2017, 7:51. FINDINGS: Surgical changes and devices: Left PICC is unchanged. Lungs and pleura: Pleural effusions are layered posteriorly on the semi-upright view of the chest. Th ere is a marked diffuse diffuse interstitial opacities bilaterally. No pneumothorax. Mediastinum: Mediastinal contours appear normal. Heart size is enlarged. Bones and chest wall: No suspicious bony lesions. Overlying soft tissues appear unremarkable. IMPRESSION: 1. Pleural effusions, interstitial opacities, and cardiomegaly consistent with fluid overload. Dictated by: Cathryn Robles M.D. on 01/09/2017 at 8:44 Approved by: Cathryn Robles M.D. on 01/09/2017 at 8:45
--- NOTE | 2017-01-09 10:30 | PCM.PNMED ---
Subjective Date of Service Jan 09, 2017 Exam Vital Signs Vital Sign - Last Date Time Temp Pulse Resp B/P Pulse Ox O2 Delivery O2 Flow Rate FiO2 01/09/17 08:25 66 20 93 Nasal Cannula 4.00 01/09/17 03:02 122/61 01/08/17 15:34 36.9 01/07/17 20:15 96 Intake and Output 01/08/17 01/08/17 01/09/17 Cumulative From/Thru 15:00 23:00 07:00 12/30/16 02:13 - 01/09/17 06:31 Intake Total 556 ml 1116 ml 95316 ml Output Total 200 ml 650 ml 9100 ml Balance 356 ml 466 ml 54650 ml Intake Oral 300 ml 600 ml 32169 ml IV Total 256 ml 516 ml 9820 ml Packed Cells 300 ml Output Urine Total 200 ml 650 ml 8700 ml Urine/Stool Mix 400 ml # Voids 4 20 # Bowel Movements 17 Exam Pale obese chronically ill woman who is lying supine and in no distress Lungs Good air movement anteriorly. Bronchial breath sounds at Rt base 1/2 way up with decreased BS at Lt base. Rare wheezes CV Distant HTs, no m/g/r Ext tr edema Skin Dry IVs and Medications Medications Reviewed: Medications were reviewed in detail Lab and Diagnostics Result Diagram: 01/09/17 0430 01/09/17 0430 Microbiology Blood cultures 2 no growth to date X-Rays, CTs and MRIs X-RAY CHEST ONE VIEW, PORTABLE 1. No focal consolidation is visualized at the right lung base to correspond with the dense radiopacities visualized on the CT dated 12/30/16. Lateral view may be helpful to further characterize findings. 2. Low lung volumes and basilar atelectasis. Dictated by: Cathryn Robles M.D. on 12/31/2016 at 13:31 Approved by: Cathryn Robles M.D. on 12/31/2016 at 13:34 CT ABDOMEN AND PELVIS WITHOUT CONTRAST IMPRESSION: Dense pneumonia right lower lobe posteriorly, quality of visualization through the abdomen and pelvis is limited by absence of both oral and intravenous contrast. Prior cholecystectomy. No definite additional acute disease. Dictated by: Nitin Rubio M.D. on 12/30/2016 at 22:07 Approved by: Nitin Rubio M.D. on 12/30/2016 at 22:09 X-RAY CHEST ONE VIEW, PORTABLE IMPRESSION: 1. No focal consolidation is visualized at the right lung base to correspond with the dense radiopacities visualized on the CT dated 12/30/16. Lateral view may be helpful to further characterize findings. 2. Low lung volumes and basilar atelectasis. Dictated by: Cathryn Robles M.D. on 12/31/2016 at 13:31 Approved by: Cathryn Robles M.D. on 12/31/2016 at 13:34 X-RAY CHEST ONE VIEW, PORTABLE IMPRESSION: Persistent mid right and bibasilar air space opacities suspicious for aspiration or pneumonia. Dictated by: Hal Pierson RRA Interpreted: Joel Rinaldi MD on 01/02/2017 at 9:15 Approved by: Joel Rinaldi M.D. on 01/02/2017 at 10:51 . Cardiac Echo Impressions Echocardiogram Interpretation Summary The ejection fraction is estimated to be 60-65%. There is mild mitral regurgitation. Compared to the prior echo study, there has been a decrease in the severity of mitral regurgitation. There is mild aortic regurgitation. Compared to the prior echo study, there has been no change in the severity of aortic regurgitation. There is no other significant valvular heart disease. Reading Physician:PM Assessment & Plan 1. Necrotizing pneumonia, right lower lobe. Given the radiographic appearance and anatomical location, this is likely to represent an aspiration event. Her significant back pain is probably referred pleuritic pain. A complicated parapneumonic effusion has been excluded with a diagnostic thoracentesis. Empiric antibiotics are targeted towards oral anaerobes, with ceftaroline to cover for MRSA which was found in her nares. Given the clinical impression of aspiration, she should have a formal swallow evaluation with cine esophagography if needed. Pulmonary toilet will be important. While her airway appears to be patent on CT, with her smoking history and hemoptysis, I would like to perform bronchoscopy to exclude an obstructing airway lesion causing an obstructive pneumonia which could also explain pneumonia, atelectasis and hemoptysis. Hopefully her encephalopathy will improve over the next few days which will improve her tolerance of procedural sedation. 2. Acute kidney injury. CKD III She has had progressive acute renal insufficiency since admission although today her creatinine is slightly decreased while her BUN continues to rise. Iwould estimate her volume status to be slightly hypovolemic given her poor skin turgor, absence of edema and dry mucosa. Despite that she continues to receive high doses of loop diuretic and thiazide while IV fluids have been stopped. Monitoring her fluid balance has been difficult and placement of a Anaya catheter seems reasonable. She is chronically anemic with normal indices and RDW and at this age one should consider a paraproteinemia. If she has not already had a serum protein electrophoresis, one should be submitted along with a urine protein electrophoresis. ANCA serologies have been sent but her pulmonary infiltrate is an acute process which was not present on a film from 12/12/16 while she has had varying degrees of CKD for over a year. 3. Encephalopathy Likely metabolic due to uremia against a background of multi-infarct dementia. She is receiving several sedating medications at HS. I've stopped her hydroxyzine and amitriptyline but continued low dose quetiapine for now along with PRN hydrocodone Pain Evaluation: Adequate Pain Control VTE Prophylaxis: Sub-Q Heparin (Unfractionated) VTE Mechanical Devices: Intermittant Pneumatic CD Resuscitation Status: DNR/DNI:Do Not Resuscitate/Intubate Christopher Alcala MD Jan 09, 2017 10:30
[2017-01-09] MEDS: Insulin LISPRO 300 Unit/3 mL Inj SUBQ SCH ×4 (10:58→21:23)
--- NOTE | 2017-01-09 11:13 | PROG NOTE ---
[address] [address] PROGRESS NOTE PATIENT: MCKENZIE CÁRDENAS : 1940 MR#: [id number] ADMIT: 12/30/2016 JOB ID: [id number] DATE: 01/09/2017 INFECTIOUS DISEASE FOLLOWUP NOTE: REASON FOR FOLLOWUP: Right-sided pneumonia with exudative-associated pleural effusion. INTERVAL HISTORY: Recall this is a complicated woman who came from a retirement with right pleuritic chest pain and infiltrate. She was treated with a combination of Zosyn and levofloxacin for about one week and then we stopped, as the patient had improved. She subsequently worsened, and additional imaging disclosed a cavitating-type right lower lobe pneumonia in association with a worsening pleural effusion. Yesterday, the patient underwent thoracentesis, which revealed an exudative pleural effusion with a relatively low white blood count, normal pH but very high LDH establishing this is an exudate. This morning the patient reports neck and low back pain. Recall that she has a history of chronic low back pain but not, so far as we know, neck pain. She denies any significant shortness of breath, fever, or chills. She is waiting for her breakfast. PHYSICAL EXAMINATION: Reveals a woman who was confused early this morning and now is much more oriented. She is in no great respiratory distress with respiratory rate in the low to mid 20s at this point. Blood pressure 122/61. She is not on vasopressors. She is saturating well but requiring 4 L. She remains afebrile with a pulse in the 60s. Current temperature is 36.9. The patient is oriented now, though she was confused earlier. She appears a bit anxious. Oral cavity negative. Lungs with decreased breath sounds on the right side diffusely. Cardiac tones without new murmur. Abdomen soft, nontender. LABORATORIES: Include white count 11,000, 88% segs. Her creatinine stable to slightly better at 4.9. LDH in the serum 310. LDH in the pleural fluid 314. So, this is obviously an exudate. There are 475 white cells in the pleural fluid, 80% segs. A pH of pleural fluid 7.4. Glucose in the pleural fluid 164. Cryptococcal antigen negative. Pleural fluid cultures from the negative at 24 hours. Sputum obtained yesterday had no white cells and is therefore not useful. IMAGING: We reviewed the chest x-rays from the past few days. Today's chest x-ray shows pleural effusions much more on the right, as well as interstitial infiltrates and cardiomegaly. IMPRESSION: We now have much more information about this patient and it is clear that she has at least A right-sided pulmonary infiltrate with associated pleural effusion, which is exudative and likely parapneumonic but not empyema based on the studies today. There is also, undoubtedly, a component of fluid overload in this woman with acute renal failure. For micro results, we really only have a positive methicillin-resistant Staphylococcus aureus from the nares, and our empiric therapy is currently ceftaroline and Flagyl following earlier treatment with Zosyn and levofloxacin. Note that the procalcitonin is declining, and is probably approaching what is normal for her degree of renal dysfunction. RECOMMENDATIONS: 1. We await QuantiFERON Gold and ANCA. 2. We await the cultures from blood in the thoracentesis fluid. 3. Nasal Bactroban, as well as ceftaroline IV and Flagyl will continue. 4. Will continue to closely follow this case.
[2017-01-09] MEDS: predniSONE 20 mg Tablet PO SCH (11:33)
[2017-01-09] MEDS: Lidocaine Topical 5% Patch TOPICAL SCH (11:35)
[2017-01-09] MEDS: Mupirocin 2% 22 Gm Ointment TOPICAL SCH ×2 (11:36→21:23)
[2017-01-09] MEDS: Ceftaroline Inj 400 MG in Dextrose 5% 250 ML IV SCH ×2 (12:07→21:23)
--- NOTE | 2017-01-09 12:21 | PCM.PNNEPH ---
Subjective Date of Service Jan 09, 2017 Subjective Patient's renal function has improved slightly but she continues to have marked waxing and waning of her mental status. The last 24 hours she said 1292 in with 900. Her sodium is 133 potassium 4.3 chloride of 94 bicarbonate 24, BUN and creatinine were 119 and 4.9 respectively. Exam Vital Signs Vital Sign - Last Date Time Temp Pulse Resp B/P Pulse Ox O2 Delivery O2 Flow Rate FiO2 01/09/17 12:05 36.6 67 18 103/45 96 Nasal Cannula 4.50 01/07/17 20:15 96 Intake and Output 01/08/17 01/08/17 01/09/17 Cumulative From/Thru 15:00 23:00 07:00 12/30/16 02:13 - 01/09/17 06:31 Intake Total 556 ml 1116 ml 36687 ml Output Total 200 ml 650 ml 9100 ml Balance 356 ml 466 ml 15491 ml Intake Oral 300 ml 600 ml 28246 ml IV Total 256 ml 516 ml 9820 ml Packed Cells 300 ml Output Urine Total 200 ml 650 ml 8700 ml Urine/Stool Mix 400 ml # Voids 4 20 # Bowel Movements 17 Exam Lungs show diffuse rhonchi and bibasilar rales. Heart was regular and rhythmical abdomen soft without any tenderness rebound guarding masses or hepatosplenomegaly. She is not sure any evidence of any clubbing cyanosis or edema. Skin turgor is good and there is no rashes. Lab and Diagnostics Result Diagram: 01/09/17 0430 01/09/17 0430 Microbiology Blood cultures 2 no growth to date X-Rays, CTs and MRIs X-RAY CHEST ONE VIEW, PORTABLE 1. No focal consolidation is visualized at the right lung base to correspond with the dense radiopacities visualized on the CT dated 12/30/16. Lateral view may be helpful to further characterize findings. 2. Low lung volumes and basilar atelectasis. Dictated by: Cathryn Robles M.D. on 12/31/2016 at 13:31 Approved by: Cathryn Robles M.D. on 12/31/2016 at 13:34 CT ABDOMEN AND PELVIS WITHOUT CONTRAST IMPRESSION: Dense pneumonia right lower lobe posteriorly, quality of visualization through the abdomen and pelvis is limited by absence of both oral and intravenous contrast. Prior cholecystectomy. No definite additional acute disease. Dictated by: Nitin Rubio M.D. on 12/30/2016 at 22:07 Approved by: Nitin Rubio M.D. on 12/30/2016 at 22:09 X-RAY CHEST ONE VIEW, PORTABLE IMPRESSION: 1. No focal consolidation is visualized at the right lung base to correspond with the dense radiopacities visualized on the CT dated 12/30/16. Lateral view may be helpful to further characterize findings. 2. Low lung volumes and basilar atelectasis. Dictated by: Cathryn Robles M.D. on 12/31/2016 at 13:31 Approved by: Cathryn Robles M.D. on 12/31/2016 at 13:34 X-RAY CHEST ONE VIEW, PORTABLE IMPRESSION: Persistent mid right and bibasilar air space opacities suspicious for aspiration or pneumonia. Dictated by: Hal Pierson [facility] Interpreted: Joel Rinaldi MD on 01/02/2017 at 9:15 Approved by: Joel Rinaldi M.D. on 01/02/2017 at 10:51 . Cardiac Echo Impressions Echocardiogram Interpretation Summary The ejection fraction is estimated to be 60-65%. There is mild mitral regurgitation. Compared to the prior echo study, there has been a decrease in the severity of mitral regurgitation. There is mild aortic regurgitation. Compared to the prior echo study, there has been no change in the severity of aortic regurgitation. There is no other significant valvular heart disease. Reading Physician:PM Plan Impression Impression #1 acute on chronic kidney injury #2 hyponatremia #3 anemia which is multifactorial Recommendations #1 I would like to consider continue her aggressive hydration I have discussed with the floor staff I do not feel that dialysis would be of any benefit to this patient, long-term is afebrile her prognosis is quite poor. Afshin Cortez DO Jan 09, 2017 12:21
[2017-01-09] MEDS: Chlorothiazide Inj 500 MG in Dextrose 5% 50 ML IV SCH (13:31)
--- NOTE | 2017-01-09 18:35 | NUR ---
Drowsiness/ activity/ Pain pt was very drowsy this AM, having difficulty keeping her eyes closed. However resolved through the day. Pt A&O x3 at this time. Able to transfer to chair with one person assist and sit up for meals. No c/o pain through the day, when asked if in pain pt stating "no", however when daughter present in late afternoon pt c/o generalized pain. aware.
--- NOTE | 2017-01-09 21:17 | PCM.PNMED ---
Subjective Date of Service Jan 09, 2017 Subjective Subjective: This morning upon seeing the patient she was tired and confused, she complained of increased chills associated with rigors and appear toxic looking. However, this afternoon speaking with the patient she was awake alert , oriented 3 and was able to express herself well. She states that she did not sleep well the night previous and received a dose of amitriptyline around 3: 00 in the morning and for this reason she was confused and sleepy. Events Overnight: No acute events overnight. ROS: Shortness of breath, back pain, chills, minor increased swelling of legs .Denies nausea/vomiting, headache, weakness, abdominal pain. Exam Vital Signs Vital Sign - Last Date Time Temp Pulse Resp B/P Pulse Ox O2 Delivery O2 Flow Rate FiO2 01/09/17 20:19 73 22 93 Nasal Cannula 3.00 01/09/17 16:19 36.2 124/54 01/07/17 20:15 96 Intake and Output 01/08/17 01/08/17 01/09/17 Cumulative From/Thru 15:00 23:00 07:00 12/30/16 02:13 - 01/09/17 06:31 Intake Total 556 ml 1116 ml 44130 ml Output Total 200 ml 650 ml 9100 ml Balance 356 ml 466 ml 37113 ml Intake Oral 300 ml 600 ml 83192 ml IV Total 256 ml 516 ml 9820 ml Packed Cells 300 ml Output Urine Total 200 ml 650 ml 8700 ml Urine/Stool Mix 400 ml # Voids 4 20 # Bowel Movements 17 Exam General: Moderate distress, well-developed, well-nourished Head: Normocephalic, atraumatic. External ears without defect. Eyes: Pupils equal, round, and reactive to light and accommodation. Anicteric sclerae, moist conjunctivae. Neck: Normal range of motion, no lymphadenopathy noted MSK: Right lower thoracic spine tender to palpation Cardiovascular: Regular rate and rhythm with no murmurs, rubs, or gallops appreciated Pulmonary: Lungs clear to auscultation except for mild rhonchi Abdomen: Bowel tones present. Soft, nontender, nondistended. Extremities: No clubbing, cyanosis, trace edema in the lower legs bilaterally Skin: Normal temperature, turgor, and texture; no rash, ulcers, or subcutaneous nodules appreciated. Neurological: Cranial nerves grossly intact. Reflexes, coordination, and sensory function within normal limits. Normal muscle strength, tone, and bulk. Psychiatric: Normal mood and affect. Alert and oriented to person, place, and time IVs and Medications IV Fluids 500 mL normal saline delivered with IV medications. Medications Reviewed: Medications were reviewed in detail Lab and Diagnostics Result Diagram: 01/09/1742901/09/17429 Microbiology Blood cultures 2 no growth to date X-Rays, CTs and MRIs X-RAY CHEST ONE VIEW, PORTABLE 1. No focal consolidation is visualized at the right lung base to correspond with the dense radiopacities visualized on the CT dated 12/30/16. Lateral view may be helpful to further characterize findings. 2. Low lung volumes and basilar atelectasis. Dictated by: Cathryn Robles M.D. on 12/31/2016 at 13:31 Approved by: Cathryn Robles M.D. on 12/31/2016 at 13:34 CT ABDOMEN AND PELVIS WITHOUT CONTRAST IMPRESSION: Dense pneumonia right lower lobe posteriorly, quality of visualization through the abdomen and pelvis is limited by absence of both oral and intravenous contrast. Prior cholecystectomy. No definite additional acute disease. Dictated by: Nitin Rubio M.D. on 12/30/2016 at 22:07 Approved by: Nitin Rubio M.D. on 12/30/2016 at 22:09 X-RAY CHEST ONE VIEW, PORTABLE IMPRESSION: 1. No focal consolidation is visualized at the right lung base to correspond with the dense radiopacities visualized on the CT dated 12/30/16. Lateral view may be helpful to further characterize findings. 2. Low lung volumes and basilar atelectasis. Dictated by: Cathryn Robles M.D. on 12/31/2016 at 13:31 Approved by: Cathryn Robles M.D. on 12/31/2016 at 13:34 X-RAY CHEST ONE VIEW, PORTABLE IMPRESSION: Persistent mid right and bibasilar air space opacities suspicious for aspiration or pneumonia. Dictated by: Hal ARANA Interpreted: Joel Rinaldi MD on 01/02/2017 at 9:15 Approved by: Joel Rinaldi M.D. on 01/02/2017 at 10:51 . Cardiac Echo Impressions Echocardiogram Interpretation Summary The ejection fraction is estimated to be 60-65%. There is mild mitral regurgitation. Compared to the prior echo study, there has been a decrease in the severity of mitral regurgitation. There is mild aortic regurgitation. Compared to the prior echo study, there has been no change in the severity of aortic regurgitation. There is no other significant valvular heart disease. Reading Physician:PM Assessment & Plan 76-year-old female with past medical history of minor dementia, type II diabetes , chronic kidney disease, hypertension who presents emergency department via EMS from [facility] for fever with associated back pain and shortness of breath. Right lower lobe necrotic cavitary pneumonia secondary to possible aspiration, present on admission, improving - Seen on CT on 01/07, patients cough is productive with both hemoptysis and sputum however we have been unable to obtain culture to differentiate between bacterial versus aspiration pneumonia. Strep urine antigen, Legionella urine antigen and MRSA PCR negative. - Per pulmonary recommendations and restart cefepime and metronidazole, patient received Zosyn from January 02 to January 07 as well as Levaquin, increasing white blood cell count is likely secondary to steroid use - Patient began coughing up blood on 01/06 but in light of recent CT scan I don' t believe further interventions are necessary at this time. We will continue to monitor. - Pulmonary toilet with Acapella and incentive spirometry - Swallow study with nursing to insist patient takes meals in a chair - Swallow eval recommends barium swallow to rule out silent aspiration - Diagnostic ultrasound-guided diagnostic thoracentesis completed on 01/08 cultures pending, fluid suggests exudate, likely due to ongoing pneumonia. - ID again following - Pulmonology following Acute hypoxic Respiratory distress, present on admission, stable Increased respirations, wheezing, likely due to previously undiagnosed COPD vs acute pneumonia -Oxygen requirements stable, continue to monitor -Patient is currently tolerating 4-5 L nasal cannula, titrate down when possible. at baseline she does not use oxygen -Treat underlying pneumonia with cefepime and metronidazole -Duo nebs ordered TID with Q4 PRN -Pulmonology following Possible COPD exacerbation, not present on admission, stable -Duo nebs ordered TID with Q4 PRN Acute on chronic kidney injury, present on admission, worsening Patient of Dr. Cortez, baseline creatinine 1.7-1.8, last admission on discharge patient's creatinine was 2.6. On admission creatinine 2.7 - Increasing creatinine since 01/05, nephrology aware and following - Discontinued IV normal saline initiated at 60 mL/hr, initiated high-dose Lasix therapy Q8 - Limited echo shows no findings consistant with CHF, renal ultrasound shows normal-sized kidneys and given patient's incontinence unable to perform postvoid residual volumes - Nephrology may consider dialysis if kidney function continues to worsen - Continue to monitor Normocytic anemia, present on admission, stable Secondary to chronic kidney disease - Hemoglobin 10.2 on admission. - 7.5 on 01/04, Patient transfused 1 unit of blood, post-transfusion 8.4 - H&H currently stable - Continue to monitor High anion gap metabolic acidosis, present on admission, Improving Likely secondary to acute on chronic kidney injury -Kidney function worsening 01/05 -High-dose Lasix initiated -Nephrology consulted, appreciate recommendations -Continue to monitor Chronic Hyponatremia, present on admission, active Patient has a chronic history of hyponatremia, at least in part due to polydipsia -Nephrology consulting, recommendations appreciated -Serum and urine osmolalities within normal limits Septic shock, present on admission, Resolved Initially increased WBC, borderline tachycardia, hyperventilation, hypotension, increased temp,lactic acidosis, other than increased creatinine no evidence of end organ damage. -Likely secondary to RLL pneumonia -Blood cultures x2 negative to date -Stool PCR negative 2 -Patient's antibiotics converted to cefepime and metronidazole after repeat CT shows cavitary pneumonia - Diagnostic ultrasound-guided diagnostic thoracentesis completed on 01/08 -Procalc continues to trend down -Blood pressures now appropriate, antihypertensive medications resumed Chronic Hypertension, present on admission, active -All home antihypertensive medications resumed -100 mg labetalol 3 times a day initiated per recommendations of Dr. Cortez - Labetalol held 01/05 due to decreased MAP, continue to hold unless pressures are above 140 systolic. Acute onset chest pain, not present on admission, resolved 01/02 patient began experiencing acute onset chest pain likely associated with respiratory distress - Serial troponins negative - EKG no changes from previous Electrolyte imbalance, present on admission, active -Likely secondary to acute on chronic kidney injury -No interventions necessary at this time -Continue to monitor Hyperlipidemia, chronic -Continue home atorvastatin Type II diabetes, active - Glucose 166 on arrival - Hemoglobin A1c 6.2 on 11/02/16 - Medium dose correctional - Home glipizide held Dementia, stable - Continue home Quetiapine Insomnia, active - Patient states that she was previously taking amitriptyline for insomnia and this worked very well for her. - Amitriptyline daily at bedtime VTE Prophylaxis: Sub-Q Heparin (Unfractionated) VTE Mechanical Devices: Intermittant Pneumatic CD Resuscitation Status: DNR/DNI:Do Not Resuscitate/Intubate Attending Statement The patient was seen and examined together with Dr. Duff on 01/09/2017 and I agree with the history, exam and plan as outlined in the note above. . Rai Duff DO Jan 09, 2017 21:17 Chandler Blank MD Jan 10, 2017 07:57
[2017-01-09] MEDS: Insulin GLARgine 100 Unit/mL Syringe SUBQ SCH (21:23)
[2017-01-09] MEDS ORDERED: 0.9% Sodium Chloride 500 ML IV ONE (23:45)
[2017-01-10] VITALS (20 sets, daily range): BP systolic 83–137; BP diastolic 40–53; PULSE 54–77; RESP 15–22; O2SAT 93–96
[2017-01-10] MEDS: metroNIDAZOLE Inj 500 MG in IV Premix 1 EACH IV SCH ×2 (00:22→08:31)
[2017-01-10] MEDS: Furosemide 10 mg/mL 10 mL Inj IVPUSH SCH ×2 (00:30→09:53)
[2017-01-10] MEDS ORDERED: 0.9% Sodium Chloride 500 ML IV ONE ×2 (00:50→02:00)
[2017-01-10 03:02] LABS: BASOPHILS % (AUTO) 0 % (0-3); EOSINOPHILS % (AUTO) 0 % (0-5); MONOCYTES % (AUTO) 2.1 % (4-12); Mean Corpuscular Volume 85.7 fL (81-100); Platelet Count 179 bil/L (150-400)
[2017-01-10] MEDS: Heparin 5,000 Unit/mL Inj SUBQ SCH ×3 (03:27→20:11)
--- NOTE | 2017-01-10 03:34 | NUR ---
At 2330 BP 80's/40's, p 50-60, all other VSS and lethargic, but oriented x3. Rec'd order for 500mL NS bolus and administered with no improvement. BP stabilized to 90's-110's over 40's after administration of 1500mL NS boluses. Hgb of 7.9 noted at 0330, likely dilutional r/t fluid boluses. Dr. Chanel notified at 0335.
[2017-01-10] MEDS: Insulin LISPRO 300 Unit/3 mL Inj SUBQ SCH ×4 (08:00→20:54)
[2017-01-10] MEDS: Lidocaine Topical 5% Patch TOPICAL SCH (08:30)
[2017-01-10] MEDS: Mupirocin 2% 22 Gm Ointment TOPICAL SCH ×2 (08:36→20:45)
--- NOTE | 2017-01-10 09:10 | PROG NOTE ---
[address] [address] PROGRESS NOTE PATIENT: MCKENZIE CÁRDENAS : 1940 MR#: [id number] ADMIT: 12/30/2016 JOB ID: [id number] DATE: 01/10/2017 INFECTIOUS DISEASE FOLLOW UP NOTE: REASON FOR FOLLOWUP: Right-sided pneumonia with exudative parapneumonic effusion. INTERVAL HISTORY: Overnight, the patient reports continued mild shortness of breath and generalized fatigue but otherwise no focal symptoms. No fevers. No chills. No sweats. Her right pleuritic chest pain is resolving. She does not complain of shortness of breath or GI symptoms. PHYSICAL EXAMINATION: Reveals an afebrile woman. Her last recorded temperature 36.5, pulse 62, respiratory rate 15, blood pressure 102/43, saturating well on 6 L. She is in no acute distress but certainly appears debilitated and fatigued. She is awake and oriented though asking appropriate questions. Oral cavity negative. Lungs with decreased breath sounds on the right side and some scattered wheezing. Cardiac tones: Regular rate and rhythm. Abdomen benign. No new skin rash. LABORATORIES: Include white count dropping slowly now 11,200 with left shift. Creatinine 4.9 which is completely stable. LFTs normal. Procalcitonin down to 1.13, which is essentially normal in view of her creatinine of almost 5. Crypto antigen negative. ANCA is still pending. Micro studies unrevealing. The only positive we have is a MRSA screen of the nares from now more than one week ago. IMAGING: Most recent imaging was done yesterday which we had previously reviewed. It shows fluid overload as well as pleural effusions, more on the right than the left. IMPRESSION/PLANS 1. This is a difficult case of a woman with multiple underlying very significant medical problems who came in with what appeared to be a right-sided pneumonia and associated pleural effusion. Tap of the pleural effusion shows that it is not an empyema but it is exudative. At this point, our only positive culture of any significance is a MRSA screen of the nares which was positive. Though this raises the prospect of MRSA pneumonia with exudative effusion, it does not prove this microbiologic diagnosis. Her procalcitonin is declining, however, and she overall appears somewhat better so I think our current antibiotics are appropriate and the main question is how long to continue. 2. We await the pending serologies. 3. We await the final cultures from the thoracentesis fluid. 4. Will continue with nasal mupirocin as well as IV ceftaroline and Flagyl for the time being with a possible transition to linezolid in the near future. MTDD
[2017-01-10] MEDS: predniSONE 20 mg Tablet PO SCH (09:16)
--- NOTE | 2017-01-10 09:41 | PCM.PNMED ---
Subjective Date of Service Jan 10, 2017 Subjective 76 yo woman with h/o CKD admitted with back pain who on CT of abd/pelvis was found to have a RLL pneumonia. This appears to be a necrotizing process based on CT appearance and has an associated effusion that has been sampled. WBC and procalcitonin have fallen with antibiotic treatment which continues in the form of Ceftaroline and Flagyl. Her course has been complicated by [place] which has been progressive and overnight she became hypotensive and received some volume replacement after days of aggressive attempts at diuresis. Awake, expressing her wish to go home soon, " I've been here a week and I'm not getting better " Back pain is unchanged, C/O SOB, " My breathing is heavy" No further hemoptysis, fevers, chills Exam Vital Signs Vital Sign - Last Date Time Temp Pulse Resp B/P Pulse Ox O2 Delivery O2 Flow Rate FiO2 01/10/17 07:33 62 15 102/43 96 Nasal Cannula 6.00 01/09/17 23:37 36.5 01/07/17 20:15 96 Intake and Output 01/09/17 01/09/17 01/10/17 Cumulative From/Thru 15:00 23:00 07:00 12/30/16 02:13 - 01/10/17 06:07 Intake Total 390 ml 1946 ml 93383 ml Output Total 475 ml 9575 ml Balance -85 ml 1946 ml 80719 ml Intake Oral 390 ml 59379 ml IV Total 1946 ml 48238 ml Packed Cells 300 ml Output Urine Total 475 ml 9175 ml Urine/Stool Mix 400 ml # Voids 20 # Bowel Movements 17 Exam Pale, weak woman in NAD, Speaks in short sentences. more alert today after stopping some of her sedating meds earlier Lungs Absent BS at Rt base, decreased on Lt, scattered crackles NO wheezes CV Distant HTs, no m/g/r Abd Soft, normal BTs, no HSM, no tenderness Ext Cool, no pedal edema, no cyanosis, mottling IVs and Medications Medications Reviewed: Medications were reviewed in detail Lab and Diagnostics Personally reviewed in detail Result Diagram: 01/10/1724401/10/17 024 Microbiology Blood cultures 2 no growth to date X-Rays, CTs and MRIs X-RAY CHEST ONE VIEW, PORTABLE 1. No focal consolidation is visualized at the right lung base to correspond with the dense radiopacities visualized on the CT dated 12/30/16. Lateral view may be helpful to further characterize findings. 2. Low lung volumes and basilar atelectasis. Dictated by: Cathryn Robles M.D. on 12/31/2016 at 13:31 Approved by: Cathryn Robles M.D. on 12/31/2016 at 13:34 CT ABDOMEN AND PELVIS WITHOUT CONTRAST IMPRESSION: Dense pneumonia right lower lobe posteriorly, quality of visualization through the abdomen and pelvis is limited by absence of both oral and intravenous contrast. Prior cholecystectomy. No definite additional acute disease. Dictated by: Nitin Rubio M.D. on 12/30/2016 at 22:07 Approved by: Nitin Rubio M.D. on 12/30/2016 at 22:09 X-RAY CHEST ONE VIEW, PORTABLE IMPRESSION: 1. No focal consolidation is visualized at the right lung base to correspond with the dense radiopacities visualized on the CT dated 12/30/16. Lateral view may be helpful to further characterize findings. 2. Low lung volumes and basilar atelectasis. Dictated by: Cathryn Robles M.D. on 12/31/2016 at 13:31 Approved by: Cathryn Robles M.D. on 12/31/2016 at 13:34 X-RAY CHEST ONE VIEW, PORTABLE IMPRESSION: Persistent mid right and bibasilar air space opacities suspicious for aspiration or pneumonia. Dictated by: Hal Pierson [facility] Interpreted: Joel Rinaldi MD on 01/02/2017 at 9:15 Approved by: Joel Rinaldi M.D. on 01/02/2017 at 10:51 . Cardiac Echo Impressions Echocardiogram Interpretation Summary The ejection fraction is estimated to be 60-65%. There is mild mitral regurgitation. Compared to the prior echo study, there has been a decrease in the severity of mitral regurgitation. There is mild aortic regurgitation. Compared to the prior echo study, there has been no change in the severity of aortic regurgitation. There is no other significant valvular heart disease. Reading Physician:PM Assessment & Plan 76-year-old female with past medical history of minor dementia, type II diabetes , chronic kidney disease, hypertension who presents emergency department via EMS from [facility] for fever with associated back pain and shortness of breath. IMP 1. Necrotizing pneumonia, right lower lobe. Given the radiographic appearance and anatomical location, this is likely to represent an aspiration event. Her significant back pain is probably referred pleuritic pain. A complicated parapneumonic effusion has been excluded with a diagnostic thoracentesis. Empiric antibiotics are targeted towards oral anaerobes, with ceftaroline to cover for MRSA which was found in her nares. Given the clinical impression of aspiration, she should have a formal swallow evaluation with cine esophagography if needed. Pulmonary toilet will be important. While her airway appears to be patent on CT, with her smoking history and hemoptysis, I would like to perform bronchoscopy to exclude an obstructing airway lesion causing an obstructive pneumonia which could also explain pneumonia, atelectasis and hemoptysis. Hopefully her encephalopathy will improve over the next few days which will improve her tolerance of procedural sedation. 2. Acute kidney injury. CKD III She has had progressive acute renal insufficiency since admission although today her creatinine is slightly decreased while her BUN continues to rise. Iwould estimate her volume status to be slightly hypovolemic given her poor skin turgor, absence of edema and dry mucosa. Despite that she continues to receive high doses of loop diuretic and thiazide while IV fluids have been stopped. Monitoring her fluid balance has been difficult and placement of a Anaya catheter seems reasonable. She is chronically anemic with normal indices and RDW and at this age one should consider a paraproteinemia. If she has not already had a serum protein electrophoresis, one should be submitted along with a urine protein electrophoresis. ANCA serologies have been sent but her pulmonary infiltrate is an acute process which was not present on a film from 12/12/16 while she has had varying degrees of CKD for over a year. 3. Encephalopathy Likely metabolic due to uremia against a background of multi-infarct dementia. She is more alert today after holding some meds. REC DC IV antibiotics, change to oral targeted to oral alberto, eg. 2nd gen ceph and flagyl or clinda Repeat CXR Fluid and electrolyte management per primary team and consulting assistive technology trainer. She may be approaching the need for at least short term acute renal replacement Ultimately should have bronchoscopy to exclude endobronchial process in distal bronchus intermedius causing her necrotizing process but I hope that she could better tolerate once her uremia has been addressed. Pain Evaluation: Adequate Pain Control VTE Prophylaxis: Sub-Q Heparin (Unfractionated) VTE Mechanical Devices: Intermittant Pneumatic CD Resuscitation Status: DNR/DNI:Do Not Resuscitate/Intubate Christopher Alcala MD Jan 10, 2017 09:41 Initially increased WBC, borderline tachycardia, hyperventilation, hypotension, increased temp,lactic acidosis, other than increased creatinine no evidence of end organ damage. -Likely secondary to RLL pneumonia -Blood cultures x2 negative to date -Stool PCR negative 2 -Patient's antibiotics converted to cefepime and metronidazole after repeat CT shows cavitary pneumonia - Diagnostic ultrasound-guided diagnostic thoracentesis completed on 01/08 -Procalc continues to trend down -Blood pressures now appropriate, antihypertensive medications resumed Chronic Hypertension, present on admission, active -All home antihypertensive medications resumed -100 mg labetalol 3 times a day initiated per recommendations of Dr. Cortez - Labetalol held 01/05 due to decreased MAP, continue to hold unless pressures are above 140 systolic. Acute onset chest pain, not present on admission, resolved 01/02 patient began experiencing acute onset chest pain likely associated with respiratory distress - Serial troponins negative - EKG no changes from previous Electrolyte imbalance, present on admission, active -Likely secondary to acute on chronic kidney injury -No interventions necessary at this time -Continue to monitor Hyperlipidemia, chronic -Continue home atorvastatin Type II diabetes, active - Glucose 166 on arrival - Hemoglobin A1c 6.2 on 11/02/16 - Medium dose correctional - Home glipizide held Dementia, stable - Continue home Quetiapine Insomnia, active - Patient states that she was previously taking amitriptyline for insomnia and this worked very well for her. - Amitriptyline daily at bedtime VTE Prophylaxis: Sub-Q Heparin (Unfractionated) VTE Mechanical Devices: Intermittant Pneumatic CD Resuscitation Status: DNR/DNI:Do Not Resuscitate/Intubate Christopher Alcala MD Jan 10, 2017 09:41
[2017-01-10] MEDS: Chlorothiazide Inj 500 MG in Dextrose 5% 50 ML IV SCH (09:53)
[2017-01-10] MEDS: Albuterol-Ipratropium 3 mL Inhalation Solution NEB SCH ×3 (10:01→20:28)
[2017-01-10] MEDS: Ceftaroline Inj 400 MG in Dextrose 5% 250 ML IV SCH ×2 (10:04→20:11)
--- NOTE | 2017-01-10 11:25 | NUR ---
Palliative Care Palliative Care received verbal order from Dr Blank 01/10/17 to assist with goals of care. Patient admitted 12/30/16. Palliative Care to follow in the coming days. Will not be seeing patient today. Mayda Cruz
--- NOTE | 2017-01-10 11:44 | DRSVH ---
PROCEDURE: X-RAY CHEST ONE VIEW, PORTABLE ([id number]) INDICATIONS: pneumonia TECHNIQUE: One view of the chest was acquired. COMPARISON: [facility], CR, XR CHEST 1VW (PORTABLE), 01/09/2017, 8:14. FINDINGS: Surgical changes and devices: Left PICC present tip projected over the mid superior vena cava. Aaliyah cystectomy clips. Lungs and pleura: Diffuse, widespread bilateral pulmonary interstitial and air space opacities are pr esent which appear similar to prior examination. Persistent small to moderate right pleural effusion . No pneumothorax. Mediastinum: Mediastinal contours appear normal. Heart size is enlarged. Bones and chest wall: No suspicious bony lesions. Overlying soft tissues appear unremarkable. IMPRESSION: 1. Pulmonary edema and/or diffuse bibasilar pneumonia redemonstrated similar to prior examination. 2. Persistent small/moderate right pleural effusion. Dictated by: Hal Pierson A Interpreted: Micah Shepard MD on 01/10/2017 at 10:11 Approved by: Micah Shepard M.D. on 01/10/2017 at 11:42
--- NOTE | 2017-01-10 12:37 | PCM.PNNEPH ---
Subjective Date of Service Jan 10, 2017 Subjective Feeling weak, wheezing. Serum BUN/cr levels about the same. Exam Vital Signs Vital Sign - Last Date Time Temp Pulse Resp B/P Pulse Ox O2 Delivery O2 Flow Rate FiO2 01/10/17 11:36 60 18 105/44 93 Nasal Cannula 5.00 01/09/17 23:37 36.5 01/07/17 20:15 96 Intake and Output 01/09/17 01/09/17 01/10/17 Cumulative From/Thru 15:00 23:00 07:00 12/30/16 02:13 - 01/10/17 06:07 Intake Total 390 ml 1946 ml 33060 ml Output Total 475 ml 9575 ml Balance -85 ml 1946 ml 75810 ml Intake Oral 390 ml 92738 ml IV Total 1946 ml 50224 ml Packed Cells 300 ml Output Urine Total 475 ml 9175 ml Urine/Stool Mix 400 ml # Voids 20 # Bowel Movements 17 Exam General appearance: AAOX3, tachypneic. HEENT: Atraumatic. mild pallor, no icteric sclerae. (+) JVD. No lymphadenopathy. Heart: Regular rhythm. Normal S1, S2. No murmurs, rubs, or gallops. Lungs: wheezing B/L. no rhonchi. Abdomen: Soft, nontender, nondistended. No hepatosplenomegaly. Extremities:1+ edema in the lower extremity. Lab and Diagnostics Result Diagram: 01/10/17 0245 01/10/17 0245 Microbiology Blood cultures 2 no growth to date X-Rays, CTs and MRIs X-RAY CHEST ONE VIEW, PORTABLE 1. No focal consolidation is visualized at the right lung base to correspond with the dense radiopacities visualized on the CT dated 12/30/16. Lateral view may be helpful to further characterize findings. 2. Low lung volumes and basilar atelectasis. Dictated by: Cathryn Robles M.D. on 12/31/2016 at 13:31 Approved by: Cathryn Robles M.D. on 12/31/2016 at 13:34 CT ABDOMEN AND PELVIS WITHOUT CONTRAST IMPRESSION: Dense pneumonia right lower lobe posteriorly, quality of visualization through the abdomen and pelvis is limited by absence of both oral and intravenous contrast. Prior cholecystectomy. No definite additional acute disease. Dictated by: Nitin Rubio M.D. on 12/30/2016 at 22:07 Approved by: Nitin Rubio M.D. on 12/30/2016 at 22:09 X-RAY CHEST ONE VIEW, PORTABLE IMPRESSION: 1. No focal consolidation is visualized at the right lung base to correspond with the dense radiopacities visualized on the CT dated 12/30/16. Lateral view may be helpful to further characterize findings. 2. Low lung volumes and basilar atelectasis. Dictated by: Cathryn Robles M.D. on 12/31/2016 at 13:31 Approved by: Cathryn Robles M.D. on 12/31/2016 at 13:34 X-RAY CHEST ONE VIEW, PORTABLE IMPRESSION: Persistent mid right and bibasilar air space opacities suspicious for aspiration or pneumonia. Dictated by: Hal Pierson [facility] Interpreted: Joel Rinaldi MD on 01/02/2017 at 9:15 Approved by: Joel Rinaldi M.D. on 01/02/2017 at 10:51 . Cardiac Echo Impressions Echocardiogram Interpretation Summary The ejection fraction is estimated to be 60-65%. There is mild mitral regurgitation. Compared to the prior echo study, there has been a decrease in the severity of mitral regurgitation. There is mild aortic regurgitation. Compared to the prior echo study, there has been no change in the severity of aortic regurgitation. There is no other significant valvular heart disease. Reading Physician:PM Plan Impression 1. Acute kidney injury superimposed chronic kidney disease secondary to ATN. chlorthalidone and lasix given this morning. (+) hypotensive episodes. 2. Sepsis secondary to healthcare associated pneumonia. 3. Type 2 diabetes. 4. Anemia in chronic illness. PLAN: 1. Repeat BMP in am. 2. NPO AMN for possible tunneled cath placement for initiation of HD. 3. Hold diuretics and norvasc. 4. Repeat UA. 5. Start aranesp 40 mcg subQ. 6. Check postvoid. Clarke Pickens MD Jan 10, 2017 12:37
[2017-01-10 14:09] LABS: Antiproteinase 3 (PR-3) Abs <3.5 U/mL (0.0-3.5); Perinuclear (P-ANCA) <1:20 titer (Neg:<1:20)
[2017-01-10] MEDS ORDERED: metroNIDAZOLE 250 mg Tablet PO SCH (16:30)
--- NOTE | 2017-01-10 17:03 | NUR ---
Social Work: Continued Discharge Planning/Multidisciplinary Rounds D: Pt discussed in multidisciplinary rounds. The patient is not yet medically stable for discharge at this time. No identified discharge time frame provided. After review of EMR, pt is being followed by pulmonology, ID, and nephrology along with the hospitalist/resident team. PRIVATE SECRETARY briefly met with the patient to check-in at bedside. She confirms that her plan still remains to go to [place] although expresses frustration that she still requires hospitalization. Pt denies any current questions or needs from PRIVATE SECRETARY and has social work contact information on her board. PT continues to recommend skilled rehab for the patient at d/c. A: Pt who will require skilled rehab for continued strengthening P: Anticipate that the patient will discharge to [facility] once medically stable with intentions of transitioning to their [facility] once able to manage care in this setting. PRIVATE SECRETARY to continue to follow to assess for further d/c needs. GALINA Cevallos
[2017-01-10] MEDS: Albuterol-Ipratropium 3 mL Inhalation Solution NEB PRN (17:21)
--- NOTE | 2017-01-10 17:21 | PCM.PNMED ---
Subjective Date of Service Jan 10, 2017 Subjective Subjective: Patient states that she slept very well overnight despite being constantly awoken for vital checks. Events Overnight: Patient's blood pressures remained low overnight, a dose of labetalol was given despite recommendations to hold unless SBP greater than 140. Multiple fluid boluses required to keep the patient's blood pressure within the desired range. ROS: Shortness of breath, back pain, leg swelling. Denies fever/chills, nausea/ vomiting, headache, weakness, abdominal pain, chest pain. Exam Vital Signs Vital Sign - Last Date Time Temp Pulse Resp B/P Pulse Ox O2 Delivery O2 Flow Rate FiO2 01/10/17 16:39 36.2 71 22 110/44 94 Nasal Cannula 5.00 01/07/17 20:15 96 Intake and Output 01/09/17 01/09/17 01/10/17 Cumulative From/Thru 15:00 23:00 07:00 12/30/16 02:13 - 01/10/17 06:07 Intake Total 390 ml 1946 ml 53245 ml Output Total 475 ml 9575 ml Balance -85 ml 1946 ml 12198 ml Intake Oral 390 ml 07578 ml IV Total 1946 ml 83908 ml Packed Cells 300 ml Output Urine Total 475 ml 9175 ml Urine/Stool Mix 400 ml # Voids 20 # Bowel Movements 17 Exam General: No acute distress, well-developed, well-nourished Head: Normocephalic, atraumatic. External ears without defect. Eyes: Pupils equal, round, and reactive to light and accommodation. Anicteric sclerae, moist conjunctivae. Neck: Normal range of motion, no lymphadenopathy noted MSK: Right lower thoracic spine tender to palpation Cardiovascular: Regular rate and rhythm with mild systolic murmur, no rubs, or gallops appreciated Pulmonary: Lungs clear to auscultation except for mild rhonchi Abdomen: Bowel tones present. Soft, nontender, nondistended. Extremities: No clubbing, cyanosis, trace edema in the lower legs bilaterally Skin: Normal temperature, turgor, and texture; no rash, ulcers, or subcutaneous nodules appreciated. Neurological: Cranial nerves grossly intact. Reflexes, coordination, and sensory function within normal limits. Normal muscle strength, tone, and bulk. Psychiatric: Normal mood and affect. Alert and oriented to person, place, and time IVs and Medications IV Fluids 4000 mL normal saline delivered with IV medications. Medications Reviewed: Medications were reviewed in detail Lab and Diagnostics Result Diagram: 01/10/17 0245 01/10/17 0245 Microbiology Blood cultures 2 no growth to date X-Rays, CTs and MRIs X-RAY CHEST ONE VIEW, PORTABLE 1. No focal consolidation is visualized at the right lung base to correspond with the dense radiopacities visualized on the CT dated 12/30/16. Lateral view may be helpful to further characterize findings. 2. Low lung volumes and basilar atelectasis. Dictated by: Cathryn Robles M.D. on 12/31/2016 at 13:31 Approved by: Cathryn Robles M.D. on 12/31/2016 at 13:34 CT ABDOMEN AND PELVIS WITHOUT CONTRAST IMPRESSION: Dense pneumonia right lower lobe posteriorly, quality of visualization through the abdomen and pelvis is limited by absence of both oral and intravenous contrast. Prior cholecystectomy. No definite additional acute disease. Dictated by: Nitin Rubio M.D. on 12/30/2016 at 22:07 Approved by: Nitin Rubio M.D. on 12/30/2016 at 22:09 X-RAY CHEST ONE VIEW, PORTABLE IMPRESSION: 1. No focal consolidation is visualized at the right lung base to correspond with the dense radiopacities visualized on the CT dated 12/30/16. Lateral view may be helpful to further characterize findings. 2. Low lung volumes and basilar atelectasis. Dictated by: Cathryn Robles M.D. on 12/31/2016 at 13:31 Approved by: Cathryn Robles M.D. on 12/31/2016 at 13:34 X-RAY CHEST ONE VIEW, PORTABLE IMPRESSION: Persistent mid right and bibasilar air space opacities suspicious for aspiration or pneumonia. Dictated by: Hal Pierson [facility] Interpreted: Joel Rinaldi MD on 01/02/2017 at 9:15 Approved by: Joel Rinaldi M.D. on 01/02/2017 at 10:51 . Cardiac Echo Impressions Echocardiogram Interpretation Summary The ejection fraction is estimated to be 60-65%. There is mild mitral regurgitation. Compared to the prior echo study, there has been a decrease in the severity of mitral regurgitation. There is mild aortic regurgitation. Compared to the prior echo study, there has been no change in the severity of aortic regurgitation. There is no other significant valvular heart disease. Reading Physician:PM Assessment & Plan 76-year-old female with past medical history of minor dementia, type II diabetes , chronic kidney disease, hypertension who presents emergency department via EMS from [facility] for fever with associated back pain and shortness of breath. Right lower lobe necrotic cavitary pneumonia secondary to possible aspiration, present on admission, improving - Seen on CT on 01/07, patients cough is productive with both hemoptysis and sputum however culture continues to show normal conner. Strep urine antigen, Legionella urine antigen negative. - MRSA PCR positive - Continue IV ceftaroline and metronidazole, - Continue Acapella and incentive spirometry - Swallow study with nursing to insist patient takes meals in a chair - Swallow eval recommends barium swallow to rule out silent aspiration - Diagnostic ultrasound-guided diagnostic thoracentesis completed on 01/08 cultures pending, fluid suggests exudate, likely due to ongoing pneumonia. - ID following - Pulmonology following Acute hypoxic Respiratory distress, present on admission, stable Increased respirations, wheezing, likely due to previously undiagnosed COPD vs acute pneumonia -Oxygen requirements stable, continue to monitor -Patient is currently tolerating 4-5 L nasal cannula, titrate down when possible. at baseline she does not use oxygen -Treat underlying pneumonia with ceftaroline and metronidazole -Duo nebs ordered TID with Q4 PRN -Pulmonology following Possible COPD exacerbation, not present on admission, stable - Duo nebs ordered TID with Q4 PRN - Prednisone discontinued - Continue to monitor Acute on chronic kidney injury, present on admission, worsening Patient of Dr. Cortez, baseline creatinine 1.7-1.8, last admission on discharge patient's creatinine was 2.6. On admission creatinine 2.7 - Increasing creatinine since 01/05, nephrology aware and following - Patient received 4 L normal saline overnight on 01/09 due to dropping blood pressures secondary to labetalol dosing - Diuretics, Norvasc discontinued today in preparation for possible dialysis. - Start darbepoetin 40 g subcutaneous - Based on continued poor kidney performance, Nephrology considering dialysis initiation on 01/11 - Continue to monitor Normocytic anemia, present on admission, stable Secondary to chronic kidney disease - Hemoglobin 10.2 on admission. - 7.5 on 01/04, Patient transfused 1 unit of blood, post-transfusion 8.4 - Start darbepoetin 40 g subcutaneous - H&H currently stable - Continue to monitor High anion gap metabolic acidosis, present on admission, Improving Likely secondary to acute on chronic kidney injury -Kidney function worsening 01/05 -High-dose Lasix initiated -Nephrology consulted,considering dialysis initiation on 01/11 -Continue to monitor Chronic Hyponatremia, present on admission, active Patient has a chronic history of hyponatremia, at least in part due to polydipsia -Nephrology consulting, considering dialysis initiation on 01/11 -Serum and urine osmolalities within normal limits Septic shock, present on admission, Resolved Initially increased WBC, borderline tachycardia, hyperventilation, hypotension, increased temp,lactic acidosis, other than increased creatinine no evidence of end organ damage. -Likely secondary to RLL pneumonia -Blood cultures x2 negative to date -Stool PCR negative 2 -Patient's antibiotics converted to cefepime and metronidazole after repeat CT shows cavitary pneumonia - Diagnostic ultrasound-guided diagnostic thoracentesis completed on 01/08 -Procalc continues to trend down -Blood pressures now appropriate, antihypertensive medications resumed Chronic Hypertension, present on admission, active - All home antihypertensive medications resumed - Continue to hold unless pressures are above 140 systolic. Acute onset chest pain, not present on admission, resolved 01/02 patient began experiencing acute onset chest pain likely associated with respiratory distress - Serial troponins negative - EKG no changes from previous Electrolyte imbalance, present on admission, active -Likely secondary to acute on chronic kidney injury -No interventions necessary at this time -Continue to monitor Hyperlipidemia, chronic -Continue home atorvastatin Type II diabetes, active - Glucose 166 on arrival - Hemoglobin A1c 6.2 on 11/02/16 - Medium dose correctional - Home glipizide held Dementia, stable - Continue home Quetiapine Insomnia, active - Patient states that she was previously taking amitriptyline for insomnia and this worked very well for her. - Patient given Amitriptyline 150 mg at bedtime on 01/09, she reports that she slept very well and showed no signs of acute encephalopathy in the morning. VTE Prophylaxis: Sub-Q Heparin (Unfractionated) VTE Mechanical Devices: Intermittant Pneumatic CD Resuscitation Status: DNR/DNI:Do Not Resuscitate/Intubate Attending Statement The patient was seen and examined together with Dr. Duff on 01/10/2017 and I agree with the history, exam and plan as outlined in the note above. . Rai Duff DO Jan 10, 2017 17:21 Chandler Blank MD Jan 11, 2017 18:58
--- NOTE | 2017-01-10 18:24 | NUR ---
Activity: Pt up to chair twice, requires 1p assist and FWW. Voided once, very small amount, Anaya place per MD orders. Pt to be NPO after midnight for HD cath placement in AM. Care ongoing.
[2017-01-10] MEDS: Insulin GLARgine 100 Unit/mL Syringe SUBQ SCH (20:54)
[2017-01-11] VITALS (10 sets, daily range): BP systolic 111–149; BP diastolic 40–59; PULSE 59–82; RESP 10–22; O2SAT 85–97
[2017-01-11 04:05] LABS: BASOPHILS % (AUTO) 0 % (0-3); EOSINOPHILS % (AUTO) 0 % (0-5); MONOCYTES % (AUTO) 3.9 % (4-12); Mean Corpuscular Hemoglobin 29.6 pg (27.0-35.0); Mean Corpuscular Volume 85.9 fL (81-100); NEUTROPHILS % (AUTO) 90.9 % (40-74); Platelet Count 166 bil/L (150-400)
[2017-01-11] MEDS: Heparin 5,000 Unit/mL Inj SUBQ SCH ×2 (04:11→12:00)
[2017-01-11 04:26] LABS: INR 1.16 ratio
--- NOTE | 2017-01-11 04:30 | ABG ---
DateTimeAnalyzed 04:23:00 -_ pH ____7.276 - 7.350 7.450 pCO2 ___43.2__ -mmHg 35.0 45.0 pO2 ___69.7__ -mmHg 69.0 116 HCO3- ___19.5__ -mmol/L 22.0 26.0 ABE ___-6.4__ -mmol/L -2.0 2.0 tHb ____8.3__ -g/dL 12.0 18.0 O2Hb ___91.1__ -% COHb ____0.7__ -% 0.0 1.5 MetHb ____1.1__ -% 0.4 1.5 sO2 ___92.8__ -% FIO2 ___40.0__ -% Drawn By MM - Date/Time Notified____ 04:30:00 -_ Spontaneous_RR ___18.0__ -b/min Liter_Flow ____5.0__ -L/min Oxygen Device 1 __CANNULA - Notified By MM - Notified Whom DR Mansfield - B 759 -mmHg tO2 ___10.8__ -Vol% Charlie test _Positive -
[2017-01-11 04:42] LABS: Phosphorus 9.2 mg/dL (2.5-4.9)
--- NOTE | 2017-01-11 05:25 | NUR ---
VSS, A/Ox3. NPO after midnight in prep for temporary dialysis cath placement today. Critical results reported to Dr. Chanel.
[2017-01-11] MEDS: Albuterol-Ipratropium 3 mL Inhalation Solution NEB SCH ×2 (08:53→16:00)
[2017-01-11] MEDS: Insulin LISPRO 300 Unit/3 mL Inj SUBQ SCH ×3 (09:35→17:30)
[2017-01-11] MEDS: Lidocaine Topical 5% Patch TOPICAL SCH (09:36)
[2017-01-11] MEDS: Mupirocin 2% 22 Gm Ointment TOPICAL SCH (09:36)
--- NOTE | 2017-01-11 09:46 | PATH ---
SURGICAL PATHOLOGY Attending Physician:See Additional MD CASE STATUS: Signed Out PATIENT NAME: Shelbi Claudio PID: [id number] : 1940 DATE COLLECTED:01/08/2017 00:00 SPECIMEN: Pleural Fluid CLINICAL HISTORY: Pleural Fluid ICD-10 code not given FINAL DIAGNOSIS: Pleural Fluid, Cytology: Negative for malignant cells. ICD10: J90. COMMENT: One cell block slide and on cystopin slide are reviewed, which show numerous benign mesothelial cells in a background of neutrophils and lymphocytes. A high-grade malignant cell population is not identified. GROSS DESCRIPTION: Received fresh on 01/09/2017 is approximately 35 cc of cloudy pink fluid. Prepared are one cell block and one Cytospin slide. Vo ICD-9 CODES: CPT CODES: 1: 44132, 84299, 64820 Electronically Signed Out Cass Bruner MD [facility] Pathology [facility] [address], [place] [address] Technical component performed at [facility], [facility] [address], [place], [address]
--- NOTE | 2017-01-11 10:10 | PROG NOTE ---
[address] [address] PROGRESS NOTE PATIENT: MCKENZIE CÁRDENAS : 1940 MR#: [id number] ADMIT: 12/30/2016 JOB ID: [id number] DATE: 01/11/2017 REASON FOR FOLLOWUP: Right-sided pneumonia with some cavitation with associated exudative sterile pleural effusion. INTERVAL HISTORY: The patient continues to be lethargic and markedly short of breath. No fever, but some subjective chills are noted. She has minimal shortness of breath and also very little in the way of cough. No pleuritic chest pain is noted. The patient has no abdominal complaints. This case discussed with the hospitalist team as well as with the renal team. Renal team plans to insert a catheter for temporary dialysis at this point. PHYSICAL EXAMINATION: Reveals a somewhat lethargic woman who can be roused and answers some questions. She has been afebrile since her admission which is now 12-1/2 days ago. Temperature 36.5, pulse 65, respiratory rate 22, blood pressure 121/45. She is saturating fairly well on 5 L. She is in no acute distress. Oral cavity negative. Lungs wheezes bilaterally, perhaps some decreased breath sounds at the right base. Cardiac tones without new murmur. Abdomen benign. No skin rash. LABORATORIES: Include a white count which is steady at 15,000 which is hard to interpret as she just finished steroids. Her procalcitonin has declined from a level of 38 down to 0.8 which in view of her creatinine of 4.7 is basically normal. Her LFTs are normal. BNP 17,000. Urinalysis without white cells. The ANCA has come back and it is negative crypto antigen, urine Legionella, urine pneumococcal antigens are negative. Blood cultures are negative. Stool PCR negative. Respiratory nasal MRSA PCR is positive. Nasal respiratory viral panel negative and the pleural fluid cultures are negative. A followup sputum culture shows no polys and is therefore at best very poor specimen. Imaging was again reviewed. Today's chest x-ray shows some fluid overload as well as right-sided pleural effusion as previously noted. The CT scan is more instructive, we reviewed that again on the view screen. This is from four days ago it shows a cavitating right lower lobe pneumonia with associated pleural effusion as well as cardiomegaly. IMPRESSION: This is a difficult case of a woman with a wide variety of very significant underlying medical problems including dementia and diabetes as well as history of significant cigarette smoking in the past. She now has worsening renal failure as well as some degree of fluid overload. A right-sided infiltrate with an associated exudative pleural effusion, and she remains oxygen dependent. In terms of infection we have CT evidence of a cavitating pulmonary process, and we have sterile exudative of his associated effusion which is clearly not an empyema. It is possible that she does have a necrotizing right lower lobe MRSA pneumonia which would be the worst possible scenario. Other possibilities here could include Aspergillus, some other fungal process or perhaps a non infectious cause of a cavitating lung disease, but so far, we have no evidence for that either. This is a difficult case made worse by the patient's overall poor functional status, multiple medical problems, and impending need for dialysis. RECOMMENDATIONS: 1. Will continue with aggressive therapy for aspiration type necrotizing pneumonia as well as coverage for MRSA pneumonia with ceftaroline and Flagyl. 2. We await improvements in the chest x-ray as dialysis gets started today. 3. If we could recover another MRSA culture from any site it would be very helpful to know some susceptibilities. We are using ceftaroline now because vanco would seem unwise in a patient with precarious renal function and of course, daptomycin will be of no value. Linezolid could be an option in this case depending on medication interactions as we go forward. 4. This case discussed in person with the hospitalist as well as Nephrology.
--- NOTE | 2017-01-11 10:19 | DRSVH ---
PROCEDURE: X-RAY CHEST ONE VIEW, PORTABLE ([id number]) INDICATIONS: pneumonia, effusions TECHNIQUE: One view of the chest was acquired. COMPARISON: [facility], CR, XR CHEST 1VW (PORTABLE), 01/09/2017, 8:14. [facility], CR, XR CHEST 1VW (PORTABLE), 01/02/2017, 5:14. [facility], CR, XR CHEST 1VW (LAURENT BLE), 01/10/2017, 9:53. FINDINGS: Surgical changes and devices: Left PICC present tip projected over the mid superior vena cava. Lungs and pleura: Diffuse, widespread bilateral pulmonary interstitial and air space opacities are pr esent which appear similar to prior examination. Persistent small to moderate right pleural effusion . No pneumothorax. Mediastinum: Mediastinal contours appear normal. Heart size is enlarged. Bones and chest wall: No suspicious bony lesions. Overlying soft tissues appear unremarkable. IMPRESSION: 1. Pulmonary edema and or diffuse bibasilar pneumonia redemonstrated. Continued plain film surveillan ce is recommended to ensure resolution, and to exclude underlying or central malignancy. 2. Persistent small/moderate right pleural effusion. Dictated by: Hal ARANA Interpreted: Emilie Babin MD on 01/11/2017 at 9:36 Approved by: Emilie Babin M.D. on 01/11/2017 at 10:17
[2017-01-11] MEDS ORDERED: Heparin 5,000 Unit/mL Inj IVPUSH ONE (10:50)
[2017-01-11] MEDS ORDERED: Albumin 25% 100 ML IV SCH (10:50)
[2017-01-11 11:11] LABS: APPEARANCE,URINE HAZY (CLEAR,HAZY); COLOR,URINE DARK YELLOW (YELLOW); OCCULT BLOOD,URINE LARGE (NEGATIVE); UROBILINOGEN,URINE NORMAL (NORMAL)
--- NOTE | 2017-01-11 12:00 | PCM.PNNEPH ---
Subjective Date of Service Jan 11, 2017 Subjective Very weak and drowsy. Wheezing. Agreed to proceed with HD today. Exam Vital Signs Vital Sign - Last Date Time Temp Pulse Resp B/P Pulse Ox O2 Delivery O2 Flow Rate FiO2 01/11/17 11:45 36.6 63 18 130/49 96 Nasal Cannula 4.00 01/07/17 20:15 96 Intake and Output 01/10/17 01/10/17 01/11/17 Cumulative From/Thru 15:00 23:00 07:00 12/30/16 02:13 - 01/11/17 06:41 Intake Total 200 ml 2418 ml 354 ml 91319 ml Output Total 100 ml 150 ml 9825 ml Balance 200 ml 2318 ml 204 ml 55183 ml Intake Oral 200 ml 200 ml 0 ml 29398 ml IV Total 2218 ml 354 ml 29876 ml Packed Cells 300 ml Output Urine Total 100 ml 150 ml 9425 ml Urine/Stool Mix 400 ml # Voids 3 23 # Bowel Movements 1 18 Exam General appearance: AAOX3, tachypneic. HEENT: Atraumatic. mild pallor, no icteric sclerae. (+) JVD. No lymphadenopathy. Heart: Regular rhythm. Normal S1, S2. No murmurs, rubs, or gallops. Lungs: wheezing B/L. no rhonchi. Abdomen: Soft, nontender, nondistended. No hepatosplenomegaly. Extremities:1+ edema in the lower extremity. Lab and Diagnostics Result Diagram: 01/11/1735601/11/17356 Microbiology Blood cultures 2 no growth to date X-Rays, CTs and MRIs X-RAY CHEST ONE VIEW, PORTABLE 1. No focal consolidation is visualized at the right lung base to correspond with the dense radiopacities visualized on the CT dated 12/30/16. Lateral view may be helpful to further characterize findings. 2. Low lung volumes and basilar atelectasis. Dictated by: Cathryn Robles M.D. on 12/31/2016 at 13:31 Approved by: Cathryn Robles M.D. on 12/31/2016 at 13:34 CT ABDOMEN AND PELVIS WITHOUT CONTRAST IMPRESSION: Dense pneumonia right lower lobe posteriorly, quality of visualization through the abdomen and pelvis is limited by absence of both oral and intravenous contrast. Prior cholecystectomy. No definite additional acute disease. Dictated by: Nitin Rubio M.D. on 12/30/2016 at 22:07 Approved by: Nitin Rubio M.D. on 12/30/2016 at 22:09 X-RAY CHEST ONE VIEW, PORTABLE IMPRESSION: 1. No focal consolidation is visualized at the right lung base to correspond with the dense radiopacities visualized on the CT dated 12/30/16. Lateral view may be helpful to further characterize findings. 2. Low lung volumes and basilar atelectasis. Dictated by: Cathryn Robles M.D. on 12/31/2016 at 13:31 Approved by: Cathryn Robles M.D. on 12/31/2016 at 13:34 X-RAY CHEST ONE VIEW, PORTABLE IMPRESSION: Persistent mid right and bibasilar air space opacities suspicious for aspiration or pneumonia. Dictated by: Hal Pierson [facility] Interpreted: Joel Rinaldi MD on 01/02/2017 at 9:15 Approved by: Joel Rinaldi M.D. on 01/02/2017 at 10:51 . Cardiac Echo Impressions Echocardiogram Interpretation Summary The ejection fraction is estimated to be 60-65%. There is mild mitral regurgitation. Compared to the prior echo study, there has been a decrease in the severity of mitral regurgitation. There is mild aortic regurgitation. Compared to the prior echo study, there has been no change in the severity of aortic regurgitation. There is no other significant valvular heart disease. Reading Physician:PM Plan Impression 1. Acute kidney injury superimposed chronic kidney disease secondary to ATN. with fluid overload. 2. Sepsis secondary to healthcare associated pneumonia. 3. Type 2 diabetes. 4. Anemia in chronic illness. 5. Suspected diastolic heart failure. Plan: Temporary HD catheter placement today. First HD to start for 3 hr. Plan for daily HD. If functional status declines despite being on dialysis treatment, may consider hospice care. We will reassess her volume status on the daily basis. Palliative consultation for goals of care. Clarke Pickens MD Jan 11, 2017 12:00
[2017-01-11] MEDS ORDERED: Heparin 1,000 Unit/mL 10 mL Inj ONE (12:59)
[2017-01-11] MEDS ORDERED: Heparin 10,000 Unit/1,000 mL NS Premix IV ONE (12:59)
--- NOTE | 2017-01-11 13:07 | NUR ---
Off unit: Pt off unit for temp HD cath placement at 1230
--- NOTE | 2017-01-11 13:20 | PCM.PNMED ---
Subjective Date of Service Jan 11, 2017 Subjective Subjective: Patient lethargic this morning and giving short responses to questioning. Events Overnight: No acute events overnight. ROS: Denies fever/chills, nausea/vomiting, headache, weakness, abdominal pain, chest pain, shortness of breath, increased swelling in hands or feet. Exam Vital Signs Vital Sign - Last Date Time Temp Pulse Resp B/P Pulse Ox O2 Delivery O2 Flow Rate FiO2 01/11/17 11:45 36.6 63 18 130/49 96 Nasal Cannula 4.00 01/07/17 20:15 96 Intake and Output 01/10/17 01/10/17 01/11/17 Cumulative From/Thru 15:00 23:00 07:00 12/30/16 02:13 - 01/11/17 06:41 Intake Total 200 ml 2418 ml 354 ml 39969 ml Output Total 100 ml 150 ml 9825 ml Balance 200 ml 2318 ml 204 ml 99161 ml Intake Oral 200 ml 200 ml 0 ml 89279 ml IV Total 2218 ml 354 ml 66786 ml Packed Cells 300 ml Output Urine Total 100 ml 150 ml 9425 ml Urine/Stool Mix 400 ml # Voids 3 23 # Bowel Movements 1 18 Exam General: No acute distress, well-developed, well-nourished Head: Normocephalic, atraumatic. External ears without defect. Eyes: Pupils equal, round, and reactive to light and accommodation. Anicteric sclerae, moist conjunctivae. Neck: Normal range of motion, no lymphadenopathy noted MSK: Right lower thoracic spine tender to palpation Cardiovascular: Regular rate and rhythm with mild systolic murmur, no rubs, or gallops appreciated Pulmonary: Lungs clear to auscultation except for mild rhonchi Abdomen: Bowel tones present. Soft, nontender, nondistended. Extremities: No clubbing, cyanosis, trace edema in the lower legs bilaterally Skin: Normal temperature, turgor, and texture; no rash, ulcers, or subcutaneous nodules appreciated. Neurological: Cranial nerves grossly intact. Reflexes, coordination, and sensory function within normal limits. Normal muscle strength, tone, and bulk. Psychiatric: Normal mood and affect. Alert and oriented to person, place, and time IVs and Medications IV Fluids 350 mL normal saline diluted with IV medications. Medications Reviewed: Medications were reviewed in detail Lab and Diagnostics Result Diagram: 01/11/17 0357 01/11/17 0357 Microbiology Blood cultures 2 no growth to date X-Rays, CTs and MRIs X-RAY CHEST ONE VIEW, PORTABLE 1. No focal consolidation is visualized at the right lung base to correspond with the dense radiopacities visualized on the CT dated 12/30/16. Lateral view may be helpful to further characterize findings. 2. Low lung volumes and basilar atelectasis. Dictated by: Cathryn Robles M.D. on 12/31/2016 at 13:31 Approved by: Cathryn Robles M.D. on 12/31/2016 at 13:34 CT ABDOMEN AND PELVIS WITHOUT CONTRAST IMPRESSION: Dense pneumonia right lower lobe posteriorly, quality of visualization through the abdomen and pelvis is limited by absence of both oral and intravenous contrast. Prior cholecystectomy. No definite additional acute disease. Dictated by: Nitin Rubio M.D. on 12/30/2016 at 22:07 Approved by: Nitin Rubio M.D. on 12/30/2016 at 22:09 X-RAY CHEST ONE VIEW, PORTABLE IMPRESSION: 1. No focal consolidation is visualized at the right lung base to correspond with the dense radiopacities visualized on the CT dated 12/30/16. Lateral view may be helpful to further characterize findings. 2. Low lung volumes and basilar atelectasis. Dictated by: Cathryn Robles M.D. on 12/31/2016 at 13:31 Approved by: Cathryn Robles M.D. on 12/31/2016 at 13:34 X-RAY CHEST ONE VIEW, PORTABLE IMPRESSION: Persistent mid right and bibasilar air space opacities suspicious for aspiration or pneumonia. Dictated by: Hal Pierson [facility] Interpreted: Joel Rinaldi MD on 01/02/2017 at 9:15 Approved by: Joel Rinaldi M.D. on 01/02/2017 at 10:51 . Cardiac Echo Impressions Echocardiogram Interpretation Summary The ejection fraction is estimated to be 60-65%. There is mild mitral regurgitation. Compared to the prior echo study, there has been a decrease in the severity of mitral regurgitation. There is mild aortic regurgitation. Compared to the prior echo study, there has been no change in the severity of aortic regurgitation. There is no other significant valvular heart disease. Reading Physician:PM Assessment & Plan 76-year-old female with past medical history of minor dementia, type II diabetes , chronic kidney disease, hypertension who presents emergency department via EMS from [facility] for fever with associated back pain and shortness of breath. Right lower lobe necrotic cavitary pneumonia secondary to possible aspiration, present on admission, active - Seen on CT on 01/07, patients cough is productive with both hemoptysis and sputum however culture continues to show normal conner. Strep urine antigen, Legionella urine antigen negative. - MRSA PCR positive - Continue IV ceftaroline and metronidazole, - Continue Acapella and incentive spirometry - Swallow study with nursing to insist patient takes meals in a chair - Swallow eval recommends barium swallow to rule out silent aspiration, this was denied by the patient. - Diagnostic ultrasound-guided diagnostic thoracentesis completed on 01/08 cultures pending, fluid suggests exudate, likely due to ongoing pneumonia. - ID following - Pulmonology following Acute hypoxic Respiratory distress, present on admission, active Increased respirations, wheezing, likely due to previously undiagnosed COPD vs acute pneumonia -Oxygen requirements stable, continue to monitor -Patient is currently tolerating 4-5 L nasal cannula, titrate down when possible. at baseline she does not use oxygen -Treat underlying pneumonia with ceftaroline and metronidazole -Duo nebs ordered TID with Q4 PRN -Pulmonology following Possible COPD exacerbation, not present on admission, stable - Duo nebs ordered TID with Q4 PRN - Prednisone discontinued - Continue to monitor Acute on chronic kidney injury, present on admission, worsening Patient of Dr. Cortez, baseline creatinine 1.7-1.8, last admission on discharge patient's creatinine was 2.6. On admission creatinine 2.7 - Increasing creatinine since 01/05, nephrology aware and following - Patient received 4 L normal saline overnight on 01/09 due to dropping blood pressures secondary to labetalol dosing - Dialysis catheter placed 01/11, attempt dialysis - Start darbepoetin 40 g subcutaneous - Continue to monitor Normocytic anemia, present on admission, stable Secondary to chronic kidney disease - Hemoglobin 10.2 on admission. - 7.5 on 01/04, Patient transfused 1 unit of blood, post-transfusion 8.4 - Start darbepoetin 40 g subcutaneous - H&H currently stable - Continue to monitor High anion gap metabolic acidosis, present on admission, Improving Likely secondary to acute on chronic kidney injury -Kidney function worsening 01/05 -Nephrology consulted, dialysis initiation on 01/11 -Continue to monitor Chronic Hyponatremia, present on admission, active Patient has a chronic history of hyponatremia, at least in part due to polydipsia -Nephrology consulting, dialysis initiation on 01/11 -Serum and urine osmolalities within normal limits Septic shock, present on admission, Resolved Initially increased WBC, borderline tachycardia, hyperventilation, hypotension, increased temp,lactic acidosis, other than increased creatinine no evidence of end organ damage. -Likely secondary to RLL pneumonia -Blood cultures x2 negative to date -Stool PCR negative 2 - Patient's antibiotics converted to ceftaroline and metronidazole after repeat CT shows cavitary pneumonia - Diagnostic ultrasound-guided diagnostic thoracentesis completed on 01/08 - Procalc continues to trend down - Blood pressures now appropriate, antihypertensive medications resumed Chronic Hypertension, present on admission, active - All home antihypertensive medications resumed - Continue to hold unless pressures are above 140 systolic. Acute onset chest pain, not present on admission, resolved 01/02 patient began experiencing acute onset chest pain likely associated with respiratory distress - Serial troponins negative - EKG no changes from previous Electrolyte imbalance, present on admission, active -Likely secondary to acute on chronic kidney injury -No interventions necessary at this time -Continue to monitor Hyperlipidemia, chronic -Continue home atorvastatin Type II diabetes, active - Glucose 166 on arrival - Hemoglobin A1c 6.2 on 11/02/16 - Medium dose correctional - Home glipizide held Dementia, stable - Continue home Quetiapine Insomnia, active - Patient states that she was previously taking amitriptyline for insomnia and this worked very well for her. - Patient given Amitriptyline 150 mg at bedtime on 01/09, she reports that she slept very well and showed no signs of acute encephalopathy in the morning. - On patient became lethargic and minimally responsive. Amitriptyline dosing decreased to 75 mg at bedtime VTE Prophylaxis: Sub-Q Heparin (Unfractionated) VTE Mechanical Devices: Intermittant Pneumatic CD Resuscitation Status: DNR/DNI:Do Not Resuscitate/Intubate Rai Duff DO Jan 11, 2017 13:20 Chandler Blank MD Jan 11, 2017 19:00
--- NOTE | 2017-01-11 13:33 | NUR ---
HD: Pt to go directly from agriculture laboratory technician to [facility] for HD Addendum: 01/11/17 at 1400 by JOSEFINA RUTLEDGE RN per Infectious Disease, pt's AM antibiotic is to be given after dialysis today
--- NOTE | 2017-01-11 13:55 | NUR ---
Transfer from laborer [place] Patient received from lab associate. Report received from Evan. Michaud. Moist productive cough. Sp02 92% on 4L/nc. wireless field technician notified of transfer. SR 74. Contact precautions continued. Addendum: 01/11/17 at 1402 by KORI MOLINA RN pie cutter at bedside.
--- NOTE | 2017-01-11 14:15 | DRSVH ---
PROCEDURE: 1. right internal jugular vein non-tunneled temporary hemodialysis catheter placement. 2. Ultrasound guidance for right internal jugular vein access. INDICATIONS: Renal failure. COMPARISON: None. Technique: Informed, written consent from the patient was obtained prior to the procedure. Patient wa s brought to the angiography suite. Continuous cardiorespiratory monitoring was performed. Maximal st erile barrier technique, hand hygiene, skin preparation, and sterile ultrasound technique was followe d. A mask, sterile gown, sterile gloves, a large sterile sheet, hand hygiene, and 2% chlorhexidine or iodine was utilized for skin antisepsis. The right neck and chest wall were prepped and draped steri priyanka, and infused with lidocaine. The right internal jugular vein was accessed antegrade under sonogr aphic guidance with a micropuncture set. An 035 J-wire was advanced into the inferior vena cava. The venotomy tract was sequentially dilated. A double-lumen temporary hemodialysis catheter was advanced over a wire. Adequate flow was obtained through both lumens of the catheter. The catheter was then f astened to the skin surface. Fluoroscopy time: FINDINGS: Left internal jugular vein was not seen. The right internal jugular vein is patent by ultra sound. Following hemodialysis catheter placement, the tip of the catheter is at the cavoatrial juncti on. IMPRESSION: Right internal jugular vein temporary hemodialysis catheter placement using fluoroscopic and ultrasound guidance. Dictated by: Emilie Babin M.D. on 01/11/2017 at 14:13 Approved by: Emilie Babin M.D. on 01/11/2017 at 14:14
--- NOTE | 2017-01-11 17:25 | NUR ---
Dialysis note: S/P catheter placement 3 hrs tx 3000 ml net UF Right temp catheter, dsg changed, sutures intact Hepatitis serologies drawn Pls see DTR for VS details Qb 250 Heparin given O2 @ 4L via NC on Albumin 25% 100 ml IV given as ordered Tolerated tx, slept at intervals Catheter flushed, heparin dwelled and secured Stable condition at end of tx Report given to Fabiola VICTORIA
--- NOTE | 2017-01-11 17:38 | NUR ---
Transfer to 2024 Patient completed dialysis. See tower helper note. Report given to Stella Castellon RN. commercial maintenance technician notified. Transported in hospital bed per staff.
[2017-01-11] MEDS: Ceftaroline Inj 400 MG in Dextrose 5% 250 ML IV SCH (17:40)
--- NOTE | 2017-01-11 18:53 | PCM.CONPAL ---
Date of Service Jan 11, 2017 Date of Hospital Admission: Dec 30, 2016 at 05:13 Date of Palliative Consult: Jan 11, 2017 Requesting Provider: Chandler Wiley MD Reason Palliative Care Consult: Goals of Care Discussion Hospital Unit @time of consult: Progressive Care Palliative Care Recommendation Summary of palliative recommendations: Patient during discussion with her daughter Kim. Nickerson then at bedside. Cause of most likely combination of severe necrotizing pneumonia in combination with progressive renal failure and CHF with a BNP of 17,000 No CPR attempted patient's request. Problems: Resuscitation Status Resuscitation Status: DNR/DNI:Do Not Resuscitate/Intubate Pt History History of Present Illness 76-year-old female with past medical history of minor dementia, type II diabetes , chronic kidney disease, hypertension who presents emergency department via EMS from [facility] for fever with associated back pain and shortness of breath. Patient describes 12 hour history of increased back pain associated with fever, shortness of breath, and diarrhea without abdominal pain. Patient describes pain in the right lower back dull 10/10 which does not radiate. Pain is relieved with Peyton. PALLIATIVE CARE CONSULTATION REASON: GOALS OF CARE REFERRING DR. WILEY 76-year-old female with history of mild dementia diabetes hypertension and history of chronic kidney disease who is admitted with a diagnosis of pneumonia necrosing Thought to be possibly due to aspiration. Patient has had multiple hospitalizations in the past 4 months with diagnosis of kidney disease ranging from near 2.0 creatinine in May increasing to 5.31 and November. Each hospitalization showed improvement with hydration only to worsen in follow-up. She is a long history of diabetes hypertension osteoarthritis GAIT instability with frequent falls. She has history of head trauma from falling down a flight of stairs. She also has a history of presumed COPD from [id number] history of smoking. She discontinued smoking about 2 years ago. Prior to this admission she has no mention in her past records of heart disease or CHF. In speaking to her daughter Liya-she knew of no history of heart disease. Patient moved to this area about 4 years ago after falling down a flight of stairs with significant head trauma. She has been living in senior housing. She has had a couple of stays at [facility] due to her gait instability and falls. She has been primarily assisted and supported by her daughter Liya who lives near her in [facility] Past Medical History Significant PMH Noted: Hypertension Obesity Chronic kidney disease see above Diabetes Mild dementia COPD with bronchospasm Osteoarthritis particularly left knee Gait instability with frequent falls Chronic anemia Chronic insomnia History of alcohol overuse discontinued 30 years ago History of smoking discontinued about 2 years ago after 60 pack history Chronic migraines Status post hysterectomy and cholecystectomy Social History Occupation: Retired Living Situation: See above POLST at Time of Admission Cardiopulmonary Resuscitation: DNR: Do Not Attempt Resuscitation Allergy Allergies Reviewed: Yes Medications Current Medications: Current Medications Amitriptyline HCl 150 mg HS PO Last administered on 01/10/17 20:10; Admin Dose 150 MG; Start 01/09/17 at 20:00; Stop 01/11/17 at 15:13; Status DC Metronidazole HCl 250 mg Q8 PO; Start 01/10/17 at 16:30; Stop 01/10/17 at 16:30 ; Status DC Metronidazole HCl 250 mg Q8H PO Last administered on 01/10/17 23:41; Admin Dose 250 MG; Start 01/10/17 at 16:30 Amitriptyline HCl 75 mg HS PO; Start 01/11/17 at 21:00 Scheduled ([nortriptyline]) 150 MG PO DAILY Amitriptyline (Amitriptyline) 75 Mg Tablet 150 MG PO HS Amlodipine (Amlodipine) 5 Mg Tablet 10 MG PO HS Atorvastatin (Lipitor) 10 Mg Tab 10 MG PO DAILY Chlorthalidone (Chlorthalidone) 25 Mg Tablet 25 MG PO DAILY Donepezil (Donepezil) 5 Mg Tablet 5 MG PO BID Glipizide ER (Glipizide ER) 2.5 Mg Tab.er.24 2.5 MG PO DAILY Lisinopril (Lisinopril) 20 Mg Tablet 20 MG PO DAILY Potassium Chloride (Potassium Chloride) 10 Meq Capsule.er 10 MEQ PO DAILY TAKE WITH FOOD Torsemide (Torsemide) 20 Mg Tablet 20 MG PO DAILY Scheduled PRN Acetaminophen (Acetaminophen) 325 Mg Tablet 325 MG PO Q4H PRN PRN For Pain Hydrocodone-Acetaminophen 5-325 mg (Hydrocodone-Acetaminophen 5-325 mg) 1 Each Tablet 1 TABLET PO Q24 PRN PRN For Pain Loperamide HCl (Imodium A-D) 2 Mg Capsule 2 MG PO BID PRN PRN For Diarrhea or Loose Stool Quetiapine Fumarate (Quetiapine Fumarate) 25 Mg Tablet 25 MG PO HS PRN PRN insomnia, melatonin fail Objective Findings Exam Vital Sign - Last Date Time Temp Pulse Resp B/P Pulse Ox O2 Delivery O2 Flow Rate FiO2 01/11/17 18:10 59 10 94 Room Air 6.00 01/11/17 17:41 36.8 149/59 01/07/17 20:15 96 Intake and Output 01/10/17 01/10/17 01/11/17 Cumulative From/Thru 15:00 23:00 07:00 12/30/16 02:13 - 01/11/17 06:41 Intake Total 200 ml 2418 ml 354 ml 30154 ml Output Total 100 ml 150 ml 9825 ml Balance 200 ml 2318 ml 204 ml 49362 ml Intake Oral 200 ml 200 ml 0 ml 31913 ml IV Total 2218 ml 354 ml 68924 ml Packed Cells 300 ml Output Urine Total 100 ml 150 ml 9425 ml Urine/Stool Mix 400 ml # Voids 3 23 # Bowel Movements 1 18 Objective Patient was minimally responsive this morning but able to respond with yes appropriately to a few questions Patient then was down for catheter placement and dialysis She returned and later this afternoon seem to be in some respiratory distress and was otherwise not responsive Called to see patient while interviewing her daughter Liya Patient was unresponsive no palpable pulse and without spontaneous respirations Initial pvc monitor with agonal rhythm at 20. Patient , daughter and house staff, Filomena VICTORIA present Lab/Diagnostics Lab and Imaging results reviewed in detail in EMR. Patient/Family Conference Discussion/Goals of Care Discussion FAMILY UNDERSTANDING OF DISEASE: DISEASE PROGRESSION/EVIDENCE OF DECLINE: SYMPTOM BURDEN: GOALS: HOPES/WORRIES: FAMILY WISHES/VALUES: Do you want to be told truth about his illness, even if unpleasant? Does family want to know prognosis when it can be predicted, to better guide treatment decisions? What is quality of life for the patient: to be able to interact with their loved ones and friends, to travel, not to be bedbound, to be independent in taking care of themselves: Would patient choose quality of life over quantity of life? Would comfort care be more important than being awake and alert? If patient is no longer alert and aware because of their illness, would you choose comfort for them? Palliative Care counselled: Time spent Total time 55 minutes; >50% face to face with patient and/or family, providing counselling regarding plans and recommendations, and in care coordination with his/her medical teams. Majority of time spent with chart review, case review with Dr. Sadler and hospitalist team and communication with her daughter Liya Hidalgo also spent an additional [ ] minutes counseling for advanced care planning with the patient/the patients family/the surrogate decision maker. Nia Damon MD Jan 11, 2017 18:53
--- NOTE | 2017-01-11 19:21 | NUR ---
: Pt returned to unit after dialysis, drowsy but oriented, able to answer questions, VSS. Approx 15-20 minutes after returning, heart rate dropped to 20s, RN notified by MT, testing projects administrator at bedside. MD at bedside to assess pt, daughter spoke with palliative care MD and was at bedside as pt passed. Daughter took personal belongings home with her, with the exception of pt's rings and one bracelet that would not come off. Daughter aware of jewelry not coming off, stated "That's fine." Digester Cook notified, pt is not a catering server case. Donor referral notified, pt is going to be further screened for possible donation. Oncoming nurse aware. Family has not chosen a home, will notify nursing bottling supervisor when home is chosen.
--- NOTE | 2017-01-11 19:52 | PCM.DC.MEX ---
Discharge Summary Date of Service Jan 11, 2017 Dates of Hospitalization Date of Hospital Admission Dec 30, 2016 at 05:13 Date of Expiration: Jan 11, 2017 Time of Expiration: 18:24 Providers: Admitting Physician: Michelle Osei DO Primary Care Physician: Afshin Cortez DO Attending Physician: Chandler Wiley MD Diagnosis at Time of Hypotensive crisis secondary to cardiogenic shock Additional Diagnosis Acute respiratory insufficiency Consultations Nephrology: Dr. Doroteo Macario ID: Dr. Broussard Pulmonology: Dr. Alcala Procedures XRay, CTs & MRIs X-RAY CHEST ONE VIEW, PORTABLE 1. No focal consolidation is visualized at the right lung base to correspond with the dense radiopacities visualized on the CT dated 12/30/16. Lateral view may be helpful to further characterize findings. 2. Low lung volumes and basilar atelectasis. Dictated by: Cathryn Robles M.D. on 12/31/2016 at 13:31 Approved by: Cathryn Robles M.D. on 12/31/2016 at 13:34 CT ABDOMEN AND PELVIS WITHOUT CONTRAST IMPRESSION: Dense pneumonia right lower lobe posteriorly, quality of visualization through the abdomen and pelvis is limited by absence of both oral and intravenous contrast. Prior cholecystectomy. No definite additional acute disease. Dictated by: Nitin Rubio M.D. on 12/30/2016 at 22:07 Approved by: Nitin Rubio M.D. on 12/30/2016 at 22:09 X-RAY CHEST ONE VIEW, PORTABLE IMPRESSION: 1. No focal consolidation is visualized at the right lung base to correspond with the dense radiopacities visualized on the CT dated 12/30/16. Lateral view may be helpful to further characterize findings. 2. Low lung volumes and basilar atelectasis. Dictated by: Cathryn Robles M.D. on 12/31/2016 at 13:31 Approved by: Cathryn Robles M.D. on 12/31/2016 at 13:34 X-RAY CHEST ONE VIEW, PORTABLE IMPRESSION: Persistent mid right and bibasilar air space opacities suspicious for aspiration or pneumonia. Dictated by: Hal Pierson Sayra Interpreted: Joel Rinaldi MD on 01/02/2017 at 9:15 Approved by: Joel Rinaldi M.D. on 01/02/2017 at 10:51 CT CHEST WITHOUT CONTRAST IMPRESSION: 1. Cavitating right lower lobe infection with moderate associated pleural effusion. 2. Tiny left pleural effusion. 3. Left sided venous catheter tip in the upper SVC. 4. Cardiomegaly. Dictated by: Corby Lopez M.D. on 01/07/2017 at 15:31 Approved by: Corby Lopez M.D. on 01/07/2017 at 15:35 X-RAY CHEST, TWO VIEWS IMPRESSION: 1. Moderate right pleural effusion with mid/basal air space opacity consistent with compressive atelectasis versus pneumonia. 2. Persistent retrocardiac airspace opacity consistent with atelectasis versus pneumonia. Dictated by: Hal ARANA Interpreted: Micah Shepard MD on 01/08/2017 at 8:51 Approved by: Micah Shepard M.D. on 01/08/2017 at 12:07 X-RAY CHEST ONE VIEW, PORTABLE IMPRESSION: 1. Pleural effusions, interstitial opacities, and cardiomegaly consistent with fluid overload. Dictated by: Cathryn Robles M.D. on 01/09/2017 at 8:44 Approved by: Cathryn Robles M.D. on 01/09/2017 at 8:45 X-RAY CHEST ONE VIEW, PORTABLE IMPRESSION: 1. Pulmonary edema and/or diffuse bibasilar pneumonia redemonstrated similar to prior examination. 2. Persistent small/moderate right pleural effusion. Dictated by: Hal ARANA Interpreted: Micah Shepard MD on 01/10/2017 at 10:11 Approved by: Micah Shepard M.D. on 01/10/2017 at 11:42 X-RAY CHEST ONE VIEW, PORTABLE IMPRESSION: 1. Pulmonary edema and or diffuse bibasilar pneumonia redemonstrated. Continued plain film surveillance is recommended to ensure resolution, and to exclude underlying or central malignancy. 2. Persistent small/moderate right pleural effusion. Dictated by: Hal ARANA Interpreted: Emilie Babin MD on 01/11/2017 at 9: 36 Approved by: Emilie Babin M.D. on 01/11/2017 at 10:17 Cardiac Echo Impression Echocardiogram Interpretation Summary The ejection fraction is estimated to be 60-65%. There is mild mitral regurgitation. Compared to the prior echo study, there has been a decrease in the severity of mitral regurgitation. There is mild aortic regurgitation. Compared to the prior echo study, there has been no change in the severity of aortic regurgitation. There is no other significant valvular heart disease. Reading Physician:NIKKY Invasive Procedures PROCEDURE: 1. right internal jugular vein non-tunneled temporary hemodialysis catheter placement. 2. Ultrasound guidance for right internal jugular vein access. IMPRESSION: Right internal jugular vein temporary hemodialysis catheter placement using fluoroscopic and ultrasound guidance. Dictated by: Emilie Babin M.D. on 01/11/2017 at 14:13 Approved by: Emilie Babin M.D. on 01/11/2017 at 14:14 Other Diagnostics US RENAL SONOGRAM IMPRESSION: 1. The kidneys are sonographically normal. 2. The patient is incontinent which precludes pre-and post void bladder measurements. 3. Small amount of left upper quadrant fluid incidentally noted. This finding was not present on the 12/30/2016 CT Dictated by: Corby Lopez M.D. on 01/07/2017 at 11:44 Approved by: Corby Lopez M.D. on 01/07/2017 at 11:46 Brief History 76-year-old female with past medical history of minor dementia, type II diabetes , chronic kidney disease, hypertension who presents emergency department via EMS from [facility] for fever with associated back pain and shortness of breath. Patient describes 12 hour history of increased back pain associated with fever, shortness of breath, and diarrhea without abdominal pain. Patient describes pain in the right lower back dull 10/10 which does not radiate. Pain is relieved with Morris. PALLIATIVE CARE CONSULTATION REASON: GOALS OF CARE REFERRING DR. WILEY 76-year-old female with history of mild dementia diabetes hypertension and history of chronic kidney disease who is admitted with a diagnosis of pneumonia necrosing Thought to be possibly due to aspiration. Patient has had multiple hospitalizations in the past 4 months with diagnosis of kidney disease ranging from near 2.0 creatinine in May increasing to 5. and November. Each hospitalization showed improvement with hydration only to worsen in follow-up. She is a long history of diabetes hypertension osteoarthritis GAIT instability with frequent falls. She has history of head trauma from falling down a flight of stairs. She also has a history of presumed COPD from [id number] history of smoking. She discontinued smoking about 2 years ago. Prior to this admission she has no mention in her past records of heart disease or CHF. In speaking to her daughter Liya-she knew of no history of heart disease. Patient moved to this area about 4 years ago after falling down a flight of stairs with significant head trauma. She has been living in senior housing. She has had a couple of stays at [facility] due to her gait instability and falls. She has been primarily assisted and supported by her daughter Liya who lives near her in [facility] 76-year-old female with past medical history of minor dementia, type II diabetes , chronic kidney disease, hypertension who presents emergency department via EMS from [facility] for fever with associated back pain and shortness of breath. Right lower lobe necrotic cavitary pneumonia secondary to possible aspiration, present on admission, active - Seen on CT on 01/07, patients cough is productive with both hemoptysis and sputum however culture continues to show normal conner. Strep urine antigen, Legionella urine antigen negative. - MRSA PCR positive - Diagnostic ultrasound-guided diagnostic thoracentesis completed on 01/08 cultures pending, fluid suggests exudate, likely due to ongoing pneumonia. - ID following - Pulmonology following Acute hypoxic Respiratory distress, present on admission, active Increased respirations, wheezing, likely due to previously undiagnosed COPD vs acute pneumonia -Oxygen requirements stable, continue to monitor -Patient requiring 4-5 L nasal cannula, titrate down when possible. at baseline she does not use oxygen -Pulmonology following Possible COPD exacerbation, not present on admission, stable - Duo nebs ordered TID with Q4 PRN - Prednisone discontinued Acute on chronic kidney injury, present on admission, worsening Patient of Dr. Cortez, baseline creatinine 1.7-1.8, last admission on discharge patient's creatinine was 2.6. On admission creatinine 2.7 - Increasing creatinine since 01/05, nephrology aware and following - Patient received 4 L normal saline overnight on 01/09 due to dropping blood pressures secondary to labetalol dosing - Dialysis catheter placed 01/11, attempt dialysis Normocytic anemia, present on admission, stable Secondary to chronic kidney disease - Hemoglobin 10.2 on admission. - 7.5 on 01/04, Patient transfused 1 unit of blood, post-transfusion 8.4 - H&H stable High anion gap metabolic acidosis, present on admission, Improving Likely secondary to acute on chronic kidney injury -Kidney function worsening 01/05 -Nephrology consulted, dialysis initiation on 01/11 Chronic Hyponatremia, present on admission, active Patient has a chronic history of hyponatremia, at least in part due to polydipsia -Nephrology consulting, dialysis initiation on 01/11 -Serum and urine osmolalities within normal limits Septic shock, present on admission, Resolved Initially increased WBC, borderline tachycardia, hyperventilation, hypotension, increased temp,lactic acidosis, other than increased creatinine no evidence of end organ damage. -Likely secondary to RLL pneumonia -Blood cultures x2 negative to date -Stool PCR negative 2 - Diagnostic ultrasound-guided diagnostic thoracentesis completed on 01/08 - Procalc continues to trend down - Blood pressures now appropriate, antihypertensive medications resumed Chronic Hypertension, present on admission, active - All home antihypertensive medications resumed Acute onset chest pain, not present on admission, resolved 01/02 patient began experiencing acute onset chest pain likely associated with respiratory distress - Serial troponins negative - EKG no changes from previous Electrolyte imbalance, present on admission, active -Likely secondary to acute on chronic kidney injury -No interventions necessary at this time Hyperlipidemia, chronic Type II diabetes, active - Glucose 166 on arrival - Home glipizide held Dementia, stable Insomnia, active - Patient states that she was previously taking amitriptyline for insomnia and this worked very well for her. Exam Test 12/30/16 02:40 12/30/16 09:30 12/30/16 11:05 12/30/16 21:46 Urine Osmolality 321mOs/kH2O (250-1200) Urine Legionella pneumophilia Ag Negative (Negative) Osmolality 277 (275-300) Hold [place] Top Tube Received (Received) Hold Estevez Top Tube Received (Received) Test 12/31/16 03:45 01/01/17 11:40 01/02/17 04:20 01/02/17 17:14 Hemoglobin A1c 7.1% (4.8-5.6) Ionized Calcium 1.04mmol/L (1.17-1.32) Hold Purple Top Tube Received (Received) Lactic Acid Level 0.7mmol/L (0.4-2.0) Hold Urine Received (Received) Test 01/03/17 02:43 01/04/17 03:30 01/04/17 11:59 01/06/17 04:00 Troponin T 0.010ug/L (0.0-0.011) Cryptococcus Antigen Negative (Negative) Iron Level 82ug/dL (35-150) Total Iron Binding Capacity 196ug/dL (250-450) Percent Iron Saturation 42%sat (15-50) Unsaturated Iron Binding 114.2ug/dL Ferritin 267ng/mL (13-150) Reticulocyte Count,Calculated 1.4% (0.6-2.6) Vitamin B12 Level >1999pg/mL (211-946) Folate 5.3ng/mL (>3.0) Hematology Comments Test 01/08/17 03:20 01/08/17 11:00 01/08/17 13:40 01/10/17 02:45 Band Neutrophils % 2% (1-5) Lactate Dehydrogenase 310U/L (100-190) Thyroid Stimulating Hormone (TSH) 1.650uIU/mL (0.450-4.500) Body Fluid Source Pleural fluid Body Fluid Color Straw (Clear) Body Fluid Appearance Cloudy Body Fluid pH 7.4 (Not Estab.) Body Fluid WBC 475/mm3 Body Fluid RBC 3875/mm3 Body Fluid Polynuclear WBCs 78% Body Fluid Lymphocytes 20% Body Fluid Monocytes 2% Body Fluid Eosinophils 0% Body Fluid Basophils 0% Body Fluid Lactate Dehydrogenase 314U/L Pleural Fluid Total Protein 2.7g/dL Pleural Fluid Glucose 164mg/dL Myeloperoxidase <9.0U/mL (0.0-9.0) Cytoplasmic ANCA (c-ANCA) Antibody <1:20titer (Neg:<1:20) Proteinase 3 (PR3) Antibodies <3.5U/mL (0.0-3.5) Atypical p-ANCA <1:20titer (Neg:<1:20) Perinuclear ANCA (p-ANCA) Antibody <1:20titer (Neg:<1:20) Total Bilirubin 0.2mg/dL (0.0-1.2) Aspartate Amino Transf (AST/SGOT) 24U/L (0-50) Alanine Aminotransferase (ALT/SGPT) 17U/L (0-32) Alkaline Phosphatase 54U/L (25-165) Total Protein 5.0g/dL (6.4-8.4) Albumin 2.8g/dL (3.4-5.0) Test 01/11/17 03:57 01/11/17 05:00 01/11/17 10:21 01/11/17 14:29 White Blood Count 15.1th/mm3 (3.8-10.1) Red Blood Count 2.70mil/mm3 (3.90-5.20) Hemoglobin 8.0g/dL (12.0-15.6) Hematocrit 23.2% (35.0-46.0) Mean Corpuscular Volume 85.9fL (81-100) Mean Corpuscular Hemoglobin 29.6pg (27.0-35.0) Mean Corpuscular Hemoglobin Concent 34.5% (32.0-37.0) Red Cell Distribution Width 14.4% (12.3-15.4) Platelet Count 166bil/L (150-400) Neutrophils (%) (Auto) 90.9% (40-74) Lymphocytes (%) (Auto) 4.4% (14-46) Monocytes (%) (Auto) 3.9% (4-12) Eosinophils (%) (Auto) 0% (0-5) Basophils (%) (Auto) 0% (0-3) Sodium Level 130mEq/L (134-144) Potassium Level 4.7mEq/L (3.5-5.2) Chloride Level 94mEq/L (97-108) Carbon Dioxide Level 18mmol/L (18-29) Blood Urea Nitrogen 124mg/dL (8-27) Creatinine 4.70mg/dL (0.57-1.00) Estimat Glomerular Filtration Rate 13mL/min (>59) Glucose Level 176mg/dL (60-99) Calcium Level 6.6mg/dL (8.5-10.1) Phosphorus Level 9.2mg/dL (2.5-4.9) Magnesium Level 2.0mg/dL (1.6-2.6) Pro-B-Type Natriuretic Peptide 73861jt/mL (0-738) Procalcitonin 0.81ng/mL (0.00-0.08) Prothrombin Time 12.4sec (8.1-12.5) Prothromb Time International Ratio 1.16ratio Activated Partial Thromboplast Time 33.0sec (22.8-33.0) Urine Color Dark yellow (YELLOW) Urine Appearance Hazy (CLEAR,HAZY) Urine pH 5.0 (5.0-8.0) Urine Specific Egan 1.030 (1.003-1.035) Urine Protein 30mg/dL (NEG,TRACE) Urine Glucose (UA) Negativemg/dL (NEGATIVE) Urine Ketones Negativemg/dL (NEGATIVE) Urine Occult Blood Large (NEGATIVE) Urine Nitrite Negative (NEGATIVE) Urine Bilirubin Negative (NEGATIVE) Urine Urobilinogen Normalmg/dL (NORMAL) Urine Leukocyte Esterase Small (NEGATIVE) Urine RBC Packed/hpf (0-2) Urine WBC 0-5/hpf (0-5) Urine Epithelial Cells Few/hpf (NONE-MOD) Urine Crystals None seen (NONE SEEN) Urine Bacteria Moderate/hpf (NONE-FEW) Urine Hyaline Casts Occasional/lpf (NONE) Urine Granular Casts None seen (NONE SEEN) Urine Waxy Casts None seen (NONE SEEN) Urine Red Blood Cell Casts None seen (NONE SEEN) Urine White Blood Cell Casts None seen (NONE SEEN) Urine Mucus Present (None Seen) Urine Trichomonas None seen (NONE SEEN) Urine Yeast None (NONE SEEN) Urinalysis Comment None Urine Culture Reflexed Indicated Microbiology Results Blood cultures 2 no growth to date Attending Statement The patient was seen and examined together with Dr. Duff on 01/11/2017 and I agree with the history, exam and plan as outlined in the note above. . copies to: Afshin Cortez Adam J DO Jan 11, 2017 19:52 Chandler Wiley MD Jan 12, 2017 16:07 Urine Culture Reflexed Indicated Microbiology Results Blood cultures 2 no growth to date Rai Duff DO Jan 11, 2017 19:52
--- NOTE | 2017-01-11 21:33 | NUR ---
Called security at 2130 for transfer to [facility]. Copies of face sheet and release of body paperwork sent with pt.
== END 2017-01-11 18:15 | disposition expired | DRG 871 ==
LOC: SED 02:09 → PCC 05:13 → CCU 14:41 → PCC 12-31 12:35
PROVIDERS: ADMIT Internal Medicine; ATTEND Internal Medicine
PROC: 4A033R1 Measurement of Arterial Saturation, Peripheral, Percutaneous Approach (ICD-10-PCS; 2016-12-30)
PROC: 30233N1 Transfusion of Nonautologous Red Blood Cells into Peripheral Vein, Percutaneous Approach (ICD-10-PCS; principal; 2017-01-04)
PROC: 05HM33Z Insertion of Infusion Device into Right Internal Jugular Vein, Percutaneous Approach (ICD-10-PCS; 2017-01-11)
PROC: B543ZZA Ultrasonography of Right Jugular Veins, Guidance (ICD-10-PCS; 2017-01-11)
DX: A41.9 Sepsis, unspecified organism (principal); R65.21 Severe sepsis with septic shock; N17.0 Acute kidney failure with tubular necrosis; J69.0 Pneumonitis due to inhalation of food and vomit; J85.0 Gangrene and necrosis of lung; G93.41 Metabolic encephalopathy; E87.1 Hypo-osmolality and hyponatremia; E87.2 Acidosis; J44.1 Chronic obstructive pulmonary disease with (acute) exacerbation; J90 Pleural effusion, not elsewhere classified; N18.3 Chronic kidney disease, stage 3 (moderate); E11.22 Type 2 diabetes mellitus with diabetic chronic kidney disease; I12.9 Hypertensive chronic kidney disease with stage 1 through stage 4 chronic kidney disease, or unspecified chronic kidney disease; Z79.84 Long term (current) use of oral hypoglycemic drugs; D64.9 Anemia, unspecified; E66.01 Morbid (severe) obesity due to excess calories; Z68.35 Body mass index [BMI] 35.0-35.9, adult; F03.90 Unspecified dementia, unspecified severity, without behavioral disturbance, psychotic disturbance, mood disturbance, and anxiety; Z87.891 Personal history of nicotine dependence; E78.5 Hyperlipidemia, unspecified; Z66 Do not resuscitate; E87.5 Hyperkalemia